=== PATIENT | female | born 1950 | race Caucasian/White ===

== ENCOUNTER 2021-02-17 09:12 | Outpatient (REF) | payer MEDICARE, SELFPAY ==
--- NOTE | ~2021-02-17 | US_ITS ---
EXAMINATION: ULTRASOUND GUIDED CORE BIOPSY BREAST, RIGHT ULTRASOUND GUIDED CORE BIOPSY BREAST, LEFT POST PROCEDURE DIGITAL MAMMOGRAM, BILATERAL CLINICAL INFORMATION: Hypoechoic spiculated mass anterior periareolar right breast and small hypoechoic mass posterior inner left breast on outside imaging, recommended for tissue sampling. COMPARISON: Outside bilateral breast ultrasound 02/17/2021 and outside mammography exams, most recent 01/29/2021 ([facility]). FINDINGS: Proper informed consent is obtained from the patient after discussion of the procedure, potential risks and complications, and alternatives. Patient was given an opportunity for questions. The patient appeared to understand. The patient consented to the procedure and signed the consent form. RIGHT BREAST: LOCATION: Periareolar upper outer right breast. GUIDANCE: Ultrasound-guided; aseptic technique. LESION: Ill-defined irregular hypoechoic lesion 11:00 position approximately 1.3 cm. APPROACH: Lateral medial. ANESTHESIA: 15 mL lidocaine 1%. DERMATOTOMY: Single skin christine dermatotomy performed. NEEDLE: 14-gauge Achieve core biopsy device with 13.5-gauge co-axial guide needle. CORES: 7. CLIP: HydroMARK; shape: butterfly. LEFT BREAST: New anesthesia and biopsy supplies are used. LOCATION: Posterior medial. GUIDANCE: Ultrasound-guided; aseptic technique. LESION: Oval hypoechoic with subtle peripheral hyperechoic rim, under 1 cm. APPROACH: Medial lateral. ANESTHESIA: 14 mL lidocaine 1%. DERMATOTOMY: Single skin christine dermatotomy performed. NEEDLE: 14-gauge Achieve core biopsy device with 13.5-gauge co-axial guide needle. CORES: 6. CLIP: HydroMARK; shape: butterfly. POST PROCEDURE DIGITAL MAMMOGRAM: The post biopsy mammogram is performed in separate room using separate digital mammography equipment from the biopsy procedure. Bilateral CC and bilateral ML views are obtained. There are scattered areas of fibroglandular density (breast composition category: b). Right biopsy clip marker is subareolar corresponding to the symptom marker on outside mammography 01/29/2021. There are 2 adjacent chronic irregular densities central upper right breast again noted mid depth, not sampled. No gross hematoma. Left clip marker is in position, adjacent to small irregular density seen on outside mammography 01/29/2021. No gross hematoma. The patient tolerated the procedure well. No immediate complications. Home instructions reviewed with the patient. Final pathology results are pending. US/US breast ndl core biopsy RT IMPRESSION: 1. Status post ultrasound-guided core biopsy right breast. Clip placed: HydroMARK; shape: butterfly shape. Pathology pending. 2. Status post ultrasound-guided core biopsy left breast. Clip placed: HydroMARK; shape: butterfly shape. Pathology pending.
--- NOTE | ~2021-02-17 | US_ITS ---
EXAMINATION: ULTRASOUND GUIDED CORE BIOPSY BREAST, RIGHT ULTRASOUND GUIDED CORE BIOPSY BREAST, LEFT POST PROCEDURE DIGITAL MAMMOGRAM, BILATERAL CLINICAL INFORMATION: Hypoechoic spiculated mass anterior periareolar right breast and small hypoechoic mass posterior inner left breast on outside imaging, recommended for tissue sampling. COMPARISON: Outside bilateral breast ultrasound 02/17/2021 and outside mammography exams, most recent 01/29/2021 ([facility]). FINDINGS: Proper informed consent is obtained from the patient after discussion of the procedure, potential risks and complications, and alternatives. Patient was given an opportunity for questions. The patient appeared to understand. The patient consented to the procedure and signed the consent form. RIGHT BREAST: LOCATION: Periareolar upper outer right breast. GUIDANCE: Ultrasound-guided; aseptic technique. LESION: Ill-defined irregular hypoechoic lesion 11:00 position approximately 1.3 cm. APPROACH: Lateral medial. ANESTHESIA: 15 mL lidocaine 1%. DERMATOTOMY: Single skin christine dermatotomy performed. NEEDLE: 14-gauge Achieve core biopsy device with 13.5-gauge co-axial guide needle. CORES: 7. CLIP: HydroMARK; shape: butterfly. LEFT BREAST: New anesthesia and biopsy supplies are used. LOCATION: Posterior medial. GUIDANCE: Ultrasound-guided; aseptic technique. LESION: Oval hypoechoic with subtle peripheral hyperechoic rim, under 1 cm. APPROACH: Medial lateral. ANESTHESIA: 14 mL lidocaine 1%. DERMATOTOMY: Single skin christine dermatotomy performed. NEEDLE: 14-gauge Achieve core biopsy device with 13.5-gauge co-axial guide needle. CORES: 6. CLIP: HydroMARK; shape: butterfly. POST PROCEDURE DIGITAL MAMMOGRAM: The post biopsy mammogram is performed in separate room using separate digital mammography equipment from the biopsy procedure. Bilateral CC and bilateral ML views are obtained. There are scattered areas of fibroglandular density (breast composition category: b). Right biopsy clip marker is subareolar corresponding to the symptom marker on outside mammography 01/29/2021. There are 2 adjacent chronic irregular densities central upper right breast again noted mid depth, not sampled. No gross hematoma. Left clip marker is in position, adjacent to small irregular density seen on outside mammography 01/29/2021. No gross hematoma. The patient tolerated the procedure well. No immediate complications. Home instructions reviewed with the patient. Final pathology results are pending. US/US breast ndl core biopsy LT IMPRESSION: 1. Status post ultrasound-guided core biopsy right breast. Clip placed: HydroMARK; shape: butterfly shape. Pathology pending. 2. Status post ultrasound-guided core biopsy left breast. Clip placed: HydroMARK; shape: butterfly shape. Pathology pending.
== END 2021-02-17 09:13 | disposition home or self-care (01) ==
LOC: HO.MAMMO 09:12
PROVIDERS: Visit Provider Surgery
DX: C50.411 Malignant neoplasm of upper-outer quadrant of right female breast (principal); C50.212 Malignant neoplasm of upper-inner quadrant of left female breast
CPT/HCPCS: 19083; 19084; 77066; 88305; 88342; 88360; 99212

== ENCOUNTER → 2021-02-20 14:09 | Outpatient (BNVA) | payer MEDICARE, SELFPAY | PROVIDERS: PCP Family Medicine; Visit Provider Surgery | DX: C50.912 Malignant neoplasm of unspecified site of left female breast (principal); C50.911 Malignant neoplasm of unspecified site of right female breast | CPT/HCPCS: 99212 ==

== ENCOUNTER 2021-02-24 12:45 | Outpatient (REF) | payer MEDICARE, SELFPAY ==
[2021-02-24 13:27] LABS: Blood Urea Nitrogen 12 mg/dL (9-16); Estimated Glomerular Filt Rate > 60
== END 2021-02-24 12:46 | disposition home or self-care (01) ==
LOC: HO.MRI 12:45
PROVIDERS: Visit Provider Surgery
DX: C50.919 Malignant neoplasm of unspecified site of unspecified female breast (principal)
CPT/HCPCS: 36415; 82565; 84520

== ENCOUNTER → 2021-03-19 11:16 | Outpatient (BNVA) | payer MEDICARE, SELFPAY | PROVIDERS: PCP Family Medicine; Visit Provider Surgery | DX: C50.911 Malignant neoplasm of unspecified site of right female breast (principal); C50.912 Malignant neoplasm of unspecified site of left female breast | CPT/HCPCS: 99212 ==

== ENCOUNTER 2021-04-01 06:53 | Day surgery (SDC) | payer MEDICARE, SELFPAY ==
[2021-03-26 12:49] VITALS: BMI 46.0
--- NOTE | 2021-03-31 08:54 | P.CONAN_ITS ---
HPI - Anesthesia Eval Consult details Narrative: 71yo F for Bilateral Sentinal Node Biopsy, Needle Localization, L umpectomy PMFSH Active Problems Active Problems: All Active Problems (Updated 03/26/21 @ 12:53 by Erika Diallo) Abnormal ultrasound of breast (Acute) Lobular carcinoma of right breast (Acute) Invasive ductal carcinoma of left breast (Acute) Past Medical History Medical History Anemia Arthritis COVID-19 vaccine administered Diverticulitis GERD (gastroesophageal reflux disease) Insomnia Invasive ductal carcinoma of left breast Lobular carcinoma in situ of right breast Migraines Morbid obesity Situational anxiety Situational depression Family History Family History Mother Glioblastoma Father Lung cancer Paternal Grandmother Cancer of unknown origin Surgical History Surgical History History of colon resection History of colostomy reversal History of incision and drainage Hx of colonoscopy Social History Social History Are you a primary md do resident urgent care to a significant other at home: No Do you presently have visiting nurse or other home services: No Alcohol intake: current Alcohol intake frequency: holidays/special occasions only Smoking Status: Never smoker Meds Allergies Allergy/AdvReac Type Severity Reaction Status Date / Time fluoxetine [Prozac] Allergy Unknown worsening Verified 03/26/21 12:45 depression gabapentin Allergy Unknown irritabilit Verified 03/26/21 12:45 y Iodinated Contrast Media Allergy Unknown RASH Verified 04/01/21 07:19 [IV CONTRAST] nortriptyline Allergy Unknown irritabilit Verified 03/26/21 12:45 y topiramate Allergy Unknown mild Verified 03/26/21 12:45 depression verapamil Allergy Unknown irritabilit Verified 03/26/21 12:45 y food allergies Allergy Unknown Sneezing Uncoded 03/26/21 12:45 Home Medications Medication Instructions Recorded Confirmed Last Taken Type ferrous gluconate 324 mg (38 mg 324 mg PO BID 02/17/21 03/26/21 Unknown History iron) tablet magnesium 200 mg tablet 200 mg PO DAILY 02/17/21 03/26/21 Unknown History omeprazole 20 mg capsule,delayed 20 mg PO DAILY 02/17/21 03/26/21 04/01/21 History release multivitamin 1 tab PO DAILY 03/26/21 03/26/21 Unknown History naratriptan 1 tab PO DIRECTED 03/26/21 03/26/21 Unknown History propranolol 1 cap PO DAILY 03/26/21 03/26/21 04/01/21 History Exam Exam Date and Time: March 31, 2021 0854 Height,Weight and Vital Signs: Height 5 ft 7 in Weight 133.356 kg Pertinent Lab Results Pertinent Lab Results: Laboratory Tests 02/24/21 12:55 BUN 12 Creatinine 0.77 Assessment and Plan Assessment Anesthesia Assessment: Chart Reviewed
[2021-04-01] VITALS (8 sets, daily range): BP systolic 104–147; BP diastolic 54–73; PULSE 69–80; RESP 16–18; TEMP 36.7–36.9; O2SAT 92–97
--- NOTE | ~2021-04-01 | MM_ITS ---
EXAMINATION: MM MAMMOGRAM GUIDED NEEDLE LOCALIZATION BREAST, BILATERAL MM MAMMOGRAPHY DIAGNOSTIC, RIGHT MM NEEDLE LOCALIZATION SPECIMEN BREAST, BILATERAL CLINICAL INFORMATION: Recent diagnosis left breast invasive ductal carcinoma and right breast invasive lobular carcinoma. COMPARISON: Bilateral ultrasound-guided breast biopsy 02/17/2021, mammography 02/17/2021, outside mammography from [facility] 01/29/2021, 01/24/2019, 09/02/2015, 03/14/2013; breast MR report from [facility] 03/06/2021. TECHNIQUE NEEDLE LOC: Case findings and localization plans discussed with Dr. Hui on 03/31/2021. Proper informed consent is obtained from the patient after discussion of the procedure, potential risks and complications, and alternatives including declining the procedure today. Patient was given an opportunity for questions. The patient appeared to understand. The patient consented to the procedure and signed the consent form. MM DIAGNOSTIC DIGITAL MAMMOGRAPHY, RIGHT Right mammography performed prior to needle localization in order to determine optimal approach with either mammographic or ultrasound guidance in regards to distance from right nipple. TECHNIQUE: Right digital mammography is performed in craniocaudal and mediolateral views with nipple in profile. FINDINGS: There are scattered areas of fibroglandular density (ACR BI-RADS breast composition Category b). The nipple in profile images show that the biopsy clip marker is sufficiently distanced from the nipple to allow for mammographic localization right breast. Irregular densities central right breast are again noted, described as stable long-standing chronic on outside imaging reports. MM MAMMOGRAM GUIDED NEEDLE LOCALIZATION BREAST, BILATERAL LEFT: GUIDANCE: Digital mammography. APPROACH: Mediolateral. TARGET: HydroMark Butterfly shaped biopsy clip marker. ANESTHESIA: lidocaine 1%: 5 cc. LOCALIZATION MARKER: Sarita MammaLok, 7.5 cm length. The skin is prepped and local anesthesia administered. The needle is positioned and position assessed with mammography. The wire is hooked into position. [place] needle protector placed. The patient tolerated the procedure well and had no immediate complication. RIGHT: GUIDANCE: Digital mammography. APPROACH: Lateral Medial. TARGET: HydroMark Butterfly shaped biopsy clip marker. ANESTHESIA: lidocaine 1%: 5 cc. LOCALIZATION MARKER: Sarita MammaLok, 5 cm length. The skin is prepped and local anesthesia administered. The needle is positioned and position assessed with mammography. The wire is hooked into position. [place] needle protector placed. The patient tolerated the procedure well and had no immediate complication. Following the bilateral procedures, 4% lidocaine ointment was administered to the both areola and covered with bilateral Tegaderm in anticipation of bilateral nuclear lymphoscintigraphy injection for sentinel lymph node mapping. Initial procedure results called to medical imaging technologist (Samreen) for Dr. Hui. MM RADIOGRAPH SPECIMEN BREAST, BILATERAL TECHNIQUE SPECIMEN RADIOGRAPH, LEFT: Imaging of the excised specimen is performed using digital mammography in 1 view. FINDINGS SPECIMEN RADIOGRAPH, LEFT The specimen shows the needle and hookwire are delivered intact. The biopsy clip marker and small irregular density recently sampled are seen in the specimen.. Results were called to Dr. Luís Hui in the operating room at the time of imaging. TECHNIQUE SPECIMEN RADIOGRAPH, RIGHT: Imaging of the excised specimen is performed using digital mammography in 2 views. FINDINGS SPECIMEN RADIOGRAPH, RIGHT The specimen shows the needle and hookwire are delivered intact. The biopsy clip marker and parenchymal density are identified in the specimen. Results were called to Dr. Luís Hui in the operating room at the time of imaging. MM/MM needle loc RT IMPRESSION: 1. Status post bilateral breast needle localization with bilateral wires into position. 2. Bilateral postoperative specimen radiographs obtained.
--- NOTE | ~2021-04-01 | MM_ITS ---
EXAMINATION: MM MAMMOGRAM GUIDED NEEDLE LOCALIZATION BREAST, BILATERAL MM MAMMOGRAPHY DIAGNOSTIC, RIGHT MM NEEDLE LOCALIZATION SPECIMEN BREAST, BILATERAL CLINICAL INFORMATION: Recent diagnosis left breast invasive ductal carcinoma and right breast invasive lobular carcinoma. COMPARISON: Bilateral ultrasound-guided breast biopsy 02/17/2021, mammography 02/17/2021, outside mammography from [facility] 01/29/2021, 01/24/2019, 09/02/2015, 03/14/2013; breast MR report from [facility] 03/06/2021. TECHNIQUE NEEDLE LOC: Case findings and localization plans discussed with Dr. Hui on 03/31/2021. Proper informed consent is obtained from the patient after discussion of the procedure, potential risks and complications, and alternatives including declining the procedure today. Patient was given an opportunity for questions. The patient appeared to understand. The patient consented to the procedure and signed the consent form. MM DIAGNOSTIC DIGITAL MAMMOGRAPHY, RIGHT Right mammography performed prior to needle localization in order to determine optimal approach with either mammographic or ultrasound guidance in regards to distance from right nipple. TECHNIQUE: Right digital mammography is performed in craniocaudal and mediolateral views with nipple in profile. FINDINGS: There are scattered areas of fibroglandular density (ACR BI-RADS breast composition Category b). The nipple in profile images show that the biopsy clip marker is sufficiently distanced from the nipple to allow for mammographic localization right breast. Irregular densities central right breast are again noted, described as stable long-standing chronic on outside imaging reports. MM MAMMOGRAM GUIDED NEEDLE LOCALIZATION BREAST, BILATERAL LEFT: GUIDANCE: Digital mammography. APPROACH: Mediolateral. TARGET: HydroMark Butterfly shaped biopsy clip marker. ANESTHESIA: lidocaine 1%: 5 cc. LOCALIZATION MARKER: [place] MammaLok, 7.5 cm length. The skin is prepped and local anesthesia administered. The needle is positioned and position assessed with mammography. The wire is hooked into position. [place] needle protector placed. The patient tolerated the procedure well and had no immediate complication. RIGHT: GUIDANCE: Digital mammography. APPROACH: Lateral Medial. TARGET: HydroMark Butterfly shaped biopsy clip marker. ANESTHESIA: lidocaine 1%: 5 cc. LOCALIZATION MARKER: [place] MammaLok, 5 cm length. The skin is prepped and local anesthesia administered. The needle is positioned and position assessed with mammography. The wire is hooked into position. [place] needle protector placed. The patient tolerated the procedure well and had no immediate complication. Following the bilateral procedures, 4% lidocaine ointment was administered to the both areola and covered with bilateral Tegaderm in anticipation of bilateral nuclear lymphoscintigraphy injection for sentinel lymph node mapping. Initial procedure results called to medical lead (Samreen) for Dr. Hui. MM RADIOGRAPH SPECIMEN BREAST, BILATERAL TECHNIQUE SPECIMEN RADIOGRAPH, LEFT: Imaging of the excised specimen is performed using digital mammography in 1 view. FINDINGS SPECIMEN RADIOGRAPH, LEFT The specimen shows the needle and hookwire are delivered intact. The biopsy clip marker and small irregular density recently sampled are seen in the specimen.. Results were called to Dr. Luís Hui in the operating room at the time of imaging. TECHNIQUE SPECIMEN RADIOGRAPH, RIGHT: Imaging of the excised specimen is performed using digital mammography in 2 views. FINDINGS SPECIMEN RADIOGRAPH, RIGHT The specimen shows the needle and hookwire are delivered intact. The biopsy clip marker and parenchymal density are identified in the specimen. Results were called to Dr. Luís Hui in the operating room at the time of imaging. MM/MM diagnostic mammo unilat RT IMPRESSION: 1. Status post bilateral breast needle localization with bilateral wires into position. 2. Bilateral postoperative specimen radiographs obtained.
--- NOTE | ~2021-04-01 | MM_ITS ---
EXAMINATION: MM MAMMOGRAM GUIDED NEEDLE LOCALIZATION BREAST, BILATERAL MM MAMMOGRAPHY DIAGNOSTIC, RIGHT MM NEEDLE LOCALIZATION SPECIMEN BREAST, BILATERAL CLINICAL INFORMATION: Recent diagnosis left breast invasive ductal carcinoma and right breast invasive lobular carcinoma. COMPARISON: Bilateral ultrasound-guided breast biopsy 02/17/2021, mammography 02/17/2021, outside mammography from [facility] 01/29/2021, 01/24/2019, 09/02/2015, 03/14/2013; breast MR report from [facility] 03/06/2021. TECHNIQUE NEEDLE LOC: Case findings and localization plans discussed with Dr. Hui on 03/31/2021. Proper informed consent is obtained from the patient after discussion of the procedure, potential risks and complications, and alternatives including declining the procedure today. Patient was given an opportunity for questions. The patient appeared to understand. The patient consented to the procedure and signed the consent form. MM DIAGNOSTIC DIGITAL MAMMOGRAPHY, RIGHT Right mammography performed prior to needle localization in order to determine optimal approach with either mammographic or ultrasound guidance in regards to distance from right nipple. TECHNIQUE: Right digital mammography is performed in craniocaudal and mediolateral views with nipple in profile. FINDINGS: There are scattered areas of fibroglandular density (ACR BI-RADS breast composition Category b). The nipple in profile images show that the biopsy clip marker is sufficiently distanced from the nipple to allow for mammographic localization right breast. Irregular densities central right breast are again noted, described as stable long-standing chronic on outside imaging reports. MM MAMMOGRAM GUIDED NEEDLE LOCALIZATION BREAST, BILATERAL LEFT: GUIDANCE: Digital mammography. APPROACH: Mediolateral. TARGET: HydroMark Butterfly shaped biopsy clip marker. ANESTHESIA: lidocaine 1%: 5 cc. LOCALIZATION MARKER: [place] MammaLok, 7.5 cm length. The skin is prepped and local anesthesia administered. The needle is positioned and position assessed with mammography. The wire is hooked into position. [place] needle protector placed. The patient tolerated the procedure well and had no immediate complication. RIGHT: GUIDANCE: Digital mammography. APPROACH: Lateral Medial. TARGET: HydroMark Butterfly shaped biopsy clip marker. ANESTHESIA: lidocaine 1%: 5 cc. LOCALIZATION MARKER: [place] MammaLok, 5 cm length. The skin is prepped and local anesthesia administered. The needle is positioned and position assessed with mammography. The wire is hooked into position. [place] needle protector placed. The patient tolerated the procedure well and had no immediate complication. Following the bilateral procedures, 4% lidocaine ointment was administered to the both areola and covered with bilateral Tegaderm in anticipation of bilateral nuclear lymphoscintigraphy injection for sentinel lymph node mapping. Initial procedure results called to biomedical equipment specialist (Samreen) for Dr. Hui. MM RADIOGRAPH SPECIMEN BREAST, BILATERAL TECHNIQUE SPECIMEN RADIOGRAPH, LEFT: Imaging of the excised specimen is performed using digital mammography in 1 view. FINDINGS SPECIMEN RADIOGRAPH, LEFT The specimen shows the needle and hookwire are delivered intact. The biopsy clip marker and small irregular density recently sampled are seen in the specimen.. Results were called to Dr. Luís Hui in the operating room at the time of imaging. TECHNIQUE SPECIMEN RADIOGRAPH, RIGHT: Imaging of the excised specimen is performed using digital mammography in 2 views. FINDINGS SPECIMEN RADIOGRAPH, RIGHT The specimen shows the needle and hookwire are delivered intact. The biopsy clip marker and parenchymal density are identified in the specimen. Results were called to Dr. Luís Hui in the operating room at the time of imaging. MM/MM needle loc LT IMPRESSION: 1. Status post bilateral breast needle localization with bilateral wires into position. 2. Bilateral postoperative specimen radiographs obtained.
--- NOTE | ~2021-04-01 | NM_ITS ---
EXAMINATION: NM LYMPH SCINTIGRAPHY, BILATERAL CLINICAL INFORMATION: Lobular carcinoma right breast. Invasive ductal carcinoma left breast. COMPARISON: None. TECHNIQUE: Following explaining bilateral breast lymphoscintigraphy procedure, benefits and risk, a written consent was obtained by Dr. Gamez. Patient was placed supine on ultrasound stretcher and the area around the left breast areola was cleaned in usual sterile fashion. 0.5 mCi of 99 technetium lymphocytic was divided in 4 equal doses and injected in 4 quadrants around the left breast areola. Similar procedure was performed through the right breast with 4 injections around the right breast areola. Patient tolerated procedure extremely well. Imaging was performed 30 minutes later. FINDINGS: Left breast: There are four-quadrant isotope activity at on the left breast with solitary sentinel node left anterior axilla. Right breast: There is four-quadrant isotope activity around the right breast area left with a solitary sentinel node in right anterior axilla. NM/NM sentinel node w imaging IMPRESSION: Bilateral breast lymphoscintigraphy performed. There is solitary sentinel lymph node activity in bilateral anterior axilla.
[2021-04-01] MEDS: Lactated Ringers 1,000 ML 100 ML IVCONT (07:54)
[2021-04-01] MEDS: ceFAZolin Sodium/Dextrose,Iso 2 GM/50 ML PIGGYBACK IV (07:54)
[2021-04-01] MEDS: Lidocaine 4 % Cream KIT 1 APPL TOPICAL (07:54)
--- NOTE | 2021-04-01 09:49 | P.CONAN_ITS ---
[facility] Active Problems Active Problems: All Active Problems (Updated 03/26/21 @ 12:53 by Erika carmichael) Abnormal ultrasound of breast (Acute) Lobular carcinoma of right breast (Acute) Invasive ductal carcinoma of left breast (Acute) Past Medical History Medical History Anemia Arthritis COVID-19 vaccine administered Diverticulitis GERD (gastroesophageal reflux disease) Insomnia Invasive ductal carcinoma of left breast Lobular carcinoma in situ of right breast Migraines Morbid obesity Situational anxiety Situational depression Family History Family History Mother Glioblastoma Father Lung cancer Paternal Grandmother Cancer of unknown origin Surgical History Surgical History History of colon resection History of colostomy reversal History of incision and drainage Hx of colonoscopy Social History Social History Are you a primary transition of care specialist to a significant other at home: No Do you presently have visiting nurse or other home services: No Alcohol intake: current Alcohol intake frequency: holidays/special occasions o nly Smoking Status: Never smoker Use of substances other than those prescribed or required for medical reasons: No Have you been hit, kicked, punched, or otherwise hurt by someone within the past year? If so, by whom?: No Are you DNR?: No Advance Directives: No Advance Directives Information Provided: No Advance Directives on File: No Recently lost weight without trying: No Eating poorly because of decreased appetite: No Nutrition Risks: No Nutritional Risk Patient : No (NO) Meds Allergies Allergy/AdvReac Type Severity Reaction Status Date / Time fluoxetine [Prozac] Allergy Unknown worsening Verified 03/26/21 12:45 depression gabapentin Allergy Unknown irritabilit Verified 03/26/21 12:45 y Iodinated Contrast Media Allergy Unknown RASH Verified 04/01/21 07:19 [IV CONTRAST] nortriptyline Allergy Unknown irritabilit Verified 03/26/21 12:45 y topiramate Allergy Unknown mild Verified 03/26/21 12:45 depression verapamil Allergy Unknown irritabilit Verified 03/26/21 12:45 y food allergies Allergy Unknown Sneezing Uncoded 03/26/21 12:45 Active Medications: Current Medications Generic Name Dose Route Start Last Admin Trade Name Elmer PRN Reason Stop Dose Admin Lactated Ringer's 1,000 mls @ 100 mls/hr 04/01/21 07:30 04/01/21 07:54 Lr IVCONT 100 mls/hr .Q10H NAFISA Administration Home Medications Medication Instructions Recorded Confirmed Last Taken Type ferrous gluconate 324 mg (38 mg 324 mg PO BID 02/17/21 03/26/21 Unknown History iron) tablet magnesium 200 mg tablet 200 mg PO DAILY 02/17/21 03/26/21 Unknown History omeprazole 20 mg capsule,delayed 20 mg PO DAILY 02/17/21 03/26/21 04/01/21 History release multivitamin 1 tab PO DAILY 03/26/21 03/26/21 Unknown History naratriptan 1 tab PO DIRECTED 03/26/21 03/26/21 Unknown History propranolol 1 cap PO DAILY 03/26/21 03/26/21 04/01/21 History Exam Exam Date and Time: April 01, 2021 0949 Height,Weight and Vital Signs: Height 5 ft 7 in Weight 133.356 kg Last Vital Signs Temp 98.1 F 04/01/21 07:28 Pulse 70 04/01/21 07:28 Resp 18 04/01/21 07:28 BP 130/67 04/01/21 07:28 Pulse Ox 95 04/01/21 07:28 Airway Mallampati Class: III TM Dist: >3cm Neck ROM: Full Heart: RRR Lungs: CTA
--- NOTE | 2021-04-01 14:50 | P.OP_ITS ---
Operative Note Operative Note Date of Service: 04/01/21 Narrative: Preoperative diagnosis: Invasive Lobular carcinoma right breast, invasive ductal carcinoma left breast Postoperative diagnosis: Same Procedure: Bilateral breast lumpectomy with needle localization, bilateral sentinel node biopsy axilla Surgeon: Luís Hui MD Special Agent Secret Service: Kailee Aleman PA-C Anesthesia: General LMA Indications for procedure: 71-year-old female presenting with recent mammogram which revealed bilateral abnormalities. She is status post bilateral radiologic guided core biopsies with ultrasound which revealed a right breast invasive lobular carcinoma and a left breast invasive ductal carcinoma. She presents today for bilateral lumpectomies with needle localization and sentinel node excisions. Operative findings: Bilateral specimen x-rays confirm marking clip and mass within the specimen. The right breast was felt to be close to the inferior posterior margin therefore wider excision was performed of this margin. Specimen: 1. Left breast lumpectomy 2. Right breast lumpectomy 3. Left sentinel node biopsy x 2 4. Right sentinel node biopsy x 2 5. Inferior posterior right breast margin Estimated blood loss: 20 mL Complications: None Procedure details: Patient was brought to the OR placed in a supine position. After administering general anesthesia the patient has bilateral breast and axilla were prepped with ChloraPrep and draped in a sterile fashion. A surgical time-out was called and consent confirmed. Patient received preoperative antibiotics and Venodyne boots were in place. Local anesthesia consisting of 0.25% Sensorcaine was then infiltrated around the localizing needle in the left breast. This was located in the upper inner quadrant. A radial incision was made adjacent to the needle. This was carried down through subcutaneous tissue. Superior and inferior skin flaps were then created with electrocautery. Electrocautery was then used to dissect superiorly medially inferiorly and then laterally down to chest wall. The lesion was then excised off the chest wall using electrocautery. Specimen was marked with a long suture on the a lateral margin, short suture on superior margin, and loop suture on the deep/posterior margin. Specimen x-ray confirmed the clip within the specimen. Gross pathology confirmed negative margins grossly. Attention was then directed to the right side were again a localizing needle was placed in the upper outer quadrant. Local anesthesia was infiltrated and a radial incision created starting at the insertion site of the needle. Incision was carried down through subcutaneous tissue and superior and inferior skin flaps were created. Once again dissection was carried down superior follow inferior followed by medial followed by lateral the needle and the lesion was dissected off the chest wall. Specimen x-ray confirmed clip within the specimen. Pathology revealed a close margin in the inferior posterior margin. This was reexcised and sent as a permanent specimen. Attention was then directed to the left axilla. The gamma probe was used to identify the area of radio activity. Incision was then made over this area and carried out through subcutaneous tissue past the clavipectoral fascia. Using the gamma probe dissection was continued down to the area of increased activity. Two enlarged lymph nodes were identified. These were excised and determined to be sentinel nodes. No other palpable nodes or radioactive nodes could be identified. Wounds were then irrigated and suctioned dry. Next attention was directed to the right axilla were once again the gamma probe identified the area of increased activity. Incision was then made in the lower axillary fold and carried out through subcutaneous tissue. Incision was carried down into the axillary compartment and the gamma probe used to direct dissection to the sentinel node. Once again 2 sentinel nodes were identified clearly. Following removal of this no further radioactivity was identified. No palpable nodes were identified. All 4 incisions were irrigated with saline solution and suctioned dry. Wounds were checked for hemostasis. Beginning in the breast incisions deep breast tissue was reapproximated using interrupted 3-0 Polysorb sutures. Superficial breast tissue and dermis were reapproximated using interrupted 3-0 Polysorb sutures. Skin was closed using a running subcuticular 4-0 Polysorb suture. Axillary incisions were close in layers beginning with the clavipectoral fascia deep closed with interrupted 3-0 Polysorb sutures. Dermis was reapproximated using interrupted 3-0 Polysorb sutures. Skin was then closed using a running subcuticular 4-0 Polysorb suture. Steri-Strips 4 x 4 gauze and Tegaderm were then applied to all 4 incisions. The patient tolerated the procedure well. Sponge, instrument, needle counts reported as correct. The patient was transferred to PACU in stable condition. Breast [place] Node Biopsy Substrate(s) used for sentinel node biopsy in the non-neoadjuvant setting: Radiotracer Substrate(s) used for sentinel node biopsy in the neoadjuvant setting: N/A All colored nodes or non-colored nodes present at the end of a dye filled lymphatic channel were removed, if dye was used as the substrate for localization: N/A All significantly radioactive nodes were removed, if radionuclide was used as the substrate for localization: Yes All palpably suspicious nodes were removed, if present: Yes If clips were placed in pathology-involved nodes, those nodes were identified and removed: N/A General Surg. - Synoptic Notes Breast [place] Node Biopsy Substrate(s) used for sentinel node biopsy in the non-neoadjuvant setting: Radiotracer Substrate(s) used for sentinel node biopsy in the neoadjuvant setting: N/A All colored nodes or non-colored nodes present at the end of a dye filled lymphatic channel were removed, if dye was used as the substrate for localizatio n: N/A All significantly radioactive nodes were removed, if radionuclide was used as the substrate for localization: Yes All palpably suspicious nodes were removed, if present: Yes If clips were placed in pathology-involved nodes, those nodes were identified and removed: N/A
[2021-04-01] MEDS: oxyCODONE HCl Immed Release 5 MG TABLET PO (15:40)
== END 2021-04-01 16:51 | disposition home or self-care (01) ==
PROVIDERS: PCP Family Medicine; Visit Provider Surgery
PROC: (CPT 19301; principal; 2021-04-01 11:20)
PROC: (CPT 19301; 2021-04-01 11:20)
PROC: (CPT 19301; 2021-04-01 11:20)
DX: C50.911 Malignant neoplasm of unspecified site of right female breast (principal); C50.912 Malignant neoplasm of unspecified site of left female breast; Z17.0 Estrogen receptor positive status [ER+]
CPT/HCPCS: 19301; 38525; 19281; 19282; 77065; 78195; 88305; 88307; 88329; 88341; 88342; A4648; A9520; J0131; J0690; J2250; J2405; J3010

== ENCOUNTER → 2021-04-09 10:02 | Outpatient (BNVA) | payer MEDICARE, SELFPAY | PROVIDERS: PCP Family Medicine; Visit Provider Surgery | DX: C50.911 Malignant neoplasm of unspecified site of right female breast (principal); C50.912 Malignant neoplasm of unspecified site of left female breast | CPT/HCPCS: 99212 ==

== ENCOUNTER → 2021-04-17 11:38 | Outpatient (BNVA) | payer MEDICARE, SELFPAY | PROVIDERS: PCP Family Medicine; Visit Provider Surgery | DX: C50.911 Malignant neoplasm of unspecified site of right female breast (principal); C50.912 Malignant neoplasm of unspecified site of left female breast; E66.01 Morbid (severe) obesity due to excess calories; T78.1XXA Other adverse food reactions, not elsewhere classified, initial encounter; Z88.8 Allergy status to other drugs, medicaments and biological substances; Z91.041 Radiographic dye allergy status | CPT/HCPCS: 99212 ==

== ENCOUNTER 2021-04-23 15:06 | Outpatient (REF) | payer MEDICARE, SELFPAY | END 2021-04-23 15:07 | disposition home or self-care (01) | LOC: HO.LNP 15:06 | PROVIDERS: PCP Family Medicine; Visit Provider Surgery | DX: L02.412 Cutaneous abscess of left axilla (principal); Z79.899 Other long term (current) drug therapy | CPT/HCPCS: 87071; 87205; 99212 ==

== ENCOUNTER → 2021-04-27 13:58 | Outpatient (BNVA) | payer MEDICARE, SELFPAY | PROVIDERS: PCP Family Medicine; Visit Provider Surgery | DX: L02.412 Cutaneous abscess of left axilla (principal) | CPT/HCPCS: 99212 ==

== ENCOUNTER → 2021-05-01 11:29 | Outpatient (BNVA) | payer MEDICARE, SELFPAY | PROVIDERS: PCP Family Medicine; Referring Provider Family Medicine; Visit Provider Surgery | DX: Z48.3 Aftercare following surgery for neoplasm (principal); C50.912 Malignant neoplasm of unspecified site of left female breast; C50.911 Malignant neoplasm of unspecified site of right female breast | CPT/HCPCS: 99212 ==

== ENCOUNTER → 2021-05-07 09:44 | Outpatient (BNVA) | payer MEDICARE, SELFPAY | PROVIDERS: PCP Family Medicine; Visit Provider Surgery | DX: C50.911 Malignant neoplasm of unspecified site of right female breast (principal); C50.912 Malignant neoplasm of unspecified site of left female breast | CPT/HCPCS: 99212 ==

== ENCOUNTER 2021-05-13 11:00 | Day surgery (SDC) | payer MEDICARE, SELFPAY ==
[2021-04-22 19:27] VITALS: BMI 45.4
--- NOTE | 2021-04-27 12:55 | HO.ANESPROP2 ---
HPI - Anesthesia Eval Consult details Narrative: 71yo F for bilateral Wider Excision of Breast Masses s/p lumpectomy 04/01/2021 with GA-ETT 7.5 PMFSH Active Problems Active Problems: All Active Problems (Updated 04/23/21 @ 15:36 by Luís Hui MD) Abscess of left axilla (Acute) Abnormal ultrasound of breast (Acute) Lobular carcinoma of right breast (Acute) Invasive ductal carcinoma of left breast (Acute) Past Medical History Medical History (Updated 04/23/21 @ 15:36 by Luís Hui MD) Anemia Arthritis COVID-19 vaccine administered Diverticulitis GERD (gastroesophageal reflux disease) Insomnia Invasive ductal carcinoma of left breast Lobular carcinoma in situ of right breast Migraines Morbid obesity Situational anxiety Situational depression Family History Family History Mother Glioblastoma Father Lung cancer Paternal Grandmother Cancer of unknown origin Surgical History Surgical History (Updated 04/23/21 @ 11:46 by Erika Diallo) History of bilateral breast biopsy History of colon resection History of colostomy reversal History of incision and drainage Hx of colonoscopy Social History Social History Are you a primary physician primary care sports medicine to a significant other at home: No Do you presently have visiting nurse or other home services: No Alcohol intake: current Alcohol intake frequency: holidays/special occasions only Patient Tobacco Use Status: Never used Tobacco Meds Allergies Allergy/AdvReac Type Severity Reaction Status Date / Time fluoxetine [Prozac] Allergy Unknown worsening Verified 04/22/21 19:26 depression gabapentin Allergy Unknown irritabilit Verified 04/22/21 19:26 y Iodinated Contrast Media Allergy Unknown RASH Verified 04/22/21 19:26 [IV CONTRAST] nortriptyline Allergy Unknown irritabilit Verified 04/22/21 19:26 y topiramate Allergy Unknown mild Verified 04/22/21 19:26 depression verapamil Allergy Unknown irritabilit Verified 04/22/21 19:26 y food allergies Allergy Unknown Sneezing Uncoded 03/26/21 12:45 Home Medications Medication Instructions Recorded Confirmed Last Taken Type ferrous gluconate 324 mg (38 mg 324 mg PO BID 02/17/21 04/22/21 Unknown History iron) tablet magnesium 200 mg tablet 200 mg PO DAILY 02/17/21 04/22/21 Unknown History omeprazole 20 mg capsule,delayed 20 mg PO DAILY 02/17/21 04/22/21 04/01/21 History release multivitamin 1 tab PO DAILY 03/26/21 04/22/21 Unknown History naratriptan 1 tab PO DIRECTED 03/26/21 04/22/21 Unknown History propranolol 1 cap PO DAILY 03/26/21 04/22/21 04/01/21 History Exam Exam Date and Time: April 27, 2021 1255 Height,Weight and Vital Signs: Height 5 ft 7 in Weight 131.542 kg Assessment and Plan Assessment Anesthesia Assessment: Chart Reviewed
--- NOTE | 2021-05-01 13:19 | HO.ANESPROP2 ---
Documented by User: Samreen Luis 05/12/21 09:19 HPI - Anesthesia Eval Consult details Narrative: 71yo F for Left Wider Excision of Breast Cancer & Drainage of Axillary Seroma s/p breast biopsy 03/2021 with GA-ETT 7.5 PMFSH Active Problems Active Problems: All Active Problems (Updated 04/23/21 @ 15:36 by Luís Hui MD) Abscess of left axilla (Acute) Abnormal ultrasound of breast (Acute) Lobular carcinoma of right breast (Acute) Invasive ductal carcinoma of left breast (Acute) Past Medical History Medical History Anemia Arthritis COVID-19 vaccine administered Diverticulitis GERD (gastroesophageal reflux disease) Insomnia Invasive ductal carcinoma of left breast Lobular carcinoma in situ of right breast Migraines Morbid obesity Situational anxiety Situational depression Family History Family History Mother Glioblastoma Father Lung cancer Paternal Grandmother Cancer of unknown origin Surgical History Surgical History History of bilateral breast biopsy History of colon resection History of colostomy reversal History of incision and drainage Hx of colonoscopy Social History Social History Are you a primary critical care nurse specialist to a significant other at home: No Do you presently have visiting nurse or other home services: No Alcohol intake: current Alcohol intake frequency: holidays/special occasions only Patient Tobacco Use Status: Never used Tobacco Use of substances other than those prescribed or required for medical reasons: No Are you DNR?: No Advance Directives: No Advance Directives Information Provided: No Advance Directives on File: No Meds Allergies Allergy/AdvReac Type Severity Reaction Status Date / Time fluoxetine [Prozac] Allergy Unknown worsening Verified 05/13/21 11:14 depression gabapentin Allergy Unknown irritabilit Verified 05/13/21 11:14 y Iodinated Contrast Media Allergy Unknown RASH Verified 05/13/21 11:14 [IV CONTRAST] nortriptyline Allergy Unknown irritabilit Verified 05/13/21 11:14 y topiramate Allergy Unknown mild Verified 05/13/21 11:14 depression verapamil Allergy Unknown irritabilit Verified 05/13/21 11:14 y food allergies Allergy Unknown Sneezing Uncoded 03/26/21 12:45 Home Medications Medication Instructions Recorded Confirmed Last Taken Type ferrous gluconate 324 mg (38 mg 324 mg PO BID 02/17/21 05/13/21 05/12/21 History iron) tablet magnesium 200 mg tablet 200 mg PO DAILY 02/17/21 05/01/21 Unknown History omeprazole 20 mg capsule,delayed 20 mg PO DAILY 02/17/21 05/13/21 05/13/21 03:00 History release multivitamin 1 tab PO DAILY 03/26/21 05/01/21 Unknown History naratriptan 1 tab PO DIRECTED 03/26/21 05/01/21 Unknown History propranolol 1 cap PO DAILY 03/26/21 05/01/21 04/01/21 History Exam Exam Date and Time: May 01, 2021 1319 Height,Weight and Vital Signs: Height 5 ft 7 in Weight 131.542 kg Assessment and Plan Assessment Anesthesia Assessment: Chart Reviewed Documented by User: Vikas Patel 05/13/21 12:03 [facility] Past Medical History Medical History Anemia Arthritis COVID-19 vaccine administered Diverticulitis GERD (gastroesophageal reflux disease) Insomnia Invasive ductal carcinoma of left breast Lobular carcinoma in situ of right breast Migraines Morbid obesity Situational anxiety Situational depression Family History Family History Mother Glioblastoma Father Lung cancer Paternal Grandmother Cancer of unknown origin Surgical History Surgical History History of bilateral breast biopsy History of colon resection History of colostomy reversal History of incision and drainage Hx of colonoscopy Social History Social History Are you a primary critical care nurse specialist to a significant other at home: No Do you presently have visiting nurse or other home services: No Alcohol intake: current Alcohol intake frequency: holidays/special occasions only Patient Tobacco Use Status: Never used Tobacco Use of substances other than those prescribed or required for medical reasons: No Are you DNR?: No Advance Directives: No Advance Directives Information Provided: No Advance Directives on File: No Meds Allergies Allergy/AdvReac Type Severity Reaction Status Date / Time fluoxetine [Prozac] Allergy Unknown worsening Verified 05/13/21 11:14 depression gabapentin Allergy Unknown irritabilit Verified 05/13/21 11:14 y Iodinated Contrast Media Allergy Unknown RASH Verified 05/13/21 11:14 [IV CONTRAST] nortriptyline Allergy Unknown irritabilit Verified 05/13/21 11:14 y topiramate Allergy Unknown mild Verified 05/13/21 11:14 depression verapamil Allergy Unknown irritabilit Verified 05/13/21 11:14 y food allergies Allergy Unknown Sneezing Uncoded 03/26/21 12:45 Home Medications Medication Instructions Recorded Confirmed Last Taken Type ferrous gluconate 324 mg (38 mg 324 mg PO BID 02/17/21 05/13/21 05/12/21 History iron) tablet magnesium 200 mg tablet 200 mg PO DAILY 02/17/21 05/01/21 Unknown History omeprazole 20 mg capsule,delayed 20 mg PO DAILY 02/17/21 05/13/21 05/13/21 03:00 History release multivitamin 1 tab PO DAILY 03/26/21 05/01/21 Unknown History naratriptan 1 tab PO DIRECTED 03/26/21 05/01/21 Unknown History propranolol 1 cap PO DAILY 03/26/21 05/01/21 04/01/21 History Exam Airway Mallampati Class: IV TM Dist: >3cm Neck ROM: Full
[2021-05-13] VITALS (11 sets, daily range): BP systolic 109–155; BP diastolic 48–91; PULSE 67–81; RESP 16–18; TEMP 36.1–37; O2SAT 90–100
[2021-05-13] MEDS: Lactated Ringers 1,000 ML 100 ML IVCONT (12:30)
--- NOTE | 2021-05-13 12:36 | MHC.SHP ---
Pre-Procedural Eval Section A Date of Service: 05/13/21 The patient is an INPATIENT: No Changes since office visit: Yes Patient answered all questions; No Cold of Flu in the past 2 weeks, No New Medical Problems and No Changes in Medication The History & Physical has been completed within 30 days and I have reviewed it.: Yes Section B Chief Complaint: malignant neoplasm of josiane breasts Allergies: Allergies Allergy/AdvReac Type Severity Reaction Status Date / Time fluoxetine [Prozac] Allergy Unknown worsening Verified 05/13/21 11:14 depression gabapentin Allergy Unknown irritabilit Verified 05/13/21 11:14 y Iodinated Contrast Media Allergy Unknown RASH Verified 05/13/21 11:14 [IV CONTRAST] nortriptyline Allergy Unknown irritabilit Verified 05/13/21 11:14 y topiramate Allergy Unknown mild Verified 05/13/21 11:14 depression verapamil Allergy Unknown irritabilit Verified 05/13/21 11:14 y food allergies Allergy Unknown Sneezing Uncoded 03/26/21 12:45 Plan Diagnosis/Plan: Unchanged I have reviewed the history and physical and performed a pertinent physical examination on my patient. No changes have occurred unless specified.
--- NOTE | 2021-05-13 14:02 | P.BOP_ITS ---
Brief Operative Note Date of Service: 05/13/21 Pre-op diagnosis: Bilateral breast cancer Post-op diagnosis: same Procedure: Wide excision left breast cancer Implants: none Surgeon: Luís Hui MD Anesthesia: GLMA Was an Telecommunications Analyst used for this Procedure?: No Estimated blood loss (mL): 10 Pathology: other (wide excision left breast, upper inner quadrant) Condition: stable Disposition: PACU
--- NOTE | 2021-05-13 14:03 | W.PM.OPN ---
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 Margins were within 1 mm for the ductal carcinoma at the superior margin. She presents now for wider excision of the superior and Deep margins. Operative findings: prior excision site noted in the upper inner quadrant of the left breast. No definite tumor palpable. Specimen: Left breast wide excision Estimated blood loss: 10 mL Complications: none Procedure details: patient was brought to the OR placed in a supine position. After administering general anesthesia the patient's left breast was prepped with ChloraPrep and draped in a sterile fashion. A surgical time-out was called the consent confirmed. Patient received preoperative antibiotics and Venodyne boots were in place. Local anesthesia consisting of 0.25% Sensorcaine was infiltrated around the previous incision in the upper outer quadrant. Incision was then made through the previous incision carried down through subcutaneous tissue. Superior and inferior skin flaps were then created using electrocautery. Beginning in the superior margin a wide margin was obtained using electrocautery and continued down to the chest wall. Dissection was continued along the medial margin and inferior margin. dissection along the chest wall was then performed using electrocautery. Hemostasis was assured all times using electrocautery. The lateral margin was then created in the lesion excised. This was marked with a long suture on the lateral margin, short suture on the superior margin and loop suture on the deep/posterior margin. Specimen was sent to pathology for further examination. The incision was then irrigated with saline solution and suctioned dry. Wounds were again checked for hemostasis. Deep breast tissue and fascia were reapproximated using interrupted 3-0 Polysorb sutures. Superficial breast tissue was reapproximated using interrupted 3-0 Polysorb sutures. Dermis was reapproximated using interrupted 3-0 Polysorb sutures. Skin was then closed using a running subcuticular 4-0 Polysorb suture. Steri-Strips 2 x 2 gauze and Tegaderm were then applied. The patient tolerated the procedure well. Sponge, instrument, and needle counts reported as correct. The patient was transferred to PACU in stable condition.
[2021-05-13] MEDS: ondansetron HCL 4 MG/2 ML VIAL IVPUSH (14:28)
[2021-05-13] MEDS: Acetaminophen 325 MG TABLET 650 MG PO (14:28)
[2021-05-13] MEDS: fentaNYL citrate/PF 100 MCG/2 ML VIAL 50 MCG IVPUSH (14:49)
== END 2021-05-13 16:00 | disposition home or self-care (01) ==
PROVIDERS: PCP Family Medicine; Visit Provider Surgery
PROC: (CPT 19301; principal; 2021-05-13 12:30)
DX: C50.212 Malignant neoplasm of upper-inner quadrant of left female breast (principal); Z17.0 Estrogen receptor positive status [ER+]; D64.9 Anemia, unspecified; F32.9 Major depressive disorder, single episode, unspecified; E66.01 Morbid (severe) obesity due to excess calories; Z68.42 Body mass index [BMI] 45.0-49.9, adult; Z79.899 Other long term (current) drug therapy; Z88.8 Allergy status to other drugs, medicaments and biological substances; Z91.041 Radiographic dye allergy status
CPT/HCPCS: 19301; 88307; J0690; J1170; J2250; J2405; J3010

== ENCOUNTER → 2021-05-19 15:26 | Outpatient (BNVA) | payer MEDICARE, SELFPAY | PROVIDERS: PCP Family Medicine; Referring Provider Family Medicine; Visit Provider Surgery | DX: C50.911 Malignant neoplasm of unspecified site of right female breast (principal); C50.912 Malignant neoplasm of unspecified site of left female breast | CPT/HCPCS: 99212 ==

== ENCOUNTER → 2022-04-15 10:05 | Outpatient (BNVA) | payer MEDICARE, SELFPAY | PROVIDERS: PCP Family Medicine; Visit Provider Surgery | DX: N64.4 Mastodynia (principal); C50.911 Malignant neoplasm of unspecified site of right female breast; C50.912 Malignant neoplasm of unspecified site of left female breast; Z79.811 Long term (current) use of aromatase inhibitors; Z92.3 Personal history of irradiation | CPT/HCPCS: 99212 ==

== ENCOUNTER 2022-12-28 15:36 | Inpatient (IN) | payer MEDICARE, SELFPAY ==
--- NOTE | ~2022-12-28 | NM_ITS ---
EXAMINATION: PULMONARY PERFUSION STUDY CLINICAL INFORMATION: Shortness of breath, rule out pulmonary embolism. COMPARISON: A previous radionuclide ventilation/perfusion scan dated 08/11/2017 is available for comparison. A radiograph of the chest dated 01/17/2023 is available for comparison. TECHNIQUE: Following the intravenous injection of 4.0 mCi Tc-99m MAA, the lungs were imaged in the anterior and posterior, left and right lateral and ROMANIAN, RUBIO, LPO, and RPO projections using a gamma scintillation camera. FINDINGS: No segmental perfusion defects are present. There is mild heterogeneity present bilaterally, but no focal anatomic appearing perfusion defects are present. Compared to the previous perfusion images from the ventilation/perfusion scan dated 08/11/2017, the mild heterogeneity present on the current study is a new finding. The chest radiograph dated 01/17/2023 shows lower inspiratory effort with prominent pulmonary vessels but no focal consolidation or infiltrates. NM/NM pul perfusion IMPRESSION: Low probability of pulmonary embolism. These findings carry a 15-20% probability of pulmonary embolism.
--- NOTE | ~2022-12-28 | XR_ITS ---
EXAMINATION: XR FOOT, RIGHT CLINICAL INFORMATION: Infection in the right foot. COMPARISON: None TECHNIQUE: 3 views of the right foot. FINDINGS: No fracture. No dislocation. Joint spaces are normal. No focal bone lesion or abnormal periosteal reaction. Plantar calcaneal spur. Soft tissue swelling at the forefoot. No air in the soft tissues. No radiopaque foreign body. XR/XR foot RT min 3V IMPRESSION: 1. No acute osseous abnormality. 2. Soft tissue swelling at the forefoot. No air in the soft tissues. No radiopaque foreign body.
--- NOTE | ~2022-12-28 | XR_ITS ---
EXAMINATION: XR CHEST CLINICAL INFORMATION: Fever. COMPARISON: Portable chest 09/09/2017 TECHNIQUE: Frontal portable view of the chest was obtained. 4:04 PM FINDINGS: No significant abnormality is noted involving the heart, lungs, mediastinum, bony thorax or soft tissues. XR/XR chest 1V IMPRESSION: Unremarkable examination.
--- NOTE | ~2022-12-28 | US_ITS ---
EXAMINATION: NONINVASIVE ASSESSMENT OF THE ARTERIES OF BOTH LOWER EXTREMITIES WITH PVR EXAM AND BILATERAL LOWER EXTREMITY DUPLEX Kya Samson MD CLINICAL INFORMATION: Right foot wound TECHNIQUE: Ankle pulse volume recordings, ankle pressure measurements and ankle brachial indices were obtained of the lower extremity arterial system bilaterally in addition to duplex Doppler techniques with wave form analysis and measurement of velocities in the common femoral, profunda femoral, superficial femoral, popliteal and tibial arteries. The study was performed only at rest. COMPARISON: None FINDINGS: a) AT REST: RIGHT LE. The right ankle-brachial index is: Not performed * >0.97-1.25 = normal - no significant arterial disease * 0.75-0.96 = mild peripheral arterial disease * 0.5-0.74 = moderate peripheral arterial disease * <0.50 = severe peripheral arterial disease 2. Right ankle pressure: Not performed 3. Right ankle PVR waveform: Not performed 4. Right direct duplex Doppler findings: Common femoral artery: 119 cm/s, Multiphasic Profunda femoris artery: 63 cm/s, Multiphasic Superficial femoral artery (proximal): 133 cm/s, Multiphasic Superficial femoral artery (mid): 96 cm/s, Multiphasic Superficial femoral artery (distal): 120 cm/s, Multiphasic Proximal Popliteal artery: 116 cm/s, Multiphasic Mid posterior tibial artery: 153 cm/s, Multiphasic LEFT LE. The left ankle-brachial index is: 1.13 * >0.97-1.25 = normal - no significant arterial disease * 0.75-0.96 = mild peripheral arterial disease * 0.5-0.74 = moderate peripheral arterial disease * <0.50 = severe peripheral arterial disease 2. Left ankle pressure: Elevated 3. Left ankle PVR waveform: Abnormal 4. Left direct duplex Doppler findings: Common femoral artery: 144 cm/s, Multiphasic Profunda femoris artery: 88 cm/s, Multiphasic Superficial femoral artery (proximal): 116 cm/s, Multiphasic Superficial femoral artery (mid): 101 cm/s, Multiphasic Superficial femoral artery (distal): 105 cm/s, Multiphasic Proximal Popliteal artery: 80 cm/s, Multiphasic Mid posterior tibial artery: 160 cm/s, Multiphasic US/US arterial duplex LE BI IMPRESSION: RIGHT LEG: Right lower extremity AIMEE not performed secondary to dressing. No hemodynamically significant stenosis in the right lower extremity. Diffuse calcific atherosclerotic disease. LEFT LEG: Diffuse calcific atherosclerotic disease. No hemodynamically significant stenosis in the left lower extremity.
--- NOTE | ~2022-12-28 | US_ITS ---
EXAMINATION: US VENOUS ULTRASOUND WITH DOPPLER LOWER EXTREMITY, RIGHT CLINICAL INFORMATION: Right leg swelling COMPARISON: None TECHNIQUE: Ultrasound of the deep veins is performed from the hip to the calf with compression sonography and color and pulse Doppler assessment. Spectral analysis with color-flow imaging is performed. FINDINGS: There is normal venous compression and respiratory variation and augmented flow. The visualized common femoral vein, superficial femoral vein, profunda femoral vein, popliteal vein, and the trifurcation region shows no evidence of deep venous thrombosis. There is no significant popliteal fossa cyst. The contralateral left common femoral vein appears unremarkable. If the patient's symptoms persist, followup ultrasound in 5 days 7 days might be of value to exclude proximal propagation from a non-visualized calf vein. US/US venous duplex LE RT IMPRESSION: No DVT demonstrated in the right lower extremity.
--- NOTE | ~2022-12-28 | XR_ITS ---
EXAMINATION: XR CHEST CLINICAL INFORMATION: Shortness of breath COMPARISON: Chest x-ray 01/13/2023 TECHNIQUE: Frontal view of the chest was obtained. FINDINGS: Lung volume is low. This causes mild prominence of the central hilar vessels. There is mild central bronchial wall thickening. No focal dense consolidation. No pleural effusion. Heart size is normal. Cardiac and mediastinal contours are normal. XR/XR chest 1V IMPRESSION: There is low inspiratory effort with prominence of the central hilar pulmonary vessels. Mild central bronchial wall thickening. No focal consolidation.
--- NOTE | ~2022-12-28 | MR_ITS ---
EXAMINATION: MR ANKLE WITHOUT AND WITH CONTRAST, RIGHT CLINICAL INFORMATION: Infection. Question osteomyelitis. COMPARISON: Foot radiographs from 12/28/2022. TECHNIQUE: MRI of the ankle was performed before and after the intravenous administration of 10 mL gadolinium on a high-field scanner. FINDINGS: Skin thickening, edema signal, and hyperenhancement are present at the lateral soft tissues at the ankle and hindfoot. A large area of superficial skin blistering is evident in this region. The largest locule of which measures 8 x 3.5 x 0.8 cm, likely contiguous with a smaller blister just proximal to it. There is an underlying complex peripherally enhancing collection in the subcutaneous fat laterally measuring approximately 12 x 7.8 x 2 cm (oblique longitudinal by oblique AP by transverse), most concerning for an abscess. This abscess extends to the underlying bone at the distal fibula and surrounds the peroneal tendon sheath. A small skin ulceration may be present along the posterior margin of the region of skin blistering. There is moderate peroneal tenosynovitis with complex longitudinal tears of both the peroneus longus and peroneus brevis, centered between the level of the lateral malleolus and the peroneal tubercle. The tendon sheath appears distended with peripheral enhancement, raising the possibility of septic tenosynovitis. Underlying edema signal and enhancement are noted in the lateral malleolus near the tip with an ill-defined region of low signal intensity on T1-weighted images, concerning for osteomyelitis. Inflammation superimposed upon a pre-existing region of subchondral marrow edema/cystic change is possible, though felt to be less likely. No significant talocrural and subtalar joint effusions. There is mild talocrural osteoarthritis with a 1 x 0.6 cm chondral defect at the medial talar dome. No unstable osteochondral fragments are identified. Underlying cortex is flattened. Small marginal osteophytes. Additional mild osteoarthritis is evident in the posterior facet of the subtalar joint, most pronounced medially, with cartilage loss, subchondral edema, and cortical irregularity. Mild multifocal osteoarthritis also noted in the midfoot joints. Ankle ligaments appear intact. Thickening of the central band of the plantar fascia is noted. No surrounding edema signal. Moderate-sized plantar calcaneal enthesopathic spur. Mild fatty replacement of the intrinsic foot musculature. MR/MR ankle RT wo/w con IMPRESSION: 1. Large 12 cm abscess in the lateral subcutaneous fat at the level of the ankle and hindfoot with surrounding cellulitis and underlying osteomyelitis of the lateral malleolus. 2. Complex longitudinal tears of the peroneus longus and peroneus brevis tendons with associated tenosynovitis. Septic tenosynovitis is also possible. 3. Mild talocrural and subtalar osteoarthritis. Focal 1 x 0.6 cm chondral defect at the medial talar dome.
--- NOTE | ~2022-12-28 | XR_ITS ---
EXAMINATION: XR CHEST CLINICAL INFORMATION: Cough, congestion. COMPARISON: Chest radiograph 12/28/2022. TECHNIQUE: Frontal view of the chest was obtained. FINDINGS: Platelike opacities in the right lower lobe, not significantly changed, favoring to represent subsegmental atelectasis or scarring. No new focal airspace opacity. No pleural effusion or pneumothorax. Normal appearance of the cardiomediastinal silhouette. No acute osseous abnormalities. XR/XR chest 1V IMPRESSION: Stable examination when compared to 12/28/2022. No acute cardiopulmonary findings.
[2022-12-28 15:48] VITALS: BP 148/77; BP 167/78; PULSE 116; PULSE 118; RESP 18; TEMP 36.9; O2SAT 95; O2SAT 98; BMI 43.8
--- NOTE | 2022-12-28 15:58 | ED_ITS ---
HPI - General Adult General Chief complaint: General Medical Stated complaint: RLE SWELLING,MEDS NOT HELPING PER EMS Time Seen by Provider: 12/28/22 15:56 Related Data Home Medications Medication Instructions Recorded Confirmed ferrous gluconate 324 mg (38 mg 324 mg PO BID 02/17/21 04/15/22 iron) tablet magnesium 200 mg tablet 200 mg PO DAILY 02/17/21 04/15/22 omeprazole 20 mg capsule,delayed 20 mg PO DAILY 02/17/21 04/15/22 release multivitamin 1 tab PO DAILY 03/26/21 04/15/22 naratriptan 2.5 mg tablet 1 tab PO DIRECTED 03/26/21 04/15/22 propranolol 80 mg capsule,24 1 cap PO DAILY 03/26/21 04/15/22 hr,extended release exemestane 25 mg tablet 25 mg PO DAILY 04/15/22 04/15/22 Previous Rx's Medication Instructions Recorded nystatin 100,000 unit/gram topical 1 appl topical TID #500 grams 07/08/21 powder ([facility]) Allergies Allergy/AdvReac Type Severity Reaction Status Date / Time fluoxetine [Prozac] Allergy Unknown worsening Verified 04/15/22 10:32 depression gabapentin Allergy Unknown irritabilit Verified 04/15/22 10:32 y Iodinated Contrast Media Allergy Unknown RASH Verified 04/15/22 10:32 [IV CONTRAST] nortriptyline Allergy Unknown irritabilit Verified 04/15/22 10:32 y topiramate Allergy Unknown mild Verified 04/15/22 10:32 depression verapamil Allergy Unknown irritabilit Verified 04/15/22 10:32 y food allergies Allergy Unknown Sneezing Uncoded 04/15/22 10:32 [facility] Past Medical History Medical History Anemia Arthritis COVID-19 vaccine administered Diverticulitis GERD (gastroesophageal reflux disease) Insomnia Invasive ductal carcinoma of left breast Lobular carcinoma in situ of right breast Migraines Morbid obesity Situational anxiety Situational depression Surgical History History of bilateral breast biopsy History of colon resection History of colostomy reversal History of incision and drainage Hx of colonoscopy Family History Family History Mother Glioblastoma Father Lung cancer Paternal Grandmother Cancer of unknown origin Social History Social History Are you a primary hearing care professional to a significant other at home: No Do you presently have visiting nurse or other home services: No Alcohol intake: never Patient Tobacco Use Status: Never used Tobacco Smoked in Last 30 Days: No Use of substances other than those prescribed or required for medical reasons: No Advance Directives: No Advance Directives Information Provided: Yes Physical Exam ED Vital Signs: Vital Signs - 24 hr 12/28/22 15:48 12/28/22 16:57 Temperature 98.4 F 98.2 F Pulse Rate 116 H 109 H Respiratory Rate 18 18 Blood Pressure 148/77 H 138/72 Pulse Oximetry 95 95 Oxygen Delivery Method Room Air Room Air BMI result Body Mass Index 43.8 Medications Administered Discontinued Medications Generic Name Dose Route Start Last Admin Trade Name Freq PRN Reason Stop Dose Admin Sodium Chloride 1,000 mls @ 999 mls/hr 12/28/22 16:15 12/28/22 17:28 Ns IV 12/28/22 17:15 999 mls/hr .Q1H1M NAFISA Administration Piperacillin Sod/Tazobactam 100 mls @ 200 mls/hr 12/28/22 16:03 12/28/22 17:27 Sod 4.5 gm/ Sodium Chloride IV 12/28/22 16:32 200 mls/hr ONCE ONE Administration Medical Decision Making Medical Decision Making [facility] Narrative: Patient with cellulitis with lymphangitis I will send for US start on vanco, zosyn check for sepsis and Get a XR 1800 XR shows no deep space infection or gas in the soft tissue, US is negative. I will admit to medicine. Differential Diagnosis Differential Diagnoses: The differential diagnosis associated with the presentation includes cellulitis with lymphangitis cellulitis DVT necrotizing fasciitis or deep space infection Admission/Observation Consideration of admission/observation: Escalation of care including admission/observation considered Consult Healthcare Provider Management of the patient was discussed with: Hospitalist Lab Data [facility] Lab Attestation statement: I reviewed the patient's lab results. 12/28/22 16:53 12/28/22 16:53 Labs: Lab Results 12/28/22 12/28/22 12/28/22 Range/Units 16:53 16:53 16:53 WBC 21.4 H (4.8-10.8) X10*3/uL RBC 4.38 (4.20-5.50) X10*6/uL Hgb 11.9 L (12.0-16.0) g/dl Hct 36.4 L (37.0-47.0) % MCV 83.1 (80.0-98.0) fL MCH 27.2 (27.0-33.0) pg MCHC 32.7 (31.0-35.0) g/dl RDW 12.9 (11.0-16.0) % Plt Count 531 H (160-400) X10*3/uL MPV 8.4 L (9.4-12.3) fL Immature Gran % (Auto) 1.9 H (0.0-0.4) % Neut % (Auto) 89.1 H (45-73) % Lymph % (Auto) 3.6 L (20-40) % [place] % (Auto) 5.3 (2-11) % Eos % (Auto) 0.0 (0-4) % Baso % (Auto) 0.1 (0-2) % Lymph # (Auto) 0.8 L (1.2-4.9) X10*3/uL [place] # (Auto) 1.1 (0.1-1.2) X10*3/uL Eos # (Auto) 0.0 (0.0-0.4) X10*3/uL Baso # (Auto) 0.0 (0.0-0.2) X10*3/uL Abs Immat Gran (auto) 0.40 H (0.00-0.03) X10*3/uL Absolute Neuts (auto) 19.1 H (2.0-8.3) x10*3/uL Absolute Nucleated RBC 0.000 (0.0-0.012) X10*3/uL Nucleated RBC % (auto) 0.0 (0.0-0.2) /100WBC D-Dimer High Sensitivty 1100 NG/ML Sodium 133 L (135-145) mmol/L Potassium 4.3 (3.3-5.1) mmol/L Chloride 96 (96-108) mmol/L Carbon Dioxide 23 (22-29) mmol/L Anion Gap 18 (12-20) BUN 14 (9-16) mg/dL Creatinine 0.73 (0.5-1.4) mg/dL Estim Creat Clear Calc 96.5 Estimated GFR > 60 Random Glucose 217 H (60-115) mg/dL Calcium 9.3 D (8.4-10.2) mg/dL Independent Interpretation I performed an independent interpretation of an: EKG Radiology Impression Discussion of test interpretation with radiology: I have reviewed the radiologist's reading. External Record Review External record reviewed: Inpatient record Discharge Plan Discharge Clinical Impression: Cellulitis of right lower extremity Patient Disposition: Admitted As Inpatient Prescriptions: No Action nystatin [Nyamyc] 100,000 unit/gram Powder 1 appl TOPICAL TID Qty: 500 2RF propranolol 80 mg capsule,extended release 24 hr 1 cap PO DAILY naratriptan 2.5 mg tablet 1 tab PO DIRECTED multivitamin Tablet 1 tab PO DAILY omeprazole 20 mg capsule,delayed release(DR/EC) 20 mg PO DAILY magnesium 200 mg tablet 200 mg PO DAILY ferrous gluconate 324 mg (38 mg iron) tablet 324 mg PO BID exemestane 25 mg tablet 25 mg PO DAILY
[2022-12-28 16:57] VITALS: BP 138/72; PULSE 109; RESP 18; TEMP 36.8; O2SAT 95
[2022-12-28 17:03] LABS: MANUAL DIFF FLAG NO
[2022-12-28 17:05] LABS: Basophils Percent Auto 0.1 % (0-2); Hematocrit 36.4 % (37.0-47.0); Hemoglobin 11.9 g/dl (12.0-16.0); Imm Gran Pct Auto 1.9 % (0.0-0.4); Lymphocytes Absolute Auto 0.8 X10*3/uL (1.2-4.9); Lymphocytes Percent Auto 3.6 % (20-40); Mean Corpuscular HGB Conc 32.7 g/dl (31.0-35.0); Mean Corpuscular Hemoglobin 27.2 pg (27.0-33.0); Mean Corpuscular Volume 83.1 fL (80.0-98.0); Mean Platelet Volume 8.4 fL (9.4-12.3); Monocytes Absolute Auto 1.1 X10*3/uL (0.1-1.2); Monocytes Percent Auto 5.3 % (2-11); Neutrophils Absolute Auto 19.1 x10*3/uL (2.0-8.3); Neutrophils Percent Auto 89.1 % (45-73); Platelet Count 531 X10*3/uL (160-400); Red Blood Count 4.38 X10*6/uL (4.20-5.50); Red Cell Distribution Width 12.9 % (11.0-16.0); White Blood Count 21.4 X10*3/uL (4.8-10.8)
[2022-12-28 17:13] LABS: D Dimer High Sensitivity 1100 NG/ML
[2022-12-28 17:23] LABS: Anion Gap 18 (12-20); Blood Urea Nitrogen 14 mg/dL (9-16); Calcium 9.3 mg/dL (8.4-10.2); Carbon Dioxide 23 mmol/L (22-29); Chloride 96 mmol/L (96-108); Creatinine Clr Calc Pharmacy 96.5; Estimated Glomerular Filt Rate > 60; Glucose Random 217 mg/dL (60-115); Potassium 4.3 mmol/L (3.3-5.1); Sodium 133 mmol/L (135-145)
[2022-12-28] MEDS: Piperacillin Sodium/Tazobactam 4.5 GM in 0.9 % Sodium Chloride 100 ML IV (17:27)
[2022-12-28] MEDS: 0.9 % Sodium Chloride 1,000 ML 999 ML IV (17:28)
[2022-12-28 18:05] LABS: Lactic Acid 1.2 mmol/L (0.5-2.0)
[2022-12-28 18:11] LABS: COVID-19 Test Negative (Negative); IDNOW Serial# BCCEAD1C
--- NOTE | 2022-12-28 18:33 | PM.IMHP ---
History of Present Illness Date of Service: 12/28/22 Chief Complaint: Right ankle pain swelling and redness 72 year old female with morbid obesity and other medical problems as listed. She presents with right ankle redness, pain and swelling best described by the image. She denies trauma to the area, and prior ankle injury, she brought it to PCP's attention about a week ago and was prescribed Prednisone but has not noted any improvement, she is having such excruciating pain that she's having difficulty walking and decided to come in. She is septic with elevated WBC of 21K, tachycardic . Xray show Soft tissue swelling at the forefoot. No air in the soft tissues. No radiopaque foreign body. Given Zosyn and Vano in ED, cultures sent Review of Systems Review of Systems: No fever, right ankle pain, swelling . Yes all other systems are reviewed and are negative [facility] Medical History Anemia Arthritis COVID-19 vaccine administered Diverticulitis GERD (gastroesophageal reflux disease) Insomnia Invasive ductal carcinoma of left breast Lobular carcinoma in situ of right breast Migraines Morbid obesity Situational anxiety Situational depression Family History Mother Glioblastoma Father Lung cancer Paternal Grandmother Cancer of unknown origin Surgical History History of bilateral breast biopsy History of colon resection History of colostomy reversal History of incision and drainage Hx of colonoscopy Social History Are you a primary home care scheduler to a significant other at home: No Do you presently have visiting nurse or other home services: No Alcohol intake: never Patient Tobacco Use Status: Never used Tobacco Smoked in Last 30 Days: No Use of substances other than those prescribed or required for medical reasons: No Advance Directives: No Advance Directives Information Provided: Yes Nutrition Risks: No Nutritional Risk service: No Current occupational status: employed Meds Allergies Allergy/AdvReac Type Severity Reaction Status Date / Time fluoxetine [Prozac] Allergy Unknown worsening Verified 04/15/22 10:32 depression gabapentin Allergy Unknown irritabilit Verified 04/15/22 10:32 y Iodinated Contrast Media Allergy Unknown RASH Verified 04/15/22 10:32 [IV CONTRAST] nortriptyline Allergy Unknown irritabilit Verified 04/15/22 10:32 y topiramate Allergy Unknown mild Verified 04/15/22 10:32 depression verapamil Allergy Unknown irritabilit Verified 04/15/22 10:32 y food allergies Allergy Unknown Sneezing Uncoded 04/15/22 10:32 Home Medications Medication Instructions Recorded Confirmed Last Taken Type ferrous gluconate 324 mg (38 mg 324 mg PO BID 02/17/21 12/28/22 05/12/21 History iron) tablet omeprazole 20 mg capsule,delayed 20 mg PO DAILY 02/17/21 12/28/22 12/28/22 History release naratriptan 2.5 mg tablet 1 tab PO DAILY MRX1 PRN Migraine 03/26/21 12/28/22 Unknown History Headache propranolol 80 mg capsule,24 1 cap PO DAILY 03/26/21 12/28/22 04/01/21 History hr,extended release exemestane 25 mg tablet 25 mg PO DAILY 04/15/22 12/28/22 12/28/22 History calcium carbonate 500 mg calcium 500 mg PO BID 12/28/22 12/28/22 Unknown History (1,250 mg) tablet cyanocobalamin (vitamin B-12) 500 500 mcg PO DAILY 12/28/22 12/28/22 Unknown History mcg tablet ergocalciferol (vitamin D2) 1,250 1,250 mcg PO MORENO 12/28/22 12/28/22 Unknown History mcg (50,000 unit) capsule metformin 500 mg tablet,extended 500 mg PO BID 12/28/22 12/28/22 12/28/22 History release 24 hr multivitamin 1 tab PO DAILY 12/28/22 12/28/22 Unknown History oxycodone-acetaminophen 5 mg-325 1 tab PO QID PRN Pain (Scale Score 12/28/22 12/28/22 12/28/22 History mg tablet 7-10) Physical Exam Vital Signs and Narrative: Vital Signs: Last Vital Signs Temp 98.2 F 12/28/22 16:57 Pulse 109 H 12/28/22 16:57 Resp 18 12/28/22 16:57 BP 138/72 12/28/22 16:57 Pulse Ox 95 12/28/22 16:57 O2 Del Method 12/28/22 16:57 BMI result Body Mass Index 43.8 Const: Other: General: AO X 3, no acute distress, morbildly obese Resp: CTA bilateral CVS: S1,S2,RRR GI: +BS, NT, no distention Skin: No rash MSK: Neuro: motor grossly intact Psych: appropriate affect Results Labs 12/28/22 16:53 12/28/22 16:53 Labs: Laboratory Results - last 24 hr 12/28/22 12/28/22 12/28/22 16:53 16:53 16:53 MCV 83.1 MCH 27.2 MCHC 32.7 RDW 12.9 Plt Count 531 H MPV 8.4 L Immature Gran % (Auto) 1.9 H Neut % (Auto) 89.1 H Lymph % (Auto) 3.6 L [place] % (Auto) 5.3 Eos % (Auto) 0.0 Baso % (Auto) 0.1 Lymph # (Auto) 0.8 L [place] # (Auto) 1.1 Eos # (Auto) 0.0 Baso # (Auto) 0.0 Abs Immat Gran (auto) 0.40 H Absolute Neuts (auto) 19.1 H Absolute Nucleated RBC 0.000 Nucleated RBC % (auto) 0.0 D-Dimer High Sensitivty 1100 Anion Gap 18 Estim Creat Clear Calc 96.5 Estimated GFR > 60 Random Glucose 217 H Lactic Acid Calcium 9.3 D COVID-19 ([facility]) COVID-19 Clin Com 12/28/22 12/28/22 17:35 17:36 MCV MCH MCHC RDW Plt Count MPV Immature Gran % (Auto) Neut % (Auto) Lymph % (Auto) [place] % (Auto) Eos % (Auto) Baso % (Auto) Lymph # (Auto) [place] # (Auto) Eos # (Auto) Baso # (Auto) Abs Immat Gran (auto) Absolute Neuts (auto) Absolute Nucleated RBC Nucleated RBC % (auto) D-Dimer High Sensitivty Anion Gap Estim Creat Clear Calc Estimated GFR Random Glucose Lactic Acid 1.2 Calcium COVID-19 ([facility]) Negative COVID-19 Clin Com See Note Imaging Radiologist's Impressions: Impressions Chest X-Ray 12/28/22 16:14 IMPRESSION: Unremarkable examination. Foot X-Ray 12/28/22 16:14 IMPRESSION: 1. No acute osseous abnormality. 2. Soft tissue swelling at the forefoot. No air in the soft tissues. No radiopaque foreign body. Venous Duplex 12/28/22 17:14 IMPRESSION: No DVT demonstrated in the right lower extremity. Assessment and Plan (1) Cellulitis of right lower extremity: Status: Acute Plan 72 year old female with morbid obesity and other medical problems as listed. She presents with right ankle redness, pain and swelling best described by the image, clinical presentation consistent with sepsis d/t cellulitis and concern for joint involvment. Left leg Cellulitis, Sepsis, concern for joint involvment. -Ortho will evaluate tomorrow -MRI to rule osteo -Continue Zosyn and Vanco -Morphine for pain if not helping dilaudid Gerd--Omeprazol Anxiety--Prorpanolol Morbid obesity--weight loss advised Heparin for DVT prophylaxis Full code Admission to span at least 2 midnights for management of sepsis, ankle cellulitis and expert evaluation. Time Spent With Patient Time: Total time managing care of this patient today ____ minutes. Quality Stroke Does the patient have a stroke diagnosis?: No VTE Prior VTE?: No VTE Risk Level:: Medical - moderate - high VTE Device Contraindication: Treatment Not Indicated VTE Drug Contraindication: N/A - Med Ordered
[2022-12-28 18:59] VITALS: BP 146/70; PULSE 103; RESP 21; TEMP 36.6; O2SAT 96
--- NOTE | 2022-12-28 19:33 | PHA.PROG ---
Admission Date/Time: Indication: Left leg Cellulitis, Sepsis, concern for joint involvment Weight in k.006 kg Adjusted body weight in K.4 kg [place] body weight in K.1 kg Obesity Dosing Indication % IBW: 192% Serum Creatinine - Last 168 Hours 12/28/22 16:53 Creatinine 0.73 Estimated CrCl and GFR - Last 168 Hours 12/28/22 16:53 Estim Creat Clear Calc 96.5 Estimated GFR > 60 Vancomycin Loading Dose: 2000 mg Current Vancomycin Dosing Regimen: 1000 mg Q12H Date and Time for next Vancomycin Level to be drawn: 12/30 @0500 Pharmacist Comments on Vancomycin Plan: Patient is morbidly obese with BMI of 43 and %IBW > 130%. Therefore careful monitoring is required due to high volume of distribution Patient received adequate loading dose of vanco 2000 mg on 12/28 @1837 Maintenance dose vanco 1000 mg Q12H is scheduled to start 12/29 @ 0700. Expected AUC 554 with a trough of 16.6 Trough to be drawn prior to 4th dose Pharmacy to monitor renal function daily Lisa Nielsen PharmD Vancomycin dosing will take advantage of [employer] as a clinical decision support tool that uses Bayesian modeling to calculate individual patient's pharmacokinetic parameters and forecast the patient's drug concentration time course with the target goal AUC 24 range of 400 - 600 mg/L/hr.
--- NOTE | 2022-12-28 19:41 | PHA.MEDREC ---
Pharmacy Consult ? Medication Reconciliation Pharmacy has completed the medication reconciliation.
[2022-12-28] MEDS: Heparin Sodium,Porcine 5,000 UNIT/ML VIAL 5000 UNIT SUBCUT (21:05)
[2022-12-28] MEDS: Morphine Sulfate 4 MG/ML CARTRIDGE 2 MG IVPUSH (21:05)
[2022-12-28 22:02] VITALS: BP 142/60; PULSE 98; RESP 21; TEMP 36.6; O2SAT 96
[2022-12-28] MEDS: Piperacillin Sodium/Tazobactam 3.375 GM in 0.9 % Sodium Chloride 50 ML IV (22:25)
[2022-12-29] MEDS: HYDROmorphone HCl 1 MG/ML SYRINGE IVPUSH (00:23)
[2022-12-29] MEDS: Melatonin 3 MG TABLET 6 MG PO (00:25)
--- NOTE | 2022-12-29 02:26 | PC.NURSE ---
Patient alert and oriented x 3. Patient has 20g iv in left hand. Patient c/o pain in left foot medicated with morphine with no effect. Md ordered dilaudid gave her total relief she was able to fall asleep. Patient was incontinent of urine. tele: sinus rythym Patient ambulates independently at home. Having difficulty walking because of right foot cellulitis. iv abxs given for infection.
[2022-12-29 03:15] VITALS: BP 145/67; PULSE 101; RESP 20; TEMP 36.8; O2SAT 96
--- NOTE | 2022-12-29 04:25 | PC.NURSE ---
assumed care of patient at 0300 . patient resting comfortably on stretcher
[2022-12-29 06:10] LABS: Basophils Percent Auto 0.1 % (0-2); Eosinophils Percent Auto 0.1 % (0-4); Hematocrit 32.8 % (37.0-47.0); Hemoglobin 10.6 g/dl (12.0-16.0); Imm Gran Abs Auto 0.47 X10*3/uL (0.00-0.03); Imm Gran Pct Auto 2.3 % (0.0-0.4); Lymphocytes Absolute Auto 1.3 X10*3/uL (1.2-4.9); Lymphocytes Percent Auto 6.3 % (20-40); MANUAL DIFF FLAG SCAN; Mean Corpuscular HGB Conc 32.3 g/dl (31.0-35.0); Mean Corpuscular Hemoglobin 26.9 pg (27.0-33.0); Mean Corpuscular Volume 83.2 fL (80.0-98.0); Mean Platelet Volume 8.4 fL (9.4-12.3); Monocytes Absolute Auto 1.8 X10*3/uL (0.1-1.2); Monocytes Percent Auto 8.5 % (2-11); Neutrophils Absolute Auto 17.1 x10*3/uL (2.0-8.3); Neutrophils Percent Auto 82.7 % (45-73); Platelet Count 486 X10*3/uL (160-400); Red Blood Count 3.94 X10*6/uL (4.20-5.50); Red Cell Distribution Width 12.9 % (11.0-16.0); SCAN SMEAR FLAG 1; White Blood Count 20.7 X10*3/uL (4.8-10.8)
[2022-12-29 06:34] LABS: Creatinine Clr Calc Pharmacy 102.1; Estimated Glomerular Filt Rate > 60; SLIDE REVIEW VERIFIED
[2022-12-29] MEDS: Piperacillin Sodium/Tazobactam 3.375 GM in 0.9 % Sodium Chloride 50 ML IV ×4 (06:43→22:35)
[2022-12-29] MEDS: HYDROmorphone HCl 0.5 MG/0.5 ML SYRINGE IVPUSH (06:44)
[2022-12-29] MEDS: Acetaminophen 325 MG TABLET 650 MG PO ×2 (06:44→20:38)
[2022-12-29] MEDS: Heparin Sodium,Porcine 5,000 UNIT/ML VIAL 5000 UNIT SUBCUT ×3 (06:44→20:37)
[2022-12-29 06:50] VITALS: BP 145/62; PULSE 110; RESP 15; TEMP 36.9; O2SAT 94
[2022-12-29] MEDS: vancomycin HCL 1,000 MG in 0.9 % Sodium Chloride 250 ML 270 MG IV ×2 (08:10→18:41)
--- NOTE | 2022-12-29 08:38 | MHC.CM.PN ---
Patient is unavailable; CM spoke with her /Bettie at [phone] and addressed IMM with her (original will be mailed certified letter to Bettie and a copy will be placed on the chart). Patient lives in a house with her and DERRICK FOLLOWER she required no services nor DME. Home/self care is the tentative goal and CM has initiated and will follow for dc planning. Patient has received Covid vax x4 and her PCP is Dr. Audra Burger.
--- NOTE | 2022-12-29 09:19 | P.CONOP_ITS ---
History of Present Illness HPI Consult date: 12/29/22 Chief complaint: Ankle cellulitis/abscess Narrative: 72 year old female with morbid obesity, diabetes, psoriatic arthritis and hx of breast cancer. She presented to the ER yesterday evening with right ankle erythema, edema, and pain with ambulationb. She denies and injury or trauma to the area. One week ago and was prescribed Prednisone by her PCP but has not noted any improvement,? she is having such excruciating pain that she's having difficulty walking. She presented via EMS. She is septic with elevated WBC of 21K, tachycardic. Orthopedics was consulted for concern of septic joint. Review of Systems Review of Systems: Yes all other systems are reviewed and are negative PMFSH Past Medical History Medical History Anemia Arthritis COVID-19 vaccine administered Diverticulitis GERD (gastroesophageal reflux disease) Insomnia Invasive ductal carcinoma of left breast Lobular carcinoma in situ of right breast Migraines Morbid obesity Situational anxiety Situational depression Family History Family History Mother Glioblastoma Father Lung cancer Paternal Grandmother Cancer of unknown origin Surgical History Surgical History History of bilateral breast biopsy History of colon resection History of colostomy reversal History of incision and drainage Hx of colonoscopy Social History Social History Are you a primary reproductive healthcare assistant to a significant other at home: No Do you presently have visiting nurse or other home services: No Alcohol intake: never Patient Tobacco Use Status: Never used Tobacco Smoked in Last 30 Days: No Use of substances other than those prescribed or required for medical reasons: No Advance Directives: No Advance Directives Information Provided: Yes Nutrition Risks: No Nutritional Risk service: No Current occupational status: employed Meds Allergies Allergy/AdvReac Type Severity Reaction Status Date / Time fluoxetine [Prozac] Allergy Unknown worsening Verified 04/15/22 10:32 depression gabapentin Allergy Unknown irritabilit Verified 04/15/22 10:32 y Iodinated Contrast Media Allergy Unknown RASH Verified 04/15/22 10:32 [IV CONTRAST] nortriptyline Allergy Unknown irritabilit Verified 04/15/22 10:32 y topiramate Allergy Unknown mild Verified 04/15/22 10:32 depression verapamil Allergy Unknown irritabilit Verified 04/15/22 10:32 y food allergies Allergy Unknown Sneezing Uncoded 04/15/22 10:32 Active Medications: Current Medications Acetaminophen (Acetaminophen 325 Mg Tablet) 650 mg PO Q6H PRN PRN Reason: Pain, Mild (Pain Scale 1-3) Last Admin: 12/29/22 06:44 Dose: 650 mg Calcium Carbonate (Calcium Carbonate 500 Mg Tablet) 500 mg PO BID [facility] Cyanocobalamin (Cyanocobalamin (Vitamin B-12) 500 Mcg Tablet) 500 mcg PO DAILY [facility] Ergocalciferol (Ergocalciferol (Vitamin D2) 1,250 Mcg Capsule) 1,250 mcg PO MORENO [facility] Ferrous Sulfate (Ferrous Sulfate 324 Mg Tablet.Dr) 324 mg PO DAILY [facility] Heparin Sodium (Porcine) (Heparin Sodium,Porcine 5,000 Unit/Ml Vial) 5,000 unit SUBCUT Q8H [facility] Last Admin: 12/29/22 06:44 Dose: 5,000 unit Piperacillin Sod/Tazobactam (Sod 3.375 gm/ Sodium Chloride) 50 mls @ 100 mls/hr IV Q6H [facility] Last Admin: 12/29/22 06:43 Dose: 50 mls/hr Vancomycin HCl 1,000 mg/ (Sodium Chloride) 270 mls @ 270 mls/hr IV Q12H [facility] Last Admin: 12/29/22 08:10 Dose: 270 mls/hr Magnesium Hydroxide (Milk Of Magnesia 30 Ml Oral.Susp) 30 ml PO DAILY PRN PRN Reason: Constipation Melatonin (Melatonin 3 Mg Tablet) 6 mg PO BEDTIME PRN PRN Reason: Insomnia Last Admin: 12/29/22 00:25 Dose: 6 mg Metformin HCl (Metformin Hcl Er 500 Mg Tab.Er.24h) 500 mg PO BID [facility] Morphine Sulfate (Morphine Sulfate 4 Mg/Ml Cartridge) 2 mg IVPUSH Q4H PRN; Protocol PRN Reason: Pain, Severe (Pain Scale 7-10) Last Admin: 12/28/22 21:05 Dose: 2 mg Multivitamins/Vitamin C (Multivitamin Tablet) 1 tab PO DAILY [facility] Non-Formulary Medication (Exemestane) 25 mg PO DAILY [facility] Non-Formulary Medication (Naratriptan) 1 tab PO DAILY MRX1 PRN PRN Reason: Migraine Headache Non-Formulary Medication (Oxycodone-Acetaminophen) 1 tab PO QID PRN PRN Reason: Pain (Scale Score 7-10) Omeprazole (Omeprazole 20 Mg Capsule.Dr) 20 mg PO DAILY [facility] Pharmacy Consult (Consult Rx Vancomycin Dosing) 1 each MISCELLANE DAILY PRN PRN Reason: Consult order Propranolol HCl (Propranolol Hcl La 80 Mg Cap.Sa.24h) 80 mg PO DAILY [facility]; Protocol Sodium Chloride (0.9 % Sodium Chloride Flush 3 Ml Syringe) 3 ml IVFLUSH QSHIFT [facility] Last Admin: 12/29/22 09:11 Dose: Not Given Home Medications Medication Instructions Recorded Confirmed Last Taken Type ferrous gluconate 324 mg (38 mg 324 mg PO BID 02/17/21 12/28/22 05/12/21 History iron) tablet omeprazole 20 mg capsule,delayed 20 mg PO DAILY 02/17/21 12/28/22 12/28/22 History release naratriptan 2.5 mg tablet 1 tab PO DAILY MRX1 PRN Migraine 03/26/21 12/28/22 Unknown History Headache propranolol 80 mg capsule,24 1 cap PO DAILY 03/26/21 12/28/22 04/01/21 History hr,extended release exemestane 25 mg tablet 25 mg PO DAILY 04/15/22 12/28/22 12/28/22 History calcium carbonate 500 mg calcium 500 mg PO BID 12/28/22 12/28/22 Unknown History (1,250 mg) tablet cyanocobalamin (vitamin B-12) 500 500 mcg PO DAILY 12/28/22 12/28/22 Unknown History mcg tablet ergocalciferol (vitamin D2) 1,250 1,250 mcg PO MORENO 12/28/22 12/28/22 Unknown History mcg (50,000 unit) capsule metformin 500 mg tablet,extended 500 mg PO BID 12/28/22 12/28/22 12/28/22 History release 24 hr multivitamin 1 tab PO DAILY 12/28/22 12/28/22 Unknown History oxycodone-acetaminophen 5 mg-325 1 tab PO QID PRN Pain (Scale Score 12/28/22 12/28/22 12/28/22 History mg tablet 7-10) Physical Exam Vital Signs: Vital Signs: Last Vital Signs Temp 98.4 F 12/29/22 06:50 Pulse 110 H 12/29/22 06:50 Resp 15 12/29/22 06:50 BP 145/62 H 12/29/22 06:50 Pulse Ox 94 12/29/22 06:50 O2 Del Method 12/29/22 06:50 BMI result Body Mass Index 43.8 Const: General: cooperative, healthy appearing and no acute distress Resp: Effort & Inspection: normal respiratory effort and able to speak in complete sentences Cardio: Rate: regular rate Peripheral pulses: Peripheral pulses 2+ throughout GI: Palpation (GI): Soft to palpation Skin: Lesions: no lesions Rashes: no rashes Extrem: Other: Right foot and ankle circumferential erythema and edema. Erythema extends up the anterior aspect on the lower extremity. Blistering from edema is noted, mostly on the lateral aspect of the ankle. Able to slightly dorsiflex and plantarflex but is extremely limited due to pain and swelling. Sensation is reportedly intact. Does has a hx of neuropathy. Pedal pulse intact. Results Labs 12/29/22 05:34 12/29/22 05:34 Labs: Abnormal lab results 12/28/22 12/28/22 12/29/22 Range/Units 16:53 16:53 05:34 WBC 21.4 H 20.7 H (4.8-10.8) X10*3/uL RBC 3.94 L (4.20-5.50) X10*6/uL Hgb 11.9 L 10.6 L (12.0-16.0) g/dl Hct 36.4 L 32.8 L (37.0-47.0) % MCH 26.9 L (27.0-33.0) pg Plt Count 531 H 486 H (160-400) X10*3/uL MPV 8.4 L 8.4 L (9.4-12.3) fL Immature Gran % (Auto) 1.9 H 2.3 H (0.0-0.4) % Neut % (Auto) 89.1 H 82.7 H (45-73) % Lymph % (Auto) 3.6 L 6.3 L (20-40) % Lymph # (Auto) 0.8 L (1.2-4.9) X10*3/uL [place] # (Auto) 1.8 H (0.1-1.2) X10*3/uL Abs Immat Gran (auto) 0.40 H 0.47 H (0.00-0.03) X10*3/uL Absolute Neuts (auto) 19.1 H 17.1 H (2.0-8.3) x10*3/uL Sodium 133 L (135-145) mmol/L Random Glucose 217 H (60-115) mg/dL H & H 12/28/22 12/29/22 Range/Units 16:53 05:34 Hgb 11.9 L 10.6 L (12.0-16.0) g/dl Hct 36.4 L 32.8 L (37.0-47.0) % All other labs normal. Assessment and Plan (1) Cellulitis of right lower extremity: Status: Acute Cont. IV abx X-rays negative for any acute fx or dislocation. + soft tissue swelling MRI pending Pain management as appropriate Time Spent With Patient Time: Total time managing care of this patient today ____ minutes. Procedures Date of Service Date of Service: 12/29/22
[2022-12-29] MEDS: metFORMIN HCl ER 500 MG TAB.ER.24H PO ×2 (12:40→20:38)
[2022-12-29] MEDS: Multivitamin TABLET 1 TAB PO (12:40)
[2022-12-29] MEDS: Ferrous Sulfate 324 MG TABLET.DR PO (12:41)
[2022-12-29] MEDS: Morphine Sulfate 4 MG/ML CARTRIDGE 2 MG IVPUSH ×3 (12:55→19:41)
--- NOTE | 2022-12-29 13:42 | HO.PM.IMPN ---
Subjective Subjective Date of Service: 12/29/22 Review of Systems No fever, right ankle pain is much better, persistent swelling, less redness Physical Exam Vital Signs: Vital Signs: Last Vital Signs Temp 98.4 F 12/29/22 06:50 Pulse 110 H 12/29/22 06:50 Resp 15 12/29/22 06:50 BP 145/62 H 12/29/22 06:50 Pulse Ox 94 12/29/22 06:50 O2 Del Method 12/29/22 06:50 BMI result Body Mass Index 43.8 Const: Other: General: AO X 3, no acute distress, morbildly obese Resp: CTA bilateral CVS: S1,S2,RRR GI: +BS, NT, no distention Skin: No rash MSK: Neuro: motor grossly intact Psych: appropriate affect Objective Data Active Medications Acetaminophen (Acetaminophen 325 Mg Tablet) 650 mg PO Q6H PRN PRN Reason: Pain, Mild (Pain Scale 1-3) Last Admin: 12/29/22 06:44 Dose: 650 mg Documented By: ASHLEY Acetaminophen (Acetaminophen 325 Mg Tablet) 325 mg PO QID PRN PRN Reason: pain scale (7-10) Calcium Carbonate (Calcium Carbonate 500 Mg Tablet) 500 mg PO BID [facility] Last Admin: 12/29/22 12:40 Dose: 500 mg Documented By: NONA Cyanocobalamin (Cyanocobalamin (Vitamin B-12) 500 Mcg Tablet) 500 mcg PO DAILY [facility] Last Admin: 12/29/22 13:00 Dose: Not Given Documented By: NONA Non-Admin Reason: Med Not Available Ergocalciferol (Ergocalciferol (Vitamin D2) 1,250 Mcg Capsule) 1,250 mcg PO [facility] Ferrous Sulfate (Ferrous Sulfate 324 Mg Tablet.Dr) 324 mg PO DAILY [facility] Last Admin: 12/29/22 12:41 Dose: 324 mg Documented By: NONA Heparin Sodium (Porcine) (Heparin Sodium,Porcine 5,000 Unit/Ml Vial) 5,000 unit SUBCUT Q8H [facility] Last Admin: 12/29/22 12:40 Dose: 5,000 unit Documented By: NONA Piperacillin Sod/Tazobactam (Sod 3.375 gm/ Sodium Chloride) 50 mls @ 100 mls/hr IV Q6H [facility] Last Admin: 12/29/22 12:39 Dose: 100 mls/hr Documented By: NONA Vancomycin HCl 1,000 mg/ (Sodium Chloride) 270 mls @ 270 mls/hr IV Q12H [facility] Last Infusion: 12/29/22 09:10 Dose: 0 mls/hr Documented By: NONA Magnesium Hydroxide (Milk Of Magnesia 30 Ml Oral.Susp) 30 ml PO DAILY PRN PRN Reason: Constipation Melatonin (Melatonin 3 Mg Tablet) 6 mg PO BEDTIME PRN PRN Reason: Insomnia Last Admin: 12/29/22 00:25 Dose: 6 mg Documented By: ELAINE Metformin HCl (Metformin Hcl Er 500 Mg Tab.Er.24h) 500 mg PO BID [facility] Last Admin: 12/29/22 12:40 Dose: 500 mg Documented By: NONA Morphine Sulfate (Morphine Sulfate 4 Mg/Ml Cartridge) 2 mg IVPUSH Q4H PRN; Protocol PRN Reason: Pain, Severe (Pain Scale 7-10) Last Admin: 12/29/22 12:55 Dose: 2 mg Documented By: NONA Multivitamins/Vitamin C (Multivitamin Tablet) 1 tab PO DAILY [facility] Last Admin: 12/29/22 12:40 Dose: 1 tab Documented By: NONA Non-Formulary Medication (Exemestane) 25 mg PO DAILY [facility] Non-Formulary Medication (Naratriptan) 1 tab PO DAILY MRX1 PRN PRN Reason: Migraine Headache Omeprazole (Omeprazole 20 Mg Capsule.Dr) 20 mg PO DAILY@0630 [facility] Oxycodone HCl (Oxycodone Hcl Immed Release 5 Mg Tablet) 5 mg PO QID PRN PRN Reason: pain scale (7-10) Pharmacy Consult (Consult Rx Vancomycin Dosing) 1 each MISCELLANE DAILY PRN PRN Reason: Consult order Propranolol HCl (Propranolol Hcl La 80 Mg Cap.Sa.24h) 80 mg PO DAILY [facility]; Protocol Last Admin: 12/29/22 13:01 Dose: Not Given Documented By: NONA Non-Admin Reason: Med Not Available Sodium Chloride (0.9 % Sodium Chloride Flush 3 Ml Syringe) 3 ml IVFLUSH QSHIFT [facility] Last Admin: 12/29/22 09:11 Dose: Not Given Documented By: HO.[email or web address] Non-Admin Reason: IV Running Labs 02/15/23 05:34 12/29/22 05:34 Labs: Laboratory Results - last 24 hr 12/28/22 12/28/22 12/28/22 16:53 16:53 16:53 MCV 83.1 MCH 27.2 MCHC 32.7 RDW 12.9 Plt Count 531 H MPV 8.4 L Immature Gran % (Auto) 1.9 H Neut % (Auto) 89.1 H Lymph % (Auto) 3.6 L [place] % (Auto) 5.3 Eos % (Auto) 0.0 Baso % (Auto) 0.1 Lymph # (Auto) 0.8 L [place] # (Auto) 1.1 Eos # (Auto) 0.0 Baso # (Auto) 0.0 Abs Immat Gran (auto) 0.40 H Absolute Neuts (auto) 19.1 H Absolute Nucleated RBC 0.000 Nucleated RBC % (auto) 0.0 Smear Tech's Comments D-Dimer High Sensitivty 1100 Anion Gap 18 Estim Creat Clear Calc 96.5 Estimated GFR > 60 Random Glucose 217 H Lactic Acid Calcium 9.3 D COVID-19 ([facility]) COVID-UPEK 12/28/22 12/28/22 12/29/22 17:35 17:36 05:34 MCV 83.2 MCH 26.9 L MCHC 32.3 RDW 12.9 Plt Count 486 H MPV 8.4 L Immature Gran % (Auto) 2.3 H Neut % (Auto) 82.7 H Lymph % (Auto) 6.3 L [place] % (Auto) 8.5 Eos % (Auto) 0.1 Baso % (Auto) 0.1 Lymph # (Auto) 1.3 [place] # (Auto) 1.8 H Eos # (Auto) 0.0 Baso # (Auto) 0.0 Abs Immat Gran (auto) 0.47 H Absolute Neuts (auto) 17.1 H Absolute Nucleated RBC 0.000 Nucleated RBC % (auto) 0.0 Smear Tech's Comments VERIFIED D-Dimer High Sensitivty Anion Gap Estim Creat Clear Calc Estimated GFR Random Glucose Lactic Acid 1.2 Calcium COVID-19 ([facility]ICA) Negative COVID-19 Clin Com See Note 12/29/22 05:34 MCV MCH MCHC RDW Plt Count MPV Immature Gran % (Auto) Neut % (Auto) Lymph % (Auto) [place] % (Auto) Eos % (Auto) Baso % (Auto) Lymph # (Auto) [place] # (Auto) Eos # (Auto) Baso # (Auto) Abs Immat Gran (auto) Absolute Neuts (auto) Absolute Nucleated RBC Nucleated RBC % (auto) Smear Tech's Comments D-Dimer High Sensitivty Anion Gap Estim Creat Clear Calc 102.1 Estimated GFR > 60 Random Glucose Lactic Acid Calcium COVID-19 ([facility]) COVID-19 Clin Com Assessment and Plan (1) Cellulitis of right lower extremity: Status: Acute Plan 72 year old female with morbid obesity and other medical problems as listed. She presents with right ankle redness, pain and swelling best described by the image, clinical presentation consistent with sepsis d/t cellulitis and concern for joint involvment. Left leg Cellulitis, Sepsis, concern for joint involvment. Sepsis not yet resolved -Ortho rec Abx and pain managment -MRI to rule osteo -Continue Zosyn and Vanco -Dilaudid for pain Gerd--Omeprazol Anxiety--Prorpanolol Morbid obesity--weight loss advised Heparin for DVT prophylaxis Full code Need for inpatient nagement of sepsis, ankle cellulitis and expert evaluation for possible intervention, not able to due this in less acute setting at this time Time Spent With Patient Time: Total time managing care of this patient today ____ minutes. Quality Stroke Does the patient have a stroke diagnosis?: No VTE Prior VTE?: No VTE Risk Level:: Medical - moderate - high VTE Device Contraindication: Treatment Not Indicated VTE Drug Contraindication: N/A - Med Ordered
[2022-12-29 14:14] VITALS: BP 153/77; PULSE 98; RESP 13; TEMP 36.8; O2SAT 96
--- NOTE | 2022-12-29 15:02 | W.PM.IDCN ---
History of Present Illness Data of Consult Service Date: 12/29/22 Requesting physician: Colin Richardson Primary Care Provider: Audra Burger MD HPI Reason for consult: ankle swelling and pain, right She presents with right ankle redness and swelling for eight days progressing to blistering lateral aspect of ankle over last day. She now has bullae forming over ankle laterally. She denies fever or chills and has no animal or insect contact or injury. She says she has had swelling in both hands and feet and was diagnosed with probable psoriatic arthritis per PCP Audra Burger and was prescribed Prednisone last week. She has no issues with left leg. Review of Systems Review of Systems: Yes all other systems are reviewed and are negative [facility]LY [facility] Past Medical History Medical History Anemia Arthritis COVID-19 vaccine administered Diverticulitis GERD (gastroesophageal reflux disease) Insomnia Invasive ductal carcinoma of left breast Lobular carcinoma in situ of right breast Migraines Morbid obesity Situational anxiety Situational depression Family History Family History Mother Glioblastoma Father Lung cancer Paternal Grandmother Cancer of unknown origin Family history: reviewed and not pertinent Surgical History Surgical History History of bilateral breast biopsy History of colon resection History of colostomy reversal History of incision and drainage Hx of colonoscopy Social History Social History Are you a primary furnace caretaker to a significant other at home: No Do you presently have visiting nurse or other home services: No Alcohol intake: never Patient Tobacco Use Status: Never used Tobacco Smoked in Last 30 Days: No Use of substances other than those prescribed or required for medical reasons: No Advance Directives: No Advance Directives Information Provided: Yes Nutrition Risks: No Nutritional Risk service: No Current occupational status: employed Meds Allergies Allergy/AdvReac Type Severity Reaction Status Date / Time fluoxetine [Prozac] Allergy Unknown worsening Verified 04/15/22 10:32 depression gabapentin Allergy Unknown irritabilit Verified 04/15/22 10:32 y Iodinated Contrast Media Allergy Unknown RASH Verified 04/15/22 10:32 [IV CONTRAST] nortriptyline Allergy Unknown irritabilit Verified 06/02/22 10:32 y topiramate Allergy Unknown mild Verified 04/15/22 10:32 depression verapamil Allergy Unknown irritabilit Verified 04/15/22 10:32 y food allergies Allergy Unknown Sneezing Uncoded 04/15/22 10:32 Active Medications: Current Medications Acetaminophen (Acetaminophen 325 Mg Tablet) 650 mg PO Q6H PRN PRN Reason: Pain, Mild (Pain Scale 1-3) Last Admin: 12/29/22 06:44 Dose: 650 mg Acetaminophen (Acetaminophen 325 Mg Tablet) 325 mg PO QID PRN PRN Reason: pain scale (7-10) Calcium Carbonate (Calcium Carbonate 500 Mg Tablet) 500 mg PO BID [facility] Last Admin: 12/29/22 12:40 Dose: 500 mg Cyanocobalamin (Cyanocobalamin (Vitamin B-12) 500 Mcg Tablet) 500 mcg PO DAILY [facility] Last Admin: 12/29/22 13:00 Dose: Not Given Ergocalciferol (Ergocalciferol (Vitamin D2) 1,250 Mcg Capsule) 1,250 mcg PO [facility] Ferrous Sulfate (Ferrous Sulfate 324 Mg Tablet.Dr) 324 mg PO DAILY [facility] Last Admin: 12/29/22 12:41 Dose: 324 mg Heparin Sodium (Porcine) (Heparin Sodium,Porcine 5,000 Unit/Ml Vial) 5,000 unit SUBCUT Q8H [facility] Last Admin: 12/29/22 12:40 Dose: 5,000 unit Piperacillin Sod/Tazobactam (Sod 3.375 gm/ Sodium Chloride) 50 mls @ 100 mls/hr IV Q6H [facility] Last Infusion: 12/29/22 13:39 Dose: Infused Vancomycin HCl 1,000 mg/ (Sodium Chloride) 270 mls @ 270 mls/hr IV Q12H [facility] Last Infusion: 12/29/22 09:10 Dose: Infused Magnesium Hydroxide (Milk Of Magnesia 30 Ml Oral.Susp) 30 ml PO DAILY PRN PRN Reason: Constipation Melatonin (Melatonin 3 Mg Tablet) 6 mg PO BEDTIME PRN PRN Reason: Insomnia Last Admin: 12/29/22 00:25 Dose: 6 mg Metformin HCl (Metformin Hcl Er 500 Mg Tab.Er.24h) 500 mg PO BID [facility] Last Admin: 12/29/22 12:40 Dose: 500 mg Morphine Sulfate (Morphine Sulfate 4 Mg/Ml Cartridge) 2 mg IVPUSH Q4H PRN; Protocol PRN Reason: Pain, Severe (Pain Scale 7-10) Last Admin: 12/29/22 12:55 Dose: 2 mg Multivitamins/Vitamin C (Multivitamin Tablet) 1 tab PO DAILY [facility] Last Admin: 12/29/22 12:40 Dose: 1 tab Pt Own (Exemestane (25 Mg Tablet)) 25 mg PO DAILY [facility] Non-Formulary Medication (Naratriptan) 1 tab PO DAILY MRX1 PRN PRN Reason: Migraine Headache Omeprazole (Omeprazole 20 Mg Capsule.Dr) 20 mg PO DAILY@0630 [facility] Oxycodone HCl (Oxycodone Hcl Immed Release 5 Mg Tablet) 5 mg PO QID PRN PRN Reason: pain scale (7-10) Pharmacy Consult (Consult Rx Vancomycin Dosing) 1 each MISCELLANE DAILY PRN PRN Reason: Consult order Propranolol HCl (Propranolol Hcl La 80 Mg Cap.Sa.24h) 80 mg PO DAILY [facility]; Protocol Last Admin: 12/29/22 13:01 Dose: Not Given Sodium Chloride (0.9 % Sodium Chloride Flush 3 Ml Syringe) [facility] Last Admin: 12/29/22 09:11 Dose: Not Given Home Medications Medication Instructions Recorded Confirmed Last Taken Type ferrous gluconate 324 mg (38 mg 324 mg PO BID 02/17/21 12/28/22 05/12/21 History iron) tablet omeprazole 20 mg capsule,delayed 20 mg PO DAILY 02/17/21 12/28/22 12/28/22 History release naratriptan 2.5 mg tablet 1 tab PO DAILY MRX1 PRN Migraine 03/26/21 12/28/22 Unknown History Headache propranolol 80 mg capsule,24 1 cap PO DAILY 03/26/21 12/28/22 04/01/21 History hr,extended release exemestane 25 mg tablet 25 mg PO DAILY 04/15/22 12/28/22 12/28/22 History calcium carbonate 500 mg calcium 500 mg PO BID 12/28/22 12/28/22 Unknown History (1,250 mg) tablet cyanocobalamin (vitamin B-12) 500 500 mcg PO DAILY 12/28/22 12/28/22 Unknown History mcg tablet ergocalciferol (vitamin D2) 1,250 1,250 mcg PO MORENO 12/28/22 12/28/22 Unknown History mcg (50,000 unit) capsule metformin 500 mg tablet,extended 500 mg PO BID 12/28/22 12/28/22 12/28/22 History release 24 hr multivitamin 1 tab PO DAILY 12/28/22 12/28/22 Unknown History oxycodone-acetaminophen 5 mg-325 1 tab PO QID PRN Pain (Scale Score 12/28/22 12/28/22 12/28/22 History mg tablet 7-10) Physical Exam Vital Signs: Vital Signs: Last Vital Signs Temp 98.3 F 12/29/22 14:14 Pulse 98 12/29/22 14:14 Resp 13 12/29/22 14:14 BP 153/77 H 12/29/22 14:14 Pulse Ox 96 12/29/22 14:14 O2 Del Method 12/29/22 14:14 BMI result Body Mass Index 43.8 Const: General: cooperative HEENT: Head: Yes normal to inspection Face and sinus: Yes normal facial exam Mouth: Normal oral and palatal mucosa present Teeth and gingiva: dentition normal Eyes: General: appearance normal, both eyes and all related structures Pupils: Equal, round and reactive pupils present Resp: Effort & Inspection: normal respiratory effort Cardio: Rate: regular rate Rhythm: regular rhythm GI: Palpation (GI): Soft to palpation and nontender : General: Yes no CVA tenderness Back/Spine/Pelvis: Back: no CVA tenderness Skin: General skin exam: no rashes or lesions noted Neuro: General: moves all extremities Cranial nerves: Yes Equal, round and reactive pupils present Extrem: Other: swollen leaking right ankle with red streaking up leg dark plantar surface feet as if going barefoot Psych: Appearance: grossly normal Results Labs 12/29/22 05:34 12/29/22 05:34 Labs: Short CBC 12/28/22 12/29/22 Range/Units 16:53 05:34 WBC 21.4 H 20.7 H (4.8-10.8) X10*3/uL Hgb 11.9 L 10.6 L (12.0-16.0) g/dl Hct 36.4 L 32.8 L (37.0-47.0) % Plt Count 531 H 486 H (160-400) X10*3/uL BMP 12/28/22 12/29/22 16:53 05:34 Sodium 133 L Potassium 4.3 Chloride 96 Carbon Dioxide 23 BUN 14 Creatinine 0.73 0.69 Calcium 9.3 D Assessment and Plan (1) Cellulitis of right lower extremity: Status: Acute She has blistering with redness laterally ankle. Ankle area is very painful. There is possible septic joint She is immunocompromised with breast cancer. Possible gram negative and gram positive organisms could be identified. Less likely gout or inflammatory arthritis. Plan Agree with broad spectrum antibiotics for now ,Vancomycin and piperacillin/tazobactam MRI evaluate for infection,gout other causes. Blood cultures. Orthopedics evaluation. Time Spent With Patient Time: Total time managing care of this patient today ____ minutes.
[2022-12-29 15:58] VITALS: BP 154/72; PULSE 104; RESP 16; TEMP 36.8; O2SAT 98
[2022-12-29] MEDS: 0.9 % Sodium Chloride Flush 3 ML SYRINGE IVFLUSH (17:49)
[2022-12-29 20:00] VITALS: BP 143/68; PULSE 109; RESP 17; TEMP 37.7; O2SAT 95
[2022-12-29 20:26] LABS: Glucose, Whole Blood 158 mg/dL (60-115)
[2022-12-29 23:31] VITALS: BP 130/78; PULSE 77; RESP 18; TEMP 37; O2SAT 96
[2022-12-30] MEDS: 0.9 % Sodium Chloride Flush 3 ML SYRINGE IVFLUSH ×3 (00:11→22:46)
[2022-12-30] MEDS: HYDROmorphone HCl 1 MG/ML SYRINGE IVPUSH ×5 (00:35→19:58)
[2022-12-30 03:21] VITALS: BP 160/82; PULSE 100; RESP 18; TEMP 36.5; O2SAT 95
[2022-12-30] MEDS: Heparin Sodium,Porcine 5,000 UNIT/ML VIAL 5000 UNIT SUBCUT ×2 (04:40→19:54)
[2022-12-30] MEDS: Piperacillin Sodium/Tazobactam 3.375 GM in 0.9 % Sodium Chloride 50 ML IV ×4 (04:41→22:46)
[2022-12-30] MEDS: vancomycin HCL 1,000 MG in 0.9 % Sodium Chloride 250 ML 270 MG IV (06:30)
[2022-12-30] MEDS: Omeprazole 20 MG CAPSULE.DR PO (06:30)
[2022-12-30 06:46] LABS: Creatinine Clr Calc Pharmacy 99.2; Estimated Glomerular Filt Rate > 60
[2022-12-30 06:48] LABS: Vancomycin Trough 7.6 mcg/mL (10.0-20.0)
--- NOTE | 2022-12-30 07:12 | HE.PHANOTE ---
BASED ON SCR OF 0.71 AND TROUGH OF 7.6 DOSE INCREASED TO 750Q8. NEXT TROUGH AT 12/31 @ 0600
[2022-12-30 07:56] LABS: Glucose, Whole Blood 154 mg/dL (60-115)
[2022-12-30 08:00] VITALS: BP 139/73; PULSE 110; RESP 18; TEMP 36.6; O2SAT 94
[2022-12-30] MEDS: Propranolol HCL LA 80 MG CAP.SA.24H PO (08:44)
--- NOTE | 2022-12-30 08:51 | P.PNIM_ITS ---
Subjective Subjective Date of Service: 12/30/22 Review of Systems No fever, right ankle pain is much better, purulent drainage from the ankle, see picture Physical Exam Vital Signs: Vital Signs: Last Vital Signs Temp 97.9 F 12/30/22 08:00 Pulse 110 H 12/30/22 08:00 Resp 18 12/30/22 08:00 BP 139/73 12/30/22 08:00 Pulse Ox 94 12/30/22 08:00 O2 Del Method 12/30/22 08:00 BMI result Body Mass Index 43.8 Const: Other: General: AO X 3, no acute distress, morbildly obese Resp: CTA bilateral CVS: S1,S2,RRR GI: +BS, NT, no distention Skin: No rash MSK: 12/28 Neuro: motor grossly intact Psych: appropriate affect Objective Data Active Medications Acetaminophen (Acetaminophen 325 Mg Tablet) 650 mg PO Q6H PRN PRN Reason: Pain, Mild (Pain Scale 1-3) Last Admin: 12/29/22 20:38 Dose: 650 mg Documented By: NAZ Acetaminophen (Acetaminophen 325 Mg Tablet) 325 mg PO QID PRN PRN Reason: pain scale (7-10) Calcium Carbonate (Calcium Carbonate 500 Mg Tablet) 500 mg PO BID [facility] Last Admin: 12/30/22 08:49 Dose: Not Given Documented By: VICTORIA Non-Admin Reason: NPO Cyanocobalamin (Cyanocobalamin (Vitamin B-12) 500 Mcg Tablet) 500 mcg PO DAILY [facility] Last Admin: 12/30/22 08:49 Dose: Not Given Documented By: VICTORIA Non-Admin Reason: NPO Ergocalciferol (Ergocalciferol (Vitamin D2) 1,250 Mcg Capsule) 1,250 mcg PO [facility] Ferrous Sulfate (Ferrous Sulfate 324 Mg Tablet.Dr) 324 mg PO DAILY [facility] Last Admin: 12/30/22 08:49 Dose: Not Given Documented By: VICTORIA Non-Admin Reason: NPO Heparin Sodium (Porcine) (Heparin Sodium,Porcine 5,000 Unit/Ml Vial) 5,000 unit SUBCUT Q8H [facility] Last Admin: 12/30/22 04:40 Dose: 5,000 unit Documented By: ARA Hydromorphone HCl (Hydromorphone Hcl 1 Mg/Ml Syringe) 1 mg IVPUSH Q4H PRN; Protocol PRN Reason: Pain, Severe (Pain Scale 7-10) Last Admin: 12/30/22 05:13 Dose: 1 mg Documented By: ARA Piperacillin Sod/Tazobactam (Sod 3.375 gm/ Sodium Chloride) 50 mls @ 100 mls/hr IV Q6H [facility] Last Infusion: 12/30/22 05:19 Dose: 0 mls/hr Documented By: ARA Vancomycin HCl 1,000 mg/ (Sodium Chloride) 270 mls @ 270 mls/hr IV Q12H [facility] Stop: 12/30/22 09:00 Last Infusion: 12/30/22 08:38 Dose: 0 mls/hr Documented By: VICTORIA Vancomycin HCl 750 mg/ Sodium (Chloride) 265 mls @ 265 mls/hr IV Q8H [facility] Magnesium Hydroxide (Milk Of Magnesia 30 Ml Oral.Susp) 30 ml PO DAILY PRN PRN Reason: Constipation Melatonin (Melatonin 3 Mg Tablet) 6 mg PO BEDTIME PRN PRN Reason: Insomnia Last Admin: 12/29/22 00:25 Dose: 6 mg Documented By: ELAINE Metformin HCl (Metformin Hcl Er 500 Mg Tab.Er.24h) 500 mg PO BID [facility] Last Admin: 12/30/22 08:49 Dose: Not Given Documented By: VICOTRIA Non-Admin Reason: NPO Morphine Sulfate (Morphine Sulfate 4 Mg/Ml Cartridge) 2 mg IVPUSH Q4H PRN; Protocol PRN Reason: Pain, Severe (Pain Scale 7-10) Last Admin: 12/29/22 19:41 Dose: 2 mg Documented By: NAZ Multivitamins/Vitamin C (Multivitamin Tablet) 1 tab PO DAILY [facility] Last Admin: 12/30/22 08:49 Dose: Not Given Documented By: VICTORIA Non-Admin Reason: NPO Pt Own (Exemestane (25 Mg Tablet)) 25 mg PO DAILY [facility] Last Admin: 12/29/22 16:29 Dose: Not Given Documented By: NONA Non-Admin Reason: Previously Administered Non-Formulary Medication (Naratriptan) 1 tab PO DAILY MRX1 PRN PRN Reason: Migraine Headache Omeprazole (Omeprazole 20 Mg Capsule.) 20 mg PO DAILY@0630 [facility] Last Admin: 12/30/22 06:30 Dose: 20 mg Documented By: ARA Oxycodone HCl (Oxycodone Hcl Immed Release 5 Mg Tablet) 5 mg PO QID PRN PRN Reason: pain scale (7-10) Pharmacy Consult (Consult Rx Vancomycin Dosing) 1 each MISCELLANE DAILY PRN PRN Reason: Consult order Propranolol HCl (Propranolol Hcl La 80 Mg Cap.Sa.24h) 80 mg PO DAILY [facility]; Protocol Last Admin: 12/30/22 08:44 Dose: 80 mg Documented By: VICTORIA Sodium Chloride (0.9 % Sodium Chloride Flush 3 Ml Syringe) 3 ml IVFLUSH QSHIFT [facility] Last Admin: 12/30/22 08:44 Dose: 3 ml Documented By: VICTORIA Labs 12/29/22 05:34 12/30/22 05:50 Labs: Laboratory Results - last 24 hr 12/29/22 12/30/22 12/30/22 20:22 05:50 05:50 Estim Creat Clear Calc 99.2 Estimated GFR > 60 POC Glucose 158 H Vancomycin Trough 7.6 L 12/30/22 07:45 Estim Creat Clear Calc Estimated GFR POC Glucose 154 H Vancomycin Trough Microbiology Microbiology Results: Microbiology 12/28/22 16:53 Blood Culture - Preliminary Blood - Venous No growth after 24 hours. 12/28/22 16:54 Blood Culture - Preliminary Blood - Venous No growth after 24 hours. Assessment and Plan (1) Cellulitis of right lower extremity: Status: Acute Plan 72 year old female with morbid obesity and other medical problems as listed. She presents with right ankle redness, pain and swelling best described by the image, clinical presentation consistent with sepsis d/t cellulitis and concern for joint involvment. #Left leg Cellulitis, Sepsis, concern for joint involvment. Sepsis not yet reso lved -Ortho rec Abx and pain managment -MRI 12/29:1. Large 12 cm abscess in the lateral subcutaneous fat at the level of the ankle and hindfoot with surrounding cellulitis and underlying osteomyelitis of the lateral malleolus. 2. Complex longitudinal tears of the peroneus longus and peroneus brevis tendons with associated tenosynovitis. Septic tenosynovitis is also possible. I discussed with ortho re probably need for I&D -Continue Zosyn and Vanco 12/28 (D3) -Dilaudid for pain #Gerd--Omeprazol #Anxiety--Prorpanolol #Morbid obesity--weight loss advised #Heparin for DVT prophylaxis Full code Need for inpatient nagement of sepsis, ankle cellulitis/abscess and expert evaluation for possible intervention, not able to due this in less acute setting at this time Time Spent With Patient Time: Total time managing care of this patient today ____ minutes. Quality Stroke Does the patient have a stroke diagnosis?: No VTE Prior VTE?: No VTE Risk Level:: Medical - moderate - high VTE Device Contraindication: Treatment Not Indicated VTE Drug Contraindication: N/A - Med Ordered
--- NOTE | 2022-12-30 10:02 | PM.PNORT ---
Subjective Subjective Date of Service: 12/30/22 Interval history: Patient is resting comfortable in bed. Sleeping upon enter the room. No overnight events. Pain is managed. NO additional complaints. Physical Exam Vital Signs: Vital Signs: Last Vital Signs Temp 97.9 F 12/30/22 08:00 Pulse 110 H 12/30/22 08:00 Resp 18 12/30/22 08:00 BP 139/73 12/30/22 08:00 Pulse Ox 94 12/30/22 08:00 O2 Del Method 12/30/22 08:00 BMI result Body Mass Index 43.8 Const: General: cooperative, healthy appearing and no acute distress Resp: Effort & Inspection: normal respiratory effort and able to speak in complete sentences Cardio: Rate: regular rate Peripheral pulses: Peripheral pulses 2+ throughout GI: Palpation (GI): Soft to palpation Skin: Lesions: no lesions Rashes: no rashes Extrem: Other: Right foot and ankle circumferential erythema and edema. Erythema extends up the anterior aspect on the lower extremity. Blistering from edema is noted, mostly on the lateral aspect of the ankle. Lateral ankle abscess actively draining purulent discharge. Able to slightly dorsiflex and plantarflex but is extremely limited due to pain and swelling. Sensation is reportedly intact. Does has a hx of neuropathy. Pedal pulse intact. Procedures Date of Service Date of Service: 12/30/22 Progress Note: A&P Assessment and plan (1) Cellulitis of right lower extremity: Status: Acute Assessment and Plan: Cont. pain management as appropriate IV abx Plan for bedside I&D later today Allow abscess to drain Encourage gentle ROM (2) Abscess: Status: Acute Time Spent With Patient Time: Total time managing care of this patient today ____ minutes. Quality Stroke Does the patient have a stroke diagnosis?: No VTE Prior VTE?: No VTE Risk Level:: Medical - moderate - high VTE Device Contraindication: Treatment Not Indicated VTE Drug Contraindication: N/A - Med Ordered
[2022-12-30] MEDS: vancomycin HCL 750 MG in 0.9 % Sodium Chloride 250 ML 265 MG IV (15:22)
--- NOTE | 2022-12-30 15:46 | PM.PRCOR ---
Brief Operative Note Date of procedure: 12/30/22 Procedure: Bedside irrigation and debridement of right ankle lateral maleollus. Copious amounts of purulent discharge drained from the area. Wound was washing in water with peroxide. Dressed with xeroform and clean dry dressing. Placed in night splint for immobilization. Anesthesia: none Surgeon: Patrick Faye Sulfonation Equipment Operator: Kait Ardon Pathology: none sent Condition: stable Disposition: floor
[2022-12-30] MEDS: ceFAZolin Sodium/Dextrose,Iso 2 GM/50 ML PIGGYBACK IV (19:54)
[2022-12-30] MEDS: metFORMIN HCl ER 500 MG TAB.ER.24H PO (19:59)
[2022-12-30] MEDS: Melatonin 3 MG TABLET 6 MG PO (19:59)
[2022-12-30 20:00] VITALS: BP 144/67; PULSE 92; RESP 18; TEMP 37.7; O2SAT 91
[2022-12-31] VITALS (18 sets, daily range): BP systolic 130–164; BP diastolic 51–81; PULSE 70–90; RESP 16–76; TEMP 36–37.1; O2SAT 92–98
[2022-12-31] MEDS: vancomycin HCL 750 MG in 0.9 % Sodium Chloride 250 ML 265 MG IV (00:03)
[2022-12-31] MEDS: HYDROmorphone HCl 1 MG/ML SYRINGE IVPUSH ×3 (00:03→21:34)
[2022-12-31] MEDS: Heparin Sodium,Porcine 5,000 UNIT/ML VIAL 5000 UNIT SUBCUT ×3 (03:44→19:36)
[2022-12-31] MEDS: Piperacillin Sodium/Tazobactam 3.375 GM in 0.9 % Sodium Chloride 50 ML IV ×3 (04:49→21:11)
[2022-12-31] MEDS: Omeprazole 20 MG CAPSULE.DR PO (04:50)
[2022-12-31 06:23] LABS: Vancomycin Random 12.9 mcg/mL (15-20)
[2022-12-31 06:25] LABS: Creatinine Clr Calc Pharmacy 99.2; Estimated Glomerular Filt Rate > 60
--- NOTE | 2022-12-31 06:47 | HE.PHANOTE ---
Vancomycin Dosing Addendum Vancomycin trough 12.9. 750 q8h AUC eventually subtherapeutic. Patient is 72 y/o.. changing regimen to 1500 mg q12h for predicted AUC of 492, tox 6%. obese model used.
[2022-12-31] MEDS: vancomycin HCL 1,500 MG in 0.9 % Sodium Chloride 500 ML 333.33 MG IV ×2 (07:47→19:36)
[2022-12-31] MEDS: 0.9 % Sodium Chloride Flush 3 ML SYRINGE IVFLUSH ×3 (07:49→21:34)
--- NOTE | 2022-12-31 09:41 | P.PNIM_ITS ---
Subjective Subjective Date of Service: 12/31/22 Review of Systems No fever, right ankle pain is much better, purulent drainage from the ankle, see picture Physical Exam Vital Signs: Vital Signs: Last Vital Signs Temp 96.9 F 12/31/22 07:21 Pulse 78 12/31/22 07:21 Resp 17 12/31/22 07:21 BP 155/70 H 12/31/22 07:21 Pulse Ox 95 12/31/22 07:21 O2 Del Method 12/31/22 07:21 BMI result Body Mass Index 43.8 Const: Other: General: AO X 3, no acute distress, morbildly obese Resp: CTA bilateral CVS: S1,S2,RRR GI: +BS, NT, no distention Skin: No rash MSK: 12/28 Neuro: motor grossly intact Psych: appropriate affect Objective Data Active Medications Acetaminophen (Acetaminophen 325 Mg Tablet) 650 mg PO Q6H PRN PRN Reason: Pain, Mild (Pain Scale 1-3) Last Admin: 12/29/22 20:38 Dose: 650 mg Documented By: NAZ Acetaminophen (Acetaminophen 325 Mg Tablet) 325 mg PO QID PRN PRN Reason: pain scale (7-10) Calcium Carbonate (Calcium Carbonate 500 Mg Tablet) 500 mg PO BID [facility] Last Admin: 12/31/22 08:50 Dose: Not Given Documented By: SKYLA Non-Admin Reason: NPO Cyanocobalamin (Cyanocobalamin (Vitamin B-12) 500 Mcg Tablet) 500 mcg PO DAILY [facility] Last Admin: 12/31/22 08:50 Dose: Not Given Documented By: SKYLA Non-Admin Reason: NPO Ergocalciferol (Ergocalciferol (Vitamin D2) 1,250 Mcg Capsule) 1,250 mcg PO MORENO [facility] Ferrous Sulfate (Ferrous Sulfate 324 Mg Tablet.Dr) 324 mg PO DAILY [facility] Last Admin: 12/31/22 08:50 Dose: Not Given Documented By: SKYLA Non-Admin Reason: NPO Heparin Sodium (Porcine) (Heparin Sodium,Porcine 5,000 Unit/Ml Vial) 5,000 unit SUBCUT Q8H [facility] Last Admin: 12/31/22 03:44 Dose: 5,000 unit Documented By: ROSA Hydromorphone HCl (Hydromorphone Hcl 1 Mg/Ml Syringe) 1 mg IVPUSH Q4H PRN; Protocol PRN Reason: Pain, Severe (Pain Scale 7-10) Last Admin: 12/31/22 04:49 Dose: 1 mg Documented By: ROSA Piperacillin Sod/Tazobactam (Sod 3.375 gm/ Sodium Chloride) 50 mls @ 100 mls/hr IV Q6H [facility] Last Infusion: 12/31/22 05:25 Dose: 0 mls/hr Documented By: ROSA Vancomycin HCl 1,500 mg/ (Sodium Chloride) 500 mls @ 333.333 mls/hr IV Q12H [facility] Last Infusion: 12/31/22 09:25 Dose: 0 mls/hr Documented By: SKYLA Magnesium Hydroxide (Milk Of Magnesia 30 Ml Oral.Susp) 30 ml PO DAILY PRN PRN Reason: Constipation Melatonin (Melatonin 3 Mg Tablet) 6 mg PO BEDTIME PRN PRN Reason: Insomnia Last Admin: 12/30/22 19:59 Dose: 6 mg Documented By: ROSA Metformin HCl (Metformin Hcl Er 500 Mg Tab.Er.24h) 500 mg PO BID [facility] Last Admin: 12/31/22 08:51 Dose: Not Given Documented By: SKYLA Non-Admin Reason: NPO Morphine Sulfate (Morphine Sulfate 4 Mg/Ml Cartridge) 2 mg IVPUSH Q4H PRN; Protocol PRN Reason: Pain, Severe (Pain Scale 7-10) Last Admin: 12/29/22 19:41 Dose: 2 mg Documented By: NAZ Multivitamins/Vitamin C (Multivitamin Tablet) 1 tab PO DAILY [facility] Last Admin: 12/31/22 08:51 Dose: Not Given Documented By: SKYLA Non-Admin Reason: NPO Pt Own (Exemestane (25 Mg Tablet)) 25 mg PO DAILY [facility] Last Admin: 12/31/22 08:50 Dose: Not Given Documented By: SKYLA Non-Admin Reason: NPO Non-Formulary Medication (Naratriptan) 1 tab PO DAILY MRX1 PRN PRN Reason: Migraine Headache Omeprazole (Omeprazole 20 Mg Capsule.Dr) 20 mg PO DAILY@0630 [facility] Last Admin: 12/31/22 04:50 Dose: 20 mg Documented By: ROSA Oxycodone HCl (Oxycodone Hcl Immed Release 5 Mg Tablet) 5 mg PO QID PRN PRN Reason: pain scale (7-10) Pharmacy Consult (Consult Rx Vancomycin Dosing) 1 each MISCELLANE DAILY PRN PRN Reason: Consult order Propranolol HCl (Propranolol Hcl La 80 Mg Cap.Sa.24h) 80 mg PO DAILY [facility]; Protocol Last Admin: 12/31/22 08:51 Dose: Not Given Documented By: SKYLA Non-Admin Reason: NPO Sodium Chloride (0.9 % Sodium Chloride Flush 3 Ml Syringe) 3 ml IVFLUSH QSHIFT [facility] Last Admin: 12/31/22 07:49 Dose: 3 ml Documented By: SKYLA Labs 12/29/22 05:34 12/31/22 05:08 Labs: Laboratory Results - last 24 hr 12/31/22 12/31/22 05:08 05:08 Estim Creat Clear Calc 99.2 Estimated GFR > 60 Random Vancomycin 12.9 L Microbiology Microbiology Results: Microbiology 12/28/22 16:53 Blood Culture - Preliminary Blood - Venous No growth after 48 hours. 12/28/22 16:54 Blood Culture - Preliminary Blood - Venous No growth after 48 hours. Assessment and Plan (1) Cellulitis of right lower extremity: Status: Acute Plan 72 year old female with morbid obesity and other medical problems as listed. She presents with right ankle redness, pain and swelling best described by the image, clinical presentation consistent with sepsis d/t cellulitis and concern for joint involvment. #Left foot Cellulitis and abscess, Sepsis, concern for joint involvment. Sepsis not yet resolved -MRI 12/29:1. Large 12 cm abscess in the lateral subcutaneous fat at the level of the ankle and hindfoot with surrounding cellulitis and underlying osteomyelitis of the lateral malleolus. 2. Complex longitudinal tears of the peroneus longus and peroneus brevis tendons with associated tenosynovitis. Septic tenosynovitis is also possible. Ortho did bedside I/D on 12/30 and will take to OR for full exploration and lavage today 12/31 culture so far negative -Continue Zosyn and Vanco 12/28 (D3) -Dilaudid for pain #Gerd--Omeprazol #Anxiety--Prorpanolol #Morbid obesity--weight loss advised #Heparin for DVT prophylaxis Full code Need for inpatient nagement of sepsis, ankle cellulitis/abscess and expert evaluation for possible intervention, not able to due this in less acute setting at this time Time Spent With Patient Time: Total time managing care of this patient today ____ minutes. Quality Stroke Does the patient have a stroke diagnosis?: No VTE Prior VTE?: No VTE Risk Level:: Medical - moderate - high VTE Device Contraindication: Treatment Not Indicated VTE Drug Contraindication: N/A - Med Ordered
--- NOTE | 2022-12-31 10:28 | P.CONAN_ITS ---
[facility] Active Problems Active Problems: All Active Problems (Updated 12/30/22 @ 10:04 by Kait Ardon PA-C) Abscess (Acute) Cellulitis of right lower extremity (Acute) Bilateral breast cancer (Acute) Insomnia (Acute) Abscess of left axilla (Acute) Abnormal ultrasound of breast (Acute) Lobular carcinoma of right breast (Acute) Invasive ductal carcinoma of left breast (Acute) Past Medical History Medical History Anemia Arthritis COVID-19 vaccine administered Diverticulitis GERD (gastroesophageal reflux disease) Insomnia Invasive ductal carcinoma of left breast Lobular carcinoma in situ of right breast Migraines Morbid obesity Situational anxiety Situational depression Family History Family History Mother Glioblastoma Father Lung cancer Paternal Grandmother Cancer of unknown origin Family history of problems with anesthesia: No Surgical History Surgical History History of bilateral breast biopsy History of colon resection History of colostomy reversal History of incision and drainage Hx of colonoscopy History of Problems with Anesthesia: No Social History Social History Household Members: Spouse Housing: House Are you a primary care professionals to a significant other at home: No Do you presently have visiting nurse or other home services: No Alcohol intake: never Patient Tobacco Use Status: Never used Tobacco Second Hand Smoke Exposure: No service: No Current occupational status: employed Meds Allergies Allergy/AdvReac Type Severity Reaction Status Date / Time fluoxetine [Prozac] Allergy Unknown worsening Verified 04/15/22 10:32 depression gabapentin Allergy Unknown irritabilit Verified 04/15/22 10:32 y Iodinated Contrast Media Allergy Unknown RASH Verified 04/15/22 10:32 [IV CONTRAST] nortriptyline Allergy Unknown irritabilit Verified 04/15/22 10:32 y topiramate Allergy Unknown mild Verified 04/15/22 10:32 depression verapamil Allergy Unknown irritabilit Verified 04/15/22 10:32 y food allergies Allergy Unknown Sneezing Uncoded 04/15/22 10:32 Active Medications: Current Medications Acetaminophen (Acetaminophen 325 Mg Tablet) 650 mg PO Q6H PRN PRN Reason: Pain, Mild (Pain Scale 1-3) Last Admin: 12/29/22 20:38 Dose: 650 mg Acetaminophen (Acetaminophen 325 Mg Tablet) 325 mg PO QID PRN PRN Reason: pain scale (7-10) Calcium Carbonate (Calcium Carbonate 500 Mg Tablet) 500 mg PO BID [facility] Last Admin: 12/31/22 08:50 Dose: Not Given Cyanocobalamin (Cyanocobalamin (Vitamin B-12) 500 Mcg Tablet) 500 mcg PO DAILY [facility] Last Admin: 12/31/22 08:50 Dose: Not Given Ergocalciferol (Ergocalciferol (Vitamin D2) 1,250 Mcg Capsule) 1,250 mcg PO [facility] Ferrous Sulfate (Ferrous Sulfate 324 Mg Tablet.Dr) 324 mg PO DAILY [facility] Last Admin: 12/31/22 08:50 Dose: Not Given Heparin Sodium (Porcine) (Heparin Sodium,Porcine 5,000 Unit/Ml Vial) 5,000 unit SUBCUT Q8H [facility] Last Admin: 12/31/22 03:44 Dose: 5,000 unit Hydromorphone HCl (Hydromorphone Hcl 1 Mg/Ml Syringe) 1 mg IVPUSH Q4H PRN; Protocol PRN Reason: Pain, Severe (Pain Scale 7-10) Last Admin: 12/31/22 04:49 Dose: 1 mg Piperacillin Sod/Tazobactam (Sod 3.375 gm/ Sodium Chloride) 50 mls @ 100 mls/hr IV Q6H [facility] Last Infusion: 12/31/22 05:25 Dose: Infused Vancomycin HCl 1,500 mg/ (Sodium Chloride) 500 mls @ 333.333 mls/hr IV Q12H [facility] Last Infusion: 12/31/22 09:25 Dose: Infused Magnesium Hydroxide (Milk Of Magnesia 30 Ml Oral.Susp) 30 ml PO DAILY PRN PRN Reason: Constipation Melatonin (Melatonin 3 Mg Tablet) 6 mg PO BEDTIME PRN PRN Reason: Insomnia Last Admin: 12/30/22 19:59 Dose: 6 mg Metformin HCl (Metformin Hcl Er 500 Mg Tab.Er.24h) 500 mg PO BID [facility] Last Admin: 12/31/22 08:51 Dose: Not Given Morphine Sulfate (Morphine Sulfate 4 Mg/Ml Cartridge) 2 mg IVPUSH Q4H PRN; Protocol PRN Reason: Pain, Severe (Pain Scale 7-10) Last Admin: 12/29/22 19:41 Dose: 2 mg Multivitamins/Vitamin C (Multivitamin Tablet) 1 tab PO DAILY [facility] Last Admin: 12/31/22 08:51 Dose: Not Given Pt Own (Exemestane (25 Mg Tablet)) 25 mg PO DAILY [facility] Last Admin: 12/31/22 08:50 Dose: Not Given Non-Formulary Medication (Naratriptan) 1 tab PO DAILY MRX1 PRN PRN Reason: Migraine Headache Omeprazole (Omeprazole 20 Mg Capsule.Dr) 20 mg PO DAILY@0630 [facility] Last Admin: 12/31/22 04:50 Dose: 20 mg Oxycodone HCl (Oxycodone Hcl Immed Release 5 Mg Tablet) 5 mg PO QID PRN PRN Reason: pain scale (7-10) Pharmacy Consult (Consult Rx Vancomycin Dosing) 1 each MISCELLANE DAILY PRN PRN Reason: Consult order Propranolol HCl (Propranolol Hcl La 80 Mg Cap.Sa.24h) 80 mg PO DAILY [facility]; Protocol Last Admin: 12/31/22 08:51 Dose: Not Given Sodium Chloride (0.9 % Sodium Chloride Flush 3 Ml Syringe) 3 ml IVFLUSH QSHIFT [facility] Last Admin: 12/31/22 07:49 Dose: 3 ml Home Medications Medication Instructions Recorded Confirmed Last Taken Type ferrous gluconate 324 mg (38 mg 324 mg PO BID 02/17/21 12/28/22 05/12/21 History iron) tablet omeprazole 20 mg capsule,delayed 20 mg PO DAILY 02/17/21 12/28/22 12/28/22 History release naratriptan 2.5 mg tablet 1 tab PO DAILY MRX1 PRN Migraine 03/26/21 12/28/22 Unknown History Headache propranolol 80 mg capsule,24 1 cap PO DAILY 03/26/21 12/28/22 04/01/21 History hr,extended release exemestane 25 mg tablet 25 mg PO DAILY 04/15/22 12/28/22 12/28/22 History calcium carbonate 500 mg calcium 500 mg PO BID 12/28/22 12/28/22 Unknown History (1,250 mg) tablet cyanocobalamin (vitamin B-12) 500 500 mcg PO DAILY 12/28/22 12/28/22 Unknown History mcg tablet ergocalciferol (vitamin D2) 1,250 1,250 mcg PO MORENO 12/28/22 12/28/22 Unknown History mcg (50,000 unit) capsule metformin 500 mg tablet,extended 500 mg PO BID 12/28/22 12/28/22 12/28/22 History release 24 hr multivitamin 1 tab PO DAILY 12/28/22 12/28/22 Unknown History oxycodone-acetaminophen 5 mg-325 1 tab PO QID PRN Pain (Scale Score 12/28/22 12/28/22 12/28/22 History mg tablet 7-10) Exam Exam Date and Time: December 31, 2022 1028 Height,Weight and Vital Signs: Height 5 ft 7 in Weight 127.006 kg Last Vital Signs Temp 96.9 F 12/31/22 07:21 Pulse 78 12/31/22 07:21 Resp 17 12/31/22 07:21 BP 155/70 H 12/31/22 07:21 Pulse Ox 95 12/31/22 07:21 O2 Del Method 12/31/22 07:21 Pertinent Lab Results Pertinent Lab Results: Laboratory Tests 12/28/22 12/28/22 12/28/22 16:53 16:53 16:53 WBC 21.4 H RBC 4.38 Hgb 11.9 L Hct 36.4 L MCV 83.1 MCH 27.2 MCHC 32.7 RDW 12.9 Plt Count 531 H MPV 8.4 L Immature Gran % (Auto) 1.9 H Neut % (Auto) 89.1 H Lymph % (Auto) 3.6 L [place] % (Auto) 5.3 Eos % (Auto) 0.0 Baso % (Auto) 0.1 Lymph # (Auto) 0.8 L [place] # (Auto) 1.1 Eos # (Auto) 0.0 Baso # (Auto) 0.0 Abs Immat Gran (auto) 0.40 H Absolute Neuts (auto) 19.1 H Absolute Nucleated RBC 0.000 Nucleated RBC % (auto) 0.0 Smear Tech's Comments D-Dimer High Sensitivty 1100 Sodium 133 L Potassium 4.3 Chloride 96 Carbon Dioxide 23 Anion Gap 18 BUN 14 Creatinine 0.73 Estim Creat Clear Calc 96.5 Estimated GFR > 60 POC Glucose Random Glucose 217 H Lactic Acid Calcium 9.3 D Vancomycin Trough Random Vancomycin COVID-19 ([facility]) COVID-19 Clin Com 12/28/22 12/28/22 12/29/22 17:35 17:36 05:34 WBC 20.7 H RBC 3.94 L Hgb 10.6 L Hct 32.8 L MCV 83.2 MCH 26.9 L MCHC 32.3 RDW 12.9 Plt Count 486 H MPV 8.4 L Immature Gran % (Auto) 2.3 H Neut % (Auto) 82.7 H Lymph % (Auto) 6.3 L [place] % (Auto) 8.5 Eos % (Auto) 0.1 Baso % (Auto) 0.1 Lymph # (Auto) 1.3 [place] # (Auto) 1.8 H Eos # (Auto) 0.0 Baso # (Auto) 0.0 Abs Immat Gran (auto) 0.47 H Absolute Neuts (auto) 17.1 H Absolute Nucleated RBC 0.000 Nucleated RBC % (auto) 0.0 Smear Tech's Comments VERIFIED D-Dimer High Sensitivty Sodium Potassium Chloride Carbon Dioxide Anion Gap BUN Creatinine Estim Creat Clear Calc Estimated GFR POC Glucose Random Glucose Lactic Acid 1.2 Calcium Vancomycin Trough Random Vancomycin COVID-19 ([facility]) Negative COVID-[employer] Clin Com See Note 12/29/22 12/29/22 12/30/22 05:34 20:22 05:50 WBC RBC Hgb Hct MCV MCH MCHC RDW Plt Count MPV Immature Gran % (Auto) Neut % (Auto) Lymph % (Auto) [place] % (Auto) Eos % (Auto) Baso % (Auto) Lymph # (Auto) [place] # (Auto) Eos # (Auto) Baso # (Auto) Abs Immat Gran (auto) Absolute Neuts (auto) Absolute Nucleated RBC Nucleated RBC % (auto) Smear Tech's Comments D-Dimer High Sensitivty Sodium Potassium Chloride Carbon Dioxide Anion Gap BUN Creatinine 0.69 Estim Creat Clear Calc 102.1 Estimated GFR > 60 POC Glucose 158 H Random Glucose Lactic Acid Calcium Vancomycin Trough 7.6 L Random Vancomycin COVID-19 ([facility]) COVID-[employer] Clin Com 12/30/22 12/30/22 12/31/22 05:50 07:45 05:08 WBC RBC Hgb Hct MCV MCH MCHC RDW Plt Count MPV Immature Gran % (Auto) Neut % (Auto) Lymph % (Auto) [place] % (Auto) Eos % (Auto) Baso % (Auto) Lymph # (Auto) [place] # (Auto) Eos # (Auto) Baso # (Auto) Abs Immat Gran (auto) Absolute Neuts (auto) Absolute Nucleated RBC Nucleated RBC % (auto) Smear Tech's Comments D-Dimer High Sensitivty Sodium Potassium Chloride Carbon Dioxide Anion Gap BUN Creatinine 0.71 Estim Creat Clear Calc 99.2 Estimated GFR > 60 POC Glucose 154 H Random Glucose Lactic Acid Calcium Vancomycin Trough Random Vancomycin 12.9 L COVID-19 ([facility]) COVID-19 Clin Com 12/31/22 05:08 WBC RBC Hgb Hct MCV MCH MCHC RDW Plt Count MPV Immature Gran % (Auto) Neut % (Auto) Lymph % (Auto) [place] % (Auto) Eos % (Auto) Baso % (Auto) Lymph # (Auto) [place] # (Auto) Eos # (Auto) Baso # (Auto) Abs Immat Gran (auto) Absolute Neuts (auto) Absolute Nucleated RBC Nucleated RBC % (auto) Smear Tech's Comments D-Dimer High Sensitivty Sodium Potassium Chloride Carbon Dioxide Anion Gap BUN Creatinine 0.71 Estim Creat Clear Calc 99.2 Estimated GFR > 60 POC Glucose Random Glucose Lactic Acid Calcium Vancomycin Trough Random Vancomycin COVID-19 ([facility]) COVID-19 Clin Com Airway Mallampati Class: III (Caps lateral) TM Dist: >3cm Neck ROM: Full Heart: rrr Lungs: cta Assessment and Plan Assessment Anesthesia Assessment: Anesthesia Plan Discussed and Chart Reviewed Final Anesthetic Review Family History of Problems with Anesthesia: No History of Problems with Anesthesia: No NPO: Yes ASA Class: III Final Preanesthetic Review: No Changes in Pt Med Stat, Meds/Allgs Chart Reviewed and Consent Obtained/Reviewed Patient Risk: Intermediate Procedure Risk: Intermediate Anesthetic Plan Anesthetic Plan: MAC: Disposition: Standard PACU
[2022-12-31 10:53] LABS: Glucose, Whole Blood 123 mg/dL (60-115)
--- NOTE | 2022-12-31 10:53 | MHC.CM.PN ---
PT NOT YET MEDICALLY CLEARED PER MD ROUNDS, PT WILL GO TO OR TODAY AND LIKELY DC TUESDAY
--- NOTE | 2022-12-31 12:49 | PM.OP ---
Brief Operative Note Date of Service: 12/31/22 Pre-op diagnosis: right ankle cellulitis/abcess Post-op diagnosis: same Procedure: irrigation and debridement left ankle Surgeon: Patrick Faye MD Anesthesia: GLMA Was an Chief Catalyst Operator used for this Procedure?: No Estimated blood loss (mL): 50 IV fluids (mL): 800 Pathology: none sent Condition: stable Disposition: PACU
--- NOTE | 2022-12-31 12:51 | W.PM.OPN ---
Operative Note Operative Note Date of Service: 12/31/22 Narrative: Date of Service: 12/31/22 Pre-op diagnosis: right ankle cellulitis/abcess Post-op diagnosis: same Procedure: irrigation and debridement left ankle Surgeon: Patrick Faye MD Anesthesia: GLMA Was an Set Designer used for this Procedure?: No Estimated blood loss (mL): 50 IV fluids (mL): 800 Pathology: none sent Condition: stable Disposition: PACU Patient was brought to the operating room and placed in a modified lateral position on the surgical table. All bony prominences were well padded and she was prepped and draped in standard sterile fashion and a time out was called to identify proper site, proper procedure and IV antibiotics per weight were administered. I began by incising the necrotic tissue over kiya anterolateral ankle. There were three areas of focal skin breakdown and loss. Two were posterolateral at the lavel of the distal fibula and jus posterior to the lateral malleolus. I opened up the peroneal sheath and released purulence. There was abundant purulent material underlying the entire anterolateral ankle. I debrided any loose necrotic tissue with a currette and irrigated copiously with 9 L of warm saline. Once I was satisfied that there was no further purulence and the tissues had been fully debrided down to bleeding healthy, bleeding tissue I placed a moist kerlex in each of the three areas of skin loss and dry dressings over these. There was no involvement of the ankle joint. An intra-operative photo was taken and Dr Huan Cook was asked to examine the wound in case further debridement is neccessary. She was placed in sterile dressing and a dorsiflexion boot and extubated and brought to the recovery room in stable condition. There were no known complications. At this time she will remain on IV abx and daily WTD dressing changes. She will require additional wound care.
[2022-12-31] MEDS: HYDROmorphone HCl 0.5 MG/0.5 ML SYRINGE 0.25 MG IVPUSH ×3 (13:13→13:51)
[2022-12-31] MEDS: oxyCODONE HCl Immed Release 5 MG TABLET PO ×2 (13:14→14:54)
[2022-12-31] MEDS: Morphine Sulfate 4 MG/ML CARTRIDGE 2 MG IVPUSH (18:55)
[2022-12-31] MEDS: metFORMIN HCl ER 500 MG TAB.ER.24H PO (21:34)
[2022-12-31] MEDS: Melatonin 3 MG TABLET 6 MG PO (21:52)
[2023-01-01] MEDS: Piperacillin Sodium/Tazobactam 3.375 GM in 0.9 % Sodium Chloride 50 ML IV ×4 (01:37→21:25)
[2023-01-01] MEDS: HYDROmorphone HCl 1 MG/ML SYRINGE IVPUSH ×5 (01:37→20:54)
[2023-01-01] MEDS: Omeprazole 20 MG CAPSULE.DR PO (05:38)
[2023-01-01] MEDS: Heparin Sodium,Porcine 5,000 UNIT/ML VIAL 5000 UNIT SUBCUT ×3 (05:38→19:23)
[2023-01-01 07:26] LABS: Vancomycin Trough 16.6 mcg/mL (10.0-20.0)
[2023-01-01 08:00] VITALS: BP 145/88; PULSE 86; RESP 17; TEMP 36.6; O2SAT 92
[2023-01-01 08:09] LABS: Estimated Glomerular Filt Rate > 60
--- NOTE | 2023-01-01 08:16 | HE.PHANOTE ---
Vancomycin Dosing Level 16.6 today. Continue current regimen vanomycin 1500 mg Q12H. Expected to stay in therapeutic range. Will get next level 01/02 @ 0600, after 2 dose due to slight increase in SCr. Pharmacy will continue to monitor renal function. Dose may need to be decrease tomorrow. Lisa Nielsen, PharmD
--- NOTE | 2023-01-01 08:24 | P.PNIM_ITS ---
Subjective Subjective Date of Service: 01/01/23 Interval History: f/u cellulitis and abscess of right ankle Review of Systems No fever, right ankle pain is much better, purulent drainage from the ankle, see picture Physical Exam Vital Signs: Vital Signs: Last Vital Signs Temp 98.4 F 12/31/22 23:42 Pulse 90 12/31/22 23:42 Resp 17 12/31/22 23:42 BP 131/63 12/31/22 23:42 Pulse Ox 95 12/31/22 23:42 O2 Del Method 12/31/22 23:42 O2 Flow Rate 2 12/31/22 13:56 BMI result Body Mass Index 43.8 Const: Other: General: AO X 3, no acute distress Resp: CTA bilateral CVS: S1,S2,RRR GI: +BS, NT, no distention Skin: No rash Neuro: motor grossly intact Psych: appropriate affect Objective Data Active Medications Acetaminophen (Acetaminophen 325 Mg Tablet) 650 mg PO Q6H PRN PRN Reason: Pain, Mild (Pain Scale 1-3) Last Admin: 12/29/22 20:38 Dose: 650 mg Documented By: NAZ Acetaminophen (Acetaminophen 325 Mg Tablet) 325 mg PO QID PRN PRN Reason: pain scale (7-10) Calcium Carbonate (Calcium Carbonate 500 Mg Tablet) 500 mg PO BID [facility] Last Admin: 12/31/22 21:34 Dose: 500 mg Documented By: ROSA Cyanocobalamin (Cyanocobalamin (Vitamin B-12) 500 Mcg Tablet) 500 mcg PO DAILY [facility] Last Admin: 12/31/22 08:50 Dose: Not Given Documented By: SKYLA Non-Admin Reason: NPO Ergocalciferol (Ergocalciferol (Vitamin D2) 1,250 Mcg Capsule) 1,250 mcg PO MORENO [facility] Ferrous Sulfate (Ferrous Sulfate 324 Mg Tablet.Dr) 324 mg PO DAILY [facility] Last Admin: 12/31/22 08:50 Dose: Not Given Documented By: SKYLA Non-Admin Reason: NPO Heparin Sodium (Porcine) (Heparin Sodium,Porcine 5,000 Unit/Ml Vial) 5,000 unit SUBCUT Q8H [facility] Last Admin: 01/01/23 05:38 Dose: 5,000 unit Documented By: ROSA Hydromorphone HCl (Hydromorphone Hcl 1 Mg/Ml Syringe) 1 mg IVPUSH Q4H PRN; Protocol PRN Reason: Pain, Severe (Pain Scale 7-10) Last Admin: 01/01/23 05:38 Dose: 1 mg Documented By: ROSA Vancomycin HCl 1,500 mg/ (Sodium Chloride) 500 mls @ 333.333 mls/hr IV Q12H [facility] Last Infusion: 12/31/22 21:11 Dose: 0 mls/hr Documented By: ROSA Cefazolin Sodium/Dextrose (Ancef) 2 gm in 50 mls @ 100 mls/hr IV POSTOP NAFISA Piperacillin Sod/Tazobactam (Sod 3.375 gm/ Sodium Chloride) 50 mls @ 100 mls/hr IV Q6H [facility] Last Infusion: 01/01/23 02:07 Dose: 0 mls/hr Documented By: ROSA Magnesium Hydroxide (Milk Of Magnesia 30 Ml Oral.Susp) 30 ml PO DAILY PRN PRN Reason: Constipation Melatonin (Melatonin 3 Mg Tablet) 6 mg PO BEDTIME PRN PRN Reason: Insomnia Last Admin: 12/31/22 21:52 Dose: 6 mg Documented By: ROSA Metformin HCl (Metformin Hcl Er 500 Mg Tab.Er.24h) 500 mg PO BID [facility] Last Admin: 12/31/22 21:34 Dose: 500 mg Documented By: ROSA Morphine Sulfate (Morphine Sulfate 4 Mg/Ml Cartridge) 2 mg IVPUSH Q4H PRN; Protocol PRN Reason: Pain, Severe (Pain Scale 7-10) Last Admin: 12/31/22 18:55 Dose: 2 mg Documented By: SKYLA Multivitamins/Vitamin C (Multivitamin Tablet) 1 tab PO DAILY [facility] Last Admin: 12/31/22 08:51 Dose: Not Given Documented By: SKYLA Non-Admin Reason: NPO Pt Own (Exemestane (25 Mg Tablet)) 25 mg PO DAILY [facility] Last Admin: 12/31/22 08:50 Dose: Not Given Documented By: SKYLA Non-Admin Reason: NPO Non-Formulary Medication (Naratriptan) 1 tab PO DAILY MRX1 PRN PRN Reason: Migraine Headache Omeprazole (Omeprazole 20 Mg Capsule.Dr) 20 mg PO DAILY@0630 [facility] Last Admin: 01/01/23 05:38 Dose: 20 mg Documented By: ROSA Oxycodone HCl (Oxycodone Hcl Immed Release 5 Mg Tablet) 5 mg PO QID PRN PRN Reason: pain scale (7-10) Last Admin: 12/31/22 14:54 Dose: 5 mg Documented By: SKYLA Pharmacy Consult (Consult Rx Vancomycin Dosing) 1 each MISCELLANE DAILY PRN PRN Reason: Consult order Propranolol HCl (Propranolol Hcl La 80 Mg Cap.Sa.24h) 80 mg PO DAILY [facility]; Protocol Last Admin: 12/31/22 08:51 Dose: Not Given Documented By: SKYLA Non-Admin Reason: NPO Sodium Chloride (0.9 % Sodium Chloride Flush 3 Ml Syringe) 3 ml IVFLUSH QSHIFT [facility] Last Admin: 12/31/22 21:34 Dose: 3 ml Documented By: ROSA Labs 12/29/22 05:34 01/01/23 06:54 Labs: Laboratory Results - last 24 hr 12/31/22 01/01/23 01/01/23 10:49 06:54 06:54 Estim Creat Clear Calc 87.0 Estimated GFR > 60 POC Glucose 123 H Vancomycin Trough 16.6 Assessment and Plan (1) Cellulitis of right lower extremity: Status: Acute Plan 72 year old female with morbid obesity and other medical problems as listed. She presents with right ankle redness, pain and swelling best described by the image, clinical presentation consistent with sepsis d/t cellulitis and concern for joint involvment. #Left ankle Cellulitis and abscess, Sepsis,. Sepsis not yet resolved -MRI 12/29:1. Large 12 cm abscess in the lateral subcutaneous fat at the level of the ankle and hindfoot with surrounding cellulitis and underlying osteomyelitis of the lateral malleolus. 2. Complex longitudinal tears of the peroneus longus and peroneus brevis tendons with associated tenosynovitis. Septic tenosynovitis is also possible. Ortho did bedside I/D on 12/30 and will take to OR for full exploration and lavage on 12/31 culture so far negative -Continue Zosyn and Vanco started on 12/28 -wound care/dressing changes by surgery -Dilaudid for pain #Gerd--Omeprazol #Anxiety--Prorpanolol #Morbid obesity--weight loss advised #Heparin for DVT prophylaxis Full code Need for inpatient nagement of sepsis, ankle cellulitis/abscess and expert ev aluation for possible intervention, not able to due this in less acute setting at this time Time Spent With Patient Time: Total time managing care of this patient today ____ minutes. Quality Stroke Does the patient have a stroke diagnosis?: No VTE Prior VTE?: No VTE Risk Level:: Medical - moderate - high VTE Device Contraindication: Treatment Not Indicated VTE Drug Contraindication: N/A - Med Ordered
[2023-01-01] MEDS: metFORMIN HCl ER 500 MG TAB.ER.24H PO ×2 (08:34→20:55)
[2023-01-01] MEDS: Ferrous Sulfate 324 MG TABLET.DR PO (08:34)
[2023-01-01] MEDS: Multivitamin TABLET 1 TAB PO (08:34)
[2023-01-01] MEDS: Cyanocobalamin (Vitamin B-12) 500 MCG TABLET PO (08:34)
[2023-01-01] MEDS: 0.9 % Sodium Chloride Flush 3 ML SYRINGE IVFLUSH ×3 (08:34→19:40)
[2023-01-01] MEDS: vancomycin HCL 1,500 MG in 0.9 % Sodium Chloride 500 ML 333.33 MG IV ×2 (08:34→19:34)
[2023-01-01] MEDS: Propranolol HCL LA 80 MG CAP.SA.24H PO (08:34)
--- NOTE | 2023-01-01 10:16 | PM.PNORT ---
Subjective Subjective Date of Service: 01/01/23 Interval history: POD 1 s/p I&D right ankle no overnight events patient is resting in bed with boot on tolreating pain well Physical Exam Vital Signs: Vital Signs: Last Vital Signs Temp 97.9 F 01/01/23 08:00 Pulse 86 01/01/23 08:00 Resp 17 01/01/23 08:00 BP 145/88 H 01/01/23 08:00 Pulse Ox 92 01/01/23 08:00 O2 Del Method 01/01/23 08:00 O2 Flow Rate 2 12/31/22 13:56 BMI result Body Mass Index 43.8 Const: General: cooperative, healthy appearing and no acute distress Resp: Effort & Inspection: normal respiratory effort and able to speak in complete sentences Cardio: Rate: regular rate Peripheral pulses: Peripheral pulses 2+ throughout GI: Palpation (GI): Soft to palpation Skin: General skin exam: no rashes or lesions noted Extrem: Other: Wounds are clean with healthy pink tissue. Good perfusion. Sensation intact Procedures Date of Service Date of Service: 01/01/23 Progress Note: A&P Assessment and plan (1) Cellulitis of right lower extremity: Status: Acute (2) Abscess: Status: Acute Plan Continue iv abx continue wet to dry dressing changes daily continue night splint wound consult placed will continue to follow incase need for re-peat debreadment Time Spent With Patient Time: Total time managing care of this patient today ____ minutes. Quality Stroke Does the patient have a stroke diagnosis?: No VTE Prior VTE?: No VTE Risk Level:: Medical - moderate - high VTE Device Contraindication: Treatment Not Indicated VTE Drug Contraindication: N/A - Med Ordered
--- NOTE | 2023-01-01 12:54 | HO.POSTANES ---
Post Anesthesia Evaluation Post Anesthesia Evaluation Vital Signs: Vital Signs Temp Pulse Resp BP Pulse Ox O2 Del Method 01/01/23 08:00 97.9 F 86 17 145/88 H 92 Room Air Anesthesia: General LMA Mental Status: Awake Pain Control: Satisfactory Nausea/Vomiting: None Hydration: Adequate Anesthesia-Related Issues: No Anes. Related Issues
[2023-01-01 15:42] VITALS: BP 132/64; PULSE 76; RESP 17; TEMP 36.5; O2SAT 92
[2023-01-01 20:26] VITALS: BP 143/58; PULSE 76; RESP 18; TEMP 36.2; O2SAT 97
[2023-01-01] MEDS: Melatonin 3 MG TABLET 6 MG PO (20:54)
[2023-01-01 23:37] VITALS: BP 146/70; PULSE 76; RESP 17; TEMP 36.6; O2SAT 95
[2023-01-02] MEDS: HYDROmorphone HCl 1 MG/ML SYRINGE IVPUSH ×5 (00:59→20:30)
[2023-01-02] MEDS: Piperacillin Sodium/Tazobactam 3.375 GM in 0.9 % Sodium Chloride 50 ML IV ×4 (03:18→20:11)
[2023-01-02] MEDS: Heparin Sodium,Porcine 5,000 UNIT/ML VIAL 5000 UNIT SUBCUT ×3 (03:19→20:10)
[2023-01-02] MEDS: oxyCODONE HCl Immed Release 5 MG TABLET PO ×2 (03:19→22:34)
[2023-01-02] MEDS: Omeprazole 20 MG CAPSULE.DR PO (05:33)
[2023-01-02 06:58] LABS: Creatinine Clr Calc Pharmacy 75.7; Estimated Glomerular Filt Rate 59
--- NOTE | 2023-01-02 07:38 | HE.PHANOTE ---
Vancomycin Dosing Level supratheraptutic today at 21. Will hold dose for 4 hours then restart vancomycin at a decreased dose of vanco 1000 mg Q12H on 01/02 @ 1200. New Expected AUC 458 with a trough of 12.3. Pharmacy will continue to monitor renal function daily. Next level to be drawn in 24 hours on 01.03 @ 1000. Lisa Nielsen, ElizabethD
[2023-01-02 08:00] VITALS: BP 153/76; PULSE 71; RESP 17; TEMP 36.6; O2SAT 95
[2023-01-02 08:00] LABS: Hematocrit 29.8 % (37.0-47.0); Hemoglobin 9.3 g/dl (12.0-16.0); Mean Corpuscular HGB Conc 31.2 g/dl (31.0-35.0); Mean Corpuscular Volume 86.4 fL (80.0-98.0); Mean Platelet Volume 8.9 fL (9.4-12.3); Platelet Count 498 X10*3/uL (160-400); Red Blood Count 3.45 X10*6/uL (4.20-5.50); Red Cell Distribution Width 13.1 % (11.0-16.0); White Blood Count 14.1 X10*3/uL (4.8-10.8)
[2023-01-02] MEDS: metFORMIN HCl ER 500 MG TAB.ER.24H PO ×2 (09:19→20:10)
[2023-01-02] MEDS: Ferrous Sulfate 324 MG TABLET.DR PO (09:19)
[2023-01-02] MEDS: Multivitamin TABLET 1 TAB PO (09:19)
[2023-01-02] MEDS: Cyanocobalamin (Vitamin B-12) 500 MCG TABLET PO (09:19)
[2023-01-02] MEDS: Propranolol HCL LA 80 MG CAP.SA.24H PO (09:19)
[2023-01-02] MEDS: 0.9 % Sodium Chloride Flush 3 ML SYRINGE IVFLUSH ×2 (09:20→16:45)
[2023-01-02] MEDS: Ergocalciferol (Vitamin D2) 1,250 MCG CAPSULE 1250 MCG PO (09:33)
--- NOTE | 2023-01-02 10:26 | P.PNIM_ITS ---
Subjective Subjective Date of Service: 01/02/23 Interval History: f/u cellulitis and abscess of right ankle, didn't sleep well last night Review of Systems No fever, right ankle pain is much better, purulent drainage from the ankle, see picture Physical Exam Vital Signs: Vital Signs: Last Vital Signs Temp 97.9 F 01/02/23 08:00 Pulse 71 01/02/23 08:00 Resp 17 01/02/23 08:00 BP 153/76 H 01/02/23 08:00 Pulse Ox 95 01/02/23 08:00 O2 Del Method 01/02/23 08:00 O2 Flow Rate 2 12/31/22 13:56 BMI result Body Mass Index 43.8 Const: Other: General: AO X 3, no acute distress Resp: CTA bilateral CVS: S1,S2,RRR GI: +BS, NT, no distention Skin: No rash Neuro: motor grossly intact Psych: appropriate affect Objective Data Active Medications Acetaminophen (Acetaminophen 325 Mg Tablet) 650 mg PO Q6H PRN PRN Reason: Pain, Mild (Pain Scale 1-3) Last Admin: 12/29/22 20:38 Dose: 650 mg Documented By: NAZ Acetaminophen (Acetaminophen 325 Mg Tablet) 325 mg PO QID PRN PRN Reason: pain scale (7-10) Calcium Carbonate (Calcium Carbonate 500 Mg Tablet) 500 mg PO BID [facility] Last Admin: 01/02/23 09:19 Dose: 500 mg Documented By: SKYLA Cyanocobalamin (Cyanocobalamin (Vitamin B-12) 500 Mcg Tablet) 500 mcg PO DAILY [facility] Last Admin: 01/02/23 09:19 Dose: 500 mcg Documented By: SKYLA Ergocalciferol (Ergocalciferol (Vitamin D2) 1,250 Mcg Capsule) 1,250 mcg PO MORENO [facility] Last Admin: 01/02/23 09:33 Dose: 1,250 mcg Documented By: SKYLA Ferrous Sulfate (Ferrous Sulfate 324 Mg Tablet.) 324 mg PO DAILY [facility] Last Admin: 01/02/23 09:19 Dose: 324 mg Documented By: SKYLA Heparin Sodium (Porcine) (Heparin Sodium,Porcine 5,000 Unit/Ml Vial) 5,000 unit SUBCUT Q8H [facility] Last Admin: 01/02/23 03:19 Dose: 5,000 unit Documented By: ROSA Hydromorphone HCl (Hydromorphone Hcl 1 Mg/Ml Syringe) 1 mg IVPUSH Q4H PRN; Protocol PRN Reason: Pain, Severe (Pain Scale 7-10) Last Admin: 01/02/23 05:33 Dose: 1 mg Documented By: ROSA Cefazolin Sodium/Dextrose (Ancef) 2 gm in 50 mls @ 100 mls/hr IV POSTOP NAFISA Piperacillin Sod/Tazobactam (Sod 3.375 gm/ Sodium Chloride) 50 mls @ 100 mls/hr IV Q6H [facility] Last Infusion: 01/02/23 10:00 Dose: 0 mls/hr Documented By: SKYLA Vancomycin HCl 1,000 mg/ (Sodium Chloride) 270 mls @ 270 mls/hr IV Q12H [facility] Magnesium Hydroxide (Milk Of Magnesia 30 Ml Oral.Susp) 30 ml PO DAILY PRN PRN Reason: Constipation Melatonin (Melatonin 3 Mg Tablet) 6 mg PO BEDTIME PRN PRN Reason: Insomnia Last Admin: 01/01/23 20:54 Dose: 6 mg Documented By: ROSA Metformin HCl (Metformin Hcl Er 500 Mg Tab.Er.24h) 500 mg PO BID [facility] Last Admin: 01/02/23 09:19 Dose: 500 mg Documented By: SKYLA Multivitamins/Vitamin C (Multivitamin Tablet) 1 tab PO DAILY [facility] Last Admin: 01/02/23 09:19 Dose: 1 tab Documented By: SKYLA Pt Own (Exemestane (25 Mg Tablet)) 25 mg PO DAILY [facility] Last Admin: 01/02/23 09:19 Dose: 25 mg Documented By: SKYLA Non-Formulary Medication (Naratriptan) 1 tab PO DAILY MRX1 PRN PRN Reason: Migraine Headache Omeprazole (Omeprazole 20 Mg Capsule.Dr) 20 mg PO DAILY@0630 [facility] Last Admin: 01/02/23 05:33 Dose: 20 mg Documented By: ROSA Oxycodone HCl (Oxycodone Hcl Immed Release 5 Mg Tablet) 5 mg PO QID PRN PRN Reason: pain scale (7-10) Last Admin: 01/02/23 03:19 Dose: 5 mg Documented By: ROSA Pharmacy Consult (Consult Rx Vancomycin Dosing) 1 each MISCELLANE DAILY PRN PRN Reason: Consult order Propranolol HCl (Propranolol Hcl La 80 Mg Cap.Sa.24h) 80 mg PO DAILY NAFISA; Protocol Last Admin: 01/02/23 09:19 Dose: 80 mg Documented By: SYKLA Sodium Chloride (0.9 % Sodium Chloride Flush 3 Ml Syringe) 3 ml IVFLUSH QSHIFT NAFISA Last Admin: 01/02/23 09:20 Dose: 3 ml Documented By: SKYLA Labs 01/02/23 05:51 01/02/23 05:51 Labs: Laboratory Results - last 24 hr 01/02/23 01/02/23 01/02/23 05:51 05:51 05:51 MCV 86.4 MCH 27.0 MCHC 31.2 RDW 13.1 Plt Count 498 H MPV 8.9 L Absolute Nucleated RBC 0.000 Nucleated RBC % (auto) 0.0 Estim Creat Clear Calc 75.7 Estimated GFR 59 Vancomycin Trough 21.0 H Assessment and Plan (1) Abscess: Status: Acute (2) Cellulitis of right lower extremity: Status: Acute Plan 72 year old female with morbid obesity and other medical problems as listed. She presents with right ankle redness, pain and swelling best described by the image, clinical presentation consistent with sepsis d/t cellulitis and concern for joint involvment. #Left ankle Cellulitis and abscess, Sepsis,. Sepsis not yet resolved -MRI 12/29:1. Large 12 cm abscess in the lateral subcutaneous fat at the level of the ankle and hindfoot with surrounding cellulitis and underlying osteomyelitis of the lateral malleolus. 2. Complex longitudinal tears of the peroneus longus and peroneus brevis tendons with associated tenosynovitis. Septic tenosynovitis is also possible. Ortho did bedside I/D on 12/30 and will take to OR for full exploration and lavage on 12/31 culture so far negative -Continue Zosyn and Vanco started on 12/28 -wound care/dressing changes by surgery -Dilaudid for pain -wound care consult next week #Gerd--Omeprazol #Anxiety--Prorpanolol #Morbid obesity--weight loss advised #Heparin for DVT prophylaxis Full code Need for inpatient nagement of sepsis, ankle cellulitis/abscess and expert evaluation for possible intervention, not able to due this in less acute setting at this time Time Spent With Patient Time: Total time managing care of this patient today ____ minutes. Quality Stroke Does the patient have a stroke diagnosis?: No VTE Prior VTE?: No VTE Risk Level:: Medical - moderate - high VTE Device Contraindication: Treatment Not Indicated VTE Drug Contraindication: N/A - Med Ordered
[2023-01-02] MEDS: vancomycin HCL 1,000 MG in 0.9 % Sodium Chloride 250 ML 270 MG IV (12:26)
[2023-01-02 15:47] VITALS: BP 140/62; PULSE 75; RESP 16; TEMP 37; O2SAT 96
--- NOTE | 2023-01-02 15:55 | PM.PNORT ---
Subjective Subjective Date of Service: 01/02/23 Interval history: POD 2 s/p I&D right ankle no overnight events patient is resting in bed with boot on tolreating pain well Physical Exam Vital Signs: Vital Signs: Last Vital Signs Temp 97.9 F 01/02/23 08:00 Pulse 71 01/02/23 08:00 Resp 17 01/02/23 08:00 BP 153/76 H 01/02/23 08:00 Pulse Ox 95 01/02/23 08:00 O2 Del Method 01/02/23 08:00 O2 Flow Rate 2 12/31/22 13:56 BMI result Body Mass Index 43.8 Const: General: cooperative, healthy appearing and no acute distress Resp: Effort & Inspection: normal respiratory effort and able to speak in complete sentences Cardio: Rate: regular rate Peripheral pulses: Peripheral pulses 2+ throughout GI: Palpation (GI): Soft to palpation Skin: General skin exam: no rashes or lesions noted Extrem: Other: Wounds are clean with healthy pink tissue. Good perfusion. Sensation intact Procedures Date of Service Date of Service: 01/02/23 Progress Note: A&P Assessment and plan (1) Cellulitis of right lower extremity: Status: Acute (2) Abscess: Status: Acute Plan Continue iv abx continue wet to dry dressing changes daily continue night splint wound consult placed will continue to follow incase need for re-peat debreadment Time Spent With Patient Time: Total time managing care of this patient today ____ minutes. Quality Stroke Does the patient have a stroke diagnosis?: No VTE Prior VTE?: No VTE Risk Level:: Medical - moderate - high VTE Device Contraindication: Treatment Not Indicated VTE Drug Contraindication: N/A - Med Ordered
[2023-01-02 19:38] VITALS: BP 178/78; PULSE 78; RESP 18; TEMP 36.4; O2SAT 96
[2023-01-03] VITALS: BP 142/84; PULSE 80; RESP 18; TEMP 36.3; O2SAT 98
[2023-01-03] MEDS: HYDROmorphone HCl 1 MG/ML SYRINGE IVPUSH ×3 (00:12→18:14)
[2023-01-03] MEDS: Melatonin 3 MG TABLET 6 MG PO (00:13)
[2023-01-03] MEDS: 0.9 % Sodium Chloride Flush 3 ML SYRINGE IVFLUSH ×4 (00:13→20:20)
[2023-01-03] MEDS: vancomycin HCL 1,000 MG in 0.9 % Sodium Chloride 250 ML 270 MG IV (00:18)
[2023-01-03] MEDS: Acetaminophen 325 MG TABLET 650 MG PO ×3 (01:26→20:19)
[2023-01-03] MEDS: oxyCODONE HCl Immed Release 5 MG TABLET PO ×3 (04:23→20:33)
[2023-01-03] MEDS: Heparin Sodium,Porcine 5,000 UNIT/ML VIAL 5000 UNIT SUBCUT ×3 (04:23→20:18)
[2023-01-03] MEDS: Piperacillin Sodium/Tazobactam 3.375 GM in 0.9 % Sodium Chloride 50 ML IV ×4 (04:24→20:20)
[2023-01-03] MEDS: Omeprazole 20 MG CAPSULE.DR PO (05:12)
[2023-01-03 07:00] LABS: Creatinine Clr Calc Pharmacy 74.1; Estimated Glomerular Filt Rate 58
[2023-01-03 08:00] VITALS: BP 154/80; PULSE 72; RESP 18; TEMP 36.6; O2SAT 97
--- NOTE | 2023-01-03 08:29 | PM.CNGS ---
History of Present Illness Consult details Consult date: 01/03/23 Requesting physician: Vic Merino Narrative: 72-year-old female patient well known to me with a previous history of bilateral breast cancer presenting with progressive history of diffuse joint pains, muscle aches, and a right ankle infection, recently admitted to the hospitalist service for management of the ankle infection. She underwent debridement and irrigation of the right ankle abscess on 12/31/2022. Operative report notes necrotic tissue and purulence drainage in the medial right ankle. Patient is currently on Zosyn and vancomycin. Blood cultures have been negative to date. There is no record of intraoperative wound cultures. Surgical consultation and wound care consultation has been requested for management of the right ankle wound. Patient continues to report severe pain in the foot as well as muscle aches extending up bilateral legs. She is taking Dilaudid and oxycodone with limited relief. Review of Systems Review of Systems: Yes all other systems are reviewed and are negative PMFSH Past Medical History Medical History Anemia Arthritis COVID-19 vaccine administered Diverticulitis GERD (gastroesophageal reflux disease) Insomnia Invasive ductal carcinoma of left breast Lobular carcinoma in situ of right breast Migraines Morbid obesity Situational anxiety Situational depression Family History Family History Mother Glioblastoma Father Lung cancer Paternal Grandmother Cancer of unknown origin Family history: reviewed and not pertinent Surgical History Surgical History History of bilateral breast biopsy History of colon resection History of colostomy reversal History of incision and drainage Hx of colonoscopy Social History Social History Household Members: Spouse Housing: House Are you a primary critical care specialist to a significant other at home: No Do you presently have visiting nurse or other home services: No Alcohol intake: never Patient Tobacco Use Status: Never used Tobacco Second Hand Smoke Exposure: No service: No Current occupational status: employed Meds Allergies Allergy/AdvReac Type Severity Reaction Status Date / Time fluoxetine [Prozac] Allergy Unknown worsening Verified 04/15/22 10:32 depression gabapentin Allergy Unknown irritabilit Verified 06/02/22 10:32 y Iodinated Contrast Media Allergy Unknown RASH Verified 04/15/22 10:32 [IV CONTRAST] nortriptyline Allergy Unknown irritabilit Verified 04/15/22 10:32 y topiramate Allergy Unknown mild Verified 04/15/22 10:32 depression verapamil Allergy Unknown irritabilit Verified 04/15/22 10:32 y food allergies Allergy Unknown Sneezing Uncoded 04/15/22 10:32 Active Medications: Current Medications Acetaminophen (Acetaminophen 325 Mg Tablet) 650 mg PO Q6H PRN PRN Reason: Pain, Mild (Pain Scale 1-3) Last Admin: 01/03/23 01:26 Dose: 650 mg Acetaminophen (Acetaminophen 325 Mg Tablet) 325 mg PO QID PRN PRN Reason: pain scale (7-10) Calcium Carbonate (Calcium Carbonate 500 Mg Tablet) 500 mg PO BID [facility] Last Admin: 01/02/23 20:10 Dose: 500 mg Cyanocobalamin (Cyanocobalamin (Vitamin B-12) 500 Mcg Tablet) 500 mcg PO DAILY [facility] Last Admin: 01/02/23 09:19 Dose: 500 mcg Ergocalciferol (Ergocalciferol (Vitamin D2) 1,250 Mcg Capsule) 1,250 mcg PO MORENO [facility] Last Admin: 01/02/23 09:33 Dose: 1,250 mcg Ferrous Sulfate (Ferrous Sulfate 324 Mg Tablet.Dr) 324 mg PO DAILY [facility] Last Admin: 01/02/23 09:19 Dose: 324 mg Heparin Sodium (Porcine) (Heparin Sodium,Porcine 5,000 Unit/Ml Vial) 5,000 unit SUBCUT Q8H [facility] Last Admin: 01/03/23 04:23 Dose: 5,000 unit Hydromorphone HCl (Hydromorphone Hcl 1 Mg/Ml Syringe) 1 mg IVPUSH Q4H PRN; Protocol PRN Reason: Pain, Severe (Pain Scale 7-10) Last Admin: 01/03/23 00:12 Dose: 1 mg Cefazolin Sodium/Dextrose (Ancef) 2 gm in 50 mls @ 100 mls/hr IV POSTOP NAFISA Piperacillin Sod/Tazobactam (Sod 3.375 gm/ Sodium Chloride) 50 mls @ 100 mls/hr IV Q6H [facility] Last Infusion: 01/03/23 05:13 Dose: Infused Vancomycin HCl 1,000 mg/ (Sodium Chloride) 270 mls @ 270 mls/hr IV Q12H [facility] Last Infusion: 01/03/23 01:34 Dose: Infused Magnesium Hydroxide (Milk Of Magnesia 30 Ml Oral.Susp) 30 ml PO DAILY PRN PRN Reason: Constipation Melatonin (Melatonin 3 Mg Tablet) 6 mg PO BEDTIME PRN PRN Reason: Insomnia Last Admin: 01/03/23 00:13 Dose: 6 mg Metformin HCl (Metformin Hcl Er 500 Mg Tab.Er.24h) 500 mg PO BID [facility] Last Admin: 01/02/23 20:10 Dose: 500 mg Multivitamins/Vitamin C (Multivitamin Tablet) 1 tab PO DAILY [facility] Last Admin: 01/02/23 09:19 Dose: 1 tab Pt Own (Exemestane (25 Mg Tablet)) 25 mg PO DAILY [facility] Last Admin: 01/02/23 09:19 Dose: 25 mg Non-Formulary Medication (Naratriptan) 1 tab PO DAILY MRX1 PRN PRN Reason: Migraine Headache Omeprazole (Omeprazole 20 Mg Capsule.Dr) 20 mg PO DAILY@0630 [facility] Last Admin: 01/03/23 05:12 Dose: 20 mg Oxycodone HCl (Oxycodone Hcl Immed Release 5 Mg Tablet) 5 mg PO QID PRN PRN Reason: pain scale (7-10) Last Admin: 01/03/23 04:23 Dose: 5 mg Pharmacy Consult (Consult Rx Vancomycin Dosing) 1 each MISCELLANE DAILY PRN PRN Reason: Consult order Propranolol HCl (Propranolol Hcl La 80 Mg Cap.Sa.24h) 80 mg PO DAILY [facility]; Protocol Last Admin: 01/02/23 09:19 Dose: 80 mg Sodium Chloride (0.9 % Sodium Chloride Flush 3 Ml Syringe) 3 ml IVFLUSH QSHIFT [facility] Last Admin: 01/03/23 00:13 Dose: 3 ml Home Medications Medication Instructions Recorded Confirmed Last Taken Type ferrous gluconate 324 mg (38 mg 324 mg PO BID 02/17/21 12/28/22 05/12/21 History iron) tablet omeprazole 20 mg capsule,delayed 20 mg PO DAILY 02/17/21 12/28/22 12/28/22 History release naratriptan 2.5 mg tablet 1 tab PO DAILY MRX1 PRN Migraine 03/26/21 12/28/22 Unknown History Headache propranolol 80 mg capsule,24 1 cap PO DAILY 03/26/21 12/28/22 04/01/21 History hr,extended release exemestane 25 mg tablet 25 mg PO DAILY 04/15/22 12/28/22 12/28/22 History calcium carbonate 500 mg calcium 500 mg PO BID 12/28/22 12/28/22 Unknown History (1,250 mg) tablet cyanocobalamin (vitamin B-12) 500 500 mcg PO DAILY 12/28/22 12/28/22 Unknown History mcg tablet ergocalciferol (vitamin D2) 1,250 1,250 mcg PO MORENO 12/28/22 12/28/22 Unknown History mcg (50,000 unit) capsule metformin 500 mg tablet,extended 500 mg PO BID 12/28/22 12/28/22 12/28/22 History release 24 hr multivitamin 1 tab PO DAILY 12/28/22 12/28/22 Unknown History oxycodone-acetaminophen 5 mg-325 1 tab PO QID PRN Pain (Scale Score 12/28/22 12/28/22 12/28/22 History mg tablet 7-10) Physical Exam Vital Signs: Vital Signs: Last Vital Signs Temp 97.8 F 01/03/23 08:00 Pulse 72 01/03/23 08:00 Resp 18 01/03/23 08:00 BP 154/80 H 01/03/23 08:00 Pulse Ox 97 01/03/23 08:00 O2 Del Method 01/03/23 08:00 O2 Flow Rate 2 12/31/22 13:56 BMI result Body Mass Index 43.8 Const: General: alert and awake Nutritional Appearance: well nourished Orientation/consciousness: patient oriented x3 HEENT: Head: Yes normocephalic and Yes atraumatic Resp: Effort & Inspection: normal respiratory effort, no audible wheezes, no cough and no respiratory distress GI: Inspection: Yes normal to inspection Skin: Other: Warm and dry, no rash Neuro: General: patient oriented x3 Extrem: Other: Unable to examine patient's right ankle at this time due to patient's pain. I will return tomorrow morning prior to dressing changes to review the wound Results Labs 01/02/23 05:51 01/03/23 05:43 Labs: BMP 01/03/23 05:43 Creatinine 0.95 All other labs normal. Assessment and Plan (1) Cellulitis of right lower extremity: Status: Acute (2) Abscess: Status: Acute Plan 72-year-old female patient presenting with a right ankle abscess status post debridement of necrotic tissue and drainage of abscess collection 12/31/2022. Surgical consultation was requested for assistance with wound management. Unfortunately I was unable to view the wound today will will return tomorrow morning prior to dressing change for a wound check. Further recommendations to follow. Time Spent With Patient Time: Total time managing care of this patient today ____ minutes. Procedures Date of Service Date of Service: 01/03/23
[2023-01-03 09:37] VITALS: RESP 19
--- NOTE | 2023-01-03 09:44 | HO.PM.IMPN ---
Subjective Subjective Date of Service: 01/03/23 Interval History: f/u cellulitis and abscess of right ankle, pain in the ankle is better but has lots muslce pain in both legs Review of Systems No fever, right ankle pain is much better, purulent drainage from the ankle, see picture Physical Exam Vital Signs: Vital Signs: Last Vital Signs Temp 97.8 F 01/03/23 08:00 Pulse 72 01/03/23 08:00 Resp 19 01/03/23 09:37 BP 154/80 H 01/03/23 08:00 Pulse Ox 97 01/03/23 08:00 O2 Del Method 01/03/23 08:00 O2 Flow Rate 2 12/31/22 13:56 BMI result Body Mass Index 43.8 Const: Other: General: AO X 3, no acute distress Resp: CTA bilateral CVS: S1,S2,RRR GI: +BS, NT, no distention Skin: No rash Neuro: motor grossly intact Psych: appropriate affect Objective Data Active Medications Acetaminophen (Acetaminophen 325 Mg Tablet) 650 mg PO Q6H PRN PRN Reason: Pain, Mild (Pain Scale 1-3) Last Admin: 01/03/23 01:26 Dose: 650 mg Documented By: CHACNE Calcium Carbonate (Calcium Carbonate 500 Mg Tablet) 500 mg PO BID [facility] Last Admin: 01/02/23 20:10 Dose: 500 mg Documented By: RANDY Cyanocobalamin (Cyanocobalamin (Vitamin B-12) 500 Mcg Tablet) 500 mcg PO DAILY [facility] Last Admin: 01/02/23 09:19 Dose: 500 mcg Documented By: SKYLA Ergocalciferol (Ergocalciferol (Vitamin D2) 1,250 Mcg Capsule) 1,250 mcg PO MORENO [facility] Last Admin: 01/02/23 09:33 Dose: 1,250 mcg Documented By: SKYLA Ferrous Sulfate (Ferrous Sulfate 324 Mg Tablet.Dr) 324 mg PO DAILY [facility] Last Admin: 01/02/23 09:19 Dose: 324 mg Documented By: SKYLA Heparin Sodium (Porcine) (Heparin Sodium,Porcine 5,000 Unit/Ml Vial) 5,000 unit SUBCUT Q8H [facility] Last Admin: 01/03/23 04:23 Dose: 5,000 unit Documented By: CHANCE Hydromorphone HCl (Hydromorphone Hcl 1 Mg/Ml Syringe) 1 mg IVPUSH Q4H PRN; Protocol PRN Reason: Pain, Severe (Pain Scale 7-10) Last Admin: 01/03/23 09:37 Dose: 1 mg Documented By: COTASIF Cefazolin Sodium/Dextrose (Ancef) 2 gm in 50 mls @ 100 mls/hr IV POSTOP NAFISA Piperacillin Sod/Tazobactam (Sod 3.375 gm/ Sodium Chloride) 50 mls @ 100 mls/hr IV Q6H [facility] Last Infusion: 01/03/23 05:13 Dose: 0 mls/hr Documented By: CHANCE Vancomycin HCl 1,000 mg/ (Sodium Chloride) 270 mls @ 270 mls/hr IV Q12H [facility] Last Infusion: 01/03/23 01:34 Dose: 0 mls/hr Documented By: CHANCE Magnesium Hydroxide (Milk Of Magnesia 30 Ml Oral.Susp) 30 ml PO DAILY PRN PRN Reason: Constipation Melatonin (Melatonin 3 Mg Tablet) 6 mg PO BEDTIME PRN PRN Reason: Insomnia Last Admin: 01/03/23 00:13 Dose: 6 mg Documented By: CHANCE Metformin HCl (Metformin Hcl Er 500 Mg Tab.Er.24h) 500 mg PO BID [facility] Last Admin: 01/02/23 20:10 Dose: 500 mg Documented By: RANDY Multivitamins/Vitamin C (Multivitamin Tablet) 1 tab PO DAILY [facility] Last Admin: 01/02/23 09:19 Dose: 1 tab Documented By: SKYLA Pt Own (Exemestane (25 Mg Tablet)) 25 mg PO DAILY [facility] Last Admin: 01/02/23 09:19 Dose: 25 mg Documented By: SKYLA Non-Formulary Medication (Naratriptan) 1 tab PO DAILY MRX1 PRN PRN Reason: Migraine Headache Omeprazole (Omeprazole 20 Mg Capsule.Dr) 20 mg PO DAILY@0630 [facility] Last Admin: 01/03/23 05:12 Dose: 20 mg Documented By: CHANCE Pharmacy Consult (Consult Rx Vancomycin Dosing) 1 each MISCELLANE DAILY PRN PRN Reason: Consult order Propranolol HCl (Propranolol Hcl La 80 Mg Cap.Sa.24h) 80 mg PO DAILY [facility]; Protocol Last Admin: 01/02/23 09:19 Dose: 80 mg Documented By: SKYLA Sodium Chloride (0.9 % Sodium Chloride Flush 3 Ml Syringe) 3 ml IVFLUSH QSHIFT [facility] Last Admin: 01/03/23 00:13 Dose: 3 ml Documented By: CHANCE Labs 01/02/23 05:51 01/03/23 05:43 Labs: Laboratory Results - last 24 hr 01/03/23 05:43 Estim Creat Clear Calc 74.1 Estimated GFR 58 Microbiology Microbiology Results: Microbiology 12/28/22 16:53 Blood Culture - Final Blood - Venous No growth after 5 days. 12/28/22 16:54 Blood Culture - Final Blood - Venous No growth after 5 days. Assessment and Plan (1) Abscess: Status: Acute (2) Cellulitis of right lower extremity: Status: Acute Plan 72 year old female with morbid obesity and other medical problems as listed. She presents with right ankle redness, pain and swelling best described by the image, clinical presentation consistent with sepsis d/t cellulitis and concern for joint involvment. #Left ankle Cellulitis and abscess, Sepsis,. Sepsis clinically resolved -MRI 12/29:1. Large 12 cm abscess in the lateral subcutaneous fat at the level of the ankle and hindfoot with surrounding cellulitis and underlying osteomyelitis of the lateral malleolus. 2. Complex longitudinal tears of the peroneus longus and peroneus brevis tendons with associated tenosynovitis. Septic tenosynovitis is also possible. Ortho did bedside I/D on 12/30 and will take to OR for full exploration and lavage on 12/31 culture so far negative -Continue Zosyn and Vanco started on 12/28 -wound care/dressing changes by surgery -Dilaudid for pain -wound care consult next week #Gerd--Omeprazol #Anxiety--Prorpanolol #Morbid obesity--weight loss advised #Heparin for DVT prophylaxis #muscle pain, check cpk Full code Need for inpatient nagement of sepsis, ankle cellulitis/abscess and expert evaluation for possible intervention, not able to due this in less acute setting at this time Time Spent With Patient Time: Total time managing care of this patient today ____ minutes. Quality Stroke Does the patient have a stroke diagnosis?: No VTE Prior VTE?: No VTE Risk Level:: Medical - moderate - high VTE Device Contraindication: Treatment Not Indicated VTE Drug Contraindication: N/A - Med Ordered
[2023-01-03] MEDS: Ferrous Sulfate 324 MG TABLET.DR PO (09:50)
[2023-01-03] MEDS: Cyanocobalamin (Vitamin B-12) 500 MCG TABLET PO (09:50)
[2023-01-03] MEDS: metFORMIN HCl ER 500 MG TAB.ER.24H PO ×2 (09:50→20:19)
[2023-01-03] MEDS: Propranolol HCL LA 80 MG CAP.SA.24H PO (09:50)
[2023-01-03] MEDS: Multivitamin TABLET 1 TAB PO (09:51)
--- NOTE | 2023-01-03 10:22 | PM.PNORT ---
Subjective Subjective Date of Service: 01/03/23 Interval history: postop day 3. Status post I and D of right lateral foot and ankle soft tissues with Dr. Faye. The patient says that her foot and ankle are less painful than before surgery. Physical Exam Vital Signs: Vital Signs: Last Vital Signs Temp 97.8 F 01/03/23 08:00 Pulse 72 01/03/23 08:00 Resp 19 01/03/23 09:37 BP 154/80 H 01/03/23 08:00 Pulse Ox 97 01/03/23 08:00 O2 Del Method 01/03/23 08:00 O2 Flow Rate 2 12/31/22 13:56 BMI result Body Mass Index 43.8 Extrem: Other: The patient was alert oriented and in no acute distress. She was out of bed and in recliner chair in her room. Her splint and dressings were taken down today. She had some maceration of the heel and plantar aspect of the foot. Dressings Soaked from wet to dry dressings and exudate. No gross purulence found in the wounds on the lateral aspect of her foot and ankle. Questionable viability of some of the skin. No exposed bone or tendon visible. able to plantar flex and dorsiflex ankle and toes with minimal discomfort. Toes pink with good cap refill. Procedures Date of Service Date of Service: 01/03/23 Progress Note: A&P Assessment and plan (1) Cellulitis of right lower extremity: Status: Acute (2) Abscess: Status: Acute Plan 1. Right lateral foot and ankle abscess status post I and D. Date of surgery 12/31/[address] Faye. No gross purulence found within the wound. Some questionable viability of involved tissues. Fresh damp to dry dressing placed, avoiding over Soaked dressings to avoid further maceration of tissues. Posterior splint placed , well-padded in the heel.. consult made to general surgery.. Time Spent With Patient Time: Total time managing care of this patient today __30 minutes. Quality Stroke Does the patient have a stroke diagnosis?: No VTE Prior VTE?: No VTE Risk Level:: Medical - moderate - high VTE Device Contraindication: Treatment Not Indicated VTE Drug Contraindication: N/A - Med Ordered
[2023-01-03 10:56] LABS: Vancomycin Random 19.6 mcg/mL (15-20)
--- NOTE | 2023-01-03 11:07 | HE.PHANOTE ---
Addendum entered by Lisa Nielsen RPh 01/03/23 11:09: Next level 01/04 @ 1000 Original Note: Vancomycin Dosing Level high at 19.6 today. Will decrease dose to vancomycin 750 mg Q12H. New Expected AUC 453 with a trough of 17.5. Pharmacy will continue to monitor renal function daily. Next Level 01/03 @ 1000. Elizabeth ColonD
[2023-01-03] MEDS: vancomycin HCL 750 MG in 0.9 % Sodium Chloride 250 ML 265 MG IV (13:05)
[2023-01-03 16:06] VITALS: BP 159/65; PULSE 74; RESP 18; TEMP 36.4; O2SAT 97
[2023-01-03 18:14] VITALS: RESP 19
[2023-01-03 23:35] VITALS: BP 161/72; PULSE 98; RESP 18; TEMP 36.4; O2SAT 97
[2023-01-04] MEDS: vancomycin HCL 750 MG in 0.9 % Sodium Chloride 250 ML 265 MG IV ×2 (00:09→20:18)
[2023-01-04] MEDS: HYDROmorphone HCl 1 MG/ML SYRINGE IVPUSH ×2 (01:41→18:00)
[2023-01-04] MEDS: Melatonin 3 MG TABLET 6 MG PO (01:41)
[2023-01-04] MEDS: Piperacillin Sodium/Tazobactam 3.375 GM in 0.9 % Sodium Chloride 50 ML IV ×4 (01:44→21:12)
[2023-01-04] MEDS: oxyCODONE HCl Immed Release 5 MG TABLET PO ×4 (04:24→21:37)
[2023-01-04] MEDS: Acetaminophen 325 MG TABLET 650 MG PO ×3 (04:24→21:36)
[2023-01-04] MEDS: Omeprazole 20 MG CAPSULE.DR PO (04:25)
[2023-01-04] MEDS: Heparin Sodium,Porcine 5,000 UNIT/ML VIAL 5000 UNIT SUBCUT ×3 (04:25→20:18)
[2023-01-04 06:40] LABS: Creatinine Clr Calc Pharmacy 68.3; Estimated Glomerular Filt Rate 53
[2023-01-04 07:27] VITALS: BP 172/77; PULSE 70; RESP 18; TEMP 37.2; O2SAT 96
[2023-01-04 07:38] LABS: Glucose, Whole Blood 123 mg/dL (60-115)
[2023-01-04] MEDS: metFORMIN HCl ER 500 MG TAB.ER.24H PO ×2 (07:58→20:18)
[2023-01-04] MEDS: Multivitamin TABLET 1 TAB PO (07:59)
[2023-01-04] MEDS: Ferrous Sulfate 324 MG TABLET.DR PO (07:59)
[2023-01-04] MEDS: Propranolol HCL LA 80 MG CAP.SA.24H PO (07:59)
[2023-01-04] MEDS: Cyanocobalamin (Vitamin B-12) 500 MCG TABLET PO (07:59)
[2023-01-04 09:15] LABS: Anion Gap 15 (12-20); Blood Urea Nitrogen 6 mg/dL (9-16); Calcium 9.5 mg/dL (8.4-10.2); Carbon Dioxide 25 mmol/L (22-29); Chloride 102 mmol/L (96-108); Estimated Glomerular Filt Rate 49; Glucose Random 133 mg/dL (60-115); Potassium 3.9 mmol/L (3.3-5.1); Sodium 138 mmol/L (135-145)
[2023-01-04 09:20] LABS: Vancomycin Random 19.9 mcg/mL (15-20)
--- NOTE | 2023-01-04 09:39 | HE.PHANOTE ---
RE: vanco Trough on 01/04 came back at 19.9mg/L, held dose for noon. Continuing 750 Q12H with predicted AUC 489mg/L, trough 18.9. Put in another level for today @1800. Will continue to monitor
[2023-01-04 11:27] LABS: Glucose, Whole Blood 127 mg/dL (60-115)
[2023-01-04 11:31] VITALS: BP 163/70
--- NOTE | 2023-01-04 12:08 | P.PNGS_ITS ---
Subjective Subjective Date of Service: 01/04/23 Patient reports: no new complaints Interval history: Patient reports continued pain in the right foot, denies any new symptoms Physical Exam Vital Signs: Vital Signs: Last Vital Signs Temp 99.0 F 01/04/23 07:27 Pulse 70 01/04/23 07:27 Resp 18 01/04/23 07:27 BP 163/70 H 01/04/23 11:31 Pulse Ox 96 01/04/23 07:27 O2 Del Method 01/04/23 07:27 O2 Flow Rate 2 12/31/22 13:56 BMI result Body Mass Index 43.8 Const: General: no acute distress Nutritional Appearance: well nourished Orientation/consciousness: patient oriented x3 Resp: Other: Breathing comfortably on room air Skin: Other: Warm and dry Neuro: General: patient oriented x3 Extrem: Other: Dressings changed to the right foot and ankle. Significant amount of discharge noted on dressings with bluish discoloration suggestive of a Pseudomonas infection. Moderate amount of granulation tissue noted at the wound base with no necrotic skin or subcutaneous tissue noted. Wounds covered with silver alginate followed by fluffed gauze and large ABD pad. Wounds covered with Kerlix. Objective Data Active Medications Acetaminophen (Acetaminophen 325 Mg Tablet) 650 mg PO Q6H PRN PRN Reason: Pain, Mild (Pain Scale 1-3) Last Admin: 01/04/23 11:00 Dose: 650 mg Documented By: GORDO Calcium Carbonate (Calcium Carbonate 500 Mg Tablet) 500 mg PO BID [facility] Last Admin: 01/04/23 07:59 Dose: 500 mg Documented By: GORDO Cyanocobalamin (Cyanocobalamin (Vitamin B-12) 500 Mcg Tablet) 500 mcg PO DAILY [facility] Last Admin: 01/04/23 07:59 Dose: 500 mcg Documented By: GORDO Ergocalciferol (Ergocalciferol (Vitamin D2) 1,250 Mcg Capsule) 1,250 mcg PO MORENO [facility] Last Admin: 01/02/23 09:33 Dose: 1,250 mcg Documented By: SKYLA Ferrous Sulfate (Ferrous Sulfate 324 Mg Tablet.) 324 mg PO DAILY [facility] Last Admin: 01/04/23 07:59 Dose: 324 mg Documented By: GORDO Heparin Sodium (Porcine) (Heparin Sodium,Porcine 5,000 Unit/Ml Vial) 5,000 unit SUBCUT Q8H [facility] Last Admin: 01/04/23 11:41 Dose: 5,000 unit Documented By: GORDO Hydromorphone HCl (Hydromorphone Hcl 1 Mg/Ml Syringe) 1 mg IVPUSH Q4H PRN; Protocol PRN Reason: Pain, Severe (Pain Scale 7-10) Last Admin: 01/04/23 01:41 Dose: 1 mg Documented By: RAMO Cefazolin Sodium/Dextrose (Ancef) 2 gm in 50 mls @ 100 mls/hr IV POSTOP NAFISA Piperacillin Sod/Tazobactam (Sod 3.375 gm/ Sodium Chloride) 50 mls @ 100 mls/hr IV Q6H [facility] Last Infusion: 01/04/23 08:31 Dose: 0 mls/hr Documented By: GORDO Vancomycin HCl 750 mg/ Sodium (Chloride) 265 mls @ 265 mls/hr IV Q12H [facility] Magnesium Hydroxide (Milk Of Magnesia 30 Ml Oral.Susp) 30 ml PO DAILY PRN PRN Reason: Constipation Melatonin (Melatonin 3 Mg Tablet) 6 mg PO BEDTIME PRN PRN Reason: Insomnia Last Admin: 01/04/23 01:41 Dose: 6 mg Documented By: RAMO Metformin HCl (Metformin Hcl Er 500 Mg Tab.Er.24h) 500 mg PO BID [facility] Last Admin: 01/04/23 07:58 Dose: 500 mg Documented By: GORDO Multivitamins/Vitamin C (Multivitamin Tablet) 1 tab PO DAILY [facility] Last Admin: 01/04/23 07:59 Dose: 1 tab Documented By: GORDO Pt Own (Exemestane (25 Mg Tablet)) 25 mg PO DAILY [facility] Last Admin: 01/04/23 07:58 Dose: 25 mg Documented By: GORDO Non-Formulary Medication (Naratriptan) 1 tab PO DAILY MRX1 PRN PRN Reason: Migraine Headache Omeprazole (Omeprazole 20 Mg Capsule.) 20 mg PO DAILY@0630 [facility] Last Admin: 01/04/23 04:25 Dose: 20 mg Documented By: RAMO Oxycodone HCl (Oxycodone Hcl Immed Release 5 Mg Tablet) 5 mg PO Q4H PRN PRN Reason: Pain, Moderate (Pain Scale 4-6 Last Admin: 01/04/23 11:01 Dose: 5 mg Documented By: GORDO Pharmacy Consult (Consult Rx Vancomycin Dosing) 1 each MISCELLANE DAILY PRN PRN Reason: Consult order Propranolol HCl (Propranolol Hcl La 80 Mg Cap.Sa.24h) 80 mg PO DAILY [facility]; Protocol Last Admin: 01/04/23 07:59 Dose: 80 mg Documented By: GORDO Sodium Chloride (0.9 % Sodium Chloride Flush 3 Ml Syringe) 3 ml IVFLUSH QSHIFT [facility] Last Admin: 01/04/23 07:19 Dose: Not Given Documented By: GORDO Non-Admin Reason: See Note Labs 01/02/23 05:51 01/04/23 08:30 Labs: Laboratory Results - last 24 hr 01/04/23 01/04/23 01/04/23 05:55 07:31 08:30 Anion Gap Estim Creat Clear Calc 68.3 Estimated GFR 53 POC Glucose 123 H Random Glucose Calcium Total Creatine Kinase Random Vancomycin 19.9 01/04/23 01/04/23 08:30 11:22 Anion Gap 15 Estim Creat Clear Calc 64.0 Estimated GFR 49 POC Glucose 127 H Random Glucose 133 H Calcium 9.5 Total Creatine Kinase 17 L Random Vancomycin Procedures Date of Service Date of Service: 01/04/23 Progress Note: A&P Assessment and plan (1) Abscess: Status: Acute (2) Cellulitis of right lower extremity: Status: Acute Plan Large wound and abscess of the right ankle, s/p debridement and drainage. Patient is draining a significant amount of serous fluid from the wound and dressings have a bluish discoloration suggestive of a Pseudomonas infection. Recommend changing the dressings 3 times daily but leaving the silver alginate on for 48 hours. No debridement required at this time, will continue to monitor. Time Spent With Patient Time: Total time managing care of this patient today ____ minutes. Quality Stroke Does the patient have a stroke diagnosis?: No VTE Prior VTE?: No VTE Risk Level:: Medical - moderate - high VTE Device Contraindication: Treatment Not Indicated VTE Drug Contraindication: N/A - Med Ordered
--- NOTE | 2023-01-04 12:59 | PM.EVENT ---
Event Note Date of Service: 01/04/23 Event Note: General surgery evaluated the patient this afternoon. Recommendations are 3 times daily dressing changes but leaving the silver alginate on for 48 hours.?General surgery to continue to monitor for any additional surgical debridement. No debridement needed at this time. No additional orthopedic intervention is needed at this time. Time Spent With Patient Time: Total time managing care of this patient today ____ minutes.
[2023-01-04 15:35] VITALS: BP 135/92; PULSE 85; RESP 17; TEMP 36.5; O2SAT 97
--- NOTE | 2023-01-04 16:11 | P.PNIM_ITS ---
Subjective Subjective Date of Service: 01/04/23 Interval History: f/u cellulitis and abscess of right ankle, pain in the ankle is better but has lots muslce pain in both leg some what better than yesterday Review of Systems No fever, right ankle pain is much better, purulent drainage from the ankle, see picture Physical Exam Vital Signs: Vital Signs: Last Vital Signs Temp 97.7 F 01/04/23 15:35 Pulse 85 01/04/23 15:35 Resp 17 01/04/23 15:35 BP 135/92 H 01/04/23 15:35 Pulse Ox 97 01/04/23 15:35 O2 Del Method 01/04/23 15:35 O2 Flow Rate 2 12/31/22 13:56 BMI result Body Mass Index 43.8 General: AO X 3, no acute distress Resp:? CTA bilateral CVS: S1,S2,RRR GI: +BS, NT, no distention Skin: No rash Neuro:? motor grossly intact Psych: appropriate affect Objective Data Active Medications Acetaminophen (Acetaminophen 325 Mg Tablet) 650 mg PO Q6H PRN PRN Reason: Pain, Mild (Pain Scale 1-3) Last Admin: 01/04/23 11:00 Dose: 650 mg Documented By: GORDO Calcium Carbonate (Calcium Carbonate 500 Mg Tablet) 500 mg PO BID [facility] Last Admin: 01/04/23 07:59 Dose: 500 mg Documented By: GORDO Cyanocobalamin (Cyanocobalamin (Vitamin B-12) 500 Mcg Tablet) 500 mcg PO DAILY [facility] Last Admin: 01/04/23 07:59 Dose: 500 mcg Documented By: GORDO Ergocalciferol (Ergocalciferol (Vitamin D2) 1,250 Mcg Capsule) 1,250 mcg PO MORENO [facility] Last Admin: 01/02/23 09:33 Dose: 1,250 mcg Documented By: SKYLA Ferrous Sulfate (Ferrous Sulfate 324 Mg Tablet.) 324 mg PO DAILY [facility] Last Admin: 01/04/23 07:59 Dose: 324 mg Documented By: GORDO Heparin Sodium (Porcine) (Heparin Sodium,Porcine 5,000 Unit/Ml Vial) 5,000 unit SUBCUT Q8H [facility] Last Admin: 01/04/23 11:41 Dose: 5,000 unit Documented By: GORDO Hydromorphone HCl (Hydromorphone Hcl 1 Mg/Ml Syringe) 1 mg IVPUSH Q4H PRN; Protocol PRN Reason: Pain, Severe (Pain Scale 7-10) Last Admin: 01/04/23 01:41 Dose: 1 mg Documented By: RAMO Cefazolin Sodium/Dextrose (Ancef) 2 gm in 50 mls @ 100 mls/hr IV POSTOP NAFISA Piperacillin Sod/Tazobactam (Sod 3.375 gm/ Sodium Chloride) 50 mls @ 100 mls/hr IV Q6H [facility] Last Infusion: 01/04/23 15:26 Dose: 0 mls/hr Documented By: GORDO Vancomycin HCl 750 mg/ Sodium (Chloride) 265 mls @ 265 mls/hr IV Q12H [facility] Lidocaine (Lidocaine 4 % Patch Adh..Patch) 1 patch TRANSDERMA DAILY [facility]; Protocol Last Admin: 01/04/23 13:37 Dose: Not Given Documented By: GORDO Non-Admin Reason: Patient Refused Magnesium Hydroxide (Milk Of Magnesia 30 Ml Oral.Susp) 30 ml PO DAILY PRN PRN Reason: Constipation Melatonin (Melatonin 3 Mg Tablet) 6 mg PO BEDTIME PRN PRN Reason: Insomnia Last Admin: 01/04/23 01:41 Dose: 6 mg Documented By: RAMO Metformin HCl (Metformin Hcl Er 500 Mg Tab.Er.24h) 500 mg PO BID [facility] Last Admin: 01/04/23 07:58 Dose: 500 mg Documented By: GORDO Multivitamins/Vitamin C (Multivitamin Tablet) 1 tab PO DAILY [facility] Last Admin: 01/04/23 07:59 Dose: 1 tab Documented By: GORDO Pt Own (Exemestane (25 Mg Tablet)) 25 mg PO DAILY [facility] Last Admin: 01/04/23 07:58 Dose: 25 mg Documented By: GORDO Non-Formulary Medication (Naratriptan) 1 tab PO DAILY MRX1 PRN PRN Reason: Migraine Headache Omeprazole (Omeprazole 20 Mg Capsule.) 20 mg PO DAILY@0630 [facility] Last Admin: 01/04/23 04:25 Dose: 20 mg Documented By: RAMO Oxycodone HCl (Oxycodone Hcl Immed Release 5 Mg Tablet) 5 mg PO Q4H PRN PRN Reason: Pain, Moderate (Pain Scale 4-6 Last Admin: 01/04/23 15:05 Dose: 5 mg Documented By: GORDO Pharmacy Consult (Consult Rx Vancomycin Dosing) 1 each MISCELLANE DAILY PRN PRN Reason: Consult order Propranolol HCl (Propranolol Hcl La 80 Mg Cap.Sa.24h) 80 mg PO DAILY [facility]; Protocol Last Admin: 01/04/23 07:59 Dose: 80 mg Documented By: GORDO Sodium Chloride (0.9 % Sodium Chloride Flush 3 Ml Syringe) 3 ml IVFLUSH QSHIFT [facility] Last Admin: 01/04/23 14:48 Dose: Not Given Documented By: GORDO Non-Admin Reason: See Note Labs 01/02/23 05:51 01/04/23 08:30 Labs: Laboratory Results - last 24 hr 01/04/23 01/04/23 01/04/23 05:55 07:31 08:30 Anion Gap Estim Creat Clear Calc 68.3 Estimated GFR 53 POC Glucose 123 H Random Glucose Calcium Total Creatine Kinase Random Vancomycin 19.9 01/04/23 01/04/23 08:30 11:22 Anion Gap 15 Estim Creat Clear Calc 64.0 Estimated GFR 49 POC Glucose 127 H Random Glucose 133 H Calcium 9.5 Total Creatine Kinase 17 L Random Vancomycin Assessment and Plan (1) Abscess: Status: Acute (2) Cellulitis of right lower extremity: Status: Acute (3) Morbid obesity: Status: Acute Plan 72 year old female with morbid obesity and other medical problems as listed. She presents with right ankle redness, pain and swelling best described by the image, clinical presentation consistent with sepsis d/t cellulitis and concern for joint involvment. Left ankle Cellulitis and abscess, Sepsis,. Sepsis clinically resolved -MRI 12/29:1. Large 12 cm abscess in the lateral subcutaneous fat at the level of the ankle and hindfoot with surrounding cellulitis and underlying osteomyelitis of the lateral malleolus. 2. Complex longitudinal tears of the peroneus longus and peroneus brevis tendons with associated tenosynovitis. Septic tenosynovitis is also possible. cpk normal Ortho did bedside I/D on 12/30 and will take to OR for full exploration and lavage on 12/31 culture so far negative -Continue Zosyn and Vanco started on 12/28 -wound care/dressing changes by surgery -Dilaudid for pain seen by surgery-Large wound and abscess of the right ankle,?s/p debridement and drainage.? Patient is draining a significant amount of serous fluid from the wound and dressings have a bluish discoloration suggestive of a Pseudomonas infection.? Recommend changing the dressings 3 times daily but leaving the silver alginate on for 48 hours.? No debridement required at this time, will continue to monitor. Gerd--Omeprazol Anxiety--Prorpanolol Morbid obesity--weight loss advised. Heparin for DVT prophylaxis muscle pain, check cpk Full code inpatient need :sepsis, ankle cellulitis/abscess and expert evaluation for possible intervention, not able to due this in less acute setting at this time Time Spent With Patient Time: Total time managing care of this patient today ____ minutes. Quality Stroke Does the patient have a stroke diagnosis?: No VTE Prior VTE?: No VTE Risk Level:: Medical - moderate - high VTE Device Contraindication: Treatment Not Indicated VTE Drug Contraindication: N/A - Med Ordered
[2023-01-04 16:53] LABS: Glucose, Whole Blood 119 mg/dL (60-115)
[2023-01-04 18:52] LABS: Vancomycin Trough 15.3 mcg/mL (10.0-20.0)
--- NOTE | 2023-01-04 19:02 | HE.PHANOTE ---
Vancomycin Dosing Addendum Patients level came back at 15.3 this evening. Patient to continue 750 mg Q12H, random level in for after 1 dose at 01/05 @0600. Will access renal in AM as well.
[2023-01-04 20:27] LABS: Glucose, Whole Blood 175 mg/dL (60-115)
[2023-01-04 23:40] VITALS: BP 186/82; PULSE 77; RESP 17; TEMP 36.4; O2SAT 95
[2023-01-05] MEDS: HYDROmorphone HCl 1 MG/ML SYRINGE IVPUSH ×4 (01:15→23:53)
[2023-01-05] MEDS: Piperacillin Sodium/Tazobactam 3.375 GM in 0.9 % Sodium Chloride 50 ML IV ×4 (02:53→22:35)
[2023-01-05] MEDS: Heparin Sodium,Porcine 5,000 UNIT/ML VIAL 5000 UNIT SUBCUT ×3 (05:43→21:21)
[2023-01-05] MEDS: oxyCODONE HCl Immed Release 5 MG TABLET PO ×3 (05:45→21:21)
[2023-01-05] MEDS: Acetaminophen 325 MG TABLET 650 MG PO ×2 (05:45→13:00)
[2023-01-05] MEDS: Omeprazole 20 MG CAPSULE.DR PO (05:46)
[2023-01-05 07:09] LABS: Vancomycin Random 11.5 mcg/mL (15-20)
[2023-01-05 07:15] LABS: Creatinine Clr Calc Pharmacy 65.8; Estimated Glomerular Filt Rate 50
--- NOTE | 2023-01-05 07:23 | HE.PHANOTE ---
Vancomycin Dosing Level 11.5 today. Last dose was 10 hours prior. Continue current regimen vanco 750 mg Q12H, expected AUC 402 with trough of 14.5. Next level in 24 hours on 01/06 @ 0600. Elizabeth ColonD
[2023-01-05 08:00] VITALS: BP 177/84; PULSE 77; RESP 18; TEMP 36.4; O2SAT 96
[2023-01-05] MEDS: Ferrous Sulfate 324 MG TABLET.DR PO (08:26)
[2023-01-05] MEDS: Propranolol HCL LA 80 MG CAP.SA.24H PO (08:26)
[2023-01-05] MEDS: Multivitamin TABLET 1 TAB PO (08:26)
[2023-01-05] MEDS: Cyanocobalamin (Vitamin B-12) 500 MCG TABLET PO (08:26)
[2023-01-05] MEDS: metFORMIN HCl ER 500 MG TAB.ER.24H PO ×2 (08:27→21:22)
[2023-01-05] MEDS: vancomycin HCL 750 MG in 0.9 % Sodium Chloride 250 ML 265 MG IV ×2 (08:28→23:31)
[2023-01-05] MEDS: 0.9 % Sodium Chloride Flush 3 ML SYRINGE IVFLUSH ×2 (08:30→14:55)
--- NOTE | 2023-01-05 10:20 | MHC.CM.PN ---
Per ROUNDS discussion, Patient is not yet medically cleared for dc (tripplle IV ABT); home is the goal and CM will continue to follow.
[2023-01-05] MEDS: Gabapentin 100 MG CAPSULE PO ×2 (10:45→21:22)
[2023-01-05] MEDS: hydrALAZINE HCl 10 MG TABLET PO ×3 (10:45→21:22)
--- NOTE | 2023-01-05 14:15 | PM.PNGS ---
Subjective Subjective Date of Service: 01/05/23 Interval history: Continues to complain of right foot pain especially at the heel and Achilles tendon. Reports that the dressing has not been changed since yesterday. Physical Exam Vital Signs: Vital Signs: Last Vital Signs Temp 97.6 F 01/05/23 08:00 Pulse 77 01/05/23 08:00 Resp 18 01/05/23 08:00 BP 177/84 H 01/05/23 08:00 Pulse Ox 96 01/05/23 08:00 O2 Del Method 01/05/23 08:00 O2 Flow Rate 2 12/31/22 13:56 BMI result Body Mass Index 43.8 Const: General: tired appearing Nutritional Appearance: well nourished Orientation/consciousness: patient oriented x3 Resp: Other: Breathing comfortably on room air, no respiratory distress Effort & Inspection: normal respiratory effort Neuro: General: patient oriented x3 Extrem: Other: Dressings are soaked completely. Dressings have not been changed since my dressing change. Bluish discoloration again noted suggestive of Pseudomonas. Dressings were changed and fluffed gauze applied followed by large abdominal pad and Kerlix. Additional abdominal pads placed in her boot. Patient tolerated dressing change well. Objective Data Active Medications Acetaminophen (Acetaminophen 325 Mg Tablet) 650 mg PO Q6H PRN PRN Reason: Pain, Mild (Pain Scale 1-3) Last Admin: 01/05/23 13:00 Dose: 650 mg Documented By: SAMIRA Calcium Carbonate (Calcium Carbonate 500 Mg Tablet) 500 mg PO BID [facility] Last Admin: 01/05/23 08:26 Dose: 500 mg Documented By: SKYLA Cyanocobalamin (Cyanocobalamin (Vitamin B-12) 500 Mcg Tablet) 500 mcg PO DAILY [facility] Last Admin: 01/05/23 08:26 Dose: 500 mcg Documented By: SKYLA Ergocalciferol (Ergocalciferol (Vitamin D2) 1,250 Mcg Capsule) 1,250 mcg PO MORENO [facility] Last Admin: 01/02/23 09:33 Dose: 1,250 mcg Documented By: SKYLA Ferrous Sulfate (Ferrous Sulfate 324 Mg Tablet.) 324 mg PO DAILY [facility] Last Admin: 01/05/23 08:26 Dose: 324 mg Documented By: SKYLA Gabapentin (Gabapentin 100 Mg Capsule) 100 mg PO BID [facility] Last Admin: 01/05/23 10:45 Dose: 100 mg Documented By: RAYSHAWN Heparin Sodium (Porcine) (Heparin Sodium,Porcine 5,000 Unit/Ml Vial) 5,000 unit SUBCUT Q8H [facility] Last Admin: 01/05/23 10:45 Dose: 5,000 unit Documented By: RAYSHAWN Hydralazine HCl (Hydralazine Hcl 10 Mg Tablet) 10 mg PO TID [facility]; Protocol Last Admin: 01/05/23 10:45 Dose: 10 mg Documented By: RAYSHAWN Hydromorphone HCl (Hydromorphone Hcl 1 Mg/Ml Syringe) 1 mg IVPUSH Q4H PRN; Protocol PRN Reason: Pain, Severe (Pain Scale 7-10) Last Admin: 01/05/23 10:53 Dose: 1 mg Documented By: RAYSHAWN Cefazolin Sodium/Dextrose (Ancef) 2 gm in 50 mls @ 100 mls/hr IV POSTOP [facility] Piperacillin Sod/Tazobactam (Sod 3.375 gm/ Sodium Chloride) 50 mls @ 100 mls/hr IV Q6H [facility] Last Infusion: 01/05/23 11:34 Dose: 0 mls/hr Documented By: SKYLA Vancomycin HCl 750 mg/ Sodium (Chloride) 265 mls @ 265 mls/hr IV Q12H [facility] Last Infusion: 01/05/23 09:59 Dose: 0 mls/hr Documented By: SKYLA Lidocaine (Lidocaine 4 % Patch Adh..Patch) 1 patch TRANSDERMA DAILY [facility]; Protocol Last Admin: 01/05/23 08:27 Dose: Not Given Documented By: SKYLA Non-Admin Reason: Patient Refused Magnesium Hydroxide (Milk Of Magnesia 30 Ml Oral.Susp) 30 ml PO DAILY PRN PRN Reason: Constipation Melatonin (Melatonin 3 Mg Tablet) 6 mg PO BEDTIME PRN PRN Reason: Insomnia Last Admin: 01/04/23 01:41 Dose: 6 mg Documented By: RAMO Metformin HCl (Metformin Hcl Er 500 Mg Tab.Er.24h) 500 mg PO BID [facility] Last Admin: 01/05/23 08:27 Dose: 500 mg Documented By: SKYLA Multivitamins/Vitamin C (Multivitamin Tablet) 1 tab PO DAILY [facility] Last Admin: 01/05/23 08:26 Dose: 1 tab Documented By: SKYLA Pt Own (Exemestane (25 Mg Tablet)) 25 mg PO DAILY [facility] Last Admin: 01/05/23 08:27 Dose: 25 mg Documented By: SKYLA Non-Formulary Medication (Naratriptan) 1 tab PO DAILY MRX1 PRN PRN Reason: Migraine Headache Omeprazole (Omeprazole 20 Mg Capsule.Dr) 20 mg PO DAILY@0630 [facility] Last Admin: 01/05/23 05:46 Dose: 20 mg Documented By: RAMO Oxycodone HCl (Oxycodone Hcl Immed Release 5 Mg Tablet) 5 mg PO Q4H PRN PRN Reason: Pain, Moderate (Pain Scale 4-6 Last Admin: 01/05/23 13:01 Dose: 5 mg Documented By: SAMIRA Pharmacy Consult (Consult Rx Vancomycin Dosing) 1 each MISCELLANE DAILY PRN PRN Reason: Consult order Propranolol HCl (Propranolol Hcl La 80 Mg Cap.Sa.24h) 80 mg PO DAILY [facility]; Protocol Last Admin: 01/05/23 08:26 Dose: 80 mg Documented By: SKYLA Sodium Chloride (0.9 % Sodium Chloride Flush 3 Ml Syringe) 3 ml IVFLUSH QSNVFT [facility] Last Admin: 01/05/23 08:30 Dose: 3 ml Documented By: SKYLA Labs 01/02/23 05:51 01/05/23 06:05 Labs: Laboratory Results - last 24 hr 01/04/23 01/04/23 01/04/23 16:49 18:06 20:23 Estim Creat Clear Calc Estimated GFR POC Glucose 119 H 175 H Vancomycin Trough 15.3 Random Vancomycin 01/05/23 01/05/23 06:05 06:05 Estim Creat Clear Calc 65.8 Estimated GFR 50 POC Glucose Vancomycin Trough Random Vancomycin 11.5 L Procedures Date of Service Date of Service: 01/05/23 Progress Note: A&P Assessment and plan (1) Abscess: Status: Acute (2) Cellulitis of right lower extremity: Status: Acute Plan Right foot open wound with a large amount of serous discharge causing a significant amount of drainage on her dressings. Dressings need to be changed at least 3 times daily to prevent maceration of skin. New order placed today. I suggested wound VAC with the patient is not interested at this time. Will continue to monitor. Time Spent With Patient Time: Total time managing care of this patient today ____ minutes. Quality Stroke Does the patient have a stroke diagnosis?: No VTE Prior VTE?: No VTE Risk Level:: Medical - moderate - high VTE Device Contraindication: Treatment Not Indicated VTE Drug Contraindication: N/A - Med Ordered
--- NOTE | 2023-01-05 14:47 | HO.PM.IMPN ---
Subjective Subjective Date of Service: 01/05/23 Interval History: f/u cellulitis and abscess of right ankle, pain in the ankle is better but has lots muslce pain in both leg some what better than yesterday Review of Systems No fever, right ankle pain is much better, purulent drainage from the ankle, see picture Physical Exam Vital Signs: Vital Signs: Last Vital Signs Temp 97.6 F 01/05/23 08:00 Pulse 77 01/05/23 08:00 Resp 18 01/05/23 08:00 BP 177/84 H 01/05/23 08:00 Pulse Ox 96 01/05/23 08:00 O2 Del Method 01/05/23 08:00 O2 Flow Rate 2 12/31/22 13:56 BMI result Body Mass Index 43.8 General: AO X 3, no acute distress Resp:? CTA bilateral CVS: S1,S2,RRR GI: +BS, NT, no distention Skin: No rash Neuro:? motor grossly intact Psych: appropriate affect Objective Data Active Medications Acetaminophen (Acetaminophen 325 Mg Tablet) 650 mg PO Q6H PRN PRN Reason: Pain, Mild (Pain Scale 1-3) Last Admin: 01/05/23 13:00 Dose: 650 mg Documented By: SAMIRA Calcium Carbonate (Calcium Carbonate 500 Mg Tablet) 500 mg PO BID [facility] Last Admin: 01/05/23 08:26 Dose: 500 mg Documented By: SKYLA Cyanocobalamin (Cyanocobalamin (Vitamin B-12) 500 Mcg Tablet) 500 mcg PO DAILY [facility] Last Admin: 01/05/23 08:26 Dose: 500 mcg Documented By: SKYLA Ergocalciferol (Ergocalciferol (Vitamin D2) 1,250 Mcg Capsule) 1,250 mcg PO MORENO [facility] Last Admin: 01/02/23 09:33 Dose: 1,250 mcg Documented By: SKYLA Ferrous Sulfate (Ferrous Sulfate 324 Mg Tablet.) 324 mg PO DAILY [facility] Last Admin: 01/05/23 08:26 Dose: 324 mg Documented By: SKYLA Gabapentin (Gabapentin 100 Mg Capsule) 100 mg PO BID [facility] Last Admin: 01/05/23 10:45 Dose: 100 mg Documented By: RAYSHAWN Heparin Sodium (Porcine) (Heparin Sodium,Porcine 5,000 Unit/Ml Vial) 5,000 unit SUBCUT Q8H [facility] Last Admin: 01/05/23 10:45 Dose: 5,000 unit Documented By: RAYSHAWN Hydralazine HCl (Hydralazine Hcl 10 Mg Tablet) 10 mg PO TID [facility]; Protocol Last Admin: 01/05/23 10:45 Dose: 10 mg Documented By: RAYSHAWN Hydromorphone HCl (Hydromorphone Hcl 1 Mg/Ml Syringe) 1 mg IVPUSH Q4H PRN; Protocol PRN Reason: Pain, Severe (Pain Scale 7-10) Last Admin: 01/05/23 10:53 Dose: 1 mg Documented By: RAYSHAWN Cefazolin Sodium/Dextrose (Ancef) 2 gm in 50 mls @ 100 mls/hr IV POSTOP [facility] Piperacillin Sod/Tazobactam (Sod 3.375 gm/ Sodium Chloride) 50 mls @ 100 mls/hr IV Q6H [facility] Last Infusion: 01/05/23 11:34 Dose: 0 mls/hr Documented By: SKYLA Vancomycin HCl 750 mg/ Sodium (Chloride) 265 mls @ 265 mls/hr IV Q12H [facility] Last Infusion: 01/05/23 09:59 Dose: 0 mls/hr Documented By: SKYLA Lidocaine (Lidocaine 4 % Patch Adh..Patch) 1 patch TRANSDERMA DAILY [facility]; Protocol Last Admin: 01/05/23 08:27 Dose: Not Given Documented By: SKYLA Non-Admin Reason: Patient Refused Magnesium Hydroxide (Milk Of Magnesia 30 Ml Oral.Susp) 30 ml PO DAILY PRN PRN Reason: Constipation Melatonin (Melatonin 3 Mg Tablet) 6 mg PO BEDTIME PRN PRN Reason: Insomnia Last Admin: 01/04/23 01:41 Dose: 6 mg Documented By: RAMO Metformin HCl (Metformin Hcl Er 500 Mg Tab.Er.24h) 500 mg PO BID [facility] Last Admin: 01/05/23 08:27 Dose: 500 mg Documented By: SKYLA Multivitamins/Vitamin C (Multivitamin Tablet) 1 tab PO DAILY [facility] Last Admin: 01/05/23 08:26 Dose: 1 tab Documented By: SKYLA Pt Own (Exemestane (25 Mg Tablet)) 25 mg PO DAILY [facility] Last Admin: 01/05/23 08:27 Dose: 25 mg Documented By: SKYLA Non-Formulary Medication (Naratriptan) 1 tab PO DAILY MRX1 PRN PRN Reason: Migraine Headache Omeprazole (Omeprazole 20 Mg Capsule.) 20 mg PO DAILY@0630 [facility] Last Admin: 01/05/23 05:46 Dose: 20 mg Documented By: RAMO Oxycodone HCl (Oxycodone Hcl Immed Release 5 Mg Tablet) 5 mg PO Q4H PRN PRN Reason: Pain, Moderate (Pain Scale 4-6 Last Admin: 01/05/23 13:01 Dose: 5 mg Documented By: SAMIRA Pharmacy Consult (Consult Rx Vancomycin Dosing) 1 each MISCELLANE DAILY PRN PRN Reason: Consult order Propranolol HCl (Propranolol Hcl La 80 Mg Cap.Sa.24h) 80 mg PO DAILY [facility]; Protocol Last Admin: 01/05/23 08:26 Dose: 80 mg Documented By: SKYLA Sodium Chloride (0.9 % Sodium Chloride Flush 3 Ml Syringe) [facility] Last Admin: 01/05/23 08:30 Dose: 3 ml Documented By: SKYLA Labs 01/02/23 05:51 01/05/23 06:05 Labs: Laboratory Results - last 24 hr 01/04/23 01/04/23 01/04/23 16:49 18:06 20:23 Estim Creat Clear Calc Estimated GFR POC Glucose 119 H 175 H Vancomycin Trough 15.3 Random Vancomycin 01/05/23 01/05/23 06:05 06:05 Estim Creat Clear Calc 65.8 Estimated GFR 50 POC Glucose Vancomycin Trough Random Vancomycin 11.5 L Assessment and Plan (1) Abscess: Status: Acute (2) Cellulitis of right lower extremity: Status: Acute (3) Morbid obesity: Status: Acute Plan 72 year old female with morbid obesity and other medical problems as listed. She presents with right ankle redness, pain and swelling best described by the image, clinical presentation consistent with sepsis d/t cellulitis and concern for joint involvment. Left ankle Cellulitis and abscess, Sepsis,. Sepsis clinically resolved -MRI 12/29:1. Large 12 cm abscess in the lateral subcutaneous fat at the level of the ankle and hindfoot with surrounding cellulitis and underlying osteomyelitis of the lateral malleolus. 2. Complex longitudinal tears of the peroneus longus and peroneus brevis tendons with associated tenosynovitis. Septic tenosynovitis is also possible. cpk normal Ortho did bedside I/D on 12/30 and will take to OR for full exploration and lavage on 12/31 culture so far negative -Continue Zosyn and Vanco started on 12/28 -wound care/dressing changes by surgery -Dilaudid for pain seen by surgery-Large wound and abscess of the right ankle,?s/p debridement and drainage.? Patient is draining a significant amount of serous fluid from the wound and dressings have a bluish discoloration suggestive of a Pseudomonas infection.? Recommend changing the dressings 3 times daily but leaving the silver alginate on for 48 hours.? No debridement required at this time, will continue to monitor. Gerd--Omeprazol Anxiety--Prorpanolol Morbid obesity--weight loss advised. Heparin for DVT prophylaxis muscle pain, check cpk Full code inpatient need :sepsis, ankle cellulitis/abscess and expert evaluation for possible intervention, not able to due this in less acute setting at this time Time Spent With Patient Time: Total time managing care of this patient today ____ minutes. Quality Stroke Does the patient have a stroke diagnosis?: No VTE Prior VTE?: No VTE Risk Level:: Medical - moderate - high VTE Device Contraindication: Treatment Not Indicated VTE Drug Contraindication: N/A - Med Ordered
[2023-01-05 16:00] VITALS: BP 162/59; PULSE 72; RESP 18; TEMP 36.7; O2SAT 95
[2023-01-05 21:01] LABS: Glucose, Whole Blood 161 mg/dL (60-115)
[2023-01-05 21:16] VITALS: BP 175/74; PULSE 82; RESP 17; TEMP 36.6; O2SAT 97
[2023-01-06] MEDS: Piperacillin Sodium/Tazobactam 3.375 GM in 0.9 % Sodium Chloride 50 ML IV ×4 (02:45→20:02)
[2023-01-06] MEDS: Omeprazole 20 MG CAPSULE.DR PO (06:20)
[2023-01-06] MEDS: Heparin Sodium,Porcine 5,000 UNIT/ML VIAL 5000 UNIT SUBCUT ×3 (06:20→19:59)
[2023-01-06] MEDS: HYDROmorphone HCl 1 MG/ML SYRINGE IVPUSH ×3 (06:20→19:54)
[2023-01-06 07:41] LABS: Creatinine Clr Calc Pharmacy 63.4; Estimated Glomerular Filt Rate 48
[2023-01-06 08:00] VITALS: BP 177/70; PULSE 81; RESP 18; TEMP 37.1; O2SAT 96
--- NOTE | 2023-01-06 09:00 | P.CDIC_ITS ---
CDI Concurrent Query Documentation Clarification: PHYSICIAN'S DOCUMENTATION REQUEST Date of Query: 01/06/23 0900 Patient Name: Allyssa Borges Admit Date: 12/28/22 Dear Doctor, A review of the medical record indicates additional documentation may be needed. Please review below and update the documentation accordingly. Clinical Indicators: Documentation on [insert date] indicates Osteomyelitis. Risk Factors/Clinical Indicators/Treatments PN 01/05 - MRI large 12 cm abscess in the lateral subcutaneous fat of the ankle and hindfoot with surrounding cellulitis and underlying osteomyelitis of lateral malleolus. Zosyn and Vancomycin Based on the above, please clarify in the Progress Notes further specificity regarding the type of Osteomyelitis. Also include specific site with laterality and known or suspected infectious agent: * Acute osteomyelitis of the right ankle * Subacute osteomyelitis * Other (please specify) * Unable to determine Use of terms such as suspected, likely, concern for, or probable (associated with a specific diagnosis that is being evaluated, monitored, or treated as if it exists) are acceptable and can be coded in the inpatient setting, when documented at the time of discharge. Thank you, Taryn Jane [facility], CDIS Extension: [phone] Please use your independent medical judgment in providing your response. THIS QUERY IS PART OF THE PERMANENT MEDICAL RECORD Provider Response: Other Other Diagnosis: Acute osteomyelitis.
[2023-01-06] MEDS: 0.9 % Sodium Chloride Flush 3 ML SYRINGE IVFLUSH ×3 (09:12→19:53)
[2023-01-06] MEDS: Lidocaine 4 % Patch ADH..PATCH 1 PATCH TRANSDERMA (09:12)
[2023-01-06] MEDS: Cyanocobalamin (Vitamin B-12) 500 MCG TABLET PO (09:13)
[2023-01-06] MEDS: Propranolol HCL LA 80 MG CAP.SA.24H PO (09:13)
[2023-01-06] MEDS: Ferrous Sulfate 324 MG TABLET.DR PO (09:13)
[2023-01-06] MEDS: oxyCODONE HCl Immed Release 5 MG TABLET PO ×3 (09:13→22:00)
[2023-01-06] MEDS: metFORMIN HCl ER 500 MG TAB.ER.24H PO ×2 (09:13→22:00)
[2023-01-06] MEDS: Multivitamin TABLET 1 TAB PO (09:13)
[2023-01-06] MEDS: hydrALAZINE HCl 25 MG TABLET PO ×2 (09:14→14:23)
[2023-01-06] MEDS: Gabapentin 100 MG CAPSULE PO ×2 (09:47→21:59)
[2023-01-06 10:11] LABS: Vancomycin Trough 16.2 mcg/mL (10.0-20.0)
[2023-01-06] MEDS: vancomycin HCL 750 MG in 0.9 % Sodium Chloride 250 ML 265 MG IV ×2 (10:56→22:04)
[2023-01-06 15:47] VITALS: BP 177/79; PULSE 79; RESP 17; TEMP 36.6; O2SAT 96
--- NOTE | 2023-01-06 17:19 | P.PNIM_ITS ---
Subjective Subjective Date of Service: 01/06/23 Interval History: f/u cellulitis and abscess of right ankle, pain in the ankle is better but has lots muslce pain in both leg some what better than yesterday Review of Systems No fever, right ankle pain is much better, purulent drainage from the ankle, see picture Physical Exam Vital Signs: Vital Signs: Last Vital Signs Temp 97.8 F 01/06/23 15:47 Pulse 79 01/06/23 15:47 Resp 17 01/06/23 15:47 BP 177/79 H 01/06/23 15:47 Pulse Ox 96 01/06/23 15:47 O2 Del Method 01/06/23 15:47 O2 Flow Rate 2 12/31/22 13:56 BMI result Body Mass Index 43.8 General: AO X 3, no acute distress Resp:? CTA bilateral CVS: S1,S2,RRR GI: +BS, NT, no distention Skin: No rash Neuro:? motor grossly intact Psych: appropriate affect Objective Data Active Medications Acetaminophen (Acetaminophen 325 Mg Tablet) 650 mg PO Q6H PRN PRN Reason: Pain, Mild (Pain Scale 1-3) Last Admin: 01/05/23 13:00 Dose: 650 mg Documented By: SAMIRA Calcium Carbonate (Calcium Carbonate 500 Mg Tablet) 500 mg PO BID [facility] Last Admin: 01/06/23 09:14 Dose: 500 mg Documented By: ROSA Cyanocobalamin (Cyanocobalamin (Vitamin B-12) 500 Mcg Tablet) 500 mcg PO DAILY [facility] Last Admin: 01/06/23 09:13 Dose: 500 mcg Documented By: ROSA Ergocalciferol (Ergocalciferol (Vitamin D2) 1,250 Mcg Capsule) 1,250 mcg PO MORENO [facility] Last Admin: 01/02/23 09:33 Dose: 1,250 mcg Documented By: SKYLA Ferrous Sulfate (Ferrous Sulfate 324 Mg Tablet.) 324 mg PO DAILY [facility] Last Admin: 01/06/23 09:13 Dose: 324 mg Documented By: ROSA Gabapentin (Gabapentin 100 Mg Capsule) 100 mg PO BID [facility] Last Admin: 01/06/23 09:47 Dose: 100 mg Documented By: ROSA Heparin Sodium (Porcine) (Heparin Sodium,Porcine 5,000 Unit/Ml Vial) 5,000 unit SUBCUT Q8H [facility] Last Admin: 01/06/23 11:47 Dose: 5,000 unit Documented By: ROSA Hydralazine HCl (Hydralazine Hcl 50 Mg Tablet) 50 mg PO TID [facility]; Protocol Hydromorphone HCl (Hydromorphone Hcl 1 Mg/Ml Syringe) 1 mg IVPUSH Q4H PRN; Protocol PRN Reason: Pain, Severe (Pain Scale 7-10) Last Admin: 01/06/23 14:22 Dose: 1 mg Documented By: ROSA Cefazolin Sodium/Dextrose (Ancef) 2 gm in 50 mls @ 100 mls/hr IV POSTOP [facility] Piperacillin Sod/Tazobactam (Sod 3.375 gm/ Sodium Chloride) 50 mls @ 100 mls/hr IV Q6H [facility] Last Infusion: 01/06/23 14:55 Dose: 0 mls/hr Documented By: ROSA Vancomycin HCl 750 mg/ Sodium (Chloride) 265 mls @ 265 mls/hr IV Q12H [facility] Last Infusion: 01/06/23 12:05 Dose: 0 mls/hr Documented By: ROSA Lidocaine (Lidocaine 4 % Patch Adh..Patch) 1 patch TRANSDERMA DAILY [facility]; P rotocol Last Admin: 01/06/23 09:12 Dose: 1 patch Documented By: ROSA Magnesium Hydroxide (Milk Of Magnesia 30 Ml Oral.Susp) 30 ml PO DAILY PRN PRN Reason: Constipation Melatonin (Melatonin 3 Mg Tablet) 6 mg PO BEDTIME PRN PRN Reason: Insomnia Last Admin: 01/04/23 01:41 Dose: 6 mg Documented By: RAMO Metformin HCl (Metformin Hcl Er 500 Mg Tab.Er.24h) 500 mg PO BID [facility] Last Admin: 01/06/23 09:13 Dose: 500 mg Documented By: ROSA Multivitamins/Vitamin C (Multivitamin Tablet) 1 tab PO DAILY [facility] Last Admin: 01/06/23 09:13 Dose: 1 tab Documented By: ROSA Pt Own (Exemestane (25 Mg Tablet)) 25 mg PO DAILY [facility] Last Admin: 01/06/23 09:58 Dose: 25 mg Documented By: ROSA Non-Formulary Medication (Naratriptan) 1 tab PO DAILY MRX1 PRN PRN Reason: Migraine Headache Omeprazole (Omeprazole 20 Mg Capsule.) 20 mg PO DAILY@0630 [facility] Last Admin: 01/06/23 06:20 Dose: 20 mg Documented By: BALTA Oxycodone HCl (Oxycodone Hcl Immed Release 5 Mg Tablet) 5 mg PO Q4H PRN PRN Reason: Pain, Moderate (Pain Scale 4-6 Last Admin: 01/06/23 09:13 Dose: 5 mg Documented By: ROSA Pharmacy Consult (Consult Rx Vancomycin Dosing) 1 each MISCELLANE DAILY PRN PRN Reason: Consult order Propranolol HCl (Propranolol Hcl La 80 Mg Cap.Sa.24h) 80 mg PO DAILY [facility]; Protocol Last Admin: 01/06/23 09:13 Dose: 80 mg Documented By: ROSA Sodium Chloride (0.9 % Sodium Chloride Flush 3 Ml Syringe) 3 ml IVFLUSH QSHIFT [facility] Last Admin: 01/06/23 14:23 Dose: 3 ml Documented By: ROSA Labs 01/02/23 05:51 01/06/23 06:04 Labs: Laboratory Results - last 24 hr 01/05/23 01/06/23 01/06/23 20:57 06:04 09:20 Estim Creat Clear Calc 63.4 Estimated GFR 48 POC Glucose 161 H Vancomycin Trough 16.2 Assessment and Plan (1) Abscess: Status: Acute (2) Cellulitis of right lower extremity: Status: Acute (3) Morbid obesity: Status: Acute Plan 72 year old female with morbid obesity and other medical problems as listed. She presents with right ankle redness, pain and swelling best described by the image, clinical presentation consistent with sepsis d/t cellulitis and concern for joint involvment. Left ankle Cellulitis and possible acute oseomyelitits and abscess, Sepsis,. Sepsis clinically resolved -MRI 12/29:1. Large 12 cm abscess in the lateral subcutaneous fat at the level of the ankle and hindfoot with surrounding cellulitis and underlying osteomyelitis of the lateral malleolus. 2. Complex longitudinal tears of the peroneus longus and peroneus brevis tendons with associated tenosynovitis. Septic tenosynovitis is also possible. cpk normal Ortho did bedside I/D on 12/30 and will take to OR for full exploration and lavage on 12/31 culture so far negative vanco trough is 16.2 today -Continue Zosyn and Vanco started on 12/28 ,wound care/dressing changes by surgery,Dilaudid for pain seen by surgery-Large wound and abscess of the right ankle,?s/p debridement and drainage.? Patient is draining a significant amount of serous fluid from the wou nd and dressings have a bluish discoloration suggestive of a Pseudomonas infection.? Recommend changing the dressings 3 times daily but leaving the silver alginate on for 48 hours.? No debridement required at this time, will continue to monitor. Gerd--Omeprazol Anxiety--Prorpanolol Morbid obesity--weight loss advised. Heparin for DVT prophylaxis muscle pain, check cpk Full code inpatient need :sepsis, ankle cellulitis/abscess and expert evaluation for possible intervention, not able to due this in less acute setting at this time Time Spent With Patient Time: Total time managing care of this patient today ____ minutes. Quality Stroke Does the patient have a stroke diagnosis?: No VTE Prior VTE?: No VTE Risk Level:: Medical - moderate - high VTE Device Contraindication: Treatment Not Indicated VTE Drug Contraindication: N/A - Med Ordered
[2023-01-06] MEDS: hydrALAZINE HCl 50 MG TABLET PO (21:59)
[2023-01-06] MEDS: Acetaminophen 325 MG TABLET 650 MG PO (22:01)
[2023-01-06 23:29] VITALS: BP 128/76; PULSE 84; RESP 18; TEMP 36.6; O2SAT 97
[2023-01-07] MEDS: HYDROmorphone HCl 1 MG/ML SYRINGE IVPUSH ×4 (01:01→20:32)
[2023-01-07] MEDS: Heparin Sodium,Porcine 5,000 UNIT/ML VIAL 5000 UNIT SUBCUT ×3 (03:20→20:32)
[2023-01-07] MEDS: oxyCODONE HCl Immed Release 5 MG TABLET PO ×4 (03:21→22:15)
[2023-01-07] MEDS: Piperacillin Sodium/Tazobactam 3.375 GM in 0.9 % Sodium Chloride 50 ML IV ×4 (03:21→20:33)
[2023-01-07 07:17] LABS: Creatinine Clr Calc Pharmacy 63.4; Estimated Glomerular Filt Rate 48
[2023-01-07 07:21] VITALS: BP 168/75; PULSE 82; RESP 18; TEMP 36.6; O2SAT 97
[2023-01-07 07:26] LABS: Glucose, Whole Blood 131 mg/dL (60-115)
[2023-01-07] MEDS: Propranolol HCL LA 80 MG CAP.SA.24H PO (07:43)
[2023-01-07] MEDS: Omeprazole 20 MG CAPSULE.DR PO (07:43)
[2023-01-07] MEDS: metFORMIN HCl ER 500 MG TAB.ER.24H PO ×2 (07:43→20:32)
[2023-01-07] MEDS: Cyanocobalamin (Vitamin B-12) 500 MCG TABLET PO (07:44)
[2023-01-07] MEDS: Ferrous Sulfate 324 MG TABLET.DR PO (07:45)
[2023-01-07] MEDS: Multivitamin TABLET 1 TAB PO (07:45)
[2023-01-07] MEDS: Gabapentin 100 MG CAPSULE PO ×2 (07:45→20:32)
[2023-01-07] MEDS: hydrALAZINE HCl 50 MG TABLET PO ×3 (07:45→20:32)
[2023-01-07] MEDS: 0.9 % Sodium Chloride Flush 3 ML SYRINGE IVFLUSH ×2 (07:47→17:28)
[2023-01-07 08:19] LABS: Alanine Aminotransferase 15 U/L (0-31); Albumin Level 3.2 g/dL (3.5-5.0); Alkaline Phosphatase 66 U/L (39-117); Aspartate Amino Transferase 10 U/L (5-31); Bilirubin Direct < 0.2 mg/dL (0.0-0.5); Bilirubin Total 0.3 mg/dL (0.0-1.0); Total Protein 6.2 g/dL (6.5-8.0)
[2023-01-07] MEDS: diphenhydrAMINE HCL 25 MG CAPSULE PO (10:24)
[2023-01-07] MEDS: vancomycin HCL 750 MG in 0.9 % Sodium Chloride 250 ML 265 MG IV ×2 (11:01→22:12)
[2023-01-07 11:11] LABS: Glucose, Whole Blood 146 mg/dL (60-115)
--- NOTE | 2023-01-07 13:06 | P.PNIM_ITS ---
Subjective Subjective Date of Service: 01/07/23 Interval History: f/u cellulitis/osteo and abscess of right ankle, pain in the ankle is better but has lots muslce pain in both leg some what better than yesterday Review of Systems No fever, right ankle pain is much better, purulent drainage from the ankle, see picture Physical Exam Vital Signs: Vital Signs: Last Vital Signs Temp 98 F 01/07/23 07:21 Pulse 82 01/07/23 07:21 Resp 18 01/07/23 07:21 BP 168/75 H 01/07/23 07:21 Pulse Ox 97 01/07/23 07:21 O2 Del Method 01/07/23 07:21 O2 Flow Rate 2 12/31/22 13:56 BMI result Body Mass Index 43.8 General: AO X 3, no acute distress Resp:? CTA bilateral CVS: S1,S2,RRR GI: +BS, NT, no distention Skin: No rash Neuro:? motor grossly intact Psych: appropriate affect Objective Data Active Medications Acetaminophen (Acetaminophen 325 Mg Tablet) 650 mg PO Q6H PRN PRN Reason: Pain, Mild (Pain Scale 1-3) Last Admin: 01/06/23 22:01 Dose: 650 mg Documented By: CARMINA Calcium Carbonate (Calcium Carbonate 500 Mg Tablet) 500 mg PO BID [facility] Last Admin: 01/07/23 07:46 Dose: 500 mg Documented By: SKYLA Cyanocobalamin (Cyanocobalamin (Vitamin B-12) 500 Mcg Tablet) 500 mcg PO DAILY [facility] Last Admin: 01/07/23 07:44 Dose: 500 mcg Documented By: SKYLA Ergocalciferol (Ergocalciferol (Vitamin D2) 1,250 Mcg Capsule) 1,250 mcg PO MORENO [facility] Last Admin: 01/02/23 09:33 Dose: 1,250 mcg Documented By: SKYLA Ferrous Sulfate (Ferrous Sulfate 324 Mg Tablet.) 324 mg PO DAILY [facility] Last Admin: 01/07/23 07:45 Dose: 324 mg Documented By: SKYLA Gabapentin (Gabapentin 100 Mg Capsule) 100 mg PO BID [facility] Last Admin: 01/07/23 07:45 Dose: 100 mg Documented By: SKYLA Heparin Sodium (Porcine) (Heparin Sodium,Porcine 5,000 Unit/Ml Vial) 5,000 unit SUBCUT Q8H [facility] Last Admin: 01/07/23 11:02 Dose: 5,000 unit Documented By: SKYLA Hydralazine HCl (Hydralazine Hcl 50 Mg Tablet) 50 mg PO TID [facility]; Protocol Last Admin: 01/07/23 07:45 Dose: 50 mg Documented By: SKYLA Hydromorphone HCl (Hydromorphone Hcl 1 Mg/Ml Syringe) 1 mg IVPUSH Q4H PRN; Protocol PRN Reason: Pain, Severe (Pain Scale 7-10) Last Admin: 01/07/23 08:52 Dose: 1 mg Documented By: SKYLA Cefazolin Sodium/Dextrose (Ancef) 2 gm in 50 mls @ 100 mls/hr IV POSTOP [facility] Piperacillin Sod/Tazobactam (Sod 3.375 gm/ Sodium Chloride) 50 mls @ 100 mls/hr IV Q6H [facility] Last Infusion: 01/07/23 08:30 Dose: 0 mls/hr Documented By: SKYLA Vancomycin HCl 750 mg/ Sodium (Chloride) 265 mls @ 265 mls/hr IV Q12H [facility] Last Infusion: 01/07/23 12:28 Dose: 0 mls/hr Documented By: SKYLA Lidocaine (Lidocaine 4 % Patch Adh..Patch) 1 patch TRANSDERMA DAILY [facility]; Protocol Last Admin: 01/07/23 07:46 Dose: Not Given Documented By: SKYLA Non-Admin Reason: Patient Refused Magnesium Hydroxide (Milk Of Magnesia 30 Ml Oral.Susp) 30 ml PO DAILY PRN PRN Reason: Constipation Melatonin (Melatonin 3 Mg Tablet) 6 mg PO BEDTIME PRN PRN Reason: Insomnia Last Admin: 01/04/23 01:41 Dose: 6 mg Documented By: RAMO Metformin HCl (Metformin Hcl Er 500 Mg Tab.Er.24h) 500 mg PO BID [facility] Last Admin: 01/07/23 07:43 Dose: 500 mg Documented By: SKYLA Multivitamins/Vitamin C (Multivitamin Tablet) 1 tab PO DAILY [facility] Last Admin: 01/07/23 07:45 Dose: 1 tab Documented By: SKYLA Pt Own (Exemestane (25 Mg Tablet)) 25 mg PO DAILY [facility] Last Admin: 01/07/23 07:42 Dose: 25 mg Documented By: SKYLA Non-Formulary Medication (Naratriptan) 1 tab PO DAILY MRX1 PRN PRN Reason: Migraine Headache Nystatin (Nystatin Oral Susp 500,000 Unit/5 Ml Oral.Susp) 500,000 unit PO QID [facility]; Protocol Omeprazole (Omeprazole 20 Mg Capsule.) 20 mg PO DAILY@0630 [facility] Last Admin: 01/07/23 07:43 Dose: 20 mg Documented By: SKYLA Oxycodone HCl (Oxycodone Hcl Immed Release 5 Mg Tablet) 5 mg PO Q4H PRN PRN Reason: Pain, Moderate (Pain Scale 4-6 Last Admin: 01/07/23 11:01 Dose: 5 mg Documented By: SKYLA Pharmacy Consult (Consult Rx Vancomycin Dosing) 1 each MISCELLANE DAILY PRN PRN Reason: Consult order Propranolol HCl (Propranolol Hcl La 80 Mg Cap.Sa.24h) 80 mg PO DAILY [facility]; Protocol Last Admin: 01/07/23 07:43 Dose: 80 mg Documented By: SKYLA Sodium Chloride (0.9 % Sodium Chloride Flush 3 Ml Syringe) 3 ml IVFLUSH QSHIFT [facility] Last Admin: 01/07/23 07:47 Dose: 3 ml Documented By: SKYLA Labs 01/02/23 05:51 01/07/23 05:47 Labs: Laboratory Results - last 24 hr 01/07/23 01/07/23 01/07/23 05:47 07:20 11:04 Estim Creat Clear Calc 63.4 Estimated GFR 48 POC Glucose 131 H 146 H Total Bilirubin 0.3 Direct Bilirubin < 0.2 AST 10 ALT 15 Alkaline Phosphatase 66 Total Protein 6.2 L Albumin 3.2 L Assessment and Plan (1) Abscess: Status: Acute (2) Cellulitis of right lower extremity: Status: Acute (3) Morbid obesity: Status: Acute Plan 72 year old female with morbid obesity and other medical problems as listed. She presents with right ankle redness, pain and swelling best described by the image, clinical presentation consistent with sepsis d/t cellulitis and concern for joint involvment. Left ankle Cellulitis and possible acute oseomyelitits and abscess, Sepsis,. Sepsis clinically resolved -MRI 12/29:1. Large 12 cm abscess in the lateral subcutaneous fat at the level of the ankle and hindfoot with surrounding cellulitis and underlying osteomyelitis of the lateral malleolus. 2. Complex longitudinal tears of the peroneus longus and peroneus brevis tendons with associated tenosynovitis. Septic tenosynovitis is also possible. cpk normal Ortho did bedside I/D on 12/30 and will take to OR for full exploration and lavage on 12/31 culture so far negative vanco trough is 16.2 today -Continue Zosyn and Vanco started on 12/28 ,wound care/dressing changes by surgery,Dilaudid for pain seen by surgery-Large wound and abscess of the right ankle,?s/p debridement and drainage.? Patient is draining a significant amount of serous fluid from the wound and dressings have a bluish discoloration suggestive of a Pseudomonas infection.? Recommend changing the dressings 3 times daily but leaving the silver alginate on for 48 hours.? No debridement required at this time, will continue to monitor. Gerd--Omeprazol Anxiety--Prorpanolol Morbid obesity--weight loss advised. Heparin for DVT prophylaxis muscle pain, check cpk Full code inpatient need :sepsis, ankle cellulitis/abscess and expert evaluation for possible intervention, not able to due this in less acute setting at this time Time Spent With Patient Time: Total time managing care of this patient today ____ minutes. Quality Stroke Does the patient have a stroke diagnosis?: No VTE Prior VTE?: No VTE Risk Level:: Medical - moderate - high VTE Device Contraindication: Treatment Not Indicated VTE Drug Contraindication: N/A - Med Ordered
[2023-01-07] MEDS: Nystatin Oral Susp 500,000 UNIT/5 ML ORAL.SUSP 500000 UNIT PO ×3 (13:31→20:32)
--- NOTE | 2023-01-07 13:35 | P.PNGS_ITS ---
Subjective Subjective Date of Service: 01/07/23 Interval history: Overall patient feels improved today decreased foot in and extremity pain. Dressings are clean there were changed earlier today. Silver alginate was changed last evening. Patient has been ambulating to the bathroom but is extremely tired. Physical Exam Vital Signs: Vital Signs: Last Vital Signs Temp 98 F 01/07/23 07:21 Pulse 82 01/07/23 07:21 Resp 18 01/07/23 07:21 BP 168/75 H 01/07/23 07:21 Pulse Ox 97 01/07/23 07:21 O2 Del Method 01/07/23 07:21 O2 Flow Rate 2 12/31/22 13:56 BMI result Body Mass Index 43.8 Const: General: alert, awake and tired appearing Nutritional Appearance: well nourished Orientation/consciousness: patient oriented x3 Limitations: ambulation with walker Resp: Effort & Inspection: normal respiratory effort, no cough and no respiratory distress Skin: Other: Warm, dry, no rash Neuro: General: patient oriented x3 Extrem: Other: Right foot wound dressings are clean and dry, no bleeding or discharge noted. Objective Data Active Medications Acetaminophen (Acetaminophen 325 Mg Tablet) 650 mg PO Q6H PRN PRN Reason: Pain, Mild (Pain Scale 1-3) Last Admin: 01/06/23 22:01 Dose: 650 mg Documented By: CARMINA Calcium Carbonate (Calcium Carbonate 500 Mg Tablet) 500 mg PO BID [facility] Last Admin: 01/07/23 07:46 Dose: 500 mg Documented By: SKYLA Cyanocobalamin (Cyanocobalamin (Vitamin B-12) 500 Mcg Tablet) 500 mcg PO DAILY [facility] Last Admin: 01/07/23 07:44 Dose: 500 mcg Documented By: SKYLA Ergocalciferol (Ergocalciferol (Vitamin D2) 1,250 Mcg Capsule) 1,250 mcg PO MORENO [facility] Last Admin: 01/02/23 09:33 Dose: 1,250 mcg Documented By: SKYLA Ferrous Sulfate (Ferrous Sulfate 324 Mg Tablet.) 324 mg PO DAILY [facility] Last Admin: 01/07/23 07:45 Dose: 324 mg Documented By: SKYLA Gabapentin (Gabapentin 100 Mg Capsule) 100 mg PO BID [facility] Last Admin: 01/07/23 07:45 Dose: 100 mg Documented By: SKYLA Heparin Sodium (Porcine) (Heparin Sodium,Porcine 5,000 Unit/Ml Vial) 5,000 unit SUBCUT Q8H [facility] Last Admin: 01/07/23 11:02 Dose: 5,000 unit Documented By: SKYLA Hydralazine HCl (Hydralazine Hcl 50 Mg Tablet) 50 mg PO TID [facility]; Protocol Last Admin: 01/07/23 07:45 Dose: 50 mg Documented By: SKYLA Hydromorphone HCl (Hydromorphone Hcl 1 Mg/Ml Syringe) 1 mg IVPUSH Q4H PRN; Protocol PRN Reason: Pain, Severe (Pain Scale 7-10) Last Admin: 01/07/23 08:52 Dose: 1 mg Documented By: SKYLA Cefazolin Sodium/Dextrose (Ancef) 2 gm in 50 mls @ 100 mls/hr IV POSTOP [facility] Piperacillin Sod/Tazobactam (Sod 3.375 gm/ Sodium Chloride) 50 mls @ 100 mls/hr IV Q6H [facility] Last Infusion: 01/07/23 08:30 Dose: 0 mls/hr Documented By: SKYLA Vancomycin HCl 750 mg/ Sodium (Chloride) 265 mls @ 265 mls/hr IV Q12H [facility] Last Infusion: 01/07/23 12:28 Dose: 0 mls/hr Documented By: SKYLA Lidocaine (Lidocaine 4 % Patch Adh..Patch) 1 patch TRANSDERMA DAILY [facility]; Protocol Last Admin: 01/07/23 07:46 Dose: Not Given Documented By: SKYLA Non-Admin Reason: Patient Refused Magnesium Hydroxide (Milk Of Magnesia 30 Ml Oral.Susp) 30 ml PO DAILY PRN PRN Reason: Constipation Melatonin (Melatonin 3 Mg Tablet) 6 mg PO BEDTIME PRN PRN Reason: Insomnia Last Admin: 01/04/23 01:41 Dose: 6 mg Documented By: RAMO Metformin HCl (Metformin Hcl Er 500 Mg Tab.Er.24h) 500 mg PO BID [facility] Last Admin: 01/07/23 07:43 Dose: 500 mg Documented By: SKYLA Multivitamins/Vitamin C (Multivitamin Tablet) 1 tab PO DAILY [facility] Last Admin: 01/07/23 07:45 Dose: 1 tab Documented By: SKYLA Pt Own (Exemestane (25 Mg Tablet)) 25 mg PO DAILY [facility] Last Admin: 01/07/23 07:42 Dose: 25 mg Documented By: SKYLA Non-Formulary Medication (Naratriptan) 1 tab PO DAILY MRX1 PRN PRN Reason: Migraine Headache Nystatin (Nystatin Oral Susp 500,000 Unit/5 Ml Oral.Susp) 500,000 unit PO QID [facility]; Protocol Last Admin: 01/07/23 13:31 Dose: 500,000 unit Documented By: SKLYA Omeprazole (Omeprazole 20 Mg Capsule.Dr) 20 mg PO DAILY@0630 [facility] Last Admin: 01/07/23 07:43 Dose: 20 mg Documented By: SKYLA Oxycodone HCl (Oxycodone Hcl Immed Release 5 Mg Tablet) 5 mg PO Q4H PRN PRN Reason: Pain, Moderate (Pain Scale 4-6 Last Admin: 01/07/23 11:01 Dose: 5 mg Documented By: SKYLA Pharmacy Consult (Consult Rx Vancomycin Dosing) 1 each MISCELLANE DAILY PRN PRN Reason: Consult order Propranolol HCl (Propranolol Hcl La 80 Mg Cap.Sa.24h) 80 mg PO DAILY [facility]; Prot ocol Last Admin: 01/07/23 07:43 Dose: 80 mg Documented By: SKYLA Sodium Chloride (0.9 % Sodium Chloride Flush 3 Ml Syringe) 3 ml IVFLUSH QSHIFT [facility] Last Admin: 01/07/23 07:47 Dose: 3 ml Documented By: SKYLA Labs 01/02/23 05:51 01/07/23 05:47 Labs: Laboratory Results - last 24 hr 01/07/23 01/07/23 01/07/23 05:47 07:20 11:04 Estim Creat Clear Calc 63.4 Estimated GFR 48 POC Glucose 131 H 146 H Total Bilirubin 0.3 Direct Bilirubin < 0.2 AST 10 ALT 15 Alkaline Phosphatase 66 Total Protein 6.2 L Albumin 3.2 L Procedures Date of Service Date of Service: 01/07/23 Progress Note: A&P Assessment and plan (1) Cellulitis of right lower extremity: Status: Acute (2) Abscess: Status: Acute Plan Overall the patient feels improved with decreased foot pain. Dressings were changed earlier today therefore wounds were not examined. Recommend continuing the silver alginate and frequent dressing changes. Encourage patient keeper her legs elevated when not ambulating. Will need referral to [facility] upon discharge. Time Spent With Patient Time: Total time managing care of this patient today ____ minutes. Quality Stroke Does the patient have a stroke diagnosis?: No VTE Prior VTE?: No VTE Risk Level:: Medical - moderate - high VTE Device Contraindication: Treatment Not Indicated VTE Drug Contraindication: N/A - Med Ordered
--- NOTE | 2023-01-07 14:26 | MHC.CM.PN ---
PATIENT STILL REQUIRES DRESSING CHANGES TID ON ABX STILL NO PLAN FOR DC TODAY. LIKELY HERE OVER THE WEEKEND
[2023-01-07 16:00] VITALS: BP 169/79; PULSE 85; RESP 20; TEMP 36.6; O2SAT 96
[2023-01-07] MEDS: Melatonin 3 MG TABLET 6 MG PO (20:32)
[2023-01-07 21:29] LABS: Vancomycin Trough 16.5 mcg/mL (10.0-20.0)
--- NOTE | 2023-01-07 21:35 | HE.PHANOTE ---
vancomycin addendum trough came back at 16.5, staying stable, keep same dosing regimen, will recheck level
[2023-01-07 23:49] VITALS: BP 155/73; PULSE 86; RESP 18; TEMP 36.8; O2SAT 96
--- NOTE | 2023-01-08 | ECG_ITS ---
Test Reason : cp Blood Pressure : / mmHG Vent. Rate : 086 BPM Atrial Rate : 086 BPM P-R Int : 192 ms QRS Dur : 086 ms QT Int : 384 ms P-R-T Axes : 068 025 067 degrees QTc Int : 459 ms Normal sinus rhythm Normal ECG When compared with ECG of 10-AUG-2017 05:21, No significant change was found Referred By: Summer Mayo Electronically Signed By:DONTAE GIBSON MD
[2023-01-08] MEDS: HYDROmorphone HCl 1 MG/ML SYRINGE IVPUSH ×5 (01:34→21:49)
[2023-01-08] MEDS: Piperacillin Sodium/Tazobactam 3.375 GM in 0.9 % Sodium Chloride 50 ML IV ×4 (01:45→20:03)
[2023-01-08] MEDS: oxyCODONE HCl Immed Release 5 MG TABLET PO ×4 (03:49→23:21)
[2023-01-08] MEDS: Heparin Sodium,Porcine 5,000 UNIT/ML VIAL 5000 UNIT SUBCUT ×3 (03:53→20:02)
[2023-01-08 06:35] LABS: Creatinine Clr Calc Pharmacy 60.7; Estimated Glomerular Filt Rate 46
[2023-01-08 07:13] VITALS: BP 170/76; PULSE 72; RESP 18; TEMP 36.1; O2SAT 97
[2023-01-08 07:25] LABS: Glucose, Whole Blood 131 mg/dL (60-115)
[2023-01-08] MEDS: Gabapentin 100 MG CAPSULE PO ×2 (08:32→20:06)
[2023-01-08] MEDS: Ferrous Sulfate 324 MG TABLET.DR PO (08:32)
[2023-01-08] MEDS: Nystatin Oral Susp 500,000 UNIT/5 ML ORAL.SUSP 500000 UNIT PO ×3 (08:32→20:04)
[2023-01-08] MEDS: Propranolol HCL LA 80 MG CAP.SA.24H PO (08:32)
[2023-01-08] MEDS: metFORMIN HCl ER 500 MG TAB.ER.24H PO (08:32)
[2023-01-08] MEDS: Cyanocobalamin (Vitamin B-12) 500 MCG TABLET PO (08:32)
[2023-01-08] MEDS: Multivitamin TABLET 1 TAB PO (08:32)
[2023-01-08] MEDS: hydrALAZINE HCl 25 MG TABLET 75 MG PO ×3 (08:33→20:05)
[2023-01-08] MEDS: Omeprazole 20 MG CAPSULE.DR PO (08:35)
[2023-01-08] MEDS: 0.9 % Sodium Chloride Flush 3 ML SYRINGE IVFLUSH (08:36)
--- NOTE | 2023-01-08 09:01 | P.PNGS_ITS ---
Subjective Subjective Date of Service: 01/08/23 Interval history: Patient concerned about diffuse joint pains, new skin change in the left foot and left upper arm. Muscle pains appear improved. Physical Exam Vital Signs: Vital Signs: Last Vital Signs Temp 96.9 F 01/08/23 07:13 Pulse 72 01/08/23 07:13 Resp 18 01/08/23 07:13 BP 170/76 H 01/08/23 07:13 Pulse Ox 97 01/08/23 07:13 O2 Del Method 01/08/23 07:13 O2 Flow Rate 2 12/31/22 13:56 BMI result Body Mass Index 43.8 Const: General: alert, awake and tired appearing Nutritional Appearance: well nourished Orientation/consciousness: patient oriented x3 Limitations: ambulation with walker Resp: Effort & Inspection: normal respiratory effort, no cough and no respiratory distress Skin: Other: Warm, dry, no rash Neuro: General: patient oriented x3 Extrem: Other: Right foot wound dressings changed and silver alginate replaced. Less discharge noted today. Small amount of granulation tissue is identified. Dry sterile dressings reapplied. Skin changes noted in the dorsum of the left foot as well as left upper arm as noted below. Objective Data Active Medications Acetaminophen (Acetaminophen 325 Mg Tablet) 650 mg PO Q6H PRN PRN Reason: Pain, Mild (Pain Scale 1-3) Last Admin: 01/06/23 22:01 Dose: 650 mg Documented By: CARMINA Calcium Carbonate (Calcium Carbonate 500 Mg Tablet) 500 mg PO BID [facility] Last Admin: 01/08/23 08:32 Dose: 500 mg Documented By: ABILIO Cyanocobalamin (Cyanocobalamin (Vitamin B-12) 500 Mcg Tablet) 500 mcg PO DAILY [facility] Last Admin: 01/08/23 08:32 Dose: 500 mcg Documented By: ABILIO Ergocalciferol (Ergocalciferol (Vitamin D2) 1,250 Mcg Capsule) 1,250 mcg PO MORENO [facility] Last Admin: 01/02/23 09:33 Dose: 1,250 mcg Documented By: SKYLA Ferrous Sulfate (Ferrous Sulfate 324 Mg Tablet.) 324 mg PO DAILY [facility] Last Admin: 01/08/23 08:32 Dose: 324 mg Documented By: ABILIO Gabapentin (Gabapentin 100 Mg Capsule) 100 mg PO BID [facility] Last Admin: 01/08/23 08:32 Dose: 100 mg Documented By: ABILIO Heparin Sodium (Porcine) (Heparin Sodium,Porcine 5,000 Unit/Ml Vial) 5,000 unit SUBCUT Q8H [facility] Last Admin: 01/08/23 03:53 Dose: 5,000 unit Documented By: NANCY Hydralazine HCl (Hydralazine Hcl 25 Mg Tablet) 75 mg PO TID [facility]; Protocol Last Admin: 01/08/23 08:33 Dose: 75 mg Documented By: ABILIO Hydromorphone HCl (Hydromorphone Hcl 1 Mg/Ml Syringe) 1 mg IVPUSH Q4H PRN; Protocol PRN Reason: Pain, Severe (Pain Scale 7-10) Last Admin: 01/08/23 05:46 Dose: 1 mg Documented By: NANCY Cefazolin Sodium/Dextrose (Ancef) 2 gm in 50 mls @ 100 mls/hr IV POSTOP [facility] Piperacillin Sod/Tazobactam (Sod 3.375 gm/ Sodium Chloride) 50 mls @ 100 mls/hr IV Q6H [facility] Last Admin: 01/08/23 08:34 Dose: 100 mls/hr Documented By: ABILIO Vancomycin HCl 750 mg/ Sodium (Chloride) 265 mls @ 265 mls/hr IV Q12H [facility] Last Infusion: 01/07/23 23:15 Dose: 0 mls/hr Documented By: WILLIAN Lidocaine (Lidocaine 4 % Patch Adh..Patch) 1 patch TRANSDERMA DAILY [facility]; Protocol Last Admin: 01/07/23 07:46 Dose: Not Given Documented By: SKYLA Non-Admin Reason: Patient Refused Magnesium Hydroxide (Milk Of Magnesia 30 Ml Oral.Susp) 30 ml PO DAILY PRN PRN Reason: Constipation Melatonin (Melatonin 3 Mg Tablet) 6 mg PO BEDTIME PRN PRN Reason: Insomnia Last Admin: 01/07/23 20:32 Dose: 6 mg Documented By: WILLIAN Metformin HCl (Metformin Hcl Er 500 Mg Tab.Er.24h) 500 mg PO BID [facility] Last Admin: 01/08/23 08:32 Dose: 500 mg Documented By: ABILIO Multivitamins/Vitamin C (Multivitamin Tablet) 1 tab PO DAILY [facility] Last Admin: 01/08/23 08:32 Dose: 1 tab Documented By: ABILIO Pt Own (Exemestane (25 Mg Tablet)) 25 mg PO DAILY [facility] Last Admin: 01/08/23 08:34 Dose: 25 mg Documented By: ABILIO Nystatin (Nystatin Oral Susp 500,000 Unit/5 Ml Oral.Susp) 500,000 unit PO QID [facility]; Protocol Last Admin: 01/08/23 08:32 Dose: 500,000 unit Documented By: ABILIO Omeprazole (Omeprazole 20 Mg Capsule.Dr) 20 mg PO DAILY@0630 [facility] Last Admin: 01/08/23 08:35 Dose: 20 mg Documented By: ABILIO Oxycodone HCl (Oxycodone Hcl Immed Release 5 Mg Tablet) 5 mg PO Q4H PRN PRN Reason: Pain, Moderate (Pain Scale 4-6 Last Admin: 01/08/23 08:31 Dose: 5 mg Documented By: ABILIO Propranolol HCl (Propranolol Hcl La 80 Mg Cap.Sa.24h) 80 mg PO DAILY [facility]; Protocol Last Admin: 01/08/23 08:32 Dose: 80 mg Documented By: ABILIO Sodium Chloride (0.9 % Sodium Chloride Flush 3 Ml Syringe) 3 ml IVFLUSH QSHIFT [facility] Last Admin: 01/08/23 08:36 Dose: 3 ml Documented By: ABILIO Labs 01/02/23 05:51 01/08/23 05:19 Labs: Laboratory Results - last 24 hr 01/07/23 01/07/23 01/08/23 11:04 21:04 05:19 Estim Creat Clear Calc 60.7 Estimated GFR 46 POC Glucose 146 H Vancomycin Trough 16.5 01/08/23 07:12 Estim Creat Clear Calc Estimated GFR POC Glucose 131 H Vancomycin Trough Procedures Date of Service Date of Service: 01/08/23 Progress Note: A&P Assessment and plan (1) Cellulitis of right lower extremity: Status: Acute (2) Abscess: Status: Acute Plan Overall patient appears improved with decreased swelling in the foot and d ecreased discharge from the open wound. Dressings were changed in some granulation tissue is noted at the base. Silver alginate reapplied followed by dry sterile dressings. We again discussed wound but the patient is not interested at this time. She does have new skin changes noted in the left foot. We discussed obtaining arterial studies and she is agreeable to this. Continue leg elevation and frequent dressing changes. Will continue to monitor wounds. Time Spent With Patient Time: Total time managing care of this patient today ____ minutes. Quality Stroke Does the patient have a stroke diagnosis?: No VTE Prior VTE?: No VTE Risk Level:: Medical - moderate - high VTE Device Contraindication: Treatment Not Indicated VTE Drug Contraindication: N/A - Med Ordered
--- NOTE | 2023-01-08 10:54 | HO.PM.IMPN ---
Subjective Subjective Date of Service: 01/08/23 Interval History: f/u cellulitis/osteo and abscess of right ankle, pain in the ankle is better but has lots muslce pain in both leg some what better than yesterday Review of Systems No fever, right ankle pain is much better, purulent drainage from the ankle. Physical Exam Vital Signs: Vital Signs: Last Vital Signs Temp 96.9 F 01/08/23 07:13 Pulse 72 01/08/23 07:13 Resp 18 01/08/23 07:13 BP 170/76 H 01/08/23 07:13 Pulse Ox 97 01/08/23 07:13 O2 Del Method 01/08/23 07:13 O2 Flow Rate 2 12/31/22 13:56 BMI result Body Mass Index 43.8 ?General: AO X 3, no acute distress Resp:? CTA bilateral CVS: S1,S2,RRR GI: +BS, NT, no distention Skin: No rash Neuro:? motor grossly intact Psych: appropriate affect Objective Data Active Medications Acetaminophen (Acetaminophen 325 Mg Tablet) 650 mg PO Q6H PRN PRN Reason: Pain, Mild (Pain Scale 1-3) Last Admin: 01/06/23 22:01 Dose: 650 mg Documented By: CARMINA Calcium Carbonate (Calcium Carbonate 500 Mg Tablet) 500 mg PO BID [facility] Last Admin: 01/08/23 08:32 Dose: 500 mg Documented By: ABILIO Cyanocobalamin (Cyanocobalamin (Vitamin B-12) 500 Mcg Tablet) 500 mcg PO DAILY [facility] Last Admin: 01/08/23 08:32 Dose: 500 mcg Documented By: ABILIO Ergocalciferol (Ergocalciferol (Vitamin D2) 1,250 Mcg Capsule) 1,250 mcg PO MORENO [facility] Last Admin: 01/02/23 09:33 Dose: 1,250 mcg Documented By: SKYLA Ferrous Sulfate (Ferrous Sulfate 324 Mg Tablet.) 324 mg PO DAILY [facility] Last Admin: 01/08/23 08:32 Dose: 324 mg Documented By: ABILIO Gabapentin (Gabapentin 100 Mg Capsule) 100 mg PO BID [facility] Last Admin: 01/08/23 08:32 Dose: 100 mg Documented By: ABILIO Heparin Sodium (Porcine) (Heparin Sodium,Porcine 5,000 Unit/Ml Vial) 5,000 unit SUBCUT Q8H [facility] Last Admin: 01/08/23 03:53 Dose: 5,000 unit Documented By: NANCY Hydralazine HCl (Hydralazine Hcl 25 Mg Tablet) 75 mg PO TID [facility]; Protocol Last Admin: 01/08/23 08:33 Dose: 75 mg Documented By: ABILIO Hydromorphone HCl (Hydromorphone Hcl 1 Mg/Ml Syringe) 1 mg IVPUSH Q4H PRN; Protocol PRN Reason: Pain, Severe (Pain Scale 7-10) Last Admin: 01/08/23 09:49 Dose: 1 mg Documented By: ABILIO Cefazolin Sodium/Dextrose (Ancef) 2 gm in 50 mls @ 100 mls/hr IV POSTOP [facility] Piperacillin Sod/Tazobactam (Sod 3.375 gm/ Sodium Chloride) 50 mls @ 100 mls/hr IV Q6H [facility] Last Infusion: 01/08/23 09:35 Dose: 0 mls/hr Documented By: ABILIO Vancomycin HCl 750 mg/ Sodium (Chloride) 265 mls @ 265 mls/hr IV Q12H [facility] Last Infusion: 01/07/23 23:15 Dose: 0 mls/hr Documented By: WILLIAN Lidocaine (Lidocaine 4 % Patch Adh..Patch) 1 patch TRANSDERMA DAILY [facility]; Protocol Last Admin: 01/08/23 09:35 Dose: Not Given Documented By: ABILIO Non-Admin Reason: Patient Refused Magnesium Hydroxide (Milk Of Magnesia 30 Ml Oral.Susp) 30 ml PO DAILY PRN PRN Reason: Constipation Melatonin (Melatonin 3 Mg Tablet) 6 mg PO BEDTIME PRN PRN Reason: Insomnia Last Admin: 01/07/23 20:32 Dose: 6 mg Documented By: WILLIAN Metformin HCl (Metformin Hcl Er 500 Mg Tab.Er.24h) 500 mg PO BID [facility] Last Admin: 01/08/23 08:32 Dose: 500 mg Documented By: ABILIO Multivitamins/Vitamin C (Multivitamin Tablet) 1 tab PO DAILY [facility] Last Admin: 01/08/23 08:32 Dose: 1 tab Documented By: ABILIO Pt Own (Exemestane (25 Mg Tablet)) 25 mg PO DAILY [facility] Last Admin: 01/08/23 08:34 Dose: 25 mg Documented By: ABILIO Nystatin (Nystatin Oral Susp 500,000 Unit/5 Ml Oral.Susp) 500,000 unit PO QID [facility]; Protocol Last Admin: 01/08/23 08:32 Dose: 500,000 unit Documented By: ABILIO Omeprazole (Omeprazole 20 Mg Capsule.Dr) 20 mg PO DAILY@0630 [facility] Last Admin: 01/08/23 08:35 Dose: 20 mg Documented By: ABILIO Oxycodone HCl (Oxycodone Hcl Immed Release 5 Mg Tablet) 5 mg PO Q4H PRN PRN Reason: Pain, Moderate (Pain Scale 4-6 Last Admin: 01/08/23 08:31 Dose: 5 mg Documented By: ABILIO Propranolol HCl (Propranolol Hcl La 80 Mg Cap.Sa.24h) 80 mg PO DAILY [facility]; Protocol Last Admin: 01/08/23 08:32 Dose: 80 mg Documented By: ABILIO Sodium Chloride (0.9 % Sodium Chloride Flush 3 Ml Syringe) 3 ml IVFLUSH QSHIFT [facility] Last Admin: 01/08/23 08:36 Dose: 3 ml Documented By: ABILIO Labs 01/02/23 05:51 01/08/23 05:19 Labs: Laboratory Results - last 24 hr 01/07/23 01/07/23 01/08/23 11:04 21:04 05:19 Estim Creat Clear Calc 60.7 Estimated GFR 46 POC Glucose 146 H Vancomycin Trough 16.5 01/08/23 07:12 Estim Creat Clear Calc Estimated GFR POC Glucose 131 H Vancomycin Trough Assessment and Plan (1) Abscess: Status: Acute (2) Cellulitis of right lower extremity: Status: Acute (3) Morbid obesity: Status: Acute Plan 72 year old female with morbid obesity and other medical problems as listed. She presents with right ankle redness, pain and swelling best described by the image, clinical presentation consistent with sepsis d/t cellulitis and concern for joint involvment. Left ankle Cellulitis and possible acute oseomyelitits and abscess, Sepsis,. Sepsis clinically resolved -MRI 12/29:1. Large 12 cm abscess in the lateral subcutaneous fat at the level of the ankle and hindfoot with surrounding cellulitis and underlying osteomyelitis of the lateral malleolus. 2. Complex longitudinal tears of the peroneus longus and peroneus brevis tendons with associated tenosynovitis. Septic tenosynovitis is also possible. cpk normal Ortho did bedside I/D on 12/30 and will take to OR for full exploration and lavage on 12/31 culture so far negative vanco trough is 16.2 today -Continue Zosyn and Vanco started on 12/28 ,wound care/dressing changes by surgery,Dilaudid for pain seen by surgery-Large wound and abscess of the right ankle,?s/p debridement and drainage.? Patient is draining a significant amount of serous fluid from the wound and dressings have a bluish discoloration suggestive of a Pseudomonas infection.? Recommend changing the dressings 3 times daily but leaving the silver alginate on for 48 hours.? No debridement required at this time, will continue to monitor. Gerd--Omeprazol Anxiety--Prorpanolol Morbid obesity--weight loss advised. Heparin for DVT prophylaxis Full code inpatient need :sepsis, ankle cellulitis/abscess and expert evaluation for possible intervention, not able to due this in less acute setting at this time Time Spent With Patient Time: Total time managing care of this patient today ____ minutes. Quality Stroke Does the patient have a stroke diagnosis?: No VTE Prior VTE?: No VTE Risk Level:: Medical - moderate - high VTE Device Contraindication: Treatment Not Indicated VTE Drug Contraindication: N/A - Med Ordered
[2023-01-08 11:19] LABS: Glucose, Whole Blood 151 mg/dL (60-115)
[2023-01-08] MEDS: Acetaminophen 325 MG TABLET 650 MG PO ×2 (12:21→21:50)
[2023-01-08] MEDS: vancomycin HCL 750 MG in 0.9 % Sodium Chloride 250 ML 265 MG IV (12:23)
[2023-01-08 16:00] VITALS: BP 176/77; PULSE 81; RESP 18; TEMP 36.2; O2SAT 96
[2023-01-08 16:44] LABS: Glucose, Whole Blood 126 mg/dL (60-115)
[2023-01-08 19:38] VITALS: BP 172/77; PULSE 89; RESP 18; TEMP 36.8; O2SAT 98
[2023-01-08] MEDS: SUMAtriptan succinate 50 MG TABLET PO (20:01)
[2023-01-08 21:00] LABS: Vancomycin Trough 18.6 mcg/mL (10.0-20.0)
[2023-01-08] MEDS: Melatonin 3 MG TABLET 6 MG PO (21:52)
[2023-01-08 22:24] LABS: COVID-19 Test Negative (Negative); IDNOW Serial# 6674DD1D
[2023-01-08] MEDS: vancomycin HCL 500 MG in 0.9 % Sodium Chloride 100 ML 110 MG IV (23:21)
[2023-01-08 23:48] VITALS: BP 154/69; PULSE 85; RESP 18; TEMP 36.1; O2SAT 95
[2023-01-09] MEDS: HYDROmorphone HCl 1 MG/ML SYRINGE IVPUSH ×4 (02:10→20:22)
[2023-01-09] MEDS: Piperacillin Sodium/Tazobactam 3.375 GM in 0.9 % Sodium Chloride 50 ML IV ×4 (02:11→20:20)
[2023-01-09] MEDS: 0.9 % Sodium Chloride Flush 3 ML SYRINGE IVFLUSH ×4 (02:12→20:15)
[2023-01-09] MEDS: oxyCODONE HCl Immed Release 5 MG TABLET PO ×4 (04:31→23:40)
[2023-01-09] MEDS: Acetaminophen 325 MG TABLET 650 MG PO ×3 (04:31→23:40)
[2023-01-09] MEDS: SUMAtriptan succinate 50 MG TABLET PO (06:15)
[2023-01-09] MEDS: Heparin Sodium,Porcine 5,000 UNIT/ML VIAL 5000 UNIT SUBCUT ×3 (06:16→20:15)
[2023-01-09] MEDS: Omeprazole 20 MG CAPSULE.DR PO (06:17)
[2023-01-09 07:20] VITALS: BP 168/76; PULSE 78; RESP 18; TEMP 36.1; O2SAT 96
[2023-01-09 07:32] LABS: Glucose, Whole Blood 121 mg/dL (60-115)
[2023-01-09 07:39] LABS: Creatinine Clr Calc Pharmacy 68.3; Estimated Glomerular Filt Rate 53
[2023-01-09] MEDS: Cyanocobalamin (Vitamin B-12) 500 MCG TABLET PO (07:48)
[2023-01-09] MEDS: Propranolol HCL LA 80 MG CAP.SA.24H PO (07:48)
[2023-01-09] MEDS: metFORMIN HCl ER 500 MG TAB.ER.24H PO ×2 (07:48→20:14)
[2023-01-09] MEDS: Gabapentin 100 MG CAPSULE PO ×2 (07:48→20:14)
[2023-01-09] MEDS: Ferrous Sulfate 324 MG TABLET.DR PO (07:48)
[2023-01-09] MEDS: Nystatin Oral Susp 500,000 UNIT/5 ML ORAL.SUSP 500000 UNIT PO ×3 (07:49→20:15)
[2023-01-09] MEDS: hydrALAZINE HCl 25 MG TABLET 75 MG PO ×3 (07:49→20:14)
[2023-01-09] MEDS: Multivitamin TABLET 1 TAB PO (07:49)
[2023-01-09] MEDS: Ergocalciferol (Vitamin D2) 1,250 MCG CAPSULE 1250 MCG PO (09:07)
[2023-01-09 11:05] LABS: Glucose, Whole Blood 187 mg/dL (60-115)
[2023-01-09] MEDS: vancomycin HCL 500 MG in 0.9 % Sodium Chloride 100 ML 110 MG IV (11:11)
--- NOTE | 2023-01-09 13:36 | HO.PM.IMPN ---
Subjective Subjective Date of Service: 01/09/23 Interval History: f/u cellulitis/osteo and abscess of right ankle, pain in the ankle is better but has lots muslce pain in both leg some what better than yesterday Review of Systems No fever, right ankle pain is much better, today slighlty decreased discharge. denies any joint or muscle pain today. had nausea and headche yesterday evening -she related it to migrane. Physical Exam Vital Signs: Vital Signs: Last Vital Signs Temp 97 F 01/09/23 07:20 Pulse 78 01/09/23 07:20 Resp 18 01/09/23 07:20 BP 168/76 H 01/09/23 07:20 Pulse Ox 96 01/09/23 07:20 O2 Del Method 01/09/23 07:20 O2 Flow Rate 2 01/08/23 19:38 BMI result Body Mass Index 43.8 ??General: AO X 3, no acute distress Resp:? CTA bilateral CVS: S1,S2,RRR GI: +BS, NT, no distention Skin: No rash Neuro:? motor grossly intact Psych: appropriate affect leg swellin improving right foot wound area wrapped. Objective Data Active Medications Acetaminophen (Acetaminophen 325 Mg Tablet) 650 mg PO Q6H PRN PRN Reason: Pain, Mild (Pain Scale 1-3) Last Admin: 01/09/23 11:11 Dose: 650 mg Documented By: SAMIRA Calcium Carbonate (Calcium Carbonate 500 Mg Tablet) 500 mg PO BID [facility] Last Admin: 01/09/23 07:49 Dose: 500 mg Documented By: ABILIO Cyanocobalamin (Cyanocobalamin (Vitamin B-12) 500 Mcg Tablet) 500 mcg PO DAILY [facility] Last Admin: 01/09/23 07:48 Dose: 500 mcg Documented By: ABILIO Ergocalciferol (Ergocalciferol (Vitamin D2) 1,250 Mcg Capsule) 1,250 mcg PO MORENO [facility] Last Admin: 01/09/23 09:07 Dose: 1,250 mcg Documented By: ABILIO Ferrous Sulfate (Ferrous Sulfate 324 Mg Tablet.) 324 mg PO DAILY [facility] Last Admin: 01/09/23 07:48 Dose: 324 mg Documented By: ABILIO Gabapentin (Gabapentin 100 Mg Capsule) 100 mg PO BID [facility] Last Admin: 01/09/23 07:48 Dose: 100 mg Documented By: ABILIO Heparin Sodium (Porcine) (Heparin Sodium,Porcine 5,000 Unit/Ml Vial) 5,000 unit SUBCUT Q8H [facility] Last Admin: 01/09/23 11:11 Dose: 5,000 unit Documented By: SAMIRA Hydralazine HCl (Hydralazine Hcl 25 Mg Tablet) 75 mg PO TID [facility]; Protocol Last Admin: 01/09/23 07:49 Dose: 75 mg Documented By: ABILIO Hydromorphone HCl (Hydromorphone Hcl 1 Mg/Ml Syringe) 1 mg IVPUSH Q4H PRN; Protocol PRN Reason: Pain, Severe (Pain Scale 7-10) Last Admin: 01/09/23 09:07 Dose: 1 mg Documented By: ABILIO Cefazolin Sodium/Dextrose (Ancef) 2 gm in 50 mls @ 100 mls/hr IV POSTOP [facility] Piperacillin Sod/Tazobactam (Sod 3.375 gm/ Sodium Chloride) 50 mls @ 100 mls/hr IV Q6H [facility] Last Infusion: 01/09/23 08:45 Dose: 0 mls/hr Documented By: ABILIO Vancomycin HCl 500 mg/ Sodium (Chloride) 110 mls @ 110 mls/hr IV Q12H [facility] Last Infusion: 01/09/23 12:27 Dose: 0 mls/hr Documented By: ABILIO Lidocaine (Lidocaine 4 % Patch Adh..Patch) 1 patch TRANSDERMA DAILY [facility]; Protocol Last Admin: 01/09/23 07:51 Dose: Not Given Documented By: ABILIO Non-Admin Reason: Patient Refused Magnesium Hydroxide (Milk Of Magnesia 30 Ml Oral.Susp) 30 ml PO DAILY PRN PRN Reason: Constipation Melatonin (Melatonin 3 Mg Tablet) 6 mg PO BEDTIME PRN PRN Reason: Insomnia Last Admin: 01/08/23 21:52 Dose: 6 mg Documented By: ABILIO Metformin HCl (Metformin Hcl Er 500 Mg Tab.Er.24h) 500 mg PO BID [facility] Last Admin: 01/09/23 07:48 Dose: 500 mg Documented By: ABILIO Multivitamins/Vitamin C (Multivitamin Tablet) 1 tab PO DAILY [facility] Last Admin: 01/09/23 07:49 Dose: 1 tab Documented By: ABILIO Pt Own (Exemestane (25 Mg Tablet)) 25 mg PO DAILY [facility] Last Admin: 01/09/23 07:50 Dose: 25 mg Documented By: ABILIO Nystatin (Nystatin Oral Susp 500,000 Unit/5 Ml Oral.Susp) 500,000 unit PO QID [facility]; Protocol Last Admin: 01/09/23 07:49 Dose: 500,000 unit Documented By: ABILIO Omeprazole (Omeprazole 20 Mg Capsule.Dr) 20 mg PO DAILY@0630 [facility] Last Admin: 01/09/23 06:17 Dose: 20 mg Documented By: STAR Ondansetron HCl (Ondansetron Hcl 4 Mg/2 Ml Vial) 4 mg IVPUSH Q8H PRN PRN Reason: Nausea Oxycodone HCl (Oxycodone Hcl Immed Release 5 Mg Tablet) 5 mg PO Q4H PRN PRN Reason: Pain, Moderate (Pain Scale 4-6 Last Admin: 01/09/23 11:11 Dose: 5 mg Documented By: SAMIRA Propranolol HCl (Propranolol Hcl La 80 Mg Cap.Sa.24h) 80 mg PO DAILY [facility]; Protocol Last Admin: 01/09/23 07:48 Dose: 80 mg Documented By: ABILIO Sodium Chloride (0.9 % Sodium Chloride Flush 3 Ml Syringe) 3 ml IVFLUSH QSHIFT [facility] Last Admin: 01/09/23 07:50 Dose: 3 ml Documented By: ABILIO Labs 01/02/23 05:51 01/09/23 06:04 Labs: Laboratory Results - last 24 hr 01/08/23 01/08/23 01/08/23 16:33 20:29 20:29 Estim Creat Clear Calc Estimated GFR POC Glucose 126 H Troponin I High Sens 7.0 Vancomycin Trough 18.6 COVID-19 ([facility]) COVID-19 Clin Com 01/08/23 01/09/23 01/09/23 20:30 06:04 07:22 Estim Creat Clear Calc 68.3 Estimated GFR 53 POC Glucose 121 H Troponin I High Sens Vancomycin Trough COVID-19 ([facility]) Negative COVID-19 Clin Com See Note 01/09/23 10:59 Estim Creat Clear Calc Estimated GFR POC Glucose 187 H Troponin I High Sens Vancomycin Trough COVID-19 ([facility]) COVID-19 Clin Com Assessment and Plan (1) Abscess: Status: Acute (2) Cellulitis of right lower extremity: Status: Acute (3) Morbid obesity: Status: Acute Plan 72 year old female with morbid obesity and other medical problems as listed. She presents with right ankle redness, pain and swelling best described by the image, clinical presentation consistent with sepsis d/t cellulitis and concern for joint involvment. Left ankle Cellulitis and possible acute oseomyelitits and abscess, Sepsis,. Sepsis clinically resolved -MRI 12/29:1. Large 12 cm abscess in the lateral subcutaneous fat at the level of the ankle and hindfoot with surrounding cellulitis and underlying osteomyelitis of the lateral malleolus. 2. Complex longitudinal tears of the peroneus longus and peroneus brevis tendons with associated tenosynovitis. Septic tenosynovitis is also possible. cpk normal Ortho did bedside I/D on 12/30 and will take to OR for full exploration and lavage on 12/31 culture so far negative vanco trough is 18.6 yesterday -Continue Zosyn and Vanco started on 12/28 ,wound care/dressing changes by surgery,Dilaudid for pain seen by surgery-Large wound and abscess of the right ankle,?s/p debridement and drainage.? Patient is draining a significant amount of serous fluid from the wound and dressings have a bluish discoloration suggestive of a Pseudomonas infection.? Recommend changing the dressings 3 times daily but leaving the silver alginate on for 48 hours.? No debridement required at this time, will continue to monitor. Gerd--Omeprazol Anxiety--Prorpanolol Morbid obesity--weight loss advised. Heparin for DVT prophylaxis Full code inpatient need :sepsis, ankle cellulitis/abscess and expert evaluation for possible intervention, not able to due this in less acute setting at this time Time Spent With Patient Time: Total time managing care of this patient today ____ minutes. Quality Stroke Does the patient have a stroke diagnosis?: No VTE Prior VTE?: No VTE Risk Level:: Medical - moderate - high VTE Device Contraindication: Treatment Not Indicated VTE Drug Contraindication: N/A - Med Ordered
[2023-01-09 16:00] VITALS: BP 152/70; PULSE 84; RESP 17; TEMP 36.2; O2SAT 94
[2023-01-09 16:13] LABS: Glucose, Whole Blood 191 mg/dL (60-115)
[2023-01-09] MEDS: Butalb/Acetamin/Caff 50/325/40 TABLET 1 TAB PO ×2 (17:17→22:06)
[2023-01-09 19:57] VITALS: BP 181/81; PULSE 88; RESP 17; TEMP 36.6; O2SAT 95
[2023-01-09 21:43] LABS: Vancomycin Random 14.5 mcg/mL (15-20)
[2023-01-09] MEDS: vancomycin HCL 750 MG in 0.9 % Sodium Chloride 250 ML 265 MG IV (23:36)
[2023-01-10] MEDS: HYDROmorphone HCl 1 MG/ML SYRINGE IVPUSH ×5 (02:27→22:31)
[2023-01-10] MEDS: Piperacillin Sodium/Tazobactam 3.375 GM in 0.9 % Sodium Chloride 50 ML IV ×3 (02:31→14:18)
[2023-01-10 03:39] LABS: Glucose, Whole Blood 147 mg/dL (60-115)
[2023-01-10] MEDS: Heparin Sodium,Porcine 5,000 UNIT/ML VIAL 5000 UNIT SUBCUT ×3 (04:32→19:47)
[2023-01-10] MEDS: oxyCODONE HCl Immed Release 5 MG TABLET PO ×4 (04:53→19:50)
[2023-01-10] MEDS: Omeprazole 20 MG CAPSULE.DR PO (05:29)
[2023-01-10 06:58] LABS: Creatinine Clr Calc Pharmacy 67.1; Estimated Glomerular Filt Rate 52
[2023-01-10 07:37] VITALS: BP 139/66; PULSE 82; RESP 17; TEMP 36.9; O2SAT 95
[2023-01-10] MEDS: hydrALAZINE HCl 25 MG TABLET 75 MG PO ×3 (08:00→22:30)
[2023-01-10] MEDS: metFORMIN HCl ER 500 MG TAB.ER.24H PO ×2 (08:00→22:30)
[2023-01-10] MEDS: Propranolol HCL LA 80 MG CAP.SA.24H PO (08:00)
[2023-01-10] MEDS: Nystatin Oral Susp 500,000 UNIT/5 ML ORAL.SUSP 500000 UNIT PO ×4 (08:00→22:34)
[2023-01-10] MEDS: Multivitamin TABLET 1 TAB PO (08:00)
[2023-01-10] MEDS: Ferrous Sulfate 324 MG TABLET.DR PO (08:01)
[2023-01-10] MEDS: Cyanocobalamin (Vitamin B-12) 500 MCG TABLET PO (08:01)
[2023-01-10] MEDS: Gabapentin 100 MG CAPSULE PO ×2 (08:01→22:30)
[2023-01-10] MEDS: 0.9 % Sodium Chloride Flush 3 ML SYRINGE IVFLUSH ×2 (08:14→19:52)
[2023-01-10] MEDS: vancomycin HCL 750 MG in 0.9 % Sodium Chloride 250 ML 265 MG IV ×2 (10:23→22:36)
--- NOTE | 2023-01-10 11:01 | HO.PM.IMPN ---
Subjective Subjective Date of Service: 01/10/23 Interval History: f/u cellulitis/osteo and abscess of right ankle. Review of Systems denies any muscle pain or joint pain no fevers has headaches-likley migrane . Physical Exam Vital Signs: Vital Signs: Last Vital Signs Temp 98.5 F 01/10/23 07:37 Pulse 82 01/10/23 07:37 Resp 17 01/10/23 07:37 BP 139/66 01/10/23 07:37 Pulse Ox 95 01/10/23 07:37 O2 Del Method 01/10/23 07:37 O2 Flow Rate 2 01/08/23 19:38 BMI result Body Mass Index 43.8 General: AO X 3, no acute distress Resp:? CTA bilateral CVS: S1,S2,RRR GI: +BS, NT, no distention Skin: No rash Neuro:? motor grossly intact Psych: appropriate affect leg swellin improving right foot wound area wrapped. Objective Data Active Medications Acetaminophen (Acetaminophen 325 Mg Tablet) 650 mg PO Q6H PRN PRN Reason: Pain, Mild (Pain Scale 1-3) Last Admin: 01/09/23 23:40 Dose: 650 mg Documented By: CARMINA Calcium Carbonate (Calcium Carbonate 500 Mg Tablet) 500 mg PO BID [facility] Last Admin: 01/10/23 08:06 Dose: 500 mg Documented By: RILEY Cyanocobalamin (Cyanocobalamin (Vitamin B-12) 500 Mcg Tablet) 500 mcg PO DAILY [facility] Last Admin: 01/10/23 08:01 Dose: 500 mcg Documented By: RILEY Ergocalciferol (Ergocalciferol (Vitamin D2) 1,250 Mcg Capsule) 1,250 mcg PO MORENO [facility] Last Admin: 01/09/23 09:07 Dose: 1,250 mcg Documented By: ABILIO Ferrous Sulfate (Ferrous Sulfate 324 Mg Tablet.) 324 mg PO DAILY [facility] Last Admin: 01/10/23 08:01 Dose: 324 mg Documented By: RILEY Gabapentin (Gabapentin 100 Mg Capsule) 100 mg PO BID [facility] Last Admin: 01/10/23 08:01 Dose: 100 mg Documented By: RILEY Heparin Sodium (Porcine) (Heparin Sodium,Porcine 5,000 Unit/Ml Vial) 5,000 unit SUBCUT Q8H [facility] Last Admin: 01/10/23 04:32 Dose: 5,000 unit Documented By: CARMINA Hydralazine HCl (Hydralazine Hcl 25 Mg Tablet) 75 mg PO TID [facility]; Protocol Last Admin: 01/10/23 08:00 Dose: 75 mg Documented By: RILEY Hydromorphone HCl (Hydromorphone Hcl 1 Mg/Ml Syringe) 1 mg IVPUSH Q4H PRN; Protocol PRN Reason: Pain, Severe (Pain Scale 7-10) Last Admin: 01/10/23 08:07 Dose: 1 mg Documented By: RILEY Cefazolin Sodium/Dextrose (Ancef) 2 gm in 50 mls @ 100 mls/hr IV POSTOP [facility] Piperacillin Sod/Tazobactam (Sod 3.375 gm/ Sodium Chloride) 50 mls @ 100 mls/hr IV Q6H [facility] Last Infusion: 01/10/23 08:43 Dose: 0 mls/hr Documented By: RILEY Vancomycin HCl 750 mg/ Sodium (Chloride) 265 mls @ 265 mls/hr IV Q12H [facility] Last Admin: 01/10/23 10:23 Dose: 265 mls/hr Documented By: RILEY Lidocaine (Lidocaine 4 % Patch Adh..Patch) 1 patch TRANSDERMA DAILY [facility]; Protocol Last Admin: 01/10/23 08:06 Dose: Not Given Documented By: RILEY Non-Admin Reason: Patient Refused Magnesium Hydroxide (Milk Of Magnesia 30 Ml Oral.Susp) 30 ml PO DAILY PRN PRN Reason: Constipation Melatonin (Melatonin 3 Mg Tablet) 6 mg PO BEDTIME PRN PRN Reason: Insomnia Last Admin: 01/08/23 21:52 Dose: 6 mg Documented By: ABILIO Metformin HCl (Metformin Hcl Er 500 Mg Tab.Er.24h) 500 mg PO BID [facility] Last Admin: 01/10/23 08:00 Dose: 500 mg Documented By: RILEY Multivitamins/Vitamin C (Multivitamin Tablet) 1 tab PO DAILY [facility] Last Admin: 01/10/23 08:00 Dose: 1 tab Documented By: RILEY Pt Own (Exemestane (25 Mg Tablet)) 25 mg PO DAILY [facility] Last Admin: 01/10/23 08:06 Dose: 25 mg Documented By: RILEY Nystatin (Nystatin Oral Susp 500,000 Unit/5 Ml Oral.Susp) 500,000 unit PO QID [facility]; Protocol Last Admin: 01/10/23 08:00 Dose: 500,000 unit Documented By: RILEY Omeprazole (Omeprazole 20 Mg Capsule.Dr) 20 mg PO DAILY@0630 [facility] Last Admin: 01/10/23 05:29 Dose: 20 mg Documented By: CARMINA Ondansetron HCl (Ondansetron Hcl 4 Mg/2 Ml Vial) 4 mg IVPUSH Q8H PRN PRN Reason: Nausea Oxycodone HCl (Oxycodone Hcl Immed Release 5 Mg Tablet) 5 mg PO Q4H PRN PRN Reason: Pain, Moderate (Pain Scale 4-6 Last Admin: 01/10/23 10:25 Dose: 5 mg Documented By: RILEY Propranolol HCl (Propranolol Hcl La 80 Mg Cap.Sa.24h) 80 mg PO DAILY [facility]; Protocol Last Admin: 01/10/23 08:00 Dose: 80 mg Documented By: RILEY Sodium Chloride (0.9 % Sodium Chloride Flush 3 Ml Syringe) 3 ml IVFLUSH QSHIFT [facility] Last Admin: 01/10/23 08:14 Dose: 3 ml Documented By: RILEY Labs 01/02/23 05:51 01/10/23 06:06 Labs: Laboratory Results - last 24 hr 01/09/23 01/09/23 01/09/23 10:59 16:00 21:13 Estim Creat Clear Calc Estimated GFR POC Glucose 187 H 191 H Random Vancomycin 14.5 L 01/10/23 01/10/23 03:28 06:06 Estim Creat Clear Calc 67.1 Estimated GFR 52 POC Glucose 147 H Random Vancomycin Assessment and Plan (1) Morbid obesity: Status: Acute (2) Acute osteomyelitis: Status: Acute (3) Abscess: Status: Acute Plan 72 year old female with morbid obesity and other medical problems as listed. She presents with right ankle redness, pain and swelling best described by the image, clinical presentation consistent with sepsis d/t cellulitis and concern for joint involvment. Left ankle Cellulitis and possible acute oseomyelitits and abscess, Sepsis,.? Sepsis clinically resolved -MRI 12/29:1. Large 12 cm abscess in the lateral subcutaneous fat at the level of the ankle and hindfoot with surrounding cellulitis and underlying osteomyelitis of the lateral malleolus. 2. Complex longitudinal tears of the peroneus longus and peroneus brevis tendons with associated tenosynovitis. Septic tenosynovitis is also possible. cpk normal Ortho did bedside I/D on 12/30 and will take to OR for full exploration and lavage on? 12/31 culture so far negative vanco trough is 14.5 yesterday -Continue Zosyn and Vanco started on 12/28 ,wound care/dressing changes by surgery,Dilaudid for pain seen by surgery-Large wound and abscess of the right ankle,?s/p debridement and drainage.? Patient is draining a significant amount of serous fluid from the wound and dressings have a bluish discoloration suggestive of a Pseudomonas infection.? Recommend changing the dressings 3 times daily but leaving the silver alginate on for 48 hours.? No debridement required at this time, will continue to monitor.may need wound vac. Gerd--Omeprazol Anxiety--Prorpanolol Morbid obesity--weight loss advised. possible migrane episode : given sumatriptan Heparin for DVT prophylaxis Full code inpatient need :sepsis, ankle cellulitis/abscess and expert evaluation for possible intervention, not able to due this in less acute setting at this time Time Spent With Patient Time: Total time managing care of this patient today ____ minutes. Quality Stroke Does the patient have a stroke diagnosis?: No VTE Prior VTE?: No VTE Risk Level:: Medical - moderate - high VTE Device Contraindication: Treatment Not Indicated VTE Drug Contraindication: N/A - Med Ordered
--- NOTE | 2023-01-10 12:10 | MHC.CM.PN ---
PLAN IS FOR WOUND VAC PLACEMENT STILL ON IV ABX. CM FOLLOWING FOR DC PLANS
[2023-01-10] MEDS: Acetaminophen 325 MG TABLET 650 MG PO (15:24)
[2023-01-10 16:00] VITALS: BP 136/67; PULSE 79; RESP 15; TEMP 36.1; O2SAT 95
[2023-01-10] MEDS: SUMAtriptan succinate 50 MG TABLET PO (19:48)
[2023-01-10 21:33] LABS: Vancomycin Random 15.2 mcg/mL (15-20)
[2023-01-11] VITALS: BP 171/78; PULSE 89; RESP 17; TEMP 36.8; O2SAT 94
[2023-01-11] MEDS: oxyCODONE HCl Immed Release 5 MG TABLET PO ×5 (00:41→22:18)
[2023-01-11] MEDS: Acetaminophen 325 MG TABLET 650 MG PO ×2 (00:42→09:58)
[2023-01-11] MEDS: Heparin Sodium,Porcine 5,000 UNIT/ML VIAL 5000 UNIT SUBCUT ×3 (03:51→21:22)
[2023-01-11] MEDS: HYDROmorphone HCl 1 MG/ML SYRINGE IVPUSH ×5 (03:52→21:10)
[2023-01-11] MEDS: Omeprazole 20 MG CAPSULE.DR PO (05:59)
[2023-01-11 06:46] LABS: Creatinine Clr Calc Pharmacy 68.3; Estimated Glomerular Filt Rate 53
[2023-01-11 07:45] LABS: Glucose, Whole Blood 120 mg/dL (60-115)
[2023-01-11] MEDS: Nystatin Oral Susp 500,000 UNIT/5 ML ORAL.SUSP 500000 UNIT PO ×4 (07:50→21:23)
[2023-01-11] MEDS: hydrALAZINE HCl 25 MG TABLET 75 MG PO ×3 (07:50→21:23)
[2023-01-11] MEDS: Gabapentin 100 MG CAPSULE PO ×2 (07:51→21:23)
[2023-01-11] MEDS: Ferrous Sulfate 324 MG TABLET.DR PO (07:51)
[2023-01-11] MEDS: Cyanocobalamin (Vitamin B-12) 500 MCG TABLET PO (07:51)
[2023-01-11] MEDS: Multivitamin TABLET 1 TAB PO (07:51)
[2023-01-11] MEDS: metFORMIN HCl ER 500 MG TAB.ER.24H PO ×2 (07:52→21:25)
[2023-01-11] MEDS: Propranolol HCL LA 80 MG CAP.SA.24H PO (07:52)
[2023-01-11 08:00] VITALS: BP 154/71; PULSE 90; RESP 18; TEMP 37.2; O2SAT 93
[2023-01-11] MEDS: 0.9 % Sodium Chloride Flush 3 ML SYRINGE IVFLUSH (08:41)
--- NOTE | 2023-01-11 10:29 | P.PNIM_ITS ---
Subjective Subjective Date of Service: 01/11/23 Interval History: f/u on right ankle wound Physical Exam Vital Signs: Vital Signs: Last Vital Signs Temp 98.9 F 01/11/23 08:00 Pulse 90 01/11/23 08:00 Resp 18 01/11/23 08:00 BP 154/71 H 01/11/23 08:00 Pulse Ox 93 01/11/23 08:00 O2 Del Method 01/11/23 08:00 O2 Flow Rate 2 01/08/23 19:38 BMI result Body Mass Index 43.8 Const: Other: General: AO X 3, no acute distress Resp: CTA bilateral CVS: S1,S2,RRR GI: +BS, NT, no distention Skin: right ankle wound dressing intact Neuro: motor grossly intact Psych: appropriate affect Objective Data Active Medications Acetaminophen (Acetaminophen 325 Mg Tablet) 650 mg PO Q6H PRN PRN Reason: Pain, Mild (Pain Scale 1-3) Last Admin: 01/11/23 09:58 Dose: 650 mg Documented By: RILEY Calcium Carbonate (Calcium Carbonate 500 Mg Tablet) 500 mg PO BID [facility] Last Admin: 01/11/23 07:52 Dose: 500 mg Documented By: RILEY Cyanocobalamin (Cyanocobalamin (Vitamin B-12) 500 Mcg Tablet) 500 mcg PO DAILY [facility] [place] Last Admin: 01/11/23 07:51 Dose: 500 mcg Documented By: RILEY Ergocalciferol (Ergocalciferol (Vitamin D2) 1,250 Mcg Capsule) 1,250 mcg PO MORENO [facility] [place] Last Admin: 01/09/23 09:07 Dose: 1,250 mcg Documented By: ABILIO Ferrous Sulfate (Ferrous Sulfate 324 Mg Tablet.Dr) 324 mg PO DAILY [facility] Last Admin: 01/11/23 07:51 Dose: 324 mg Documented By: RILEY Gabapentin (Gabapentin 100 Mg Capsule) 100 mg PO BID [facility] Last Admin: 01/11/23 07:51 Dose: 100 mg Documented By: RILEY Heparin Sodium (Porcine) (Heparin Sodium,Porcine 5,000 Unit/Ml Vial) 5,000 unit SUBCUT Q8H [facility] [place] Last Admin: 01/11/23 03:51 Dose: 5,000 unit Documented By: CARMINA Hydralazine HCl (Hydralazine Hcl 25 Mg Tablet) 75 mg PO TID [facility] [place]; Protocol Last Admin: 01/11/23 07:50 Dose: 75 mg Documented By: RILEY Hydromorphone HCl (Hydromorphone Hcl 1 Mg/Ml Syringe) 1 mg IVPUSH Q4H PRN; Protocol PRN Reason: Pain, Severe (Pain Scale 7-10) Last Admin: 01/11/23 07:50 Dose: 1 mg Documented By: RILEY Vancomycin HCl 750 mg/ Sodium (Chloride) 265 mls @ 265 mls/hr IV Q12H [facility] [place] Last Infusion: 01/11/23 00:12 Dose: 0 mls/hr Documented By: CARMINA Lidocaine (Lidocaine 4 % Patch Adh..Patch) 1 patch TRANSDERMA DAILY [facility]; Protocol Last Admin: 01/11/23 08:34 Dose: Not Given Documented By: RILEY Non-Admin Reason: Patient Refused Magnesium Hydroxide (Milk Of Magnesia 30 Ml Oral.Susp) 30 ml PO DAILY PRN PRN Reason: Constipation Melatonin (Melatonin 3 Mg Tablet) 6 mg PO BEDTIME PRN PRN Reason: Insomnia Last Admin: 01/08/23 21:52 Dose: 6 mg Documented By: ABILIO Metformin HCl (Metformin Hcl Er 500 Mg Tab.Er.24h) 500 mg PO BID [facility] [place] Last Admin: 01/11/23 07:52 Dose: 500 mg Documented By: RILEY Multivitamins/Vitamin C (Multivitamin Tablet) 1 tab PO DAILY [facility] [place] Last Admin: 01/11/23 07:51 Dose: 1 tab Documented By: RILEY Pt Own (Exemestane (25 Mg Tablet)) 25 mg PO DAILY [facility] [place] Last Admin: 01/11/23 08:40 Dose: 25 mg Documented By: RILEY Nystatin (Nystatin Oral Susp 500,000 Unit/5 Ml Oral.Susp) 500,000 unit PO QID [facility] [place]; Protocol Last Admin: 01/11/23 07:50 Dose: 500,000 unit Documented By: RILEY Omeprazole (Omeprazole 20 Mg Capsule.Dr) 20 mg PO DAILY@0630 [facility] [place] Last Admin: 01/11/23 05:59 Dose: 20 mg Documented By: CARMINA Ondansetron HCl (Ondansetron Hcl 4 Mg/2 Ml Vial) 4 mg IVPUSH Q8H PRN PRN Reason: Nausea Oxycodone HCl (Oxycodone Hcl Immed Release 5 Mg Tablet) 5 mg PO Q4H PRN PRN Reason: Pain, Moderate (Pain Scale 4-6 Last Admin: 01/11/23 09:59 Dose: 5 mg Documented By: RILEY Propranolol HCl (Propranolol Hcl La 80 Mg Cap.Sa.24h) 80 mg PO DAILY [facility] [place]; Protocol Last Admin: 01/11/23 07:52 Dose: 80 mg Documented By: RILEY Sodium Chloride (0.9 % Sodium Chloride Flush 3 Ml Syringe) 3 ml IVFLUSH QSHIFT [facility] Last Admin: 01/11/23 08:41 Dose: 3 ml Documented By: RILEY Labs 01/02/23 05:51 01/11/23 05:30 Labs: Laboratory Results - last 24 hr 01/10/23 01/11/23 01/11/23 21:08 05:30 07:25 Estim Creat Clear Calc 68.3 Estimated GFR 53 POC Glucose 120 H Random Vancomycin 15.2 Assessment and Plan (1) Morbid obesity: Status: Acute (2) Acute osteomyelitis: Status: Acute (3) Abscess: Status: Acute Plan 72 year old female with morbid obesity and other medical problems as listed. She presents with right ankle redness, pain and swelling best described by the image, clinical presentation consistent with sepsis d/t cellulitis and concern for joint involvment. Left ankle Cellulitis and possible acute oseomyelitits and abscess, Sepsis,.? Sepsis clinically resolved -MRI 12/29:1. Large 12 cm abscess in the lateral subcutaneous fat at the level of the ankle and hindfoot with surrounding cellulitis and underlying osteomyelitis of the lateral malleolus. 2. Complex longitudinal tears of the peroneus longus and peroneus brevis tendons with associated tenosynovitis. Septic tenosynovitis is also possible. cpk normal Ortho did bedside I/D on 12/30, followed by OR for full exploration and lavage on? 12/31 culture so far negative -She has been on Vanco and Zosyn Surgery is being following, not sure if candidate for wound vac Gerd--Omeprazol Anxiety--Prorpanolol Morbid obesity--weight loss advised. possible migrane episode : given sumatriptan Heparin for DVT prophylaxis Full code inpatient need :sepsis, ankle cellulitis/abscess and expert evaluation for possible intervention, not able to due this in less acute setting at this time Time Spent With Patient Time: Total time managing care of this patient today ____ minutes. Quality Stroke Does the patient have a stroke diagnosis?: No VTE Prior VTE?: No VTE Risk Level:: Medical - moderate - high VTE Device Contraindication: Treatment Not Indicated VTE Drug Contraindication: N/A - Med Ordered
[2023-01-11] MEDS: Piperacillin Sodium/Tazobactam 3.375 GM in 0.9 % Sodium Chloride 50 ML IV ×3 (10:56→21:24)
[2023-01-11] MEDS: vancomycin HCL 750 MG in 0.9 % Sodium Chloride 250 ML 265 MG IV ×2 (11:30→22:19)
[2023-01-11 15:48] VITALS: BP 142/67; PULSE 81; RESP 17; TEMP 36.6; O2SAT 94
[2023-01-11] MEDS: Butalb/Acetamin/Caff 50/325/40 TABLET 1 TAB PO ×2 (17:43→22:18)
[2023-01-11 21:20] VITALS: BP 147/68; PULSE 76; RESP 20; TEMP 36.8; O2SAT 95
[2023-01-11 21:32] LABS: Vancomycin Random 16.1 mcg/mL (15-20)
[2023-01-12] MEDS: HYDROmorphone HCl 1 MG/ML SYRINGE IVPUSH ×4 (01:10→19:14)
[2023-01-12] MEDS: oxyCODONE HCl Immed Release 5 MG TABLET PO ×5 (03:31→21:47)
[2023-01-12] MEDS: Heparin Sodium,Porcine 5,000 UNIT/ML VIAL 5000 UNIT SUBCUT ×3 (03:32→21:36)
[2023-01-12] MEDS: Butalb/Acetamin/Caff 50/325/40 TABLET 1 TAB PO ×4 (03:32→16:39)
[2023-01-12] MEDS: Omeprazole 20 MG CAPSULE.DR PO (05:41)
[2023-01-12] MEDS: Piperacillin Sodium/Tazobactam 3.375 GM in 0.9 % Sodium Chloride 50 ML IV ×4 (05:41→22:48)
[2023-01-12 07:07] LABS: Creatinine Clr Calc Pharmacy 59.2; Estimated Glomerular Filt Rate 45
[2023-01-12 07:44] VITALS: BP 139/73; PULSE 75; RESP 18; TEMP 36.4; O2SAT 97
[2023-01-12] MEDS: Propranolol HCL LA 80 MG CAP.SA.24H PO (08:07)
[2023-01-12] MEDS: Multivitamin TABLET 1 TAB PO (08:07)
[2023-01-12] MEDS: Gabapentin 100 MG CAPSULE PO ×2 (08:08→21:37)
[2023-01-12] MEDS: Cyanocobalamin (Vitamin B-12) 500 MCG TABLET PO (08:08)
[2023-01-12] MEDS: Nystatin Oral Susp 500,000 UNIT/5 ML ORAL.SUSP 500000 UNIT PO ×4 (08:08→21:37)
[2023-01-12] MEDS: Ferrous Sulfate 324 MG TABLET.DR PO (08:08)
[2023-01-12] MEDS: metFORMIN HCl ER 500 MG TAB.ER.24H PO ×2 (08:08→21:37)
[2023-01-12] MEDS: hydrALAZINE HCl 25 MG TABLET 75 MG PO ×3 (08:09→21:37)
--- NOTE | 2023-01-12 10:17 | HO.PM.IMPN ---
Subjective Subjective Date of Service: 01/12/23 Interval History: f/u on right ankle wound, able to ambulate on the foot, less drainage Review of Systems denies any muscle pain or joint pain no fevers has headaches-likley migrane . Physical Exam Vital Signs: Vital Signs: Last Vital Signs Temp 97.6 F 01/12/23 07:44 Pulse 75 01/12/23 07:44 Resp 18 01/12/23 07:44 BP 139/73 01/12/23 07:44 Pulse Ox 97 01/12/23 07:44 O2 Del Method 01/12/23 07:44 O2 Flow Rate 2 01/11/23 21:20 BMI result Body Mass Index 43.8 Const: Other: General: AO X 3, no acute distress Resp: CTA bilateral CVS: S1,S2,RRR GI: +BS, NT, no distention Skin: right ankle wound dressing intact Neuro: motor grossly intact Psych: appropriate affect Objective Data Active Medications Acetaminophen (Acetaminophen 325 Mg Tablet) 650 mg PO Q6H PRN PRN Reason: Pain, Mild (Pain Scale 1-3) Last Admin: 01/11/23 09:58 Dose: 650 mg Documented By: RILEY Acetaminophen/Butalbital/Caffeine (Butalb/Acetamin/Caff 50/325/40 Tablet) 1 tab PO Q4H PRN PRN Reason: Headache Last Admin: 01/12/23 07:51 Dose: 1 tab Documented By: MELVA Calcium Carbonate (Calcium Carbonate 500 Mg Tablet) 500 mg PO BID [facility] Last Admin: 01/12/23 08:07 Dose: 500 mg Documented By: JULIO Cyanocobalamin (Cyanocobalamin (Vitamin B-12) 500 Mcg Tablet) 500 mcg PO DAILY [facility] Last Admin: 01/12/23 08:08 Dose: 500 mcg Documented By: JULIO Ergocalciferol (Ergocalciferol (Vitamin D2) 1,250 Mcg Capsule) 1,250 mcg PO MORENO [facility] Last Admin: 01/09/23 09:07 Dose: 1,250 mcg Documented By: ABILIO Ferrous Sulfate (Ferrous Sulfate 324 Mg Tablet.) 324 mg PO DAILY [facility] Last Admin: 01/12/23 08:08 Dose: 324 mg Documented By: JULIO Gabapentin (Gabapentin 100 Mg Capsule) 100 mg PO BID [facility] Last Admin: 01/12/23 08:08 Dose: 100 mg Documented By: JULIO Heparin Sodium (Porcine) (Heparin Sodium,Porcine 5,000 Unit/Ml Vial) 5,000 unit SUBCUT Q8H [facility] Last Admin: 01/12/23 03:32 Dose: 5,000 unit Documented By: BALTA Hydralazine HCl (Hydralazine Hcl 25 Mg Tablet) 75 mg PO TID [facility]; Protocol Last Admin: 01/12/23 08:09 Dose: 75 mg Documented By: JULIO Hydromorphone HCl (Hydromorphone Hcl 1 Mg/Ml Syringe) 1 mg IVPUSH Q4H PRN; Protocol PRN Reason: Pain, Severe (Pain Scale 7-10) Last Admin: 01/12/23 05:42 Dose: 1 mg Documented By: BALTA Vancomycin HCl 750 mg/ Sodium (Chloride) 265 mls @ 265 mls/hr IV Q12H [facility] Last Infusion: 01/11/23 23:20 Dose: 0 mls/hr Documented By: BALTA Piperacillin Sod/Tazobactam (Sod 3.375 gm/ Sodium Chloride) 50 mls @ 100 mls/hr IV Q6H [facility] Last Infusion: 01/12/23 06:36 Dose: 0 mls/hr Documented By: BALTA Lidocaine (Lidocaine 4 % Patch Adh..Patch) 1 patch TRANSDERMA DAILY [facility]; Protocol Last Admin: 01/12/23 08:21 Dose: Not Given Documented By: JULIO Non-Admin Reason: Patient Refused Magnesium Hydroxide (Milk Of Magnesia 30 Ml Oral.Susp) 30 ml PO DAILY PRN PRN Reason: Constipation Melatonin (Melatonin 3 Mg Tablet) 6 mg PO BEDTIME PRN PRN Reason: Insomnia Last Admin: 01/08/23 21:52 Dose: 6 mg Documented By: ABILIO Metformin HCl (Metformin Hcl Er 500 Mg Tab.Er.24h) 500 mg PO BID [facility] Last Admin: 01/12/23 08:08 Dose: 500 mg Documented By: JULIO Multivitamins/Vitamin C (Multivitamin Tablet) 1 tab PO DAILY [facility] Last Admin: 01/12/23 08:07 Dose: 1 tab Documented By: JULIO Pt Own (Exemestane (25 Mg Tablet)) 25 mg PO DAILY [facility] Last Admin: 01/12/23 08:13 Dose: 25 mg Documented By: JULIO Nystatin (Nystatin Oral Susp 500,000 Unit/5 Ml Oral.Susp) 500,000 unit PO QID [facility]; Protocol Last Admin: 01/12/23 08:08 Dose: 500,000 unit Documented By: JULIO Omeprazole (Omeprazole 20 Mg Capsule.Dr) 20 mg PO DAILY@0630 [facility] Last Admin: 01/12/23 05:41 Dose: 20 mg Documented By: BALTA Ondansetron HCl (Ondansetron Hcl 4 Mg/2 Ml Vial) 4 mg IVPUSH Q8H PRN PRN Reason: Nausea Oxycodone HCl (Oxycodone Hcl Immed Release 5 Mg Tablet) 5 mg PO Q4H PRN PRN Reason: Pain, Moderate (Pain Scale 4-6 Last Admin: 01/12/23 07:51 Dose: 5 mg Documented By: MELVA Propranolol HCl (Propranolol Hcl La 80 Mg Cap.Sa.24h) 80 mg PO DAILY [facility]; Protocol Last Admin: 01/12/23 08:07 Dose: 80 mg Documented By: JULIO Sodium Chloride (0.9 % Sodium Chloride Flush 3 Ml Syringe) 3 ml IVFLUSH QSHIFT [facility] Last Admin: 01/11/23 22:21 Dose: Not Given Documented By: BALTA Non-Admin Reason: IV Running Labs 01/02/23 05:51 01/12/23 05:42 Labs: Laboratory Results - last 24 hr 01/11/23 01/12/23 21:01 05:42 Estim Creat Clear Calc 59.2 Estimated GFR 45 Random Vancomycin 16.1 Assessment and Plan (1) Morbid obesity: Status: Acute (2) Acute osteomyelitis: Status: Acute (3) Abscess: Status: Acute Plan 72 year old female with morbid obesity and other medical problems as listed. She presents with right ankle redness, pain and swelling best described by the image, clinical presentation consistent with sepsis d/t cellulitis and concern for joint involvment. Left ankle Cellulitis and possible acute oseomyelitits and abscess, Sepsis,.? Sepsis clinically resolved -MRI 12/29:1. Large 12 cm abscess in the lateral subcutaneous fat at the level of the ankle and hindfoot with surrounding cellulitis and underlying osteomyelitis of the lateral malleolus. 2. Complex longitudinal tears of the peroneus longus and peroneus brevis tendons with associated tenosynovitis. Septic tenosynovitis is also possible. cpk normal Ortho did bedside I/D on 12/30, followed by OR for full exploration and lavage on? 12/31 culture so far negative -She has been on Vanco and Zosyn Surgery is being following, not sure if candidate for wound vac will discuss with surgery Gerd--Omeprazol Anxiety--Prorpanolol Morbid obesity--weight loss advised. possible migrane episode : given sumatriptan Heparin for DVT prophylaxis Full code inpatient need :sepsis, ankle cellulitis/abscess and expert evaluation for possible intervention, not able to due this in less acute setting at this time Time Spent With Patient Time: Total time managing care of this patient today ____ minutes. Quality Stroke Does the patient have a stroke diagnosis?: No VTE Prior VTE?: No VTE Risk Level:: Medical - moderate - high VTE Device Contraindication: Treatment Not Indicated VTE Drug Contraindication: N/A - Med Ordered
[2023-01-12] MEDS: 0.9 % Sodium Chloride Flush 3 ML SYRINGE IVFLUSH ×3 (10:33→23:47)
[2023-01-12] MEDS: vancomycin HCL 750 MG in 0.9 % Sodium Chloride 250 ML 265 MG IV ×2 (11:22→23:46)
--- NOTE | 2023-01-12 11:53 | MHC.CM.PN ---
AWAITING SURGICAL INPUT ABOUT WOUND VAC NEED.
[2023-01-12] MEDS: Acetaminophen 325 MG TABLET 650 MG PO (12:26)
[2023-01-12 15:42] VITALS: BP 138/62; PULSE 77; RESP 16; TEMP 36.4; O2SAT 93
--- NOTE | 2023-01-12 16:45 | PM.IDPN ---
Subjective Subjective Date of Service: 01/12/23 Critical Care Time (minutes): 15 Comment: she has less drainage foot she says Objective Data Labs 01/02/23 05:51 01/12/23 05:42 Labs: Laboratory Results - last 24 hr 01/11/23 01/12/23 21:01 05:42 Creatinine 1.19 Estim Creat Clear Calc 59.2 Estimated GFR 45 Random Vancomycin 16.1 Microbiology Microbiology Results: Microbiology 12/28/22 16:53 Blood - Venous Blood Culture - Final No growth after 5 days. 12/28/22 16:54 Blood - Venous Blood Culture - Final No growth after 5 days. Physical Exam Vital Signs: Vital Signs: Last Vital Signs Temp 97.6 F 01/12/23 15:42 Pulse 77 01/12/23 15:42 Resp 16 01/12/23 15:42 BP 138/62 01/12/23 15:42 Pulse Ox 93 01/12/23 15:42 O2 Del Method 01/12/23 15:42 O2 Flow Rate 2 01/11/23 21:20 BMI result Body Mass Index 43.8 Const: General: cooperative HEENT: Head: Yes normal to inspection Mouth: Normal oral and palatal mucosa present Resp: Effort & Inspection: normal respiratory effort Cardio: Rate: regular rate Rhythm: regular rhythm GI: Palpation (GI): Soft to palpation and not firm Extrem: Other: some swelling/drainage right foot lateral Assessment and Plan Assessment and plan (1) Acute osteomyelitis: Problem details: She has osteomyelitis lateral right foot. She has wrap on,wound vac discussed. Status: Acute Plan IV Ertapenem 1 g daily for six weeks. Follow Wound Care. Time Spent With Patient Time: Total time managing care of this patient today ____ minutes.
--- NOTE | 2023-01-12 16:56 | PC.NURSE ---
Red rash right knee area ,patient asking for Benadryl for it,Dr. Sadler notified
[2023-01-12 19:45] VITALS: BP 136/63; PULSE 84; RESP 16; TEMP 36.6; O2SAT 93
[2023-01-12 21:46] LABS: Glucose, Whole Blood 133 mg/dL (60-115)
[2023-01-12] MEDS: Melatonin 3 MG TABLET 6 MG PO (21:47)
[2023-01-13] VITALS: BP 139/63; PULSE 76; RESP 18; TEMP 36.2; O2SAT 94
[2023-01-13] MEDS: HYDROmorphone HCl 1 MG/ML SYRINGE IVPUSH ×5 (00:51→22:21)
[2023-01-13 02:49] VITALS: BP 137/62; PULSE 86; RESP 18; TEMP 36.3; O2SAT 94
[2023-01-13] MEDS: Butalb/Acetamin/Caff 50/325/40 TABLET 1 TAB PO ×2 (02:53→20:07)
[2023-01-13] MEDS: Piperacillin Sodium/Tazobactam 3.375 GM in 0.9 % Sodium Chloride 50 ML IV ×4 (05:08→22:24)
[2023-01-13] MEDS: Heparin Sodium,Porcine 5,000 UNIT/ML VIAL 5000 UNIT SUBCUT ×3 (05:08→20:08)
[2023-01-13] MEDS: Omeprazole 20 MG CAPSULE.DR PO (05:36)
[2023-01-13 08:01] VITALS: BP 119/74; PULSE 74; RESP 18; TEMP 36.7; O2SAT 95
[2023-01-13] MEDS: Propranolol HCL LA 80 MG CAP.SA.24H PO (08:44)
[2023-01-13] MEDS: Multivitamin TABLET 1 TAB PO (08:45)
[2023-01-13] MEDS: Gabapentin 100 MG CAPSULE PO ×2 (08:45→20:10)
[2023-01-13] MEDS: hydrALAZINE HCl 25 MG TABLET 75 MG PO ×3 (08:45→20:10)
[2023-01-13] MEDS: Ferrous Sulfate 324 MG TABLET.DR PO (08:46)
[2023-01-13] MEDS: metFORMIN HCl ER 500 MG TAB.ER.24H PO ×2 (08:46→20:11)
[2023-01-13] MEDS: Cyanocobalamin (Vitamin B-12) 500 MCG TABLET PO (08:46)
[2023-01-13] MEDS: 0.9 % Sodium Chloride Flush 3 ML SYRINGE IVFLUSH ×2 (08:47→15:19)
[2023-01-13 09:28] LABS: Creatinine Clr Calc Pharmacy 63.4; Estimated Glomerular Filt Rate 48; Vancomycin Random 14.4 mcg/mL (15-20)
[2023-01-13] MEDS: Nystatin Oral Susp 500,000 UNIT/5 ML ORAL.SUSP 500000 UNIT PO ×3 (11:06→20:10)
[2023-01-13] MEDS: Acetaminophen 325 MG TABLET 650 MG PO (11:19)
[2023-01-13] MEDS: vancomycin HCL 750 MG in 0.9 % Sodium Chloride 250 ML 265 MG IV ×2 (11:47→23:00)
[2023-01-13 15:00] VITALS: BP 124/59; PULSE 77; RESP 16; TEMP 36.6; O2SAT 93
--- NOTE | 2023-01-13 15:23 | PC.NURSE ---
RIGHT KNEE RASH PRESENT,WORSE SINCE YESTERDAY,Dr. Sadler notified,patient denies pain or itchyness
[2023-01-13 15:55] VITALS: BP 125/58; PULSE 80; RESP 16; TEMP 36.8; O2SAT 95
--- NOTE | 2023-01-13 17:05 | P.PNGS_ITS ---
Subjective Subjective Date of Service: 01/13/23 Interval history: Patient reports increased right foot pain this afternoon. Also complains of chest congestion and cough. Has a new rash involving the right knee. Left arm rashes improved as is the left foot rash. Physical Exam Vital Signs: Vital Signs: Last Vital Signs Temp 98.3 F 01/13/23 15:55 Pulse 80 01/13/23 15:55 Resp 16 01/13/23 15:55 BP 125/58 L 01/13/23 15:55 Pulse Ox 95 01/13/23 15:55 O2 Del Method 01/13/23 15:55 O2 Flow Rate 2 01/11/23 21:20 BMI result Body Mass Index 43.8 Const: General: anxious and tired appearing Nutritional Appearance: well nourished Orientation/consciousness: patient oriented x3 Resp: Other: Short of breath, inspiratory wheezing GI: Inspection: Yes normal to inspection Skin: Other: Left arm with no further rash. Right knee with a reddened area measuring approximately 5 cm around. No fluctuance appreciated. No skin necrosis. Right foot with increased necrotic skin and subcutaneous tissue. Neuro: General: patient oriented x3 Objective Data Active Medications Acetaminophen (Acetaminophen 325 Mg Tablet) 650 mg PO Q6H PRN PRN Reason: Pain, Mild (Pain Scale 1-3) Last Admin: 01/13/23 11:19 Dose: 650 mg Documented By: MELVA Acetaminophen/Butalbital/Caffeine (Butalb/Acetamin/Caff 50/325/40 Tablet) 1 tab PO Q4H PRN PRN Reason: Headache Last Admin: 01/13/23 02:53 Dose: 1 tab Documented By: ARA Calcium Carbonate (Calcium Carbonate 500 Mg Tablet) 500 mg PO BID [facility] Last Admin: 01/13/23 08:45 Dose: 500 mg Documented By: MELVA Cyanocobalamin (Cyanocobalamin (Vitamin B-12) 500 Mcg Tablet) 500 mcg PO DAILY [facility] Last Admin: 01/13/23 08:46 Dose: 500 mcg Documented By: MELVA Ergocalciferol (Ergocalciferol (Vitamin D2) 1,250 Mcg Capsule) 1,250 mcg PO MORENO [facility] Last Admin: 01/09/23 09:07 Dose: 1,250 mcg Documented By: ABILIO Ferrous Sulfate (Ferrous Sulfate 324 Mg Tablet.) 324 mg PO DAILY [facility] Last Admin: 01/13/23 08:46 Dose: 324 mg Documented By: MELVA Gabapentin (Gabapentin 100 Mg Capsule) 100 mg PO BID [facility] Last Admin: 01/13/23 08:45 Dose: 100 mg Documented By: MELVA Heparin Sodium (Porcine) (Heparin Sodium,Porcine 5,000 Unit/Ml Vial) 5,000 unit SUBCUT Q8H [facility] Last Admin: 01/13/23 11:47 Dose: 5,000 unit Documented By: MELVA Hydralazine HCl (Hydralazine Hcl 25 Mg Tablet) 75 mg PO TID [facility]; Protocol Last Admin: 01/13/23 14:36 Dose: 75 mg Documented By: MELVA Hydromorphone HCl (Hydromorphone Hcl 1 Mg/Ml Syringe) 1 mg IVPUSH Q3H PRN; Protocol PRN Reason: Pain, Severe (Pain Scale 7-10) Vancomycin HCl 750 mg/ Sodium (Chloride) 265 mls @ 265 mls/hr IV Q12H [facility] Last Infusion: 01/13/23 13:41 Dose: 265 mls/hr Documented By: MELVA Piperacillin Sod/Tazobactam (Sod 3.375 gm/ Sodium Chloride) 50 mls @ 100 mls/hr IV Q6H [facility] Last Infusion: 01/13/23 11:54 Dose: 100 mls/hr Documented By: MELVA Lidocaine (Lidocaine 4 % Patch Adh..Patch) 1 patch TRANSDERMA DAILY [facility]; Protocol Last Admin: 01/13/23 08:57 Dose: Not Given Documented By: MELVA Non-Admin Reason: Patient Refused Magnesium Hydroxide (Milk Of Magnesia 30 Ml Oral.Susp) 30 ml PO DAILY PRN PRN Reason: Constipation Melatonin (Melatonin 3 Mg Tablet) 6 mg PO BEDTIME PRN PRN Reason: Insomnia Last Admin: 01/12/23 21:47 Dose: 6 mg Documented By: NAZ Metformin HCl (Metformin Hcl Er 500 Mg Tab.Er.24h) 500 mg PO BID [facility] Last Admin: 01/13/23 08:46 Dose: 500 mg Documented By: MELVA Multivitamins/Vitamin C (Multivitamin Tablet) 1 tab PO DAILY [facility] Last Admin: 01/13/23 08:45 Dose: 1 tab Documented By: MELVA Pt Own (Exemestane (25 Mg Tablet)) 25 mg PO DAILY [facility] Last Admin: 01/13/23 08:46 Dose: 25 mg Documented By: MELVA Nystatin (Nystatin Oral Susp 500,000 Unit/5 Ml Oral.Susp) 500,000 unit PO QID [facility]; Protocol Last Admin: 01/13/23 11:06 Dose: 500,000 unit Documented By: MELVA Omeprazole (Omeprazole 20 Mg Capsule.Dr) 20 mg PO DAILY@0630 [facility] Last Admin: 01/13/23 05:36 Dose: 20 mg Documented By: ARA Ondansetron HCl (Ondansetron Hcl 4 Mg/2 Ml Vial) 4 mg IVPUSH Q8H PRN PRN Reason: Nausea Propranolol HCl (Propranolol Hcl La 80 Mg Cap.Sa.24h) 80 mg PO DAILY [facility]; Protocol Last Admin: 01/13/23 08:44 Dose: 80 mg Documented By: MELVA Sodium Chloride (0.9 % Sodium Chloride Flush 3 Ml Syringe) 3 ml IVFLUSH QSHIFT [facility] Last Admin: 01/13/23 15:19 Dose: 3 ml Documented By: BEIT Labs 01/02/23 05:51 01/13/23 08:43 Labs: Laboratory Results - last 24 hr 01/12/23 01/13/23 01/13/23 21:35 08:43 08:43 Estim Creat Clear Calc 63.4 Estimated GFR 48 POC Glucose 133 H Random Vancomycin 14.4 L Procedures Date of Service Date of Service: 01/13/23 Progress Note: A&P Assessment and plan (1) Right foot ulcer: Status: Acute Plan Patient continues to have pain from the right foot and review of the wound reveals areas of necrotic skin and subcutaneous tissue which will require further debridement. I recommended applying a wound VAC after debridement. After discussion of the procedure, risks and alternatives, she consents to the procedure which was performed in the operating room tomorrow. Time Spent With Patient Time: Total time managing care of this patient today ____ minutes. Quality Stroke Does the patient have a stroke diagnosis?: No VTE Prior VTE?: No VTE Risk Level:: Medical - moderate - high VTE Device Contraindication: Treatment Not Indicated VTE Drug Contraindication: N/A - Med Ordered
[2023-01-13 18:56] LABS: COVID-19 Test Negative (Negative); IDNOW Serial# 16C4AD1C
[2023-01-13 19:58] VITALS: BP 132/63; PULSE 87; RESP 17; TEMP 36.6; O2SAT 95
[2023-01-14] VITALS (13 sets, daily range): BP systolic 131–168; BP diastolic 57–96; PULSE 65–83; RESP 14–22; TEMP 36.3–37.8; O2SAT 93–100
[2023-01-14] MEDS: 0.9 % Sodium Chloride Flush 3 ML SYRINGE IVFLUSH ×3 (00:02→17:03)
[2023-01-14] MEDS: Butalb/Acetamin/Caff 50/325/40 TABLET 1 TAB PO ×4 (00:14→20:18)
[2023-01-14] MEDS: HYDROmorphone HCl 1 MG/ML SYRINGE IVPUSH ×5 (02:14→21:35)
[2023-01-14] MEDS: Piperacillin Sodium/Tazobactam 3.375 GM in 0.9 % Sodium Chloride 50 ML IV ×3 (04:17→17:04)
[2023-01-14] MEDS: Heparin Sodium,Porcine 5,000 UNIT/ML VIAL 5000 UNIT SUBCUT ×2 (04:18→20:11)
[2023-01-14 07:59] LABS: Creatinine Clr Calc Pharmacy 65.8; Estimated Glomerular Filt Rate 50
[2023-01-14] MEDS: hydrALAZINE HCl 25 MG TABLET 75 MG PO ×2 (08:16→17:13)
[2023-01-14] MEDS: Gabapentin 100 MG CAPSULE PO ×2 (08:17→20:13)
[2023-01-14] MEDS: Propranolol HCL LA 80 MG CAP.SA.24H PO (08:24)
[2023-01-14] MEDS: Nystatin Oral Susp 500,000 UNIT/5 ML ORAL.SUSP 500000 UNIT PO ×3 (08:25→20:13)
--- NOTE | 2023-01-14 09:34 | HO.PM.IMPN ---
Subjective Subjective Date of Service: 01/14/23 Interval History: f/u on right ankle wound, able to ambulate on the foot, less drainage--see picture, now agreable for wound vac Review of Systems denies any muscle pain or joint pain no fevers has headaches-likley migrane . Physical Exam Vital Signs: Vital Signs: Last Vital Signs Temp 98.0 F 01/14/23 08:00 Pulse 80 01/14/23 08:00 Resp 20 01/14/23 08:00 BP 148/72 H 01/14/23 08:00 Pulse Ox 94 01/14/23 08:00 O2 Del Method 01/14/23 08:00 O2 Flow Rate 2 01/11/23 21:20 BMI result Body Mass Index 43.8 Const: Other: General: AO X 3, no acute distress Resp: CTA bilateral CVS: S1,S2,RRR GI: +BS, NT, no distention Skin: see picture Neuro: motor grossly intact Psych: appropriate affect Skin: Other: Left arm with no further rash. Right knee with a reddened area measuring approximately 5 cm around. No fluctuance appreciated. No skin necrosis. Right foot with increased necrotic skin and subcutaneous tissue. Objective Data Active Medications Acetaminophen (Acetaminophen 325 Mg Tablet) 650 mg PO Q6H PRN PRN Reason: Pain, Mild (Pain Scale 1-3) Last Admin: 01/13/23 11:19 Dose: 650 mg Documented By: MELVA Acetaminophen/Butalbital/Caffeine (Butalb/Acetamin/Caff 50/325/40 Tablet) 1 tab PO Q4H PRN PRN Reason: Headache Last Admin: 01/14/23 08:17 Dose: 1 tab Documented By: MELVA Calcium Carbonate (Calcium Carbonate 500 Mg Tablet) 500 mg PO BID [facility] Last Admin: 01/14/23 08:28 Dose: Not Given Documented By: MELVA Non-Admin Reason: NPO Cyanocobalamin (Cyanocobalamin (Vitamin B-12) 500 Mcg Tablet) 500 mcg PO DAILY [facility] Last Admin: 01/14/23 08:28 Dose: Not Given Documented By: MELVA Non-Admin Reason: NPO Ergocalciferol (Ergocalciferol (Vitamin D2) 1,250 Mcg Capsule) 1,250 mcg PO MORENO [facility] Last Admin: 01/09/23 09:07 Dose: 1,250 mcg Documented By: ABILIO Ferrous Sulfate (Ferrous Sulfate 324 Mg Tablet.Dr) 324 mg PO DAILY [facility] Last Admin: 01/14/23 08:29 Dose: Not Given Documented By: MELVA Non-Admin Reason: Patient Refused Gabapentin (Gabapentin 100 Mg Capsule) 100 mg PO BID [facility] Last Admin: 01/14/23 08:17 Dose: 100 mg Documented By: MELVA Heparin Sodium (Porcine) (Heparin Sodium,Porcine 5,000 Unit/Ml Vial) 5,000 unit SUBCUT Q8H [facility] Last Admin: 01/14/23 04:18 Dose: 5,000 unit Documented By: ARA Hydralazine HCl (Hydralazine Hcl 25 Mg Tablet) 75 mg PO TID [facility]; Protocol Last Admin: 01/14/23 08:16 Dose: 75 mg Documented By: MELVA Hydromorphone HCl (Hydromorphone Hcl 1 Mg/Ml Syringe) 1 mg IVPUSH Q3H PRN; Protocol PRN Reason: Pain, Severe (Pain Scale 7-10) Last Admin: 01/14/23 06:11 Dose: 1 mg Documented By: ARA Vancomycin HCl 750 mg/ Sodium (Chloride) 265 mls @ 265 mls/hr IV Q12H [facility] Last Infusion: 01/14/23 00:21 Dose: 0 mls/hr Documented By: ARA Piperacillin Sod/Tazobactam (Sod 3.375 gm/ Sodium Chloride) 50 mls @ 100 mls/hr IV Q6H [facility] Last Infusion: 01/14/23 04:51 Dose: 0 mls/hr Documented By: ARA Lidocaine (Lidocaine 4 % Patch Adh..Patch) 1 patch TRANSDERMA DAILY [facility]; Protocol Last Admin: 01/14/23 08:29 Dose: Not Given Documented By: MELVA Non-Admin Reason: Patient Refused Magnesium Hydroxide (Milk Of Magnesia 30 Ml Oral.Susp) 30 ml PO DAILY PRN PRN Reason: Constipation Melatonin (Melatonin 3 Mg Tablet) 6 mg PO BEDTIME PRN PRN Reason: Insomnia Last Admin: 01/12/23 21:47 Dose: 6 mg Documented By: NAZ Metformin HCl (Metformin Hcl Er 500 Mg Tab.Er.24h) 500 mg PO BID [facility] Last Admin: 01/14/23 08:29 Dose: Not Given Documented By: MELVA Non-Admin Reason: NPO Multivitamins/Vitamin C (Multivitamin Tablet) 1 tab PO DAILY [facility] Last Admin: 01/14/23 08:29 Dose: Not Given Documented By: MELVA Non-Admin Reason: NPO Pt Own (Exemestane (25 Mg Tablet)) 25 mg PO DAILY [facility] Last Admin: 01/13/23 08:46 Dose: 25 mg Documented By: MELVA Nystatin (Nystatin Oral Susp 500,000 Unit/5 Ml Oral.Susp) 500,000 unit PO QID [facility]; Protocol Last Admin: 01/14/23 08:25 Dose: 500,000 unit Documented By: MELVA Omeprazole (Omeprazole 20 Mg Capsule.Dr) 20 mg PO DAILY@0630 [facility] Last Admin: 01/14/23 06:14 Dose: Not Given Documented By: ARA Non-Admin Reason: NPO Ondansetron HCl (Ondansetron Hcl 4 Mg/2 Ml Vial) 4 mg IVPUSH Q8H PRN PRN Reason: Nausea Propranolol HCl (Propranolol Hcl La 80 Mg Cap.Sa.24h) 80 mg PO DAILY [facility]; Protocol Last Admin: 01/14/23 08:24 Dose: 80 mg Documented By: MELVA Sodium Chloride (0.9 % Sodium Chloride Flush 3 Ml Syringe) 3 ml IVFLUSH QSHIFT [facility] Last Admin: 01/14/23 08:28 Dose: 3 ml Documented By: MELVA Labs 01/02/23 05:51 01/14/23 05:30 Labs: Laboratory Results - last 24 hr 01/13/23 01/14/23 18:25 05:30 Estim Creat Clear Calc 65.8 Estimated GFR 50 COVID-19 ([facility]) Negative COVID-19 Clin Com See Note Assessment and Plan (1) Morbid obesity: Status: Acute (2) Acute osteomyelitis: Status: Acute (3) Abscess: Status: Acute Plan 72 year old female with morbid obesity and other medical problems as listed. She presents with right ankle redness, pain and swelling best described by the image, clinical presentation consistent with sepsis d/t cellulitis and concern for joint involvment. Left ankle Cellulitis and acute oseomyelitits and abscess, Sepsis,.? Sepsis clinically resolved -MRI 12/29:1. Large 12 cm abscess in the lateral subcutaneous fat at the level of the ankle and hindfoot with surrounding cellulitis and underlying osteomyelitis of the lateral malleolus. 2. Complex longitudinal tears of the peroneus longus and peroneus brevis tendons with associated tenosynovitis. Septic tenosynovitis is also possible. cpk normal Ortho did bedside I/D on 12/30, followed by OR for full exploration and lavage on? 12/31 culture so far negative -She has been on Vanco and Zosyn Surgery to do debridment in OR today and apply wound vac Gerd--Omeprazol Anxiety--Prorpanolol Morbid obesity--weight loss advised. Cluster migrane episode : given sumatriptan, Fiorocet Heparin for DVT prophylaxis Full code inpatient need :sepsis, ankle cellulitis/abscess and expert evaluation for possible intervention, not able to due this in less acute setting at this time Time Spent With Patient Time: Total time managing care of this patient today ____ minutes. Quality Stroke Does the patient have a stroke diagnosis?: No VTE Prior VTE?: No VTE Risk Level:: Medical - moderate - high VTE Device Contraindication: Treatment Not Indicated VTE Drug Contraindication: N/A - Med Ordered
[2023-01-14] MEDS: vancomycin HCL 750 MG in 0.9 % Sodium Chloride 250 ML 265 MG IV (12:08)
--- NOTE | 2023-01-14 13:37 | HO.ANESPROP2 ---
[facility] Active Problems Active Problems: All Active Problems (Updated 01/13/23 @ 17:13 by Luís Hui MD) Abnormal ultrasound of breast (Acute) Lobular carcinoma of right breast (Acute) Abscess of left axilla (Acute) Insomnia (Acute) Bilateral breast cancer (Acute) Cellulitis of right lower extremity (Acute) Abscess (Acute) Morbid obesity (Acute) Acute osteomyelitis (Acute) Right foot ulcer (Acute) Invasive ductal carcinoma of left breast (Acute) Past Medical History Medical History Anemia Arthritis COVID-19 vaccine administered Diverticulitis GERD (gastroesophageal reflux disease) Insomnia Invasive ductal carcinoma of left breast Lobular carcinoma in situ of right breast Migraines Morbid obesity Situational anxiety Situational depression Patient : No Family History Family History Mother Glioblastoma Father Lung cancer Paternal Grandmother Cancer of unknown origin Family history of problems with anesthesia: No Surgical History Surgical History History of bilateral breast biopsy History of colon resection History of colostomy reversal History of incision and drainage Hx of colonoscopy S/P debridement History of Problems with Anesthesia: No Social History Social History Household Members: Spouse Housing: House Are you a primary social worker palliative care to a significant other at home: No Do you presently have visiting nurse or other home services: No Alcohol intake: never Patient Tobacco Use Status: Never used Tobacco Second Hand Smoke Exposure: No service: No Current occupational status: employed Meds Allergies Allergy/AdvReac Type Severity Reaction Status Date / Time fluoxetine [Prozac] Allergy Unknown worsening Verified 04/15/22 10:32 depression gabapentin Allergy Unknown irritabilit Verified 04/15/22 10:32 y Iodinated Contrast Media Allergy Unknown RASH Verified 04/15/22 10:32 [IV CONTRAST] nortriptyline Allergy Unknown irritabilit Verified 04/15/22 10:32 y topiramate Allergy Unknown mild Verified 04/15/22 10:32 depression verapamil Allergy Unknown irritabilit Verified 04/15/22 10:32 y food allergies Allergy Unknown Sneezing Uncoded 04/15/22 10:32 Active Medications: Current Medications Acetaminophen (Acetaminophen 325 Mg Tablet) 650 mg PO Q6H PRN PRN Reason: Pain, Mild (Pain Scale 1-3) Last Admin: 01/13/23 11:19 Dose: 650 mg Acetaminophen/Butalbital/Caffeine (Butalb/Acetamin/Caff 50/325/40 Tablet) 1 tab PO Q4H PRN PRN Reason: Headache Last Admin: 01/14/23 08:17 Dose: 1 tab Calcium Carbonate (Calcium Carbonate 500 Mg Tablet) 500 mg PO BID [facility] Last Admin: 01/14/23 08:28 Dose: Not Given Cyanocobalamin (Cyanocobalamin (Vitamin B-12) 500 Mcg Tablet) 500 mcg PO DAILY [facility] Last Admin: 01/14/23 08:28 Dose: Not Given Ergocalciferol (Ergocalciferol (Vitamin D2) 1,250 Mcg Capsule) 1,250 mcg PO MORENO [facility] Last Admin: 01/09/23 09:07 Dose: 1,250 mcg Ferrous Sulfate (Ferrous Sulfate 324 Mg Tablet.Dr) 324 mg PO DAILY [facility] Last Admin: 01/14/23 08:29 Dose: Not Given Gabapentin (Gabapentin 100 Mg Capsule) 100 mg PO BID [facility] Last Admin: 01/14/23 08:17 Dose: 100 mg Heparin Sodium (Porcine) (Heparin Sodium,Porcine 5,000 Unit/Ml Vial) 5,000 unit SUBCUT Q8H [facility] Last Admin: 01/14/23 04:18 Dose: 5,000 unit Hydralazine HCl (Hydralazine Hcl 25 Mg Tablet) 75 mg PO TID [facility]; Protocol Last Admin: 01/14/23 08:16 Dose: 75 mg Hydromorphone HCl (Hydromorphone Hcl 1 Mg/Ml Syringe) 1 mg IVPUSH Q3H PRN; Protocol PRN Reason: Pain, Severe (Pain Scale 7-10) Last Admin: 01/14/23 11:15 Dose: 1 mg Vancomycin HCl 750 mg/ Sodium (Chloride) 265 mls @ 265 mls/hr IV Q12H [facility] Last Admin: 01/14/23 12:08 Dose: 265 mls/hr Piperacillin Sod/Tazobactam (Sod 3.375 gm/ Sodium Chloride) 50 mls @ 100 mls/hr IV Q6H [facility] Last Infusion: 01/14/23 12:19 Dose: Infused Lidocaine (Lidocaine 4 % Patch Adh..Patch) 1 patch TRANSDERMA DAILY [facility]; Protocol Last Admin: 01/14/23 08:29 Dose: Not Given Magnesium Hydroxide (Milk Of Magnesia 30 Ml Oral.Susp) 30 ml PO DAILY PRN PRN Reason: Constipation Melatonin (Melatonin 3 Mg Tablet) 6 mg PO BEDTIME PRN PRN Reason: Insomnia Last Admin: 01/12/23 21:47 Dose: 6 mg Metformin HCl (Metformin Hcl Er 500 Mg Tab.Er.24h) 500 mg PO BID [facility] Last Admin: 01/14/23 08:29 Dose: Not Given Multivitamins/Vitamin C (Multivitamin Tablet) 1 tab PO DAILY [facility] Last Admin: 01/14/23 08:29 Dose: Not Given Pt Own (Exemestane (25 Mg Tablet)) 25 mg PO DAILY [facility] Last Admin: 01/14/23 11:19 Dose: Not Given Nystatin (Nystatin Oral Susp 500,000 Unit/5 Ml Oral.Susp) 500,000 unit PO QID [facility]; Protocol Last Admin: 01/14/23 08:25 Dose: 500,000 unit Omeprazole (Omeprazole 20 Mg Capsule.Dr) 20 mg PO DAILY@0630 [facility] Last Admin: 01/14/23 06:14 Dose: Not Given Ondansetron HCl (Ondansetron Hcl 4 Mg/2 Ml Vial) 4 mg IVPUSH Q8H PRN PRN Reason: Nausea Propranolol HCl (Propranolol Hcl La 80 Mg Cap.Sa.24h) 80 mg PO DAILY [facility]; Protocol Last Admin: 01/14/23 08:24 Dose: 80 mg Sodium Chloride (0.9 % Sodium Chloride Flush 3 Ml Syringe) 3 ml IVFLUSH QSHIFT [facility] Last Admin: 01/14/23 08:28 Dose: 3 ml Home Medications Medication Instructions Recorded Confirmed Last Taken Type ferrous gluconate 324 mg (38 mg 324 mg PO BID 02/17/21 12/28/22 05/12/21 History iron) tablet omeprazole 20 mg capsule,delayed 20 mg PO DAILY 02/17/21 12/28/22 12/28/22 History release naratriptan 2.5 mg tablet 1 tab PO DAILY MRX1 PRN Migraine 03/26/21 12/28/22 Unknown History Headache propranolol 80 mg capsule,24 1 cap PO DAILY 03/26/21 12/28/2204/01/21 History hr,extended release exemestane 25 mg tablet 25 mg PO DAILY 04/15/22 12/28/22 12/28/22 History calcium carbonate 500 mg calcium 500 mg PO BID 12/28/22 12/28/22 Unknown History (1,250 mg) tablet cyanocobalamin (vitamin B-12) 500 500 mcg PO DAILY 12/28/22 12/28/22 Unknown History mcg tablet ergocalciferol (vitamin D2) 1,250 1,250 mcg PO MORENO 12/28/22 12/28/22 Unknown History mcg (50,000 unit) capsule metformin 500 mg tablet,extended 500 mg PO BID 12/28/22 12/28/22 12/28/22 History release 24 hr multivitamin 1 tab PO DAILY 12/28/22 12/28/22 Unknown History oxycodone-acetaminophen 5 mg-325 1 tab PO QID PRN Pain (Scale Score 12/28/22 12/28/22 12/28/22 History mg tablet 7-10) Exam Exam Date and Time: January 14, 2023 1337 Height,Weight and Vital Signs: Height 5 ft 7 in Weight 127.006 kg Last Vital Signs Temp 98.0 F 01/14/23 08:00 Pulse 80 01/14/23 08:00 Resp 20 01/14/23 08:00 BP 148/72 H 01/14/23 08:00 Pulse Ox 94 01/14/23 08:00 O2 Del Method 01/14/23 08:00 O2 Flow Rate 2 01/11/23 21:20 Pertinent Lab Results Pertinent Lab Results: Laboratory Tests 12/28/22 12/28/22 12/28/22 16:53 16:53 16:53 WBC 21.4 H RBC 4.38 Hgb 11.9 L Hct 36.4 L MCV 83.1 MCH 27.2 MCHC 32.7 RDW 12.9 Plt Count 531 H MPV 8.4 L Immature Gran % (Auto) 1.9 H Neut % (Auto) 89.1 H Lymph % (Auto) 3.6 L [place] % (Auto) 5.3 Eos % (Auto) 0.0 Baso % (Auto) 0.1 Lymph # (Auto) 0.8 L [place] # (Auto) 1.1 Eos # (Auto) 0.0 Baso # (Auto) 0.0 Abs Immat Gran (auto) 0.40 H Absolute Neuts (auto) 19.1 H Absolute Nucleated RBC 0.000 Nucleated RBC % (auto) 0.0 Smear Tech's Comments D-Dimer High Sensitivty 1100 Sodium 133 L Potassium 4.3 Chloride 96 Carbon Dioxide 23 Anion Gap 18 BUN 14 Creatinine 0.73 Estim Creat Clear Calc 96.5 Estimated GFR > 60 POC Glucose Random Glucose 217 H Lactic Acid Calcium 9.3 D Total Bilirubin Direct Bilirubin AST ALT Alkaline Phosphatase Total Creatine Kinase Troponin I High Sens Total Protein Albumin Vancomycin Trough Random Vancomycin COVID-19 ([facility]AMICA) COVID-Anyvite 12/28/22 12/28/22 12/29/22 17:35 17:36 05:34 WBC 20.7 H RBC 3.94 L Hgb 10.6 L Hct 32.8 L MCV 83.2 MCH 26.9 L MCHC 32.3 RDW 12.9 Plt Count 486 H MPV 8.4 L Immature Gran % (Auto) 2.3 H Neut % (Auto) 82.7 H Lymph % (Auto) 6.3 L [place] % (Auto) 8.5 Eos % (Auto) 0.1 Baso % (Auto) 0.1 Lymph # (Auto) 1.3 [place] # (Auto) 1.8 H Eos # (Auto) 0.0 Baso # (Auto) 0.0 Abs Immat Gran (auto) 0.47 H Absolute Neuts (auto) 17.1 H Absolute Nucleated RBC 0.000 Nucleated RBC % (auto) 0.0 Smear Tech's Comments VERIFIED D-Dimer High Sensitivty Sodium Potassium Chloride Carbon Dioxide Anion Gap BUN Creatinine Estim Creat Clear Calc Estimated GFR POC Glucose Random Glucose Lactic Acid 1.2 Calcium Total Bilirubin Direct Bilirubin AST ALT Alkaline Phosphatase Total Creatine Kinase Troponin I High Sens Total Protein Albumin Vancomycin Trough Random Vancomycin COVID-19 ([facility]AMICA) Negative COVID-Anyvite See Note 12/29/22 12/29/22 12/30/22 05:34 20:22 05:50 WBC RBC Hgb Hct MCV MCH MCHC RDW Plt Count MPV Immature Gran % (Auto) Neut % (Auto) Lymph % (Auto) [place] % (Auto) Eos % (Auto) Baso % (Auto) Lymph # (Auto) [place] # (Auto) Eos # (Auto) Baso # (Auto) Abs Immat Gran (auto) Absolute Neuts (auto) Absolute Nucleated RBC Nucleated RBC % (auto) Smear Tech's Comments D-Dimer High Sensitivty Sodium Potassium Chloride Carbon Dioxide Anion Gap BUN Creatinine 0.69 Estim Creat Clear Calc 102.1 Estimated GFR > 60 POC Glucose 158 H Random Glucose Lactic Acid Calcium Total Bilirubin Direct Bilirubin AST ALT Alkaline Phosphatase Total Creatine Kinase Troponin I High Sens Total Protein Albumin Vancomycin Trough 7.6 L Random Vancomycin COVID-19 ([facility]) COVID-19 ExSafe 12/30/22 12/30/22 12/31/22 05:50 07:45 05:08 WBC RBC Hgb Hct MCV MCH MCHC RDW Plt Count MPV Immature Gran % (Auto) Neut % (Auto) Lymph % (Auto) [place] % (Auto) Eos % (Auto) Baso % (Auto) Lymph # (Auto) [place] # (Auto) Eos # (Auto) Baso # (Auto) Abs Immat Gran (auto) Absolute Neuts (auto) Absolute Nucleated RBC Nucleated RBC % (auto) Smear Tech's Comments D-Dimer High Sensitivty Sodium Potassium Chloride Carbon Dioxide Anion Gap BUN Creatinine 0.71 Estim Creat Clear Calc 99.2 Estimated GFR > 60 POC Glucose 154 H Random Glucose Lactic Acid Calcium Total Bilirubin Direct Bilirubin AST ALT Alkaline Phosphatase Total Creatine Kinase Troponin I High Sens Total Protein Albumin Vancomycin Trough Random Vancomycin 12.9 L COVID-19 ([facility]) COVID-19 ExSafe 12/31/22 12/31/22 01/01/23 05:08 10:49 06:54 WBC RBC Hgb Hct MCV MCH MCHC RDW Plt Count MPV Immature Gran % (Auto) Neut % (Auto) Lymph % (Auto) [place] % (Auto) Eos % (Auto) Baso % (Auto) Lymph # (Auto) [place] # (Auto) Eos # (Auto) Baso # (Auto) Abs Immat Gran (auto) Absolute Neuts (auto) Absolute Nucleated RBC Nucleated RBC % (auto) Smear Tech's Comments D-Dimer High Sensitivty Sodium Potassium Chloride Carbon Dioxide Anion Gap BUN Creatinine 0.71 Estim Creat Clear Calc 99.2 Estimated GFR > 60 POC Glucose 123 H Random Glucose Lactic Acid Calcium Total Bilirubin Direct Bilirubin AST ALT Alkaline Phosphatase Total Creatine Kinase Troponin I High Sens Total Protein Albumin Vancomycin Trough 16.6 Random Vancomycin COVID-19 ([facility]) COVID-19 ExSafe 01/01/23 01/02/23 01/02/23 06:54 05:51 05:51 WBC RBC Hgb Hct MCV MCH MCHC RDW Plt Count MPV Immature Gran % (Auto) Neut % (Auto) Lymph % (Auto) [place] % (Auto) Eos % (Auto) Baso % (Auto) Lymph # (Auto) [place] # (Auto) Eos # (Auto) Baso # (Auto) Abs Immat Gran (auto) Absolute Neuts (auto) Absolute Nucleated RBC Nucleated RBC % (auto) Smear Tech's Comments D-Dimer High Sensitivty Sodium Potassium Chloride Carbon Dioxide Anion Gap BUN Creatinine 0.81 0.93 Estim Creat Clear Calc 87.0 75.7 Estimated GFR > 60 59 POC Glucose Random Glucose Lactic Acid Calcium Total Bilirubin Direct Bilirubin AST ALT Alkaline Phosphatase Total Creatine Kinase Troponin I High Sens Total Protein Albumin Vancomycin Trough 21.0 H Random Vancomycin COVID-19 ([facility]) COVID-Anyvite 01/02/23 01/03/23 01/03/23 05:51 05:43 10:13 WBC 14.1 H RBC 3.45 L Hgb 9.3 L Hct 29.8 L MCV 86.4 MCH 27.0 MCHC 31.2 RDW 13.1 Plt Count 498 H MPV 8.9 L Immature Gran % (Auto) Neut % (Auto) Lymph % (Auto) [place] % (Auto) Eos % (Auto) Baso % (Auto) Lymph # (Auto) [place] # (Auto) Eos # (Auto) Baso # (Auto) Abs Immat Gran (auto) Absolute Neuts (auto) Absolute Nucleated RBC 0.000 Nucleated RBC % (auto) 0.0 Smear Tech's Comments D-Dimer High Sensitivty Sodium Potassium Chloride Carbon Dioxide Anion Gap BUN Creatinine 0.95 Estim Creat Clear Calc 74.1 Estimated GFR 58 POC Glucose Random Glucose Lactic Acid Calcium Total Bilirubin Direct Bilirubin AST ALT Alkaline Phosphatase Total Creatine Kinase Troponin I High Sens Total Protein Albumin Vancomycin Trough Random Vancomycin 19.6 COVID-19 ([facility]) COVID-19 ExSafe 01/04/23 01/04/23 01/04/23 05:55 07:31 08:30 WBC RBC Hgb Hct MCV MCH MCHC RDW Plt Count MPV Immature Gran % (Auto) Neut % (Auto) Lymph % (Auto) [place] % (Auto) Eos % (Auto) Baso % (Auto) Lymph # (Auto) [place] # (Auto) Eos # (Auto) Baso # (Auto) Abs Immat Gran (auto) Absolute Neuts (auto) Absolute Nucleated RBC Nucleated RBC % (auto) Smear Tech's Comments D-Dimer High Sensitivty Sodium Potassium Chloride Carbon Dioxide Anion Gap BUN Creatinine 1.03 Estim Creat Clear Calc 68.3 Estimated GFR 53 POC Glucose 123 H Random Glucose Lactic Acid Calcium Total Bilirubin Direct Bilirubin AST ALT Alkaline Phosphatase Total Creatine Kinase Troponin I High Sens Total Protein Albumin Vancomycin Trough Random Vancomycin 19.9 COVID-19 ([facility]) COVID-19 ExSafe 01/04/23 01/04/23 01/04/23 08:30 11:22 16:49 WBC RBC Hgb Hct MCV MCH MCHC RDW Plt Count MPV Immature Gran % (Auto) Neut % (Auto) Lymph % (Auto) [place] % (Auto) Eos % (Auto) Baso % (Auto) Lymph # (Auto) [place] # (Auto) Eos # (Auto) Baso # (Auto) Abs Immat Gran (auto) Absolute Neuts (auto) Absolute Nucleated RBC Nucleated RBC % (auto) Smear Tech's Comments D-Dimer High Sensitivty Sodium 138 Potassium 3.9 Chloride 102 Carbon Dioxide 25 Anion Gap 15 BUN 6 L Creatinine 1.10 Estim Creat Clear Calc 64.0 Estimated GFR 49 POC Glucose 127 H 119 H Random Glucose 133 H Lactic Acid Calcium 9.5 Total Bilirubin Direct Bilirubin AST ALT Alkaline Phosphatase Total Creatine Kinase 17 L Troponin I High Sens Total Protein Albumin Vancomycin Trough Random Vancomycin COVID-19 ([facility]) COVID-19 Clin [email or web address] 01/04/23 01/04/23 01/05/23 18:06 20:23 06:05 WBC RBC Hgb Hct MCV MCH MCHC RDW Plt Count MPV Immature Gran % (Auto) Neut % (Auto) Lymph % (Auto) [place] % (Auto) Eos % (Auto) Baso % (Auto) Lymph # (Auto) [place] # (Auto) Eos # (Auto) Baso # (Auto) Abs Immat Gran (auto) Absolute Neuts (auto) Absolute Nucleated RBC Nucleated RBC % (auto) Smear Tech's Comments D-Dimer High Sensitivty Sodium Potassium Chloride Carbon Dioxide Anion Gap BUN Creatinine 1.07 Estim Creat Clear Calc 65.8 Estimated GFR 50 POC Glucose 175 H Random Glucose Lactic Acid Calcium Total Bilirubin Direct Bilirubin AST ALT Alkaline Phosphatase Total Creatine Kinase Troponin I High Sens Total Protein Albumin Vancomycin Trough 15.3 Random Vancomycin COVID-19 ([facility]) COVID-19 ExSafe 01/05/23 01/05/23 01/06/23 06:05 20:57 06:04 WBC RBC Hgb Hct MCV MCH MCHC RDW Plt Count MPV Immature Gran % (Auto) Neut % (Auto) Lymph % (Auto) [place] % (Auto) Eos % (Auto) Baso % (Auto) Lymph # (Auto) [place] # (Auto) Eos # (Auto) Baso # (Auto) Abs Immat Gran (auto) Absolute Neuts (auto) Absolute Nucleated RBC Nucleated RBC % (auto) Smear Tech's Comments D-Dimer High Sensitivty Sodium Potassium Chloride Carbon Dioxide Anion Gap BUN Creatinine 1.11 Estim Creat Clear Calc 63.4 Estimated GFR 48 POC Glucose 161 H Random Glucose Lactic Acid Calcium Total Bilirubin Direct Bilirubin AST ALT Alkaline Phosphatase Total Creatine Kinase Troponin I High Sens Total Protein Albumin Vancomycin Trough Random Vancomycin 11.5 L COVID- ([facility]) COVID-19 ExSafe 01/06/23 01/07/23 01/07/23 09:20 05:47 07:20 WBC RBC Hgb Hct MCV MCH MCHC RDW Plt Count MPV Immature Gran % (Auto) Neut % (Auto) Lymph % (Auto) [place] % (Auto) Eos % (Auto) Baso % (Auto) Lymph # (Auto) [place] # (Auto) Eos # (Auto) Baso # (Auto) Abs Immat Gran (auto) Absolute Neuts (auto) Absolute Nucleated RBC Nucleated RBC % (auto) Smear Tech's Comments D-Dimer High Sensitivty Sodium Potassium Chloride Carbon Dioxide Anion Gap BUN Creatinine 1.11 Estim Creat Clear Calc 63.4 Estimated GFR 48 POC Glucose 131 H Random Glucose Lactic Acid Calcium Total Bilirubin 0.3 Direct Bilirubin < 0.2 AST 10 ALT 15 Alkaline Phosphatase 66 Total Creatine Kinase Troponin I High Sens Total Protein 6.2 L Albumin 3.2 L Vancomycin Trough 16.2 Random Vancomycin COVID-19 ([facility]) COVID-19 ExSafe 01/07/23 01/07/23 01/08/23 11:04 21:04 05:19 WBC RBC Hgb Hct MCV MCH MCHC RDW Plt Count MPV Immature Gran % (Auto) Neut % (Auto) Lymph % (Auto) [place] % (Auto) Eos % (Auto) Baso % (Auto) Lymph # (Auto) [place] # (Auto) Eos # (Auto) Baso # (Auto) Abs Immat Gran (auto) Absolute Neuts (auto) Absolute Nucleated RBC Nucleated RBC % (auto) Smear Tech's Comments D-Dimer High Sensitivty Sodium Potassium Chloride Carbon Dioxide Anion Gap BUN Creatinine 1.16 Estim Creat Clear Calc 60.7 Estimated GFR 46 POC Glucose 146 H Random Glucose Lactic Acid Calcium Total Bilirubin Direct Bilirubin AST ALT Alkaline Phosphatase Total Creatine Kinase Troponin I High Sens Total Protein Albumin Vancomycin Trough 16.5 Random Vancomycin COVID-19 ([facility]) COVID-19 Clin Com 01/08/23 01/08/23 01/08/23 07:12 11:11 16:33 WBC RBC Hgb Hct MCV MCH MCHC RDW Plt Count MPV Immature Gran % (Auto) Neut % (Auto) Lymph % (Auto) [place] % (Auto) Eos % (Auto) Baso % (Auto) Lymph # (Auto) [place] # (Auto) Eos # (Auto) Baso # (Auto) Abs Immat Gran (auto) Absolute Neuts (auto) Absolute Nucleated RBC Nucleated RBC % (auto) Smear Tech's Comments D-Dimer High Sensitivty Sodium Potassium Chloride Carbon Dioxide Anion Gap BUN Creatinine Estim Creat Clear Calc Estimated GFR POC Glucose 131 H 151 H 126 H Random Glucose Lactic Acid Calcium Total Bilirubin Direct Bilirubin AST ALT Alkaline Phosphatase Total Creatine Kinase Troponin I High Sens Total Protein Albumin Vancomycin Trough Random Vancomycin COVID-19 ([facility]) COVID-19 Clin Com 01/08/23 01/08/23 01/08/23 20:29 20:29 20:30 WBC RBC Hgb Hct MCV MCH MCHC RDW Plt Count MPV Immature Gran % (Auto) Neut % (Auto) Lymph % (Auto) [place] % (Auto) Eos % (Auto) Baso % (Auto) Lymph # (Auto) [place] # (Auto) Eos # (Auto) Baso # (Auto) Abs Immat Gran (auto) Absolute Neuts (auto) Absolute Nucleated RBC Nucleated RBC % (auto) Smear Tech's Comments D-Dimer High Sensitivty Sodium Potassium Chloride Carbon Dioxide Anion Gap BUN Creatinine Estim Creat Clear Calc Estimated GFR POC Glucose Random Glucose Lactic Acid Calcium Total Bilirubin Direct Bilirubin AST ALT Alkaline Phosphatase Total Creatine Kinase Troponin I High Sens 7.0 Total Protein Albumin Vancomycin Trough 18.6 Random Vancomycin COVID-19 ([facility]) Negative [employer] See Note 01/09/23 01/09/23 01/09/23 06:04 07:22 10:59 WBC RBC Hgb Hct MCV MCH MCHC RDW Plt Count MPV Immature Gran % (Auto) Neut % (Auto) Lymph % (Auto) [place] % (Auto) Eos % (Auto) Baso % (Auto) Lymph # (Auto) [place] # (Auto) Eos # (Auto) Baso # (Auto) Abs Immat Gran (auto) Absolute Neuts (auto) Absolute Nucleated RBC Nucleated RBC % (auto) Smear Tech's Comments D-Dimer High Sensitivty Sodium Potassium Chloride Carbon Dioxide Anion Gap BUN Creatinine 1.03 Estim Creat Clear Calc 68.3 Estimated GFR 53 POC Glucose 121 H 187 H Random Glucose Lactic Acid Calcium Total Bilirubin Direct Bilirubin AST ALT Alkaline Phosphatase Total Creatine Kinase Troponin I High Sens Total Protein Albumin Vancomycin Trough Random Vancomycin COVID-19 ([facility]) [place] 01/09/23 01/09/23 01/10/23 16:00 21:13 03:28 WBC RBC Hgb Hct MCV MCH MCHC RDW Plt Count MPV Immature Gran % (Auto) Neut % (Auto) Lymph % (Auto) [place] % (Auto) Eos % (Auto) Baso % (Auto) Lymph # (Auto) [place] # (Auto) Eos # (Auto) Baso # (Auto) Abs Immat Gran (auto) Absolute Neuts (auto) Absolute Nucleated RBC Nucleated RBC % (auto) Smear Tech's Comments D-Dimer High Sensitivty Sodium Potassium Chloride Carbon Dioxide Anion Gap BUN Creatinine Estim Creat Clear Calc Estimated GFR POC Glucose 191 H 147 H Random Glucose Lactic Acid Calcium Total Bilirubin Direct Bilirubin AST ALT Alkaline Phosphatase Total Creatine Kinase Troponin I High Sens Total Protein Albumin Vancomycin Trough Random Vancomycin 14.5 L COVID-19 ([facility]) [place] 01/10/23 01/10/23 01/11/23 06:06 21:08 05:30 WBC RBC Hgb Hct MCV MCH MCHC RDW Plt Count MPV Immature Gran % (Auto) Neut % (Auto) Lymph % (Auto) [place] % (Auto) Eos % (Auto) Baso % (Auto) Lymph # (Auto) [place] # (Auto) Eos # (Auto) Baso # (Auto) Abs Immat Gran (auto) Absolute Neuts (auto) Absolute Nucleated RBC Nucleated RBC % (auto) Smear Tech's Comments D-Dimer High Sensitivty Sodium Potassium Chloride Carbon Dioxide Anion Gap BUN Creatinine 1.05 1.03 Estim Creat Clear Calc 67.1 68.3 Estimated GFR 52 53 POC Glucose Random Glucose Lactic Acid Calcium Total Bilirubin Direct Bilirubin AST ALT Alkaline Phosphatase Total Creatine Kinase Troponin I High Sens Total Protein Albumin Vancomycin Trough Random Vancomycin 15.2 COVID-19 ([facility]) COVID-19 Clin Com 01/11/23 01/11/23 01/12/23 07:25 21:01 05:42 WBC RBC Hgb Hct MCV MCH MCHC RDW Plt Count MPV Immature Gran % (Auto) Neut % (Auto) Lymph % (Auto) [place] % (Auto) Eos % (Auto) Baso % (Auto) Lymph # (Auto) [place] # (Auto) Eos # (Auto) Baso # (Auto) Abs Immat Gran (auto) Absolute Neuts (auto) Absolute Nucleated RBC Nucleated RBC % (auto) Smear Tech's Comments D-Dimer High Sensitivty Sodium Potassium Chloride Carbon Dioxide Anion Gap BUN Creatinine 1.19 Estim Creat Clear Calc 59.2 Estimated GFR 45 POC Glucose 120 H Random Glucose Lactic Acid Calcium Total Bilirubin Direct Bilirubin AST ALT Alkaline Phosphatase Total Creatine Kinase Troponin I High Sens Total Protein Albumin Vancomycin Trough Random Vancomycin 16.1 COVID-19 ([facility]) COVID-19 ExSafe 01/12/23 01/13/23 01/13/23 21:35 08:43 08:43 WBC RBC Hgb Hct MCV MCH MCHC RDW Plt Count MPV Immature Gran % (Auto) Neut % (Auto) Lymph % (Auto) [place] % (Auto) Eos % (Auto) Baso % (Auto) Lymph # (Auto) [place] # (Auto) Eos # (Auto) Baso # (Auto) Abs Immat Gran (auto) Absolute Neuts (auto) Absolute Nucleated RBC Nucleated RBC % (auto) Smear Tech's Comments D-Dimer High Sensitivty Sodium Potassium Chloride Carbon Dioxide Anion Gap BUN Creatinine 1.11 Estim Creat Clear Calc 63.4 Estimated GFR 48 POC Glucose 133 H Random Glucose Lactic Acid Calcium Total Bilirubin Direct Bilirubin AST ALT Alkaline Phosphatase Total Creatine Kinase Troponin I High Sens Total Protein Albumin Vancomycin Trough Random Vancomycin 14.4 L COVID-19 ([facility]) COVID-19 Clin Com 01/13/23 01/14/23 18:25 05:30 WBC RBC Hgb Hct MCV MCH MCHC RDW Plt Count MPV Immature Gran % (Auto) Neut % (Auto) Lymph % (Auto) [place] % (Auto) Eos % (Auto) Baso % (Auto) Lymph # (Auto) [place] # (Auto) Eos # (Auto) Baso # (Auto) Abs Immat Gran (auto) Absolute Neuts (auto) Absolute Nucleated RBC Nucleated RBC % (auto) Smear Tech's Comments D-Dimer High Sensitivty Sodium Potassium Chloride Carbon Dioxide Anion Gap BUN Creatinine 1.07 Estim Creat Clear Calc 65.8 Estimated GFR 50 POC Glucose Random Glucose Lactic Acid Calcium Total Bilirubin Direct Bilirubin AST ALT Alkaline Phosphatase Total Creatine Kinase Troponin I High Sens Total Protein Albumin Vancomycin Trough Random Vancomycin COVID-19 ([facility]) Negative COVID-19 Clin Com See Note Assessment and Plan Final Anesthetic Review Family History of Problems with Anesthesia: No History of Problems with Anesthesia: No
[2023-01-14 13:40] LABS: Glucose, Whole Blood 117 mg/dL (60-115)
[2023-01-14] MEDS: Albuterol Sulfate (0.083%) 2.5 MG/3 ML VIAL.NEB INHALE ×2 (14:19→16:09)
--- NOTE | 2023-01-14 14:24 | PC.NURSE ---
Nebulizer treatment given in preop by respiratory due to SOB on exertion following use of bedpan. Wheezing present.
--- NOTE | 2023-01-14 14:57 | P.CONAN_ITS ---
[facility] Active Problems Active Problems: All Active Problems (Updated 01/13/23 @ 17:13 by Luís Hui MD) Abnormal ultrasound of breast (Acute) Lobular carcinoma of right breast (Acute) Abscess of left axilla (Acute) Insomnia (Acute) Bilateral breast cancer (Acute) Cellulitis of right lower extremity (Acute) Abscess (Acute) Morbid obesity (Acute) Acute osteomyelitis (Acute) Right foot ulcer (Acute) Invasive ductal carcinoma of left breast (Acute) Past Medical History Medical History Anemia Arthritis COVID-19 vaccine administered Diverticulitis GERD (gastroesophageal reflux disease) Insomnia Invasive ductal carcinoma of left breast Lobular carcinoma in situ of right breast Migraines Morbid obesity Situational anxiety Situational depression Patient : No Family History Family History Mother Glioblastoma Father Lung cancer Paternal Grandmother Cancer of unknown origin Family history of problems with anesthesia: No Surgical History Surgical History History of bilateral breast biopsy History of colon resection History of colostomy reversal History of incision and drainage Hx of colonoscopy S/P debridement History of Problems with Anesthesia: No Social History Social History Household Members: Spouse Housing: House Are you a primary health care sanitary technician to a significant other at home: No Do you presently have visiting nurse or other home services: No Alcohol intake: never Patient Tobacco Use Status: Never used Tobacco Second Hand Smoke Exposure: No service: No Current occupational status: employed Meds Allergies Allergy/AdvReac Type Severity Reaction Status Date / Time fluoxetine [Prozac] Allergy Unknown worsening Verified 04/15/22 10:32 depression gabapentin Allergy Unknown irritabilit Verified 04/15/22 10:32 y Iodinated Contrast Media Allergy Unknown RASH Verified 04/15/22 10:32 [IV CONTRAST] nortriptyline Allergy Unknown irritabilit Verified 04/15/22 10:32 y topiramate Allergy Unknown mild Verified 04/15/22 10:32 depression verapamil Allergy Unknown irritabilit Verified 04/15/22 10:32 y food allergies Allergy Unknown Sneezing Uncoded 04/15/22 10:32 Active Medications: Current Medications Acetaminophen (Acetaminophen 325 Mg Tablet) 650 mg PO Q6H PRN PRN Reason: Pain, Mild (Pain Scale 1-3) Last Admin: 01/13/23 11:19 Dose: 650 mg Acetaminophen/Butalbital/Caffeine (Butalb/Acetamin/Caff 50/325/40 Tablet) 1 tab PO Q4H PRN PRN Reason: Headache Last Admin: 01/14/23 08:17 Dose: 1 tab Calcium Carbonate (Calcium Carbonate 500 Mg Tablet) 500 mg PO BID [facility] Last Admin: 01/14/23 08:28 Dose: Not Given Cyanocobalamin (Cyanocobalamin (Vitamin B-12) 500 Mcg Tablet) 500 mcg PO DAILY [facility] Last Admin: 01/14/23 08:28 Dose: Not Given Ergocalciferol (Ergocalciferol (Vitamin D2) 1,250 Mcg Capsule) 1,250 mcg PO MORENO [facility] Last Admin: 01/09/23 09:07 Dose: 1,250 mcg Ferrous Sulfate (Ferrous Sulfate 324 Mg Tablet.Dr) 324 mg PO DAILY [facility] Last Admin: 01/14/23 08:29 Dose: Not Given Gabapentin (Gabapentin 100 Mg Capsule) 100 mg PO BID [facility] Last Admin: 01/14/23 08:17 Dose: 100 mg Heparin Sodium (Porcine) (Heparin Sodium,Porcine 5,000 Unit/Ml Vial) 5,000 unit SUBCUT Q8H [facility] Last Admin: 01/14/23 13:49 Dose: Not Given Hydralazine HCl (Hydralazine Hcl 25 Mg Tablet) 75 mg PO TID [facility]; Protocol Last Admin: 01/14/23 08:16 Dose: 75 mg Hydromorphone HCl (Hydromorphone Hcl 1 Mg/Ml Syringe) 1 mg IVPUSH Q3H PRN; Protocol PRN Reason: Pain, Severe (Pain Scale 7-10) Last Admin: 01/14/23 11:15 Dose: 1 mg Vancomycin HCl 750 mg/ Sodium (Chloride) 265 mls @ 265 mls/hr IV Q12H [facility] Last Infusion: 01/14/23 13:56 Dose: Infused Piperacillin Sod/Tazobactam (Sod 3.375 gm/ Sodium Chloride) 50 mls @ 100 mls/hr IV Q6H [facility] Last Infusion: 01/14/23 12:19 Dose: Infused Lidocaine (Lidocaine 4 % Patch Adh..Patch) 1 patch TRANSDERMA DAILY [facility]; Protocol Last Admin: 01/14/23 08:29 Dose: Not Given Magnesium Hydroxide (Milk Of Magnesia 30 Ml Oral.Susp) 30 ml PO DAILY PRN PRN Reason: Constipation Melatonin (Melatonin 3 Mg Tablet) 6 mg PO BEDTIME PRN PRN Reason: Insomnia Last Admin: 01/12/23 21:47 Dose: 6 mg Metformin HCl (Metformin Hcl Er 500 Mg Tab.Er.24h) 500 mg PO BID [facility] Last Admin: 01/14/23 08:29 Dose: Not Given Multivitamins/Vitamin C (Multivitamin Tablet) 1 tab PO DAILY [facility] Last Admin: 01/14/23 08:29 Dose: Not Given Pt Own (Exemestane (25 Mg Tablet)) 25 mg PO DAILY [facility] Last Admin: 01/14/23 11:19 Dose: Not Given Nystatin (Nystatin Oral Susp 500,000 Unit/5 Ml Oral.Susp) 500,000 unit PO QID [facility]; Protocol Last Admin: 01/14/23 13:52 Dose: Not Given Omeprazole (Omeprazole 20 Mg Capsule.Dr) 20 mg PO DAILY@0630 [facility] Last Admin: 01/14/23 06:14 Dose: Not Given Ondansetron HCl (Ondansetron Hcl 4 Mg/2 Ml Vial) 4 mg IVPUSH Q8H PRN PRN Reason: Nausea Propranolol HCl (Propranolol Hcl La 80 Mg Cap.Sa.24h) 80 mg PO DAILY [facility]; Protocol Last Admin: 01/14/23 08:24 Dose: 80 mg Sodium Chloride (0.9 % Sodium Chloride Flush 3 Ml Syringe) 3 ml IVFLUSH QSHIFT [facility] Last Admin: 01/14/23 08:28 Dose: 3 ml Home Medications Medication Instructions Recorded Confirmed Last Taken Type ferrous gluconate 324 mg (38 mg 324 mg PO BID 02/17/21 12/28/22 05/12/21 History iron) tablet omeprazole 20 mg capsule,delayed 20 mg PO DAILY 02/17/21 12/28/22 12/28/22 History release naratriptan 2.5 mg tablet 1 tab PO DAILY MRX1 PRN Migraine 03/26/21 12/28/22 Unknown History Headache propranolol 80 mg capsule,24 1 cap PO DAILY 03/26/21 12/28/22 04/01/21 History hr,extended release exemestane 25 mg tablet 25 mg PO DAILY 04/15/22 12/28/22 12/28/22 History calcium carbonate 500 mg calcium 500 mg PO BID 12/28/22 12/28/22 Unknown History (1,250 mg) tablet cyanocobalamin (vitamin B-12) 500 500 mcg PO DAILY 12/28/22 12/28/22 Unknown History mcg tablet ergocalciferol (vitamin D2) 1,250 1,250 mcg PO MORENO 12/28/22 12/28/22 Unknown History mcg (50,000 unit) capsule metformin 500 mg tablet,extended 500 mg PO BID 12/28/22 12/28/22 12/28/22 History release 24 hr multivitamin 1 tab PO DAILY 12/28/22 12/28/22 Unknown History oxycodone-acetaminophen 5 mg-325 1 tab PO QID PRN Pain (Scale Score 12/28/22 12/28/22 12/28/22 History mg tablet 7-10) Exam Exam Date and Time: January 14, 2023 145 Height,Weight and Vital Signs: Height 5 ft 7 in Weight 127.006 kg Last Vital Signs Temp 100.1 F 01/14/23 14:23 Pulse 80 01/14/23 14:23 Resp 16 01/14/23 14:23 BP 168/96 H 01/14/23 14:23 Pulse Ox 94 01/14/23 14:23 O2 Del Method 01/14/23 14:23 O2 Flow Rate 2 01/11/23 21:20 Pertinent Lab Results Pertinent Lab Results: Laboratory Tests 12/28/22 12/28/22 12/28/22 16:53 16:53 16:53 WBC 21.4 H RBC 4.38 Hgb 11.9 L Hct 36.4 L MCV 83.1 MCH 27.2 MCHC 32.7 RDW 12.9 Plt Count 531 H MPV 8.4 L Immature Gran % (Auto) 1.9 H Neut % (Auto) 89.1 H Lymph % (Auto) 3.6 L Jenkins % (Auto) 5.3 Eos % (Auto) 0.0 Baso % (Auto) 0.1 Lymph # (Auto) 0.8 L Jenkins # (Auto) 1.1 Eos # (Auto) 0.0 Baso # (Auto) 0.0 Abs Immat Gran (auto) 0.40 H Absolute Neuts (auto) 19.1 H Absolute Nucleated RBC 0.000 Nucleated RBC % (auto) 0.0 Smear Tech's Comments D-Dimer High Sensitivty 1100 Sodium 133 L Potassium 4.3 Chloride 96 Carbon Dioxide 23 Anion Gap 18 BUN 14 Creatinine 0.73 Estim Creat Clear Calc 96.5 Estimated GFR > 60 POC Glucose Random Glucose 217 H Lactic Acid Calcium 9.3 D Total Bilirubin Direct Bilirubin AST ALT Alkaline Phosphatase Total Creatine Kinase Troponin I High Sens Total Protein Albumin Vancomycin Trough Random Vancomycin COVID-19 ([facility]) COVID-19 [facility] 12/28/22 12/28/22 12/29/22 17:35 17:36 05:34 WBC 20.7 H RBC 3.94 L Hgb 10.6 L Hct 32.8 L MCV 83.2 MCH 26.9 L MCHC 32.3 RDW 12.9 Plt Count 486 H MPV 8.4 L Immature Gran % (Auto) 2.3 H Neut % (Auto) 82.7 H Lymph % (Auto) 6.3 L Jenkins % (Auto) 8.5 Eos % (Auto) 0.1 Baso % (Auto) 0.1 Lymph # (Auto) 1.3 Jenkins # (Auto) 1.8 H Eos # (Auto) 0.0 Baso # (Auto) 0.0 Abs Immat Gran (auto) 0.47 H Absolute Neuts (auto) 17.1 H Absolute Nucleated RBC 0.000 Nucleated RBC % (auto) 0.0 Smear Tech's Comments VERIFIED D-Dimer High Sensitivty Sodium Potassium Chloride Carbon Dioxide Anion Gap BUN Creatinine Estim Creat Clear Calc Estimated GFR POC Glucose Random Glucose Lactic Acid 1.2 Calcium Total Bilirubin Direct Bilirubin AST ALT Alkaline Phosphatase Total Creatine Kinase Troponin I High Sens Total Protein Albumin Vancomycin Trough Random Vancomycin COVID-19 ([facility]) Negative COVID-19 [facility] See Note 12/29/22 12/29/22 12/30/22 05:34 20:22 05:50 WBC RBC Hgb Hct MCV MCH MCHC RDW Plt Count MPV Immature Gran % (Auto) Neut % (Auto) Lymph % (Auto) Jenkins % (Auto) Eos % (Auto) Baso % (Auto) Lymph # (Auto) Jenkins # (Auto) Eos # (Auto) Baso # (Auto) Abs Immat Gran (auto) Absolute Neuts (auto) Absolute Nucleated RBC Nucleated RBC % (auto) Smear Tech's Comments D-Dimer High Sensitivty Sodium Potassium Chloride Carbon Dioxide Anion Gap BUN Creatinine 0.69 Estim Creat Clear Calc 102.1 Estimated GFR > 60 POC Glucose 158 H Random Glucose Lactic Acid Calcium Total Bilirubin Direct Bilirubin AST ALT Alkaline Phosphatase Total Creatine Kinase Troponin I High Sens Total Protein Albumin Vancomycin Trough 7.6 L Random Vancomycin COVID-19 ([facility]) COVID-19 [facility] 12/30/22 12/30/22 12/31/22 05:50 07:45 05:08 WBC RBC Hgb Hct MCV MCH MCHC RDW Plt Count MPV Immature Gran % (Auto) Neut % (Auto) Lymph % (Auto) Jenkins % (Auto) Eos % (Auto) Baso % (Auto) Lymph # (Auto) Jenkins # (Auto) Eos # (Auto) Baso # (Auto) Abs Immat Gran (auto) Absolute Neuts (auto) Absolute Nucleated RBC Nucleated RBC % (auto) Smear Tech's Comments D-Dimer High Sensitivty Sodium Potassium Chloride Carbon Dioxide Anion Gap BUN Creatinine 0.71 Estim Creat Clear Calc 99.2 Estimated GFR > 60 POC Glucose 154 H Random Glucose Lactic Acid Calcium Total Bilirubin Direct Bilirubin AST ALT Alkaline Phosphatase Total Creatine Kinase Troponin I High Sens Total Protein Albumin Vancomycin Trough Random Vancomycin 12.9 L COVID-19 ([facility]) [facility] 12/31/22 12/31/22 01/01/23 05:08 10:49 06:54 WBC RBC Hgb Hct MCV MCH MCHC RDW Plt Count MPV Immature Gran % (Auto) Neut % (Auto) Lymph % (Auto) Jenkins % (Auto) Eos % (Auto) Baso % (Auto) Lymph # (Auto) Jenkins # (Auto) Eos # (Auto) Baso # (Auto) Abs Immat Gran (auto) Absolute Neuts (auto) Absolute Nucleated RBC Nucleated RBC % (auto) Smear Tech's Comments D-Dimer High Sensitivty Sodium Potassium Chloride Carbon Dioxide Anion Gap BUN Creatinine 0.71 Estim Creat Clear Calc 99.2 Estimated GFR > 60 POC Glucose 123 H Random Glucose Lactic Acid Calcium Total Bilirubin Direct Bilirubin AST ALT Alkaline Phosphatase Total Creatine Kinase Troponin I High Sens Total Protein Albumin Vancomycin Trough 16.6 Random Vancomycin COVID-19 ([facility]) [facility] 01/01/23 01/02/23 01/02/23 06:54 05:51 05:51 WBC RBC Hgb Hct MCV MCH MCHC RDW Plt Count MPV Immature Gran % (Auto) Neut % (Auto) Lymph % (Auto) Jenkins % (Auto) Eos % (Auto) Baso % (Auto) Lymph # (Auto) Jenkins # (Auto) Eos # (Auto) Baso # (Auto) Abs Immat Gran (auto) Absolute Neuts (auto) Absolute Nucleated RBC Nucleated RBC % (auto) Smear Tech's Comments D-Dimer High Sensitivty Sodium Potassium Chloride Carbon Dioxide Anion Gap BUN Creatinine 0.81 0.93 Estim Creat Clear Calc 87.0 75.7 Estimated GFR > 60 59 POC Glucose Random Glucose Lactic Acid Calcium Total Bilirubin Direct Bilirubin AST ALT Alkaline Phosphatase Total Creatine Kinase Troponin I High Sens Total Protein Albumin Vancomycin Trough 21.0 H Random Vancomycin COVID-19 ([facility]) COVID-[facility] 01/02/23 01/03/23 01/03/23 05:51 05:43 10:13 WBC 14.1 H RBC 3.45 L Hgb 9.3 L Hct 29.8 L MCV 86.4 MCH 27.0 MCHC 31.2 RDW 13.1 Plt Count 498 H MPV 8.9 L Immature Gran % (Auto) Neut % (Auto) Lymph % (Auto) Jenkins % (Auto) Eos % (Auto) Baso % (Auto) Lymph # (Auto) Jenkins # (Auto) Eos # (Auto) Baso # (Auto) Abs Immat Gran (auto) Absolute Neuts (auto) Absolute Nucleated RBC 0.000 Nucleated RBC % (auto) 0.0 Smear Tech's Comments D-Dimer High Sensitivty Sodium Potassium Chloride Carbon Dioxide Anion Gap BUN Creatinine 0.95 Estim Creat Clear Calc 74.1 Estimated GFR 58 POC Glucose Random Glucose Lactic Acid Calcium Total Bilirubin Direct Bilirubin AST ALT Alkaline Phosphatase Total Creatine Kinase Troponin I High Sens Total Protein Albumin Vancomycin Trough Random Vancomycin 19.6 COVID-19 ([facility]) COVID-19 [facility] 01/04/23 01/04/23 01/04/23 05:55 07:31 08:30 WBC RBC Hgb Hct MCV MCH MCHC RDW Plt Count MPV Immature Gran % (Auto) Neut % (Auto) Lymph % (Auto) Jenkins % (Auto) Eos % (Auto) Baso % (Auto) Lymph # (Auto) Jenkins # (Auto) Eos # (Auto) Baso # (Auto) Abs Immat Gran (auto) Absolute Neuts (auto) Absolute Nucleated RBC Nucleated RBC % (auto) Smear Tech's Comments D-Dimer High Sensitivty Sodium Potassium Chloride Carbon Dioxide Anion Gap BUN Creatinine 1.03 Estim Creat Clear Calc 68.3 Estimated GFR 53 POC Glucose 123 H Random Glucose Lactic Acid Calcium Total Bilirubin Direct Bilirubin AST ALT Alkaline Phosphatase Total Creatine Kinase Troponin I High Sens Total Protein Albumin Vancomycin Trough Random Vancomycin 19.9 COVID-19 ([facility]) [facility] 01/04/23 01/04/23 01/04/23 08:30 11:22 16:49 WBC RBC Hgb Hct MCV MCH MCHC RDW Plt Count MPV Immature Gran % (Auto) Neut % (Auto) Lymph % (Auto) Jenkins % (Auto) Eos % (Auto) Baso % (Auto) Lymph # (Auto) Jenkins # (Auto) Eos # (Auto) Baso # (Auto) Abs Immat Gran (auto) Absolute Neuts (auto) Absolute Nucleated RBC Nucleated RBC % (auto) Smear Tech's Comments D-Dimer High Sensitivty Sodium 138 Potassium 3.9 Chloride 102 Carbon Dioxide 25 Anion Gap 15 BUN 6 L Creatinine 1.10 Estim Creat Clear Calc 64.0 Estimated GFR 49 POC Glucose 127 H 119 H Random Glucose 133 H Lactic Acid Calcium 9.5 Total Bilirubin Direct Bilirubin AST ALT Alkaline Phosphatase Total Creatine Kinase 17 L Troponin I High Sens Total Protein Albumin Vancomycin Trough Random Vancomycin COVID-19 ([facility]) COVID-[facility] 01/04/23 01/04/23 01/05/23 18:06 20:23 06:05 WBC RBC Hgb Hct MCV MCH MCHC RDW Plt Count MPV Immature Gran % (Auto) Neut % (Auto) Lymph % (Auto) Jenkins % (Auto) Eos % (Auto) Baso % (Auto) Lymph # (Auto) Jenkins # (Auto) Eos # (Auto) Baso # (Auto) Abs Immat Gran (auto) Absolute Neuts (auto) Absolute Nucleated RBC Nucleated RBC % (auto) Smear Tech's Comments D-Dimer High Sensitivty Sodium Potassium Chloride Carbon Dioxide Anion Gap BUN Creatinine 1.07 Estim Creat Clear Calc 65.8 Estimated GFR 50 POC Glucose 175 H Random Glucose Lactic Acid Calcium Total Bilirubin Direct Bilirubin AST ALT Alkaline Phosphatase Total Creatine Kinase Troponin I High Sens Total Protein Albumin Vancomycin Trough 15.3 Random Vancomycin COVID-19 ([facility]) COVID-19 [facility] 01/05/23 01/05/23 01/06/23 06:05 20:57 06:04 WBC RBC Hgb Hct MCV MCH MCHC RDW Plt Count MPV Immature Gran % (Auto) Neut % (Auto) Lymph % (Auto) Jenkins % (Auto) Eos % (Auto) Baso % (Auto) Lymph # (Auto) Jenkins # (Auto) Eos # (Auto) Baso # (Auto) Abs Immat Gran (auto) Absolute Neuts (auto) Absolute Nucleated RBC Nucleated RBC % (auto) Smear Tech's Comments D-Dimer High Sensitivty Sodium Potassium Chloride Carbon Dioxide Anion Gap BUN Creatinine 1.11 Estim Creat Clear Calc 63.4 Estimated GFR 48 POC Glucose 161 H Random Glucose Lactic Acid Calcium Total Bilirubin Direct Bilirubin AST ALT Alkaline Phosphatase Total Creatine Kinase Troponin I High Sens Total Protein Albumin Vancomycin Trough Random Vancomycin 11.5 L COVID- ([facility]) COVID-19 [facility] 01/06/23 01/07/23 01/07/23 09:20 05:47 07:20 WBC RBC Hgb Hct MCV MCH MCHC RDW Plt Count MPV Immature Gran % (Auto) Neut % (Auto) Lymph % (Auto) Jenkins % (Auto) Eos % (Auto) Baso % (Auto) Lymph # (Auto) Jenkins # (Auto) Eos # (Auto) Baso # (Auto) Abs Immat Gran (auto) Absolute Neuts (auto) Absolute Nucleated RBC Nucleated RBC % (auto) Smear Tech's Comments D-Dimer High Sensitivty Sodium Potassium Chloride Carbon Dioxide Anion Gap BUN Creatinine 1.11 Estim Creat Clear Calc 63.4 Estimated GFR 48 POC Glucose 131 H Random Glucose Lactic Acid Calcium Total Bilirubin 0.3 Direct Bilirubin < 0.2 AST 10 ALT 15 Alkaline Phosphatase 66 Total Creatine Kinase Troponin I High Sens Total Protein 6.2 L Albumin 3.2 L Vancomycin Trough 16.2 Random Vancomycin COVID-19 ([facility]) COVID-19 [facility] 01/07/23 01/07/23 01/08/23 11:04 21:04 05:19 WBC RBC Hgb Hct MCV MCH MCHC RDW Plt Count MPV Immature Gran % (Auto) Neut % (Auto) Lymph % (Auto) Jenkins % (Auto) Eos % (Auto) Baso % (Auto) Lymph # (Auto) Jenkins # (Auto) Eos # (Auto) Baso # (Auto) Abs Immat Gran (auto) Absolute Neuts (auto) Absolute Nucleated RBC Nucleated RBC % (auto) Smear Tech's Comments D-Dimer High Sensitivty Sodium Potassium Chloride Carbon Dioxide Anion Gap BUN Creatinine 1.16 Estim Creat Clear Calc 60.7 Estimated GFR 46 POC Glucose 146 H Random Glucose Lactic Acid Calcium Total Bilirubin Direct Bilirubin AST ALT Alkaline Phosphatase Total Creatine Kinase Troponin I High Sens Total Protein Albumin Vancomycin Trough 16.5 Random Vancomycin COVID-19 ([facility]) COVID-19 [facility] 01/08/23 01/08/23 01/08/23 07:12 11:11 16:33 WBC RBC Hgb Hct MCV MCH MCHC RDW Plt Count MPV Immature Gran % (Auto) Neut % (Auto) Lymph % (Auto) Jenkins % (Auto) Eos % (Auto) Baso % (Auto) Lymph # (Auto) Jenkins # (Auto) Eos # (Auto) Baso # (Auto) Abs Immat Gran (auto) Absolute Neuts (auto) Absolute Nucleated RBC Nucleated RBC % (auto) Smear Tech's Comments D-Dimer High Sensitivty Sodium Potassium Chloride Carbon Dioxide Anion Gap BUN Creatinine Estim Creat Clear Calc Estimated GFR POC Glucose 131 H 151 H 126 H Random Glucose Lactic Acid Calcium Total Bilirubin Direct Bilirubin AST ALT Alkaline Phosphatase Total Creatine Kinase Troponin I High Sens Total Protein Albumin Vancomycin Trough Random Vancomycin COVID-19 ([facility]) COVID-19 Clin [facility] 01/08/23 01/08/23 01/08/23 20:29 20:29 20:30 WBC RBC Hgb Hct MCV MCH MCHC RDW Plt Count MPV Immature Gran % (Auto) Neut % (Auto) Lymph % (Auto) Jenkins % (Auto) Eos % (Auto) Baso % (Auto) Lymph # (Auto) Jenkins # (Auto) Eos # (Auto) Baso # (Auto) Abs Immat Gran (auto) Absolute Neuts (auto) Absolute Nucleated RBC Nucleated RBC % (auto) Smear Tech's Comments D-Dimer High Sensitivty Sodium Potassium Chloride Carbon Dioxide Anion Gap BUN Creatinine Estim Creat Clear Calc Estimated GFR POC Glucose Random Glucose Lactic Acid Calcium Total Bilirubin Direct Bilirubin AST ALT Alkaline Phosphatase Total Creatine Kinase Troponin I High Sens 7.0 Total Protein Albumin Vancomycin Trough 18.6 Random Vancomycin COVID-19 ([facility]) Negative COVID-19 [facility] See Note 01/09/23 01/09/23 01/09/23 06:04 07:22 10:59 WBC RBC Hgb Hct MCV MCH MCHC RDW Plt Count MPV Immature Gran % (Auto) Neut % (Auto) Lymph % (Auto) Jenkins % (Auto) Eos % (Auto) Baso % (Auto) Lymph # (Auto) Jenkins # (Auto) Eos # (Auto) Baso # (Auto) Abs Immat Gran (auto) Absolute Neuts (auto) Absolute Nucleated RBC Nucleated RBC % (auto) Smear Tech's Comments D-Dimer High Sensitivty Sodium Potassium Chloride Carbon Dioxide Anion Gap BUN Creatinine 1.03 Estim Creat Clear Calc 68.3 Estimated GFR 53 POC Glucose 121 H 187 H Random Glucose Lactic Acid Calcium Total Bilirubin Direct Bilirubin AST ALT Alkaline Phosphatase Total Creatine Kinase Troponin I High Sens Total Protein Albumin Vancomycin Trough Random Vancomycin COVID-19 ([facility]) COVID-[facility] 01/09/23 01/09/23 01/10/23 16:00 21:13 03:28 WBC RBC Hgb Hct MCV MCH MCHC RDW Plt Count MPV Immature Gran % (Auto) Neut % (Auto) Lymph % (Auto) Jenkins % (Auto) Eos % (Auto) Baso % (Auto) Lymph # (Auto) Jenkins # (Auto) Eos # (Auto) Baso # (Auto) Abs Immat Gran (auto) Absolute Neuts (auto) Absolute Nucleated RBC Nucleated RBC % (auto) Smear Tech's Comments D-Dimer High Sensitivty Sodium Potassium Chloride Carbon Dioxide Anion Gap BUN Creatinine Estim Creat Clear Calc Estimated GFR POC Glucose 191 H 147 H Random Glucose Lactic Acid Calcium Total Bilirubin Direct Bilirubin AST ALT Alkaline Phosphatase Total Creatine Kinase Troponin I High Sens Total Protein Albumin Vancomycin Trough Random Vancomycin 14.5 L COVID-19 ([facility]) COVID-19 [facility] 01/10/23 01/10/23 01/11/23 06:06 21:08 05:30 WBC RBC Hgb Hct MCV MCH MCHC RDW Plt Count MPV Immature Gran % (Auto) Neut % (Auto) Lymph % (Auto) Jenkins % (Auto) Eos % (Auto) Baso % (Auto) Lymph # (Auto) Jenkins # (Auto) Eos # (Auto) Baso # (Auto) Abs Immat Gran (auto) Absolute Neuts (auto) Absolute Nucleated RBC Nucleated RBC % (auto) Smear Tech's Comments D-Dimer High Sensitivty Sodium Potassium Chloride Carbon Dioxide Anion Gap BUN Creatinine 1.05 1.03 Estim Creat Clear Calc 67.1 68.3 Estimated GFR 52 53 POC Glucose Random Glucose Lactic Acid Calcium Total Bilirubin Direct Bilirubin AST ALT Alkaline Phosphatase Total Creatine Kinase Troponin I High Sens Total Protein Albumin Vancomycin Trough Random Vancomycin 15.2 COVID-19 ([facility]) COVID-19 [facility] 01/11/23 01/11/23 01/12/23 07:25 21:01 05:42 WBC RBC Hgb Hct MCV MCH MCHC RDW Plt Count MPV Immature Gran % (Auto) Neut % (Auto) Lymph % (Auto) Jenkins % (Auto) Eos % (Auto) Baso % (Auto) Lymph # (Auto) Jenkins # (Auto) Eos # (Auto) Baso # (Auto) Abs Immat Gran (auto) Absolute Neuts (auto) Absolute Nucleated RBC Nucleated RBC % (auto) Smear Tech's Comments D-Dimer High Sensitivty Sodium Potassium Chloride Carbon Dioxide Anion Gap BUN Creatinine 1.19 Estim Creat Clear Calc 59.2 Estimated GFR 45 POC Glucose 120 H Random Glucose Lactic Acid Calcium Total Bilirubin Direct Bilirubin AST ALT Alkaline Phosphatase Total Creatine Kinase Troponin I High Sens Total Protein Albumin Vancomycin Trough Random Vancomycin 16.1 COVID-19 ([facility]) COVID-19 [facility] 01/12/23 01/13/23 01/13/23 21:35 08:43 08:43 WBC RBC Hgb Hct MCV MCH MCHC RDW Plt Count MPV Immature Gran % (Auto) Neut % (Auto) Lymph % (Auto) Jenkins % (Auto) Eos % (Auto) Baso % (Auto) Lymph # (Auto) Jenkins # (Auto) Eos # (Auto) Baso # (Auto) Abs Immat Gran (auto) Absolute Neuts (auto) Absolute Nucleated RBC Nucleated RBC % (auto) Smear Tech's Comments D-Dimer High Sensitivty Sodium Potassium Chloride Carbon Dioxide Anion Gap BUN Creatinine 1.11 Estim Creat Clear Calc 63.4 Estimated GFR 48 POC Glucose 133 H Random Glucose Lactic Acid Calcium Total Bilirubin Direct Bilirubin AST ALT Alkaline Phosphatase Total Creatine Kinase Troponin I High Sens Total Protein Albumin Vancomycin Trough Random Vancomycin 14.4 L COVID-19 ([facility]) COVID-19 Clin Com 01/13/23 01/14/23 01/14/23 18:25 05:30 13:33 WBC RBC Hgb Hct MCV MCH MCHC RDW Plt Count MPV Immature Gran % (Auto) Neut % (Auto) Lymph % (Auto) Jenkins % (Auto) Eos % (Auto) Baso % (Auto) Lymph # (Auto) Jenkins # (Auto) Eos # (Auto) Baso # (Auto) Abs Immat Gran (auto) Absolute Neuts (auto) Absolute Nucleated RBC Nucleated RBC % (auto) Smear Tech's Comments D-Dimer High Sensitivty Sodium Potassium Chloride Carbon Dioxide Anion Gap BUN Creatinine 1.07 Estim Creat Clear Calc 65.8 Estimated GFR 50 POC Glucose 117 H Random Glucose Lactic Acid Calcium Total Bilirubin Direct Bilirubin AST ALT Alkaline Phosphatase Total Creatine Kinase Troponin I High Sens Total Protein Albumin Vancomycin Trough Random Vancomycin COVID-19 ([facility]) Negative COVID-19 Clin Com See Note Airway Mallampati Class: III TM Dist: >3cm Neck ROM: Full Heart: RRR Lungs: Right Assessment and Plan Assessment Anesthesia Assessment: Anesthesia Plan Discussed Final Anesthetic Review Family History of Problems with Anesthesia: No History of Problems with Anesthesia: No Anesthetic Plan Anesthetic Plan: MAC: Disposition: Standard PACU
--- NOTE | 2023-01-14 15:22 | P.OP_ITS ---
Operative Note Operative Note Date of Service: 01/14/23 Narrative: Preoperative diagnosis: Nonhealing ulcer right foot Postoperative diagnosis: same Procedure: debridement of nonhealing ulcer right foot, wound VAC placement Surgeon: Luís Hui MD [employer] Pipe Fitter: Kailee Aleman PA-C Anesthesia: local plus MAC Indications for procedure: 72-year-old female patient with a nonhealing ulcer of the right lateral foot and leg diagnosed diabetic previously treated for now abscess now with increased fibrinous exudate and necrotic tissue at the wound base Operative findings:debrided surface measures 15 x 10 cm including skin and subcutaneous tissue. Specimen: None Estimated blood loss: 10 mL Complications: none Procedure details: patient was brought to the OR placed in a supine position. After administering sedation, the right foot and ankle was prepped with Betadine and draped in a sterile fashion. A surgical time-out was called and the consent confirmed. Patient received no preoperative antibiotics as she was on continuous antibiotics. Local anesthesia consisting of 0.5% Sensorcaine with epinephrine was then infiltrated around the wound. The scalpel was then used to debride the necrotic skin off the surface of the ulcer. Good backbleeding was identified and this was controlled using electrocautery. Thick fibrinous peel was then debrided using a curette along the entire surface measuring 10 x 15 cm. Hemostasis was assured using light pressure as well as electrocautery. The surface was completely debrided excellent granulation tissue was noted at the wound base. Wounds were then irrigated with saline solution and suctioned dry. Wounds were again checked for hemostasis. Excellent hemostasis was achieved. The wound VAC black sponge was then cut to size using a medium sponge. This was then secured using the op site plastic dressing. The wound VAC was then connected to the suction device and excellent seal was identified. The patient tolerated the procedure well. Sponge, instrument, and needle counts reported as correct. The patient was transferred to PACU in stable condition.
[2023-01-14] MEDS: HYDROmorphone HCl 0.5 MG/0.5 ML SYRINGE 0.25 MG IVPUSH ×2 (15:28→15:33)
--- NOTE | 2023-01-14 15:41 | MHC.CM.PN ---
PLAN IS HERE OVER WEEKEND. WILL NEED ADDITIONAL DEBRIDEMENT AND WOUND VAC. EVENTUAL PLAN IS LT IV ABX. HOME VERSUS SNF NOT YET PLANNED
[2023-01-14] MEDS: Acetaminophen 1,000 MG/100 ML PIGGYBACK 400 MG IV (15:44)
[2023-01-14] MEDS: metFORMIN HCl ER 500 MG TAB.ER.24H PO (20:13)
[2023-01-14 21:50] LABS: Vancomycin Trough 13.9 mcg/mL (10.0-20.0)
[2023-01-14] MEDS: vancomycin HCL 1,000 MG in 0.9 % Sodium Chloride 250 ML 270 MG IV (22:10)
[2023-01-15] VITALS (7 sets, daily range): BP systolic 140–168; BP diastolic 68–79; PULSE 76–83; RESP 15–20; TEMP 36.4–37.7; O2SAT 90–97
[2023-01-15] MEDS: Piperacillin Sodium/Tazobactam 3.375 GM in 0.9 % Sodium Chloride 50 ML IV ×4 (00:03→20:30)
[2023-01-15] MEDS: 0.9 % Sodium Chloride Flush 3 ML SYRINGE IVFLUSH ×3 (00:04→14:40)
[2023-01-15] MEDS: Albuterol Sulfate (0.083%) 2.5 MG/3 ML VIAL.NEB INHALE ×3 (00:30→20:59)
[2023-01-15] MEDS: HYDROmorphone HCl 1 MG/ML SYRINGE IVPUSH ×5 (00:44→18:31)
[2023-01-15] MEDS: Butalb/Acetamin/Caff 50/325/40 TABLET 1 TAB PO ×3 (02:10→22:48)
[2023-01-15] MEDS: Heparin Sodium,Porcine 5,000 UNIT/ML VIAL 5000 UNIT SUBCUT ×3 (04:02→20:31)
[2023-01-15] MEDS: Acetaminophen 325 MG TABLET 650 MG PO (05:19)
[2023-01-15] MEDS: Omeprazole 20 MG CAPSULE.DR PO (05:19)
[2023-01-15 05:52] LABS: Creatinine Clr Calc Pharmacy 67.7; Estimated Glomerular Filt Rate 52
--- NOTE | 2023-01-15 06:48 | HE.PHANOTE ---
RE SOWMYA CONTINUE CURRENT DOSE, NEXT TROUGH DUE @2100. SUSPECTED AUC IS 500 AND TROUGH IS 18.7 TEODORA
[2023-01-15] MEDS: Multivitamin TABLET 1 TAB PO (07:54)
[2023-01-15] MEDS: metFORMIN HCl ER 500 MG TAB.ER.24H PO ×2 (07:54→20:30)
[2023-01-15] MEDS: Propranolol HCL LA 80 MG CAP.SA.24H PO (07:54)
[2023-01-15] MEDS: Cyanocobalamin (Vitamin B-12) 500 MCG TABLET PO (07:54)
[2023-01-15] MEDS: Ferrous Sulfate 324 MG TABLET.DR PO (07:54)
[2023-01-15] MEDS: Nystatin Oral Susp 500,000 UNIT/5 ML ORAL.SUSP 500000 UNIT PO ×4 (07:55→20:34)
[2023-01-15] MEDS: hydrALAZINE HCl 25 MG TABLET 75 MG PO ×3 (07:55→20:30)
[2023-01-15] MEDS: Gabapentin 100 MG CAPSULE PO ×2 (07:55→20:30)
--- NOTE | 2023-01-15 09:49 | P.PNIM_ITS ---
Subjective Subjective Date of Service: 01/15/23 Interval History: f/u on right ankle wound, able to ambulate on the foot, less drainage--see picture, wound applied yesterday Review of Systems denies any muscle pain or joint pain no fevers has headaches-likley migrane . Physical Exam Vital Signs: Vital Signs: Last Vital Signs Temp 99.8 F 01/15/23 08:00 Pulse 81 01/15/23 08:00 Resp 18 01/15/23 08:00 BP 140/68 H 01/15/23 08:00 Pulse Ox 92 01/15/23 08:00 O2 Del Method 01/15/23 08:00 O2 Flow Rate 2 01/14/23 23:50 BMI result Body Mass Index 43.8 Const: Other: General: AO X 3, no acute distress Resp: CTA bilateral CVS: S1,S2,RRR GI: +BS, NT, no distention Skin: wound van on right ankle Neuro: motor grossly intact Psych: appropriate affect Objective Data Active Medications Acetaminophen (Acetaminophen 325 Mg Tablet) 650 mg PO Q6H PRN PRN Reason: Pain, Mild (Pain Scale 1-3) Last Admin: 01/15/23 05:19 Dose: 650 mg Documented By: DENNY Acetaminophen/Butalbital/Caffeine (Butalb/Acetamin/Caff 50/325/40 Tablet) 1 tab PO Q4H PRN PRN Reason: Headache Last Admin: 01/15/23 02:10 Dose: 1 tab Documented By: DENNY Albuterol Sulfate (Albuterol Sulfate (0.083%) 2.5 Mg/3 Ml Vial.Neb) 2.5 mg INHA LE Q4H PRN PRN Reason: Shortness of Breath Calcium Carbonate (Calcium Carbonate 500 Mg Tablet) 500 mg PO BID [facility] Last Admin: 01/15/23 07:54 Dose: 500 mg Documented By: SKYLA Cyanocobalamin (Cyanocobalamin (Vitamin B-12) 500 Mcg Tablet) 500 mcg PO DAILY [facility] Last Admin: 01/15/23 07:54 Dose: 500 mcg Documented By: SKYLA Ergocalciferol (Ergocalciferol (Vitamin D2) 1,250 Mcg Capsule) 1,250 mcg PO MORENO [facility] Last Admin: 01/09/23 09:07 Dose: 1,250 mcg Documented By: JEANETTE-NASIM Fentanyl (Fentanyl Citrate/Pf 100 Mcg/2 Ml Vial) 25 mcg IVPUSH Q5M PRN; Protocol PRN Reason: Pain, Moderate (Pain Scale 4-6 Ferrous Sulfate (Ferrous Sulfate 324 Mg Tablet.Dr) 324 mg PO DAILY [facility] Last Admin: 01/15/23 07:54 Dose: 324 mg Documented By: SKYLA Gabapentin (Gabapentin 100 Mg Capsule) 100 mg PO BID [facility] Last Admin: 01/15/23 07:55 Dose: 100 mg Documented By: SKYLA Heparin Sodium (Porcine) (Heparin Sodium,Porcine 5,000 Unit/Ml Vial) 5,000 unit SUBCUT Q8H [facility] Last Admin: 01/15/23 04:02 Dose: 5,000 unit Documented By: DENNY Hydralazine HCl (Hydralazine Hcl 25 Mg Tablet) 75 mg PO TID [facility]; Protocol Last Admin: 01/15/23 07:55 Dose: 75 mg Documented By: SKYLA Hydromorphone HCl (Hydromorphone Hcl 1 Mg/Ml Syringe) 1 mg IVPUSH Q3H PRN; Protocol PRN Reason: Pain, Severe (Pain Scale 7-10) Last Admin: 01/15/23 07:55 Dose: 1 mg Documented By: SKYLA Hydromorphone HCl (Hydromorphone Hcl 0.5 Mg/0.5 Ml Syringe) 0.25 mg IVPUSH Q5M PRN; Protocol PRN Reason: Pain, Severe (Pain Scale 7-10) Last Admin: 01/14/23 15:33 Dose: 0.25 mg Documented By: GABRIELA Vancomycin HCl 1,000 mg/ (Sodium Chloride) 270 mls @ 270 mls/hr IV Q12H [facility] Last Infusion: 01/14/23 23:16 Dose: 0 mls/hr Documented By: DENNY Piperacillin Sod/Tazobactam (Sod 3.375 gm/ Sodium Chloride) 50 mls @ 100 mls/hr IV Q6H [facility] Last Infusion: 01/15/23 06:05 Dose: 0 mls/hr Documented By: DENNY Lidocaine (Lidocaine 4 % Patch Adh..Patch) 1 patch TRANSDERMA DAILY [facility]; Protocol Last Admin: 01/15/23 07:57 Dose: Not Given Documented By: SKYLA Non-Admin Reason: Patient Refused Magnesium Hydroxide (Milk Of Magnesia 30 Ml Oral.Susp) 30 ml PO DAILY PRN PRN Reason: Constipation Melatonin (Melatonin 3 Mg Tablet) 6 mg PO BEDTIME PRN PRN Reason: Insomnia Last Admin: 01/12/23 21:47 Dose: 6 mg Documented By: NAZ Metformin HCl (Metformin Hcl Er 500 Mg Tab.Er.24h) 500 mg PO BID [facility] Last Admin: 01/15/23 07:54 Dose: 500 mg Documented By: SKYLA Multivitamins/Vitamin C (Multivitamin Tablet) 1 tab PO DAILY [facility] Last Admin: 01/15/23 07:54 Dose: 1 tab Documented By: SKYLA Pt Own (Exemestane (25 Mg Tablet)) 25 mg PO DAILY [facility] Last Admin: 01/15/23 07:55 Dose: 25 mg Documented By: SKYLA Nystatin (Nystatin Oral Susp 500,000 Unit/5 Ml Oral.Susp) 500,000 unit PO QID [facility]; Protocol Last Admin: 01/15/23 07:55 Dose: 500,000 unit Documented By: SKYLA Omeprazole (Omeprazole 20 Mg Capsule.Dr) 20 mg PO DAILY@0630 [facility] Last Admin: 01/15/23 05:19 Dose: 20 mg Documented By: DENNY Ondansetron HCl (Ondansetron Hcl 4 Mg/2 Ml Vial) 4 mg IVPUSH Q8H PRN PRN Reason: Nausea Ondansetron HCl (Ondansetron Hcl 4 Mg/2 Ml Vial) 4 mg IVPUSH ONCE PRN PRN Reason: Nausea and Vomiting Propranolol HCl (Propranolol Hcl La 80 Mg Cap.Sa.24h) 80 mg PO DAILY [facility]; Protocol Last Admin: 01/15/23 07:54 Dose: 80 mg Documented By: SKYLA Sodium Chloride (0.9 % Sodium Chloride Flush 3 Ml Syringe) 3 ml IVFLUSH QSHIFT [facility] Last Admin: 01/15/23 07:57 Dose: 3 ml Documented By: SKYLA Labs 01/02/23 05:51 01/15/23 05:10 Labs: Laboratory Results - last 24 hr 01/14/23 01/14/23 01/15/23 13:33 21:16 05:10 Estim Creat Clear Calc 67.7 Estimated GFR 52 POC Glucose 117 H Vancomycin Trough 13.9 Assessment and Plan (1) Morbid obesity: Status: Acute (2) Acute osteomyelitis: Status: Acute (3) Abscess: Status: Acute Plan 72 year old female with morbid obesity and other medical problems as listed. She presents with right ankle redness, pain and swelling best described by the image, clinical presentation consistent with sepsis d/t cellulitis and concern for joint involvment. Left ankle Cellulitis and acute oseomyelitits and abscess, Sepsis,.? Sepsis clinically resolved -MRI 12/29:1. Large 12 cm abscess in the lateral subcutaneous fat at the level of the ankle and hindfoot with surrounding cellulitis and underlying osteomyelitis of the lateral malleolus. 2. Complex longitudinal tears of the peroneus longus and peroneus brevis tendons with associated tenosynovitis. Septic tenosynovitis is also possible. cpk normal Ortho did bedside I/D on 12/30, followed by OR for full exploration and lavage on? 12/31 culture so far negative -She has been on Vanco and Zosyn Surgery debrided in OR 01/14 and appled wound vac Gerd--Omeprazol Anxiety--Prorpanolol Morbid obesity--weight loss advised. Cluster migrane episode : given sumatriptan, Fiorocet Heparin for DVT prophylaxis Full code inpatient need :sepsis, ankle cellulitis/abscess and expert evaluation for possible intervention, not able to due this in less acute setting at this time will ana a picc line on tuesday for custodial Time Spent With Patient Time: Total time managing care of this patient today ____ minutes. Quality Stroke Does the patient have a stroke diagnosis?: No VTE Prior VTE?: No VTE Risk Level:: Medical - moderate - high VTE Device Contraindication: Treatment Not Indicated VTE Drug Contraindication: N/A - Med Ordered
--- NOTE | 2023-01-15 14:01 | HE.PHANOTE ---
Vancomycin Dosing Patient lost IV access today. Patient had dose increased last night due to level decrease on current dose. Patient had a trough schedule for tonight, which now will need to be reschedule. Since patient was supraterapeutic previously on this dose, tonight's level was important and if vancomycin level is drawn at current scheduled time pharmacy would not be able to access. Will restart vancomycin 1000 mg Q12H on 01/15 at 1900 to allow some of the vancomycin to be clear so patient does not become supratherapeutic when not monitored. Next level will be drawn 01/16 @ 1700. Lisa Nielsen, ElizabethD
[2023-01-15] MEDS: vancomycin HCL 1,000 MG in 0.9 % Sodium Chloride 250 ML 270 MG IV (18:31)
[2023-01-15 20:03] LABS: B Type Natriuretic Peptide 255 pg/mL (<100)
[2023-01-16] MEDS: 0.9 % Sodium Chloride Flush 3 ML SYRINGE IVFLUSH ×3 (00:14→16:16)
[2023-01-16] MEDS: HYDROmorphone HCl 1 MG/ML SYRINGE IVPUSH ×6 (01:10→23:12)
[2023-01-16] MEDS: Piperacillin Sodium/Tazobactam 3.375 GM in 0.9 % Sodium Chloride 50 ML IV ×4 (01:19→19:39)
[2023-01-16] MEDS: Heparin Sodium,Porcine 5,000 UNIT/ML VIAL 5000 UNIT SUBCUT ×3 (04:13→19:39)
[2023-01-16] MEDS: Omeprazole 20 MG CAPSULE.DR PO (04:14)
[2023-01-16 07:10] LABS: Creatinine Clr Calc Pharmacy 72.6; Estimated Glomerular Filt Rate 56
[2023-01-16] MEDS: Nystatin Oral Susp 500,000 UNIT/5 ML ORAL.SUSP 500000 UNIT PO ×4 (07:32→19:41)
[2023-01-16] MEDS: Ferrous Sulfate 324 MG TABLET.DR PO (07:33)
[2023-01-16] MEDS: metFORMIN HCl ER 500 MG TAB.ER.24H PO ×2 (07:33→19:41)
[2023-01-16] MEDS: Propranolol HCL LA 80 MG CAP.SA.24H PO (07:33)
[2023-01-16] MEDS: hydrALAZINE HCl 25 MG TABLET 75 MG PO ×3 (07:33→19:39)
[2023-01-16] MEDS: vancomycin HCL 1,000 MG in 0.9 % Sodium Chloride 250 ML 270 MG IV (07:34)
[2023-01-16] MEDS: Cyanocobalamin (Vitamin B-12) 500 MCG TABLET PO (07:34)
[2023-01-16] MEDS: Gabapentin 100 MG CAPSULE PO ×2 (07:34→19:41)
[2023-01-16] MEDS: Multivitamin TABLET 1 TAB PO (07:34)
[2023-01-16 08:00] VITALS: BP 160/74; PULSE 73; RESP 18; TEMP 37; O2SAT 94
[2023-01-16] MEDS: Ergocalciferol (Vitamin D2) 1,250 MCG CAPSULE 1250 MCG PO (08:29)
[2023-01-16] MEDS: Furosemide 40 MG/4 ML VIAL IVPUSH (09:50)
--- NOTE | 2023-01-16 09:53 | P.PNIM_ITS ---
Subjective Subjective Date of Service: 01/16/23 Interval History: She has been complaining of sob, covid negative CXR 3/ no PNA, BNP moderately high, no fever Review of Systems denies any muscle pain or joint pain no fevers has headaches-likley migrane . sob Physical Exam Vital Signs: Vital Signs: Last Vital Signs Temp 98.6 F 01/16/23 08:00 Pulse 73 01/16/23 08:00 Resp 18 01/16/23 08:00 BP 160/74 H 01/16/23 08:00 Pulse Ox 94 01/16/23 08:00 O2 Del Method 01/16/23 08:00 O2 Flow Rate 2.0 01/16/23 08:00 Oxygen Flow Rate 2 01/15/23 15:51 BMI result Body Mass Index 43.8 Const: Other: General: AO X 3, no acute distress Resp: CTA bilateral CVS: S1,S2,RRR, some swelling in the legs GI: +BS, NT, no distention Skin: wound van on right ankle Neuro: motor grossly intact Psych: appropriate affect Objective Data Active Medications Acetaminophen (Acetaminophen 325 Mg Tablet) 650 mg PO Q6H PRN PRN Reason: Pain, Mild (Pain Scale 1-3) Last Admin: 01/15/23 05:19 Dose: 650 mg Documented By: DENNY Acetaminophen/Butalbital/Caffeine (Butalb/Acetamin/Caff 50/325/40 Tablet) 1 tab PO Q4H PRN PRN Reason: Headache Last Admin: 01/15/23 22:48 Dose: 1 tab Documented By: STAR Albuterol Sulfate (Albuterol Sulfate (0.083%) 2.5 Mg/3 Ml Vial.Neb) 2.5 mg INHALE Q4H PRN PRN Reason: Shortness of Breath Last Admin: 01/15/23 20:59 Dose: 2.5 mg Documented By: LALITA Calcium Carbonate (Calcium Carbonate 500 Mg Tablet) 500 mg PO BID [facility] Last Admin: 01/16/23 07:33 Dose: 500 mg Documented By: SKYLA Cyanocobalamin (Cyanocobalamin (Vitamin B-12) 500 Mcg Tablet) 500 mcg PO DAILY [facility] Last Admin: 01/16/23 07:34 Dose: 500 mcg Documented By: SKYLA Ergocalciferol (Ergocalciferol (Vitamin D2) 1,250 Mcg Capsule) 1,250 mcg PO MORENO [facility] Last Admin: 01/16/23 08:29 Dose: 1,250 mcg Documented By: SKYLA Fentanyl (Fentanyl Citrate/Pf 100 Mcg/2 Ml Vial) 25 mcg IVPUSH Q5M PRN; Protocol PRN Reason: Pain, Moderate (Pain Scale 4-6 Ferrous Sulfate (Ferrous Sulfate 324 Mg Tablet.Dr) 324 mg PO DAILY [facility] Last Admin: 01/16/23 07:33 Dose: 324 mg Documented By: SKYLA Gabapentin (Gabapentin 100 Mg Capsule) 100 mg PO BID [facility] Last Admin: 01/16/23 07:34 Dose: 100 mg Documented By: SKYLA Heparin Sodium (Porcine) (Heparin Sodium,Porcine 5,000 Unit/Ml Vial) 5,000 unit SUBCUT Q8H [facility] Last Admin: 01/16/23 04:13 Dose: 5,000 unit Documented By: STAR Hydralazine HCl (Hydralazine Hcl 25 Mg Tablet) 75 mg PO TID [facility]; Protocol Last Admin: 01/16/23 07:33 Dose: 75 mg Documented By: SKYLA Hydromorphone HCl (Hydromorphone Hcl 1 Mg/Ml Syringe) 1 mg IVPUSH Q3H PRN; Protocol PRN Reason: Pain, Severe (Pain Scale 7-10) Last Admin: 01/16/23 08:10 Dose: 1 mg Documented By: SKYLA Hydromorphone HCl (Hydromorphone Hcl 0.5 Mg/0.5 Ml Syringe) 0.25 mg IVPUSH Q5M PRN; Protocol PRN Reason: Pain, Severe (Pain Scale 7-10) Last Admin: 01/14/23 15:33 Dose: 0.25 mg Documented By: GABRIELA Piperacillin Sod/Tazobactam (Sod 3.375 gm/ Sodium Chloride) 50 mls @ 100 mls/hr IV Q6H [facility] Last Infusion: 01/16/23 09:45 Dose: 0 mls/hr Documented By: SKYLA Vancomycin HCl 1,000 mg/ (Sodium Chloride) 270 mls @ 270 mls/hr IV Q12H [facility] Last Infusion: 01/16/23 09:12 Dose: 0 mls/hr Documented By: SKYLA Lidocaine (Lidocaine 4 % Patch Adh..Patch) 1 patch TRANSDERMA DAILY [facility]; Protocol Last Admin: 01/16/23 09:13 Dose: Not Given Documented By: SKYLA Non-Admin Reason: Patient Refused Magnesium Hydroxide (Milk Of Magnesia 30 Ml Oral.Susp) 30 ml PO DAILY PRN PRN Reason: Constipation Melatonin (Melatonin 3 Mg Tablet) 6 mg PO BEDTIME PRN PRN Reason: Insomnia Last Admin: 01/12/23 21:47 Dose: 6 mg Documented By: NAZ Metformin HCl (Metformin Hcl Er 500 Mg Tab.Er.24h) 500 mg PO BID [facility] Last Admin: 01/16/23 07:33 Dose: 500 mg Documented By: SKYLA Multivitamins/Vitamin C (Multivitamin Tablet) 1 tab PO DAILY [facility] Last Admin: 01/16/23 07:34 Dose: 1 tab Documented By: SKYLA Pt Own (Exemestane (25 Mg Tablet)) 25 mg PO DAILY [facility] Last Admin: 01/16/23 07:34 Dose: 25 mg Documented By: SKYLA Nystatin (Nystatin Oral Susp 500,000 Unit/5 Ml Oral.Susp) 500,000 unit PO QID [facility]; Protocol Last Admin: 01/16/23 07:32 Dose: 500,000 unit Documented By: SKYLA Omeprazole (Omeprazole 20 Mg Capsule.Dr) 20 mg PO DAILY@0630 [facility] Last Admin: 01/16/23 04:14 Dose: 20 mg Documented By: STAR Ondansetron HCl (Ondansetron Hcl 4 Mg/2 Ml Vial) 4 mg IVPUSH Q8H PRN PRN Reason: Nausea Ondansetron HCl (Ondansetron Hcl 4 Mg/2 Ml Vial) 4 mg IVPUSH ONCE PRN PRN Reason: Nausea and Vomiting Propranolol HCl (Propranolol Hcl La 80 Mg Cap.Sa.24h) 80 mg PO DAILY [facility]; Protocol Last Admin: 01/16/23 07:33 Dose: 80 mg Documented By: SKYLA Sodium Chloride (0.9 % Sodium Chloride Flush 3 Ml Syringe) 3 ml IVFLUSH QSHIFT [facility] Last Admin: 01/16/23 07:35 Dose: 3 ml Documented By: SKYLA Labs 01/02/23 05:51 01/16/23 06:03 Labs: Laboratory Results - last 24 hr 01/15/23 01/16/23 19:23 06:03 Estim Creat Clear Calc 72.6 Estimated GFR 56 B-Natriuretic Peptide 255 H Assessment and Plan (1) Morbid obesity: Status: Acute (2) Acute osteomyelitis: Status: Acute (3) Abscess: Status: Acute Plan 72 year old female with morbid obesity and other medical problems as listed. She presents with right ankle redness, pain and swelling best described by the image, clinical presentation consistent with sepsis d/t cellulitis and concern for joint involvment. Left ankle Cellulitis and acute oseomyelitits and abscess, Sepsis,.? Sepsis clinically resolved -MRI 12/29:1. Large 12 cm abscess in the lateral subcutaneous fat at the level of the ankle and hindfoot with surrounding cellulitis and underlying osteomyelitis of the lateral malleolus. 2. Complex longitudinal tears of the peroneus longus and peroneus brevis tendons with associated tenosynovitis. Septic tenosynovitis is also possible. cpk normal Ortho did bedside I/D on 12/30, followed by OR for full exploration and lavage on? 12/31 culture so far negative -She has been on Vanco and Zosyn Surgery debrided in OR 01/14 and appled wound vac -PICC line tomorrow Gerd--Omeprazol Anxiety--Prorpanolol Morbid obesity--weight loss advised. Cluster migrane episode : given sumatriptan, Fiorocet SOB, CXR ok, BNP moderately at 255, IV Lasix and monitor if not improving, then CT of chest Heparin for DVT prophylaxis Full code inpatient need :sepsis, ankle cellulitis/abscess and expert evaluation for possible intervention, not able to due this in less acute setting at this time will ana a picc line on tuesday for snf Time Spent With Patient Time: Total time managing care of this patient today ____ minutes. Quality Stroke Does the patient have a stroke diagnosis?: No VTE Prior VTE?: No VTE Risk Level:: Medical - moderate - high VTE Device Contraindication: Treatment Not Indicated VTE Drug Contraindication: N/A - Med Ordered
[2023-01-16] MEDS: Butalb/Acetamin/Caff 50/325/40 TABLET 1 TAB PO (10:41)
--- NOTE | 2023-01-16 14:39 | HO.POSTANES ---
Post Anesthesia Evaluation Post Anesthesia Evaluation Vital Signs: Vital Signs Temp Pulse Resp BP Pulse Ox O2 Del Method O2 Flow Rate 01/16/23 08:00 98.6 F 73 18 160/74 H 94 Nasal Cannula 2.0 Anesthesia: General LMA Mental Status: Awake Pain Control: Satisfactory Nausea/Vomiting: None Hydration: Adequate Anesthesia-Related Issues: No Anes. Related Issues
[2023-01-16 15:00] VITALS: O2SAT 93
[2023-01-16 15:44] VITALS: BP 134/65; PULSE 77; RESP 18; TEMP 36.7; O2SAT 93
[2023-01-16 18:11] LABS: Vancomycin Random 16.4 mcg/mL (15-20)
--- NOTE | 2023-01-16 18:14 | HE.PHANOTE ---
Vancomycin Dosing Patient level is therapeutic at 16.4 today. Predicted AUC is 517 with a trough of 16. Will continue current regimen. Next level in 24 hours on 01/17 @ 1700 to confirm patient is stable. Elizabeth ColonD
[2023-01-16] MEDS: vancomycin HCL 1,000 MG in 0.9 % Sodium Chloride 250 ML 200 MG IV (18:25)
[2023-01-16 23:34] VITALS: BP 140/80; PULSE 79; RESP 16; TEMP 36.4; O2SAT 95
[2023-01-17] VITALS (8 sets, daily range): BP systolic 143–179; BP diastolic 65–80; PULSE 73–86; RESP 16–20; TEMP 36.1–36.7; O2SAT 94–99
[2023-01-17] MEDS: Albuterol Sulfate (0.083%) 2.5 MG/3 ML VIAL.NEB INHALE ×2 (01:27→17:05)
[2023-01-17] MEDS: Piperacillin Sodium/Tazobactam 3.375 GM in 0.9 % Sodium Chloride 50 ML IV ×4 (02:41→23:08)
[2023-01-17] MEDS: 0.9 % Sodium Chloride Flush 3 ML SYRINGE IVFLUSH ×2 (05:41→07:25)
[2023-01-17] MEDS: Heparin Sodium,Porcine 5,000 UNIT/ML VIAL 5000 UNIT SUBCUT ×3 (05:41→23:08)
[2023-01-17] MEDS: Omeprazole 20 MG CAPSULE.DR PO (05:42)
[2023-01-17] MEDS: HYDROmorphone HCl 1 MG/ML SYRINGE IVPUSH ×4 (05:43→23:01)
[2023-01-17 06:43] LABS: Creatinine Clr Calc Pharmacy 83.8; Estimated Glomerular Filt Rate > 60
[2023-01-17] MEDS: vancomycin HCL 1,000 MG in 0.9 % Sodium Chloride 250 ML 200 MG IV (07:28)
[2023-01-17] MEDS: Gabapentin 100 MG CAPSULE PO ×2 (07:33→20:23)
[2023-01-17] MEDS: metFORMIN HCl ER 500 MG TAB.ER.24H PO ×2 (07:33→20:23)
[2023-01-17] MEDS: hydrALAZINE HCl 25 MG TABLET 75 MG PO ×3 (07:33→20:21)
[2023-01-17] MEDS: Multivitamin TABLET 1 TAB PO (07:33)
[2023-01-17] MEDS: Cyanocobalamin (Vitamin B-12) 500 MCG TABLET PO (07:33)
[2023-01-17] MEDS: Ferrous Sulfate 324 MG TABLET.DR PO (07:33)
[2023-01-17] MEDS: Propranolol HCL LA 80 MG CAP.SA.24H PO (07:34)
[2023-01-17] MEDS: Nystatin Oral Susp 500,000 UNIT/5 ML ORAL.SUSP 500000 UNIT PO ×4 (07:34→20:25)
[2023-01-17] MEDS: Butalb/Acetamin/Caff 50/325/40 TABLET 1 TAB PO ×2 (07:47→20:20)
--- NOTE | 2023-01-17 09:46 | P.PNIM_ITS ---
Subjective Subjective Date of Service: 01/17/23 Interval History: Still c/o sob, wound vac workin fine Review of Systems feels congested sob Physical Exam Vital Signs: Vital Signs: Last Vital Signs Temp 97.7 F 01/17/23 08:00 Pulse 78 01/17/23 08:00 Resp 18 01/17/23 08:00 BP 144/67 H 01/17/23 08:00 Pulse Ox 96 01/17/23 08:00 O2 Del Method 01/17/23 08:00 O2 Flow Rate 2 01/17/23 08:00 Oxygen Flow Rate 2.0 01/16/23 15:00 BMI result Body Mass Index 43.8 Const: Other: General: AO X 3, no acute distress Resp: CTA bilateral CVS: S1,S2,RRR, some swelling in the legs GI: +BS, NT, no distention Skin: wound van on right ankle Neuro: motor grossly intact Psych: appropriate affect Objective Data Active Medications Acetaminophen (Acetaminophen 325 Mg Tablet) 650 mg PO Q6H PRN PRN Reason: Pain, Mild (Pain Scale 1-3) Last Admin: 01/15/23 05:19 Dose: 650 mg Documented By: DENNY Acetaminophen/Butalbital/Caffeine (Butalb/Acetamin/Caff 50/325/40 Tablet) 1 tab PO Q4H PRN PRN Reason: Headache Last Admin: 01/17/23 07:47 Dose: 1 tab Documented By: SKYLA Albuterol Sulfate (Albuterol Sulfate (0.083%) 2.5 Mg/3 Ml Vial.Neb) 2.5 mg INHALE Q4H PRN PRN Reason: Shortness of Breath Last Admin: 01/17/23 01:27 Dose: 2.5 mg Documented By: MIMI Calcium Carbonate (Calcium Carbonate 500 Mg Tablet) 500 mg PO BID [facility] Last Admin: 01/17/23 07:33 Dose: 500 mg Documented By: SKYLA Cyanocobalamin (Cyanocobalamin (Vitamin B-12) 500 Mcg Tablet) 500 mcg PO DAILY [facility] Last Admin: 01/17/23 07:33 Dose: 500 mcg Documented By: SKYLA Ergocalciferol (Ergocalciferol (Vitamin D2) 1,250 Mcg Capsule) 1,250 mcg PO MORENO [facility] Last Admin: 01/16/23 08:29 Dose: 1,250 mcg Documented By: SKYLA Fentanyl (Fentanyl Citrate/Pf 100 Mcg/2 Ml Vial) 25 mcg IVPUSH Q5M PRN; Protocol PRN Reason: Pain, Moderate (Pain Scale 4-6 Ferrous Sulfate (Ferrous Sulfate 324 Mg Tablet.Dr) 324 mg PO DAILY [facility] Last Admin: 01/17/23 07:33 Dose: 324 mg Documented By: SKYLA Gabapentin (Gabapentin 100 Mg Capsule) 100 mg PO BID [facility] Last Admin: 01/17/23 07:33 Dose: 100 mg Documented By: SKYLA Guaifenesin/Codeine Phosphate (Guaifen/Codeine Sf 200/20/10ml 10 Ml Liquid) 5 ml PO Q6H PRN PRN Reason: Cough Heparin Sodium (Porcine) (Heparin Sodium,Porcine 5,000 Unit/Ml Vial) 5,000 unit SUBCUT Q8H [facility] Last Admin: 01/17/23 05:41 Dose: 5,000 unit Documented By: STAR Hydralazine HCl (Hydralazine Hcl 25 Mg Tablet) 75 mg PO TID [facility]; Protocol Last Admin: 01/17/23 07:33 Dose: 75 mg Documented By: SKYLA Hydromorphone HCl (Hydromorphone Hcl 1 Mg/Ml Syringe) 1 mg IVPUSH Q3H PRN; Protocol PRN Reason: Pain, Severe (Pain Scale 7-10) Last Admin: 01/17/23 05:43 Dose: 1 mg Documented By: STAR Hydromorphone HCl (Hydromorphone Hcl 0.5 Mg/0.5 Ml Syringe) 0.25 mg IVPUSH Q5M PRN; Protocol PRN Reason: Pain, Severe (Pain Scale 7-10) Last Admin: 01/14/23 15:33 Dose: 0.25 mg Documented By: GABRIELA Piperacillin Sod/Tazobactam (Sod 3.375 gm/ Sodium Chloride) 50 mls @ 100 mls/hr IV Q6H [facility] Last Admin: 01/17/23 08:38 Dose: 100 mls/hr Documented By: SKYLA Vancomycin HCl 1,000 mg/ (Sodium Chloride) 270 mls @ 270 mls/hr IV Q12H [facility] Last Infusion: 01/17/23 09:07 Dose: 0 mls/hr Documented By: SKYLA Lidocaine (Lidocaine 4 % Patch Adh..Patch) 1 patch TRANSDERMA DAILY [facility]; Protocol Last Admin: 01/16/23 09:13 Dose: Not Given Documented By: SKYLA Non-Admin Reason: Patient Refused Magnesium Hydroxide (Milk Of Magnesia 30 Ml Oral.Susp) 30 ml PO DAILY PRN PRN Reason: Constipation Melatonin (Melatonin 3 Mg Tablet) 6 mg PO BEDTIME PRN PRN Reason: Insomnia Last Admin: 01/12/23 21:47 Dose: 6 mg Documented By: NAZ Metformin HCl (Metformin Hcl Er 500 Mg Tab.Er.24h) 500 mg PO BID [facility] Last Admin: 01/17/23 07:33 Dose: 500 mg Documented By: SKYLA Multivitamins/Vitamin C (Multivitamin Tablet) 1 tab PO DAILY [facility] Last Admin: 01/17/23 07:33 Dose: 1 tab Documented By: SKYLA Pt Own (Exemestane (25 Mg Tablet)) 25 mg PO DAILY [facility] Last Admin: 01/17/23 07:34 Dose: 25 mg Documented By: SKYLA Nystatin (Nystatin Oral Susp 500,000 Unit/5 Ml Oral.Susp) 500,000 unit PO QID [facility]; Protocol Last Admin: 01/17/23 07:34 Dose: 500,000 unit Documented By: SKYLA Omeprazole (Omeprazole 20 Mg Capsule.Dr) 20 mg PO DAILY@0630 [facility] Last Admin: 01/17/23 05:42 Dose: 20 mg Documented By: STAR Ondansetron HCl (Ondansetron Hcl 4 Mg/2 Ml Vial) 4 mg IVPUSH Q8H PRN PRN Reason: Nausea Ondansetron HCl (Ondansetron Hcl 4 Mg/2 Ml Vial) 4 mg IVPUSH ONCE PRN PRN Reason: Nausea and Vomiting Propranolol HCl (Propranolol Hcl La 80 Mg Cap.Sa.24h) 80 mg PO DAILY [facility]; Protocol Last Admin: 01/17/23 07:34 Dose: 80 mg Documented By: SKYLA Sodium Chloride (0.9 % Sodium Chloride Flush 3 Ml Syringe) 3 ml IVFLUSH QSHIFT [facility] Last Admin: 01/17/23 07:25 Dose: 3 ml Documented By: SKYLA Labs 01/02/23 05:51 01/17/23 05:19 Labs: Laboratory Results - last 24 hr 01/16/23 01/17/23 17:35 05:19 Estim Creat Clear Calc 83.8 Estimated GFR > 60 Random Vancomycin 16.4 Assessment and Plan (1) Morbid obesity: Status: Acute (2) Acute osteomyelitis: Status: Acute (3) Abscess: Status: Acute Plan 72 year old female with morbid obesity and other medical problems as listed. She presents with right ankle redness, pain and swelling best described by the image, clinical presentation consistent with sepsis d/t cellulitis and concern for joint involvment. Left ankle Cellulitis and acute oseomyelitits and abscess, Sepsis,.? Sepsis clinically resolved -MRI 12/29:1. Large 12 cm abscess in the lateral subcutaneous fat at the level of the ankle and hindfoot with surrounding cellulitis and underlying osteomyelitis of the lateral malleolus. 2. Complex longitudinal tears of the peroneus longus and peroneus brevis tendons with associated tenosynovitis. Septic tenosynovitis is also possible. cpk normal Ortho did bedside I/D on 12/30, followed by OR for full exploration and lavage on? 12/31 culture so far negative -She has been on Vanco and Zosyn Surgery debrided in OR 01/14 and appled wound vac -PICC line today Gerd--Omeprazol Anxiety--Prorpanolol Morbid obesity--weight loss advised. Cluster migrane episode : given sumatriptan, Fiorocet SOB, CXR ok, BNP moderately at 255, IV Lasix and monitor if not improving, then CT of chest , repeat CXR for sob and if not diagnostic CT of chest Heparin for DVT prophylaxis Full code inpatient need :sepsis, ankle cellulitis/abscess and expert evaluation for possible intervention, not able to due this in less acute setting at this time will nded a picc line today for snf Time Spent With Patient Time: Total time managing care of this patient today ____ minutes. Quality Stroke Does the patient have a stroke diagnosis?: No VTE Prior VTE?: No VTE Risk Level:: Medical - moderate - high VTE Device Contraindication: Treatment Not Indicated VTE Drug Contraindication: N/A - Med Ordered
--- NOTE | 2023-01-17 10:54 | HO.PICC ---
PICC Line Insertion NPICC Diagnosis: right foot wound Indication: intermediate antibiotics needed Pertinent Labs: reviewed Technique: Following informed consent including risks, benefits and alternatives and using sterile technique including cap and mask, sterile gown, glove and drape, the left arm was prepped and draped in the usual sterile fashion of full barrier technique with CHG. Following completion of [place] Protocol the skin and soft tissues were anesthetized with 1% Lidocaine plain. Using ultrasound guidance, left cephalic vein access was obtained on first attempt by Laya Goodman RN, but unable to pass guidewire. Left basilic vein access was obtained by Ashutosh Arenas RN on first attempt. Over an 0.018 wire through peel-away sheath, a [4FR single lumen PASV] PICC line was positioned. Catheter length is 46 CM internal length, at 0 CM external length, for a total trimmed length of 46 CM. The procedure was performed in S272. Tip verification was performed by Le Felipe with Sherlock 3CG. Tip located in SVC. Ultrasound was used to document vein patency and for needle entry. A formal ultrasound picture and cardiac rhythm strip was recorded. [facility] has released the line for use and it is currently dressed with a StatLock, Tegaderm, and CHG disc. Verification has been performed for blood return and line patency. Arm Circumference: 40 CM Equipment: OWM Power PICC Solo Catheter Type: 4FR single lumen Non-PASV PICC Lot #: [id number]
--- NOTE | 2023-01-17 13:06 | PM.PNGS ---
Subjective Subjective Date of Service: 01/17/23 <Kailee Aleman PA-C - Last Filed: 01/17/23 13:16> 01/17/23 <Luís Hui MD - Last Filed: 01/17/23 14:48> Interval history: Sleepy this morning. Still c/o cough and SOB. <Kailee Aleman PA-C - Last Filed: 01/17/23 13:16> Physical Exam Vital Signs: Vital Signs: Last Vital Signs Temp 97.7 F 01/17/23 08:00 Pulse 78 01/17/23 08:00 Resp 18 01/17/23 08:00 BP 144/67 H 01/17/23 08:00 Pulse Ox 96 01/17/23 08:00 O2 Del Method 01/17/23 08:00 O2 Flow Rate 2 01/17/23 08:00 Oxygen Flow Rate 2.0 01/16/23 15:00 BMI result Body Mass Index 43.8 <Kailee Aleman PA-C - Last Filed: 01/17/23 13:16> Const: General: comfortable, no acute distress and alert <Kailee Aleman PA-C - Last Filed: 01/17/23 13:16> Resp: Effort & Inspection: other (increased work of breathing) <Kailee Aleman PA-C - Last Filed: 01/17/23 13:16> Extrem: Other: right foot wound- beefy red granulation tissue to majority of wound base, no surrounding erythema, edema persists; no purulence <Kailee Aleman PA-C - Last Filed: 01/17/23 13:16> Other: right foot wound- beefy red granulation tissue to majority of wound base, no surrounding erythema, edema persists; no purulence Right lateral ankle: Wound measures 10 x 15 cm. <Luís Hui MD - Last Filed: 01/17/23 14:48> Objective Data Active Medications Acetaminophen (Acetaminophen 325 Mg Tablet) 650 mg PO Q6H PRN PRN Reason: Pain, Mild (Pain Scale 1-3) Last Admin: 01/15/23 05:19 Dose: 650 mg Documented By: DENNY Acetaminophen/Butalbital/Caffeine (Butalb/Acetamin/Caff 50/325/40 Tablet) 1 tab PO Q4H PRN PRN Reason: Headache Last Admin: 01/17/23 07:47 Dose: 1 tab Documented By: SKYLA Albuterol Sulfate (Albuterol Sulfate (0.083%) 2.5 Mg/3 Ml Vial.Neb) 2.5 mg INHALE Q4H PRN PRN Reason: Shortness of Breath Last Admin: 01/17/23 01:27 Dose: 2.5 mg Documented By: MIMI Calcium Carbonate (Calcium Carbonate 500 Mg Tablet) 500 mg PO BID [facility] Last Admin: 01/17/23 07:33 Dose: 500 mg Documented By: SKYLA Heparin Sodium (Porcine) 50 (units/ Sodium Chloride 5 ml) [facility] Cyanocobalamin (Cyanocobalamin (Vitamin B-12) 500 Mcg Tablet) 500 mcg PO DAILY [facility] Last Admin: 01/17/23 07:33 Dose: 500 mcg Documented By: SKYLA Ergocalciferol (Ergocalciferol (Vitamin D2) 1,250 Mcg Capsule) 1,250 mcg PO MORENO [facility] Last Admin: 01/16/23 08:29 Dose: 1,250 mcg Documented By: SKYLA Fentanyl (Fentanyl Citrate/Pf 100 Mcg/2 Ml Vial) 25 mcg IVPUSH Q5M PRN; Protocol PRN Reason: Pain, Moderate (Pain Scale 4-6 Ferrous Sulfate (Ferrous Sulfate 324 Mg Tablet.) 324 mg PO DAILY [facility] Last Admin: 01/17/23 07:33 Dose: 324 mg Documented By: SKYLA Gabapentin (Gabapentin 100 Mg Capsule) 100 mg PO BID [facility] Last Admin: 01/17/23 07:33 Dose: 100 mg Documented By: SKYLA Guaifenesin/Codeine Phosphate (Guaifen/Codeine Sf 200/20/10ml 10 Ml Liquid) 5 ml PO Q6H PRN PRN Reason: Cough Heparin Sodium (Porcine) (Heparin Sodium,Porcine 5,000 Unit/Ml Vial) 5,000 unit SUBCUT Q8H [facility] Last Admin: 01/17/23 05:41 Dose: 5,000 unit Documented By: STAR Hydralazine HCl (Hydralazine Hcl 25 Mg Tablet) 75 mg PO TID [facility]; Protocol Last Admin: 01/17/23 07:33 Dose: 75 mg Documented By: SKYLA Hydromorphone HCl (Hydromorphone Hcl 1 Mg/Ml Syringe) 1 mg IVPUSH Q3H PRN; Protocol PRN Reason: Pain, Severe (Pain Scale 7-10) Last Admin: 01/17/23 05:43 Dose: 1 mg Documented By: STAR Hydromorphone HCl (Hydromorphone Hcl 0.5 Mg/0.5 Ml Syringe) 0.25 mg IVPUSH Q5M PRN; Protocol PRN Reason: Pain, Severe (Pain Scale 7-10) Last Admin: 01/14/23 15:33 Dose: 0.25 mg Documented By: GABRIELA Piperacillin Sod/Tazobactam (Sod 3.375 gm/ Sodium Chloride) 50 mls @ 100 mls/hr IV Q6H [facility] Last Infusion: 01/17/23 09:59 Dose: 0 mls/hr Documented By: SKYLA Lidocaine (Lidocaine 4 % Patch Adh..Patch) 1 patch TRANSDERMA DAILY [facility]; Protocol Last Admin: 01/17/23 10:02 Dose: Not Given Documented By: SKYLA Non-Admin Reason: Patient Refused Magnesium Hydroxide (Milk Of Magnesia 30 Ml Oral.Susp) 30 ml PO DAILY PRN PRN Reason: Constipation Melatonin (Melatonin 3 Mg Tablet) 6 mg PO BEDTIME PRN PRN Reason: Insomnia Last Admin: 01/12/23 21:47 Dose: 6 mg Documented By: NAZ Metformin HCl (Metformin Hcl Er 500 Mg Tab.Er.24h) 500 mg PO BID [facility] Last Admin: 01/17/23 07:33 Dose: 500 mg Documented By: SKYLA Multivitamins/Vitamin C (Multivitamin Tablet) 1 tab PO DAILY [facility] Last Admin: 01/17/23 07:33 Dose: 1 tab Documented By: SKYLA Pt Own (Exemestane (25 Mg Tablet)) 25 mg PO DAILY [facility] Last Admin: 01/17/23 07:34 Dose: 25 mg Documented By: SKYLA Nystatin (Nystatin Oral Susp 500,000 Unit/5 Ml Oral.Susp) 500,000 unit PO QID [facility]; Protocol Last Admin: 01/17/23 07:34 Dose: 500,000 unit Documented By: SKYLA Omeprazole (Omeprazole 20 Mg Capsule.Dr) 20 mg PO DAILY@0630 [facility] Last Admin: 01/17/23 05:42 Dose: 20 mg Documented By: STAR Ondansetron HCl (Ondansetron Hcl 4 Mg/2 Ml Vial) 4 mg IVPUSH Q8H PRN PRN Reason: Nausea Ondansetron HCl (Ondansetron Hcl 4 Mg/2 Ml Vial) 4 mg IVPUSH ONCE PRN PRN Reason: Nausea and Vomiting Propranolol HCl (Propranolol Hcl La 80 Mg Cap.Sa.24h) 80 mg PO DAILY [facility]; Protocol Last Admin: 01/17/23 07:34 Dose: 80 mg Documented By: SKYLA Sodium Chloride (0.9 % Sodium Chloride Flush 3 Ml Syringe) 3 ml IVFLUSH QSHIFT [facility] Last Admin: 01/17/23 07:25 Dose: 3 ml Documented By: SKYLA <Kailee Aleman PA-C - Last Filed: 01/17/23 13:16> Labs CBC & Chem 7: 01/02/23 05:51 01/17/23 05:19 <Kailee Aleman PA-C - Last Filed: 01/17/23 13:16> Labs: Laboratory Results - last 24 hr 01/16/23 01/17/23 17:35 05:19 Estim Creat Clear Calc 83.8 Estimated GFR > 60 Random Vancomycin 16.4 <Kailee Aleman PA-C - Last Filed: 01/17/23 13:16> Procedures Date of Service Date of Service: 01/17/23 <Kailee Aleman PA-C - Last Filed: 01/17/23 13:16> Progress Note: A&P Assessment and plan (1) Right foot ulcer: Status: Acute <Kailee Aleman PA-C - Last Filed: 01/17/23 13:16> Assessment and Plan: Right food ulcer debrided with wound vac placed on 3 in OR. Wound vac changed this afternoon. Wound clean with granulation tissue to majority of wound bed; wound vac replaced. Plan for dressing change later this week. Cont leg elevation to reduce edema. Medical management as per hospitalist service. <Kailee Aleman PA-C - Last Filed: 01/17/23 13:16> Time Spent With Patient Time: Total time managing care of this patient today ____ minutes. <Kailee Aleman PA-C - Last Filed: 01/17/23 13:16> Quality Stroke Does the patient have a stroke diagnosis?: No <Kailee Aleman PA-C - Last Filed: 01/17/23 13:16> VTE Prior VTE?: No <Kailee Aleman PA-C - Last Filed: 01/17/23 13:16> VTE Risk Level:: Medical - moderate - high <Kailee Aleman PA-C - Last Filed: 01/17/23 13:16> VTE Device Contraindication: Treatment Not Indicated <Kailee Aleman PA-C - Last Filed: 01/17/23 13:16> VTE Drug Contraindication: N/A - Med Ordered <Kailee Aleman PA-C - Last Filed: 01/17/23 13:16>
[2023-01-17] MEDS: Heparin Sodium,Porcine Flush 50 UNITS, 0.9 % Sodium Chloride Flush 5 ML IVFLUSH (14:15)
[2023-01-17] MEDS: guaiFEN/Codeine SF 200/20/10ML 10 ML LIQUID 5 ML PO (15:08)
[2023-01-17 17:42] LABS: Vancomycin Trough 17.5 mcg/mL (10.0-20.0)
[2023-01-18] VITALS (7 sets, daily range): BP systolic 112–161; BP diastolic 65–92; PULSE 77–86; RESP 16–24; TEMP 36.3–36.6; O2SAT 94–98
[2023-01-18] MEDS: Heparin Sodium,Porcine Flush 50 UNITS, 0.9 % Sodium Chloride Flush 5 ML IVFLUSH ×4 (00:15→22:26)
[2023-01-18] MEDS: Butalb/Acetamin/Caff 50/325/40 TABLET 1 TAB PO ×3 (01:09→22:26)
[2023-01-18] MEDS: 0.9 % Sodium Chloride Flush 3 ML SYRINGE IVFLUSH ×4 (01:16→20:41)
[2023-01-18] MEDS: Piperacillin Sodium/Tazobactam 3.375 GM in 0.9 % Sodium Chloride 50 ML IV ×4 (01:17→20:39)
[2023-01-18] MEDS: Albuterol Sulfate (0.083%) 2.5 MG/3 ML VIAL.NEB INHALE (01:18)
[2023-01-18] MEDS: HYDROmorphone HCl 1 MG/ML SYRINGE IVPUSH ×2 (04:16→07:55)
[2023-01-18] MEDS: Heparin Sodium,Porcine 5,000 UNIT/ML VIAL 5000 UNIT SUBCUT ×3 (06:13→20:39)
[2023-01-18] MEDS: Omeprazole 20 MG CAPSULE.DR PO (06:13)
--- NOTE | 2023-01-18 07:00 | CA_ITS ---
Transthoracic Echocardiogram Patient (Last, First, Middle): Allyssa Borges, Gender: Female Date of : 1950 Age: 72 Procedure Date: 01/18/2023 Procedure Type: Transthoracic Echocardiogram Location: S3E Height: 170.18 cm Weight: 127.01 kg BSA: 2.33 m2 Heart Rate: bpm BP: 161 / 92 mmHg Cash Applications Coordinator: Referring MD: Jr Zhang MD Symptoms: ? chf Study Quality: Adequate ECG Rhythm: Sinus Conclusions: - The left ventricular systolic function is normal. The calculated ejection fraction is 65% by biplane method. - There is moderately increased left ventricular wall thickness. - No obvious valvular pathology seen on this study. - The inferior vena cava is mildly dilated and collapses less than 50% with inspiration. Findings Left Ventricle Normal left ventricular cavity size. There is moderately increased left ventricular wall thickness. The left ventricular systolic function is normal. The calculated ejection fraction is 65% by biplane method. There is no evidence of regional wall motion abnormalities. E/E prime ratio is between 8 and 15 consistent with indeterminate filling pressures. Evidence suggests grade I (mild) diastolic dysfunction. Right Ventricle Normal right ventricular cavity size and systolic function. Atria The left atrium is moderately dilated. The right atrium is normal in size. Aortic Valve The aortic valve was not well visualized. There is no aortic valve stenosis. There is no aortic valve regurgitation. Mitral Valve The mitral valve appears normal. There is no mitral valve regurgitation. There is no mitral valve stenosis. Pulmonic Valve The pulmonic valve is likely normal. Tricuspid Valve There is mild tricuspid valve regurgitation. Mild pulmonary hypertension is present. Great Vessels The asc aorta is normal in size. Venous The inferior vena cava is mildly dilated and collapses less than 50% with inspiration. Pericardium/Pleural There is no evidence of pericardial effusion. Prior Study Comparison No prior study available for comparison. Recommendations, Care & Conclusions No obvious valvular pathology seen on this study. Measurements 2D Linear Measurements IVSd: 1.43 0.6-0.9/0.6-1.0 cm LVIDd: 3.90 3.9-5.3/4.2-5.9 cm LVIDd Index: 1.67 2.4-3.2/2.2-3.1 cm/m2 LVIDs: 2.06 2.0-3.6 cm LVPWd: 1.46 0.7-1.1 cm Ao Root: 3.40 2.1-3.5 cm LA Diam: 4.30 2.7-3.8/3.0-4.0 cm LAIDs Index: 1.85 1.5-2.3 cm/m2 LV Mass: 263.88 67-162/88-224 g LV Mass Index: 113.25 43-95/49-115 g/m2 LVOT Diam: 2.10 3.0+(-)1.3 cm 2D Systolic Function EF 4C: 63.10 >55% EF 2C: 64.20 >55% EF BiP: 64.60 >55% Mitral Valve MV Pk E: 0.96 MV PK A: 1.14 MV Decel Time: 223.00 E/A: 0.80 E'Lateral: 9.79 E'Medial: 6.42 E/E' Med: 15.00 E/E' Lat: 9.80 PHT: 65.00 MVA PHT: 3.38 Decel [place]: 4.30 Aortic Valve AoV Pk Rakesh: 1.64 AoV Mn Rakesh: 1.06 AoV VTI: 0.43 AoV Pk Grad: 11.00 Aov Mn Grad: 5.00 ELVIA Cont.VTI: 2.52 LVOT LVOT Pk Rakesh: 1.27 LVOT Mn Rakesh: 0.84 LVOT VTI: 0.31 LVOT Pk Grad: 6.00 LVOT Mn Grad: 3.00 LVOT Diam: 2.10 LVOT Area: 3.46 Diastolic Function MV Pk E: 0.96 MV Pk A: 1.14 E/A: 0.80 E'Medial: 6.42 E/E' Med: 15.00 E' Laterial: 9.79 E/E' Lat: 9.80 Right Ventricle TAPSE (mm): 43.00 TVS' Rakesh: 15.00 Tricuspid Valve TR Pk Rakesh: 3.05 TR Pk Grad: 37.00 RA Press: 15.00 RVSP: 52.00 Great Vessels Aorta Ao Root-2D: 3.40 2.0-3.7 cm Ao Asc: 3.40 2.1-3.4 cm Pulmonary Valve PV Pk Rakesh: 1.09 Peak PV Grad: 5.00 Updated in Other Vendor System with Status of Final Rangel Suh MD electronically signed on 01/18/2023 4:14:41 PM with status of Final
[2023-01-18 07:06] LABS: Creatinine Clr Calc Pharmacy 79.1; Estimated Glomerular Filt Rate > 60
--- NOTE | 2023-01-18 08:36 | P.PNGS_ITS ---
Subjective Subjective Date of Service: 01/18/23 Interval history: Feels a little better today, right foot pain slowly improving. Breathing overall better, just had treatment. Physical Exam Vital Signs: Vital Signs: Last Vital Signs Temp 97.3 F 01/18/23 07:33 Pulse 77 01/18/23 07:56 Resp 16 01/18/23 07:56 BP 161/92 H 01/18/23 07:33 Pulse Ox 96 01/18/23 07:33 O2 Del Method 01/18/23 07:33 O2 Flow Rate 2 01/18/23 07:33 Oxygen Flow Rate 2 01/17/23 15:00 BMI result Body Mass Index 43.8 Const: General: comfortable, no acute distress and alert Orientation/consciousness: patient oriented x3 Resp: Effort & Inspection: normal respiratory effort Skin: Other: warm and dry Neuro: General: patient oriented x3 Extrem: Other: right lateral foot with wound vac in place Objective Data Active Medications Acetaminophen (Acetaminophen 325 Mg Tablet) 650 mg PO Q6H PRN PRN Reason: Pain, Mild (Pain Scale 1-3) Last Admin: 01/15/23 05:19 Dose: 650 mg Documented By: DENNY Acetaminophen/Butalbital/Caffeine (Butalb/Acetamin/Caff 50/325/40 Tablet) 1 tab PO Q4H PRN PRN Reason: Headache Last Admin: 01/18/23 01:09 Dose: 1 tab Documented By: STAR Albuterol Sulfate (Albuterol Sulfate (0.083%) 2.5 Mg/3 Ml Vial.Neb) 2.5 mg INHALE Q4H PRN PRN Reason: Shortness of Breath Last Admin: 01/18/23 01:18 Dose: 2.5 mg Documented By: LALITA Calcium Carbonate (Calcium Carbonate 500 Mg Tablet) 500 mg PO BID [facility] Last Admin: 01/17/23 20:24 Dose: 500 mg Documented By: STAR Heparin Sodium (Porcine) 50 (units/ Sodium Chloride 5 ml) 0 units IVFLUSH QSHIFT [facility] Last Admin: 01/18/23 00:15 Dose: 50 unit Documented By: STAR Albuterol Sulfate 2.5 mg/ (Ipratropium [place] 0.5 mg) 0 mg INHALE RQ4H WHILE AWAKE [facility] Last Admin: 01/18/23 07:52 Dose: 2.5 each Documented By: IVONNE Cyanocobalamin (Cyanocobalamin (Vitamin B-12) 500 Mcg Tablet) 500 mcg PO DAILY [facility] Last Admin: 01/17/23 07:33 Dose: 500 mcg Documented By: SKYLA Ergocalciferol (Ergocalciferol (Vitamin D2) 1,250 Mcg Capsule) 1,250 mcg PO MORENO [facility] Last Admin: 01/16/23 08:29 Dose: 1,250 mcg Documented By: SKYLA Ferrous Sulfate (Ferrous Sulfate 324 Mg Tablet.Dr) 324 mg PO DAILY [facility] Last Admin: 01/17/23 07:33 Dose: 324 mg Documented By: SKYLA Furosemide (Furosemide 20 Mg/2 Ml Vial) 20 mg IVPUSH DAILY [facility]; Protocol Gabapentin (Gabapentin 100 Mg Capsule) 100 mg PO BID [facility] Last Admin: 01/17/23 20:23 Dose: 100 mg Documented By: STAR Guaifenesin/Codeine Phosphate (Guaifen/Codeine Sf 200/20/10ml 10 Ml Liquid) 5 ml PO Q6H PRN PRN Reason: Cough Last Admin: 01/17/23 15:08 Dose: 5 ml Documented By: SKYLA Heparin Sodium (Porcine) (Heparin Sodium,Porcine 5,000 Unit/Ml Vial) 5,000 unit SUBCUT Q8H [facility] Last Admin: 01/18/23 06:13 Dose: 5,000 unit Documented By: STAR Hydralazine HCl (Hydralazine Hcl 25 Mg Tablet) 75 mg PO TID [facility]; Protocol Last Admin: 01/17/23 20:21 Dose: 75 mg Documented By: STAR Hydromorphone HCl (Hydromorphone Hcl 0.5 Mg/0.5 Ml Syringe) 0.5 mg IVPUSH Q3H PRN; Protocol PRN Reason: Pain, Severe (Pain Scale 7-10) Piperacillin Sod/Tazobactam (Sod 3.375 gm/ Sodium Chloride) 50 mls @ 100 mls/hr IV Q6H [facility] Last Admin: 01/18/23 07:57 Dose: 100 mls/hr Documented By: MARLI Lidocaine (Lidocaine 4 % Patch Adh..Patch) 1 patch TRANSDERMA DAILY [facility]; Protocol Last Admin: 01/17/23 10:02 Dose: Not Given Documented By: SKYLA Non-Admin Reason: Patient Refused Magnesium Hydroxide (Milk Of Magnesia 30 Ml Oral.Susp) 30 ml PO DAILY PRN PRN Reason: Constipation Melatonin (Melatonin 3 Mg Tablet) 6 mg PO BEDTIME PRN PRN Reason: Insomnia Last Admin: 01/12/23 21:47 Dose: 6 mg Documented By: NAZ Metformin HCl (Metformin Hcl Er 500 Mg Tab.Er.24h) 500 mg PO BID [facility] Last Admin: 01/17/23 20:23 Dose: 500 mg Documented By: STAR Multivitamins/Vitamin C (Multivitamin Tablet) 1 tab PO DAILY [facility] Last Admin: 01/17/23 07:33 Dose: 1 tab Documented By: SKYLA Pt Own (Exemestane (25 Mg Tablet)) 25 mg PO DAILY [facility] Last Admin: 01/17/23 07:34 Dose: 25 mg Documented By: SKYLA Nystatin (Nystatin Oral Susp 500,000 Unit/5 Ml Oral.Susp) 500,000 unit PO QID [facility]; Protocol Last Admin: 01/17/23 20:25 Dose: 500,000 unit Documented By: STAR Omeprazole (Omeprazole 20 Mg Capsule.Dr) 20 mg PO DAILY@0630 [facility] Last Admin: 01/18/23 06:13 Dose: 20 mg Documented By: STRA Ondansetron HCl (Ondansetron Hcl 4 Mg/2 Ml Vial) 4 mg IVPUSH Q8H PRN PRN Reason: Nausea Propranolol HCl (Propranolol Hcl La 80 Mg Cap.Sa.24h) 80 mg PO DAILY [facility]; Protocol Last Admin: 01/17/23 07:34 Dose: 80 mg Documented By: SKYLA Sodium Chloride (0.9 % Sodium Chloride Flush 3 Ml Syringe) 3 ml IVFLUSH QSHIFT [facility] Last Admin: 01/18/23 07:58 Dose: 3 ml Documented By: MARLI Labs 01/02/23 05:51 01/18/23 05:20 Labs: Laboratory Results - last 24 hr 01/17/23 01/18/23 17:19 05:20 Estim Creat Clear Calc 79.1 Estimated GFR > 60 Vancomycin Trough 17.5 Procedures Date of Service Date of Service: 01/18/23 Progress Note: A&P Assessment and plan (1) Right foot ulcer: Status: Acute Assessment and Plan: Right food ulcer debrided with wound vac placed on 01/14 in OR. Wound was clean yesterday with good granulation and vac changed yesterday. Remains intact today with good seal noted, serosanguineous output. Plan for vac change tomorrow, Tuesday if still inpatient. Cont leg elevation to reduce edema. Transition to PO analgesics. Medical management as per hospitalist service. Time Spent With Patient Time: Total time managing care of this patient today ____ minutes. Quality Stroke Does the patient have a stroke diagnosis?: No VTE Prior VTE?: No VTE Risk Level:: Medical - moderate - high VTE Device Contraindication: Treatment Not Indicated VTE Drug Contraindication: N/A - Med Ordered
[2023-01-18] MEDS: Propranolol HCL LA 80 MG CAP.SA.24H PO (09:48)
[2023-01-18] MEDS: hydrALAZINE HCl 25 MG TABLET 75 MG PO ×3 (09:49→20:40)
[2023-01-18] MEDS: Gabapentin 100 MG CAPSULE PO ×2 (09:54→20:40)
[2023-01-18] MEDS: metFORMIN HCl ER 500 MG TAB.ER.24H PO ×2 (09:54→20:40)
[2023-01-18] MEDS: Multivitamin TABLET 1 TAB PO (09:54)
[2023-01-18] MEDS: Ferrous Sulfate 324 MG TABLET.DR PO (09:55)
[2023-01-18] MEDS: Nystatin Oral Susp 500,000 UNIT/5 ML ORAL.SUSP 500000 UNIT PO ×4 (09:55→20:40)
[2023-01-18] MEDS: Cyanocobalamin (Vitamin B-12) 500 MCG TABLET PO (10:15)
[2023-01-18] MEDS: Furosemide 20 MG/2 ML VIAL IVPUSH (10:23)
--- NOTE | 2023-01-18 10:32 | PM.CNCAR ---
History of Present Illness History of Present Illness Date of Service: 01/18/23 Chief complaint: Ankle cellulitis/abscess Narrative: This is a cardiology consultation regarding congestive heart failure. Patient states that she never had any heart issues in the past including coronary disease myocardial infarction or cardiomyopathy or in fact anything cardiac at all. Current admission is for ankle redness, pain and swelling and she has been diagnosed with cellulitis/sepsis possible joint involvement. She is on antibiotics. It seems that she also had surgery with debridement/wound VAC. from the cardiac standpoint, there is a question of congestive heart failure. She states that she has had some wheezing/breathing issues in the last few days but did not have anything cardiac related ever in her life. No clear-cut anginal-type complaints. Review of Systems Review of Systems: Yes all other systems are reviewed and are negative Constitutional: Constitutional: Reports as per HPI and Reports no additional constitutional complaints Eyes: Eyes: Reports as per HPI and Denies no additional eye complaints ENT: Denies system reviewed and no additional complaints, except as documented and Reports as per HPI Cardiovascular: Cardiovascular: Reports as per HPI, Reports no additional cardiovascular complaints, Denies acrocyanosis, Denies cool extremities, Denies chest pain, Denies leg edema, Denies lightheadedness, Denies palpitations and Reports dyspnea Respiratory: Respiratory: Reports as per HPI, Denies no additional respiratory complaints and Reports dyspnea Gastrointestinal: Gastrointestinal: Reports as per HPI and Denies no additional gastrointestinal complaints Genitourinary: Genitourinary: Reports as per HPI Musculoskeletal: Musculoskeletal: Reports no additional musculoskeletal complaints and Reports as per HPI Integumentary/Breasts: Skin/Breast: Reports system reviewed and no additional complaints, except as docu Neurologic: Reports system reviewed and no additional complaints, except as documented and Reports as per HPI Psychiatric: Psychiatric: Reports no additional psychiatric complaints and Reports as per HPI Endocrine: Endocrine: Reports no additional endocrine complaints, Reports as per HPI and Denies palpitations Hematologic/Lymphatic: Hematologic/Lymphatic: Reports no additional hematologic/lymphatic complaints and Reports as per HPI Allergic/Immunologic: Allergic/Immunologic: Reports no additional allergic/immunologic complaints and Reports as per HPI [facility] Past Medical History Medical History Anemia Arthritis COVID-19 vaccine administered Diverticulitis GERD (gastroesophageal reflux disease) Insomnia Invasive ductal carcinoma of left breast Lobular carcinoma in situ of right breast Migraines Morbid obesity Situational anxiety Situational depression Family History Family History Mother Glioblastoma Father Lung cancer Paternal Grandmother Cancer of unknown origin Family history: reviewed and not pertinent Surgical History Surgical History History of bilateral breast biopsy History of colon resection History of colostomy reversal History of incision and drainage Hx of colonoscopy S/P debridement Social History Social History Household Members: Spouse Housing: House Are you a primary manager wound care to a significant other at home: No Do you presently have visiting nurse or other home services: No Alcohol intake: never Patient Tobacco Use Status: Never used Tobacco Second Hand Smoke Exposure: No service: No Current occupational status: employed Meds Allergies Allergy/AdvReac Type Severity Reaction Status Date / Time fluoxetine [Prozac] Allergy Unknown worsening Verified 04/15/22 10:32 depression gabapentin Allergy Unknown irritabilit Verified 04/15/22 10:32 y Iodinated Contrast Media Allergy Unknown RASH Verified 04/15/22 10:32 [IV CONTRAST] nortriptyline Allergy Unknown irritabilit Verified 04/15/22 10:32 y topiramate Allergy Unknown mild Verified 04/15/22 10:32 depression verapamil Allergy Unknown irritabilit Verified 04/15/22 10:32 y food allergies Allergy Unknown Sneezing Uncoded 04/15/22 10:32 Active Medications: Current Medications Acetaminophen (Acetaminophen 325 Mg Tablet) 650 mg PO Q6H PRN PRN Reason: Pain, Mild (Pain Scale 1-3) Last Admin: 01/15/23 05:19 Dose: 650 mg Acetaminophen/Butalbital/Caffeine (Butalb/Acetamin/Caff 50/325/40 Tablet) 1 tab PO Q4H PRN PRN Reason: Headache Last Admin: 01/18/23 01:09 Dose: 1 tab Albuterol Sulfate (Albuterol Sulfate (0.083%) 2.5 Mg/3 Ml Vial.Neb) 2.5 mg INHALE Q4H PRN PRN Reason: Shortness of Breath Last Admin: 01/18/23 01:18 Dose: 2.5 mg Calcium Carbonate (Calcium Carbonate 500 Mg Tablet) 500 mg PO BID [facility] Last Admin: 01/18/23 09:54 Dose: 500 mg Heparin Sodium (Porcine) 50 (units/ Sodium Chloride 5 ml) 0 units IVFLUSH QSHIFT [facility] Last Admin: 01/18/23 10:22 Dose: 50 unit Albuterol Sulfate 2.5 mg/ (Ipratropium [place] 0.5 mg) 0 mg INHALE RQ4H WHILE AWAKE [facility] Last Admin: 01/18/23 07:52 Dose: 2.5 each Cyanocobalamin (Cyanocobalamin (Vitamin B-12) 500 Mcg Tablet) 500 mcg PO DAILY [facility] Last Admin: 01/18/23 10:15 Dose: 500 mcg Ergocalciferol (Ergocalciferol (Vitamin D2) 1,250 Mcg Capsule) 1,250 mcg PO MORENO [facility] Last Admin: 01/16/23 08:29 Dose: 1,250 mcg Ferrous Sulfate (Ferrous Sulfate 324 Mg Tablet.) 324 mg PO DAILY [facility] Last Admin: 01/18/23 09:55 Dose: 324 mg Furosemide (Furosemide 20 Mg/2 Ml Vial) 20 mg IVPUSH DAILY [facility]; Protocol Last Admin: 01/18/23 10:23 Dose: 20 mg Gabapentin (Gabapentin 100 Mg Capsule) 100 mg PO BID [facility] Last Admin: 01/18/23 09:54 Dose: 100 mg Guaifenesin/Codeine Phosphate (Guaifen/Codeine Sf 200/20/10ml 10 Ml Liquid) 5 ml PO Q6H PRN PRN Reason: Cough Last Admin: 01/17/23 15:08 Dose: 5 ml Heparin Sodium (Porcine) (Heparin Sodium,Porcine 5,000 Unit/Ml Vial) 5,000 unit SUBCUT Q8H [facility] Last Admin: 01/18/23 06:13 Dose: 5,000 unit Hydralazine HCl (Hydralazine Hcl 25 Mg Tablet) 75 mg PO TID [facility]; Protocol Last Admin: 01/18/23 09:49 Dose: 75 mg Hydromorphone HCl (Hydromorphone Hcl 0.5 Mg/0.5 Ml Syringe) 0.5 mg IVPUSH Q3H PRN; Protocol PRN Reason: Pain, Severe (Pain Scale 7-10) Piperacillin Sod/Tazobactam (Sod 3.375 gm/ Sodium Chloride) 50 mls @ 100 mls/hr IV Q6H [facility] Last Infusion: 01/18/23 08:51 Dose: Infused Lidocaine (Lidocaine 4 % Patch Adh..Patch) 1 patch TRANSDERMA DAILY [facility]; Protocol Last Admin: 01/18/23 10:05 Dose: Not Given Magnesium Hydroxide (Milk Of Magnesia 30 Ml Oral.Susp) 30 ml PO DAILY PRN PRN Reason: Constipation Melatonin (Melatonin 3 Mg Tablet) 6 mg PO BEDTIME PRN PRN Reason: Insomnia Last Admin: 01/12/23 21:47 Dose: 6 mg Metformin HCl (Metformin Hcl Er 500 Mg Tab.Er.24h) 500 mg PO BID [facility] Last Admin: 01/18/23 09:54 Dose: 500 mg Multivitamins/Vitamin C (Multivitamin Tablet) 1 tab PO DAILY [facility] Last Admin: 01/18/23 09:54 Dose: 1 tab Pt Own (Exemestane (25 Mg Tablet)) 25 mg PO DAILY [facility] Last Admin: 01/18/23 10:22 Dose: 25 mg Nystatin (Nystatin Oral Susp 500,000 Unit/5 Ml Oral.Susp) 500,000 unit PO QID [facility]; Protocol Last Admin: 01/18/23 09:55 Dose: 500,000 unit Omeprazole (Omeprazole 20 Mg Capsule.Dr) 20 mg PO DAILY@0630 [facility] Last Admin: 01/18/23 06:13 Dose: 20 mg Ondansetron HCl (Ondansetron Hcl 4 Mg/2 Ml Vial) 4 mg IVPUSH Q8H PRN PRN Reason: Nausea Propranolol HCl (Propranolol Hcl La 80 Mg Cap.Sa.24h) 80 mg PO DAILY [facility]; Protocol Last Admin: 01/18/23 09:48 Dose: 80 mg Sodium Chloride (0.9 % Sodium Chloride Flush 3 Ml Syringe) 3 ml IVFLUSH QSHIFT [facility] Last Admin: 01/18/23 07:58 Dose: 3 ml Home Medications Medication Instructions Recorded Confirmed Last Taken Type ferrous gluconate 324 mg (38 mg 324 mg PO BID 02/17/21 12/28/22 05/12/21 History iron) tablet omeprazole 20 mg capsule,delayed 20 mg PO DAILY 02/17/21 12/28/22 12/28/22 History release naratriptan 2.5 mg tablet 1 tab PO DAILY MRX1 PRN Migraine 03/26/21 12/28/22 Unknown History Headache propranolol 80 mg capsule,24 1 cap PO DAILY 03/26/21 12/28/22 04/01/21 History hr,extended release exemestane 25 mg tablet 25 mg PO DAILY 04/15/22 12/28/22 12/28/22 History calcium carbonate 500 mg calcium 500 mg PO BID 12/28/22 12/28/22 Unknown History (1,250 mg) tablet cyanocobalamin (vitamin B-12) 500 500 mcg PO DAILY 12/28/22 12/28/22 Unknown History mcg tablet ergocalciferol (vitamin D2) 1,250 1,250 mcg PO MORENO 12/28/22 12/28/22 Unknown History mcg (50,000 unit) capsule metformin 500 mg tablet,extended 500 mg PO BID 12/28/22 12/28/22 12/28/22 History release 24 hr multivitamin 1 tab PO DAILY 12/28/22 12/28/22 Unknown History oxycodone-acetaminophen 5 mg-325 1 tab PO QID PRN Pain (Scale Score 12/28/22 12/28/22 12/28/22 History mg tablet 7-10) Physical Exam Vital Signs: Vital Signs: Last Vital Signs Temp 97.3 F 01/18/23 07:33 Pulse 77 01/18/23 07:56 Resp 16 01/18/23 07:56 BP 161/92 H 01/18/23 07:33 Pulse Ox 96 01/18/23 07:33 O2 Del Method 01/18/23 07:33 O2 Flow Rate 2 01/18/23 07:33 Oxygen Flow Rate 2 01/17/23 15:00 BMI result Body Mass Index 43.8 Const: General: comfortable and no acute distress Orientation/consciousness: patient oriented x3 HEENT: Other: Unremarkable Head: Yes normal to inspection Neck: Neck: Yes normal visual inspection Chest: Chest palpation & inspection: normal inspection of the chest Resp: Auscultation: wheezes scattered wheezes Cardio: Palpation: normal PMI Heart sounds: S1 normal heart sound present, S2 normal heart sound present, no gallops, no murmurs and no rubs GI: Palpation (GI): Soft to palpation Back/Spine/Pelvis: Other: unremarkable Skin: General skin exam: no rashes or lesions noted Neuro: General: patient oriented x3 Extrem: Other: 1+ swelling General: Yes normal to inspection Psych: Mental Status: mental status grossly normal Objective Labs and Meds 01/02/23 05:51 01/18/23 05:20 Lab results: Laboratory Results - last 24 hr 01/17/23 01/18/23 17:19 05:20 Creatinine 0.89 Estim Creat Clear Calc 79.1 Estimated GFR > 60 Vancomycin Trough 17.5 Imaging Radiologist's impression: Impressions Chest X-Ray 01/17/23 13:15 IMPRESSION: There is low inspiratory effort with prominence of the central hilar pulmonary vessels. Mild central bronchial wall thickening. No focal consolidation. Assessment and Plan (1) Acute diastolic (congestive) heart failure: Status: Acute Plan Labs reviewed. High sensitivity troponin is 7. Cardiac BNP is 255. Creatinine is 0.89. BUN is 6. Potassium 3.9. EKG with sinus rhythm at 86/Min; no significant ST-T changes and otherwise unremarkable. Chest x-ray reported have prominent central hilar pulmonary vessels. Mild central bronchial wall thickening and no consolidation. Overall, possible diastolic heart failure related to acute medical issues as well as possibly IV fluid administration. Input output chart is probably all inaccurate as it is listing positive 37 L. Need to start measuring accurately. Also can ensure there is no pulmonary embolism. Consider, chest CTA. She is on empiric diuretics. Echocardiogram pending. Will follow with you. Time Spent With Patient Time: Total time managing care of this patient today 77 minutes. Procedures Date of Service Date of Service: 01/18/23
--- NOTE | 2023-01-18 11:37 | MHC.CM.PN ---
PATIENT NOW WITH WOUND VAC STARTED ON DIURETICS EMPIRICALLY REFERRAL TO SNF TO SEE IF A BED CAN BE OFFERED. IF NO SNF OFFERS, WILL TRY [facility]
[2023-01-18] MEDS: ondansetron HCL 4 MG/2 ML VIAL IVPUSH (12:40)
--- NOTE | 2023-01-18 14:22 | P.PNIM_ITS ---
Subjective Subjective Date of Service: 01/18/23 Interval History: has sob ,denies any chest pain or leg pains Review of Systems feels congested sob Physical Exam Vital Signs: Vital Signs: Last Vital Signs Temp 97.3 F 01/18/23 07:33 Pulse 77 01/18/23 11:35 Resp 18 01/18/23 11:35 BP 161/92 H 01/18/23 07:33 Pulse Ox 96 01/18/23 07:33 O2 Del Method 01/18/23 07:33 O2 Flow Rate 2 01/18/23 07:33 Oxygen Flow Rate 2 01/17/23 15:00 BMI result Body Mass Index 43.8 General: AO X 3, no acute distress Resp:? CTA bilateral CVS: S1,S2,RRR, some swelling in the legs GI: +BS, NT, no distention Skin: wound van on right ankle Neuro:? motor grossly intact Psych: appropriate affect Objective Data Active Medications Acetaminophen (Acetaminophen 325 Mg Tablet) 650 mg PO Q6H PRN PRN Reason: Pain, Mild (Pain Scale 1-3) Last Admin: 01/15/23 05:19 Dose: 650 mg Documented By: DENNY Acetaminophen/Butalbital/Caffeine (Butalb/Acetamin/Caff 50/325/40 Tablet) 1 tab PO Q4H PRN PRN Reason: Headache Last Admin: 01/18/23 01:09 Dose: 1 tab Documented By: STAR Albuterol Sulfate (Albuterol Sulfate (0.083%) 2.5 Mg/3 Ml Vial.Neb) 2.5 mg INHALE Q4H PRN PRN Reason: Shortness of Breath Last Admin: 01/18/23 01:18 Dose: 2.5 mg Documented By: LALITA Calcium Carbonate (Calcium Carbonate 500 Mg Tablet) 500 mg PO BID [facility] Last Admin: 01/18/23 09:54 Dose: 500 mg Documented By: AB Heparin Sodium (Porcine) 50 (units/ Sodium Chloride 5 ml) 0 units IVFLUSH QSHIFT [facility] Last Admin: 01/18/23 10:22 Dose: 50 unit Documented By: MARLI Albuterol Sulfate 2.5 mg/ (Ipratropium [place] 0.5 mg) 0 mg INHALE RQ4H WHILE AWAKE [facility] Last Admin: 01/18/23 11:20 Dose: 2.5 each Documented By: IVONNE Comments: .5 atrovent 2.5 albuterol Cyanocobalamin (Cyanocobalamin (Vitamin B-12) 500 Mcg Tablet) 500 mcg PO DAILY [facility] Last Admin: 01/18/23 10:15 Dose: 500 mcg Documented By: AB Ergocalciferol (Ergocalciferol (Vitamin D2) 1,250 Mcg Capsule) 1,250 mcg PO MORENO [facility] Last Admin: 01/16/23 08:29 Dose: 1,250 mcg Documented By: SKYLA Ferrous Sulfate (Ferrous Sulfate 324 Mg Tablet.) 324 mg PO DAILY [facility] Last Admin: 01/18/23 09:55 Dose: 324 mg Documented By: AB Furosemide (Furosemide 20 Mg/2 Ml Vial) 20 mg IVPUSH DAILY [facility]; Protocol Last Admin: 01/18/23 10:23 Dose: 20 mg Documented By: MARLI Gabapentin (Gabapentin 100 Mg Capsule) 100 mg PO BID [facility] Last Admin: 01/18/23 09:54 Dose: 100 mg Documented By: AB Guaifenesin/Codeine Phosphate (Guaifen/Codeine Sf 200/20/10ml 10 Ml Liquid) 5 ml PO Q6H PRN PRN Reason: Cough Last Admin: 01/17/23 15:08 Dose: 5 ml Documented By: SKYLA Heparin Sodium (Porcine) (Heparin Sodium,Porcine 5,000 Unit/Ml Vial) 5,000 unit SUBCUT Q8H [facility] Last Admin: 01/18/23 12:12 Dose: 5,000 unit Documented By: AB Hydralazine HCl (Hydralazine Hcl 25 Mg Tablet) 75 mg PO TID [facility]; Protocol Last Admin: 01/18/23 09:49 Dose: 75 mg Documented By: AB Comments: 198/79, 99 Right arm auto cuff Hydromorphone HCl (Hydromorphone Hcl 0.5 Mg/0.5 Ml Syringe) 0.5 mg IVPUSH Q3H PRN; Protocol PRN Reason: Pain, Severe (Pain Scale 7-10) Piperacillin Sod/Tazobactam (Sod 3.375 gm/ Sodium Chloride) 50 mls @ 100 mls/hr IV Q6H [facility] Last Infusion: 01/18/23 08:51 Dose: 0 mls/hr Documented By: MARLI Lidocaine (Lidocaine 4 % Patch Adh..Patch) 1 patch TRANSDERMA DAILY [facility]; Protocol Last Admin: 01/18/23 10:05 Dose: Not Given Documented By: AB Non-Admin Reason: Patient Refused Magnesium Hydroxide (Milk Of Magnesia 30 Ml Oral.Susp) 30 ml PO DAILY PRN PRN Reason: Constipation Melatonin (Melatonin 3 Mg Tablet) 6 mg PO BEDTIME PRN PRN Reason: Insomnia Last Admin: 01/12/23 21:47 Dose: 6 mg Documented By: NAZ Metformin HCl (Metformin Hcl Er 500 Mg Tab.Er.24h) 500 mg PO BID [facility] Last Admin: 01/18/23 09:54 Dose: 500 mg Documented By: AB Multivitamins/Vitamin C (Multivitamin Tablet) 1 tab PO DAILY [facility] Last Admin: 01/18/23 09:54 Dose: 1 tab Documented By: AB Pt Own (Exemestane (25 Mg Tablet)) 25 mg PO DAILY [facility] Last Admin: 01/18/23 10:22 Dose: 25 mg Documented By: MARLI Nystatin (Nystatin Oral Susp 500,000 Unit/5 Ml Oral.Susp) 500,000 unit PO QID [facility]; Protocol Last Admin: 01/18/23 12:12 Dose: 500,000 unit Documented By: AB Omeprazole (Omeprazole 20 Mg Capsule.Dr) 20 mg PO DAILY@0630 [facility] Last Admin: 01/18/23 06:13 Dose: 20 mg Documented By: STAR Ondansetron HCl (Ondansetron Hcl 4 Mg/2 Ml Vial) 4 mg IVPUSH Q8H PRN PRN Reason: Nausea Last Admin: 01/18/23 12:40 Dose: 4 mg Documented By: ROB Propranolol HCl (Propranolol Hcl La 80 Mg Cap.Sa.24h) 80 mg PO DAILY [facility]; Protocol Last Admin: 01/18/23 09:48 Dose: 80 mg Documented By: AB Sodium Chloride (0.9 % Sodium Chloride Flush 3 Ml Syringe) 3 ml IVFLUSH QSHIFT [facility] Last Admin: 01/18/23 07:58 Dose: 3 ml Documented By: MARLI Labs 01/02/23 05:51 01/18/23 05:20 Labs: Laboratory Results - last 24 hr 01/17/23 01/18/23 17:19 05:20 Estim Creat Clear Calc 79.1 Estimated GFR > 60 Vancomycin Trough 17.5 Assessment and Plan (1) Morbid obesity: Status: Acute (2) Acute osteomyelitis: Status: Acute (3) Abscess: Status: Acute Plan 72 year old female with morbid obesity and other medical problems as listed. She presents with right ankle redness, pain and swelling best described by the image, clinical presentation consistent with sepsis d/t cellulitis and concern for joint involvment. 1.Left ankle Cellulitis and acute oseomyelitits and abscess, Sepsis,.? Sepsis clinically resolved -MRI 12/29:1. Large 12 cm abscess in the lateral subcutaneous fat at the level of the ankle and hindfoot with surrounding cellulitis and underlying osteomyelitis of the lateral malleolus. 2. Complex longitudinal tears of the peroneus longus and peroneus brevis tendons with associated tenosynovitis. Septic tenosynovitis is also possible. cpk normal Ortho did bedside I/D on 12/30, followed by OR for full exploration and lavage on? 12/31 culture so far negative -She has been on Vanco and Zosyn Surgery debrided in OR 01/14 and appled wound vac -PICC line today 2.Gerd--Omeprazol 3.Anxiety--Prorpanolol 4.Morbid obesity--weight loss advised. 5.Cluster migrane episode : given sumatriptan, Fiorocet 6.possible mild chf -unclear etiology: SOB, CXR -mild prominence of the central hilar vessels , BNP moderately at 255 moniter i/o , daily weight v/q scan neg started iv lasix echo and cardiology eval added Heparin for DVT prophylaxis Full code inpatient need :sepsis, ankle cellulitis/abscess and expert evaluation for possible intervention, not able to due this in less acute setting at this time need picc line today for intermediate Time Spent With Patient Time: Total time managing care of this patient today ____ minutes. Quality Stroke Does the patient have a stroke diagnosis?: No VTE Prior VTE?: No VTE Risk Level:: Medical - moderate - high VTE Device Contraindication: Treatment Not Indicated VTE Drug Contraindication: N/A - Med Ordered
[2023-01-18] MEDS: HYDROmorphone HCl 0.5 MG/0.5 ML SYRINGE IVPUSH ×2 (15:17→20:53)
[2023-01-19] VITALS (8 sets, daily range): BP systolic 122–152; BP diastolic 60–71; PULSE 72–96; RESP 18–21; TEMP 36.4–37.3; O2SAT 90–96
[2023-01-19] MEDS: HYDROmorphone HCl 0.5 MG/0.5 ML SYRINGE IVPUSH ×5 (00:02→20:56)
[2023-01-19] MEDS: Piperacillin Sodium/Tazobactam 3.375 GM in 0.9 % Sodium Chloride 50 ML IV ×2 (02:45→07:29)
[2023-01-19] MEDS: Heparin Sodium,Porcine 5,000 UNIT/ML VIAL 5000 UNIT SUBCUT ×3 (02:45→19:53)
[2023-01-19] MEDS: Omeprazole 20 MG CAPSULE.DR PO (05:30)
[2023-01-19] MEDS: Butalb/Acetamin/Caff 50/325/40 TABLET 1 TAB PO ×3 (05:41→23:26)
[2023-01-19 06:45] LABS: Creatinine Clr Calc Pharmacy 66.4; Estimated Glomerular Filt Rate 51
[2023-01-19] MEDS: Furosemide 20 MG/2 ML VIAL IVPUSH (07:53)
[2023-01-19] MEDS: Multivitamin TABLET 1 TAB PO (07:54)
[2023-01-19] MEDS: hydrALAZINE HCl 25 MG TABLET 75 MG PO ×3 (07:54→20:57)
[2023-01-19] MEDS: metFORMIN HCl ER 500 MG TAB.ER.24H PO ×2 (07:54→20:57)
[2023-01-19] MEDS: Cyanocobalamin (Vitamin B-12) 500 MCG TABLET PO (07:55)
[2023-01-19] MEDS: Gabapentin 100 MG CAPSULE PO ×2 (07:55→20:58)
[2023-01-19] MEDS: Ferrous Sulfate 324 MG TABLET.DR PO (07:55)
[2023-01-19] MEDS: Nystatin Oral Susp 500,000 UNIT/5 ML ORAL.SUSP 500000 UNIT PO ×4 (07:55→20:58)
[2023-01-19] MEDS: Heparin Sodium,Porcine Flush 50 UNITS, 0.9 % Sodium Chloride Flush 5 ML IVFLUSH ×3 (08:27→23:14)
[2023-01-19] MEDS: Propranolol HCL LA 80 MG CAP.SA.24H PO (09:37)
[2023-01-19] MEDS: Albumin Human 25 % 100 ML IV ×3 (09:37→19:53)
--- NOTE | 2023-01-19 09:59 | PM.PNCARD ---
Subjective Subjective Date of Service: 01/19/23 Interval history: She states she is feeling a little bit better. Still weak and tired. Shortness of breath probably a bit better. Review of Systems Review of Systems Yes all other systems are reviewed and are negative Constitutional: Reports as per HPI and Reports no additional constitutional complaints Eyes: Reports as per HPI and Denies no additional eye complaints Denies system reviewed and no additional complaints, except as documented and Reports as per HPI Cardiovascular: Reports as per HPI, Reports no additional cardiovascular complaints, Denies acrocyanosis, Denies cool extremities, Denies chest pain, Denies leg edema, Denies lightheadedness, Denies palpitations and Reports dyspnea Respiratory: Reports as per HPI, Denies no additional respiratory complaints, Reports cough and Reports dyspnea Gastrointestinal: Reports as per HPI and Denies no additional gastrointestinal complaints Genitourinary: Reports as per HPI Musculoskeletal: Reports no additional musculoskeletal complaints and Reports as per HPI Skin/Breast: Reports system reviewed and no additional complaints, except as docu Reports system reviewed and no additional complaints, except as documented and Reports as per HPI Psychiatric: Reports no additional psychiatric complaints and Reports as per HPI Endocrine: Reports no additional endocrine complaints, Reports as per HPI and Denies palpitations Hematologic/Lymphatic: Reports no additional hematologic/lymphatic complaints and Reports as per HPI Allergic/Immunologic: Reports no additional allergic/immunologic complaints and Reports as per HPI Physical Exam Vital Signs: Last Vital Signs Temp 99.1 F 01/19/23 08:00 Pulse 77 01/19/23 08:00 Resp 21 H 01/19/23 08:00 BP 130/60 01/19/23 08:00 Pulse Ox 91 L 01/19/23 08:00 O2 Del Method 01/19/23 08:00 O2 Flow Rate 2 01/18/23 16:00 Oxygen Flow Rate 2 01/17/23 15:00 BMI result Body Mass Index 43.8 Const General: comfortable and no acute distress Orientation/consciousness: patient oriented x3 HEENT Other: Unremarkable Head: Yes normal to inspection Neck Neck: Yes normal visual inspection Chest Chest palpation & inspection: normal inspection of the chest Resp Other: Much less wheezing compared to yesterday. Cardio Palpation: normal PMI Heart sounds: S1 normal heart sound present, S2 normal heart sound present, no gallops, no murmurs and no rubs GI Palpation (GI): Soft to palpation Back/Spine/Pelvis Other: unremarkable Skin General skin exam: no rashes or lesions noted Neuro General: patient oriented x3 Extrem General: Yes normal to inspection Psych Mental Status: mental status grossly normal Objective Labs and Meds 01/02/23 05:51 01/19/23 05:19 Lab results: Laboratory Results - last 24 hr 01/19/23 05:19 Creatinine 1.06 Estim Creat Clear Calc 66.4 Estimated GFR 51 Imaging Radiologist's impression: Impressions Pulmonary Perfusion Imaging 01/18/23 13:15 IMPRESSION: Low probability of pulmonary embolism. These findings carry a 15-20% probability of pulmonary embolism. Progress Note: A&P Assessment and plan (1) Acute diastolic (congestive) heart failure: Status: Acute Plan Echocardiogram reviewed. LVEF 65%. Moderate LVH. IVC seemed mildly dilated with diminished respiratory collapse. Valve seemed unremarkable. Creatinine is 1.06. BUN is 6. Cardiac BNP is 255. Albumin is 3.2 Overall, some degree of diastolic heart failure is possible but overall her symptoms are more multifactorial. She seems to also be on empiric antibiotics. At this time, okay for a bit diuretics rather day. However, does not need to much of aggressive diuresis. Discussed with Dr. Zhang. Time Spent With Patient Time: Total time managing care of this patient today ____ minutes. Progress Note: Quality Stroke Does the patient have a stroke diagnosis?: No Procedures Date of Service Date of Service: 01/19/23
--- NOTE | 2023-01-19 10:52 | P.PNGS_ITS ---
Subjective Subjective Date of Service: 01/19/23 Interval history: Feels like her breathing is a little improved today but is congested. She has many complaints today- reports right hand tingling for the past 4 days. She also reports she is frustrated that she was recently diagnosed with diabetes and never received any education. Right foot pain improved. Physical Exam Vital Signs: Vital Signs: Last Vital Signs Temp 99.1 F 01/19/23 08:00 Pulse 77 01/19/23 08:00 Resp 21 H 01/19/23 08:00 BP 130/60 01/19/23 08:00 Pulse Ox 91 L 01/19/23 08:00 O2 Del Method 01/19/23 08:00 O2 Flow Rate 2 01/18/23 16:00 Oxygen Flow Rate 2 01/17/23 15:00 BMI result Body Mass Index 43.8 Const: General: comfortable and alert Resp: Effort & Inspection: normal respiratory effort Skin: General skin exam: no rashes or lesions noted Extrem: Other: right foot wound vac in place with good seal right hand- no swelling, has good sensation and full ROM, normal to inspection Objective Data Active Medications Acetaminophen (Acetaminophen 325 Mg Tablet) 650 mg PO Q6H PRN PRN Reason: Pain, Mild (Pain Scale 1-3) Last Admin: 01/15/23 05:19 Dose: 650 mg Documented By: DENNY Acetaminophen/Butalbital/Caffeine (Butalb/Acetamin/Caff 50/325/40 Tablet) 1 tab PO Q4H PRN PRN Reason: Headache Last Admin: 01/19/23 05:41 Dose: 1 tab Documented By: VALENTIN Albuterol Sulfate (Albuterol Sulfate (0.083%) 2.5 Mg/3 Ml Vial.Neb) 2.5 mg INHALE Q4H PRN PRN Reason: Shortness of Breath Last Admin: 01/18/23 01:18 Dose: 2.5 mg Documented By: LALITA Calcium Carbonate (Calcium Carbonate 500 Mg Tablet) 500 mg PO BID [facility] Last Admin: 01/19/23 07:54 Dose: 500 mg Documented By: JULIO Heparin Sodium (Porcine) 50 (units/ Sodium Chloride 5 ml) [address] [facility] Last Admin: 01/19/23 08:27 Dose: 50 unit Documented By: JULIO Albuterol Sulfate 2.5 mg/ (Ipratropium [place] 0.5 mg) 0 mg INHALE RQ4H WHILE AWAKE [facility] Last Admin: 01/19/23 10:38 Dose: Not Given Documented By: NITZA Non-Admin Reason: pt unavail Cyanocobalamin (Cyanocobalamin (Vitamin B-12) 500 Mcg Tablet) 500 mcg PO DAILY [facility] Last Admin: 01/19/23 07:55 Dose: 500 mcg Documented By: JULIO Ergocalciferol (Ergocalciferol (Vitamin D2) 1,250 Mcg Capsule) 1,250 mcg PO MORENO [facility] Last Admin: 01/16/23 08:29 Dose: 1,250 mcg Documented By: SKYLA Ferrous Sulfate (Ferrous Sulfate 324 Mg Tablet.Dr) 324 mg PO DAILY [facility] Last Admin: 01/19/23 07:55 Dose: 324 mg Documented By: JULIO Furosemide (Furosemide 20 Mg/2 Ml Vial) 20 mg IVPUSH DAILY [facility]; Protocol Last Admin: 01/19/23 07:53 Dose: 20 mg Documented By: JULIO Gabapentin (Gabapentin 100 Mg Capsule) 100 mg PO BID [facility] Last Admin: 01/19/23 07:55 Dose: 100 mg Documented By: JULIO Guaifenesin/Codeine Phosphate (Guaifen/Codeine Sf 200/20/10ml 10 Ml Liquid) 5 ml PO Q6H PRN PRN Reason: Cough Last Admin: 01/17/23 15:08 Dose: 5 ml Documented By: SKYLA Heparin Sodium (Porcine) (Heparin Sodium,Porcine 5,000 Unit/Ml Vial) 5,000 unit SUBCUT Q8H [facility] Last Admin: 01/19/23 02:45 Dose: 5,000 unit Documented By: VALENTIN Hydralazine HCl (Hydralazine Hcl 25 Mg Tablet) 75 mg PO TID [facility]; Protocol Last Admin: 01/19/23 07:54 Dose: 75 mg Documented By: JULIO Hydromorphone HCl (Hydromorphone Hcl 0.5 Mg/0.5 Ml Syringe) 0.5 mg IVPUSH Q3H PRN; Protocol PRN Reason: Pain, Severe (Pain Scale 7-10) Last Admin: 01/19/23 10:46 Dose: 0.5 mg Documented By: ROB Piperacillin Sod/Tazobactam (Sod 3.375 gm/ Sodium Chloride) 50 mls @ 100 mls/hr IV Q6H [facility] Last Infusion: 01/19/23 07:59 Dose: 0 mls/hr Documented By: ROB Albumin Human (Kedbumin 25 %) 100 mls @ 100 mls/hr IV Q6H [facility] Stop: 01/20/23 03:14 Last Infusion: 01/19/23 10:45 Dose: 0 mls/hr Documented By: ROB Lidocaine (Lidocaine 4 % Patch Adh..Patch) 1 patch TRANSDERMA DAILY [facility]; Protocol Last Admin: 01/19/23 09:38 Dose: Not Given Documented By: JULIO Non-Admin Reason: Patient Refused Magnesium Hydroxide (Milk Of Magnesia 30 Ml Oral.Susp) 30 ml PO DAILY PRN PRN Reason: Constipation Melatonin (Melatonin 3 Mg Tablet) 6 mg PO BEDTIME PRN PRN Reason: Insomnia Last Admin: 01/12/23 21:47 Dose: 6 mg Documented By: NAZ Metformin HCl (Metformin Hcl Er 500 Mg Tab.Er.24h) 500 mg PO BID [facility] Last Admin: 01/19/23 07:54 Dose: 500 mg Documented By: JULIO Multivitamins/Vitamin C (Multivitamin Tablet) 1 tab PO DAILY [facility] Last Admin: 01/19/23 07:54 Dose: 1 tab Documented By: JULIO Pt Own (Exemestane (25 Mg Tablet)) 25 mg PO DAILY [facility] Last Admin: 01/19/23 08:26 Dose: 25 mg Documented By: JULIO Nystatin (Nystatin Oral Susp 500,000 Unit/5 Ml Oral.Susp) 500,000 unit PO QID [facility]; Protocol Last Admin: 01/19/23 07:55 Dose: 500,000 unit Documented By: JULIO Omeprazole (Omeprazole 20 Mg Capsule.Dr) 20 mg PO DAILY@0630 [facility] Last Admin: 01/19/23 05:30 Dose: 20 mg Documented By: VALENTIN Ondansetron HCl (Ondansetron Hcl 4 Mg/2 Ml Vial) 4 mg IVPUSH Q8H PRN PRN Reason: Nausea Last Admin: 01/18/23 12:40 Dose: 4 mg Documented By: ROB Propranolol HCl (Propranolol Hcl La 80 Mg Cap.Sa.24h) 80 mg PO DAILY [facility]; Protocol Last Admin: 01/19/23 09:37 Dose: 80 mg Documented By: JULIO Sodium Chloride (0.9 % Sodium Chloride Flush 3 Ml Syringe) 3 ml IVFLUSH QSHIFT [facility] Last Admin: 01/19/23 07:29 Dose: Not Given Documented By: ROB Non-Admin Reason: PICC Labs 01/02/23 05:51 01/19/23 05:19 Labs: Laboratory Results - last 24 hr 01/19/23 05:19 Estim Creat Clear Calc 66.4 Estimated GFR 51 Procedures Date of Service Date of Service: 01/19/23 Progress Note: A&P Assessment and plan (1) Right foot ulcer: Status: Acute Plan Right foot wound with wound vac in place. Will return later today for dressing change. Will order clinical educator consult. Would like to do PT prior to dc but asking not to start today. Can begin to transition to PO analgesics in preparation for discharge. Time Spent With Patient Time: Total time managing care of this patient today ____ minutes. Quality Stroke Does the patient have a stroke diagnosis?: No VTE Prior VTE?: No VTE Risk Level:: Medical - moderate - high VTE Device Contraindication: Treatment Not Indicated VTE Drug Contraindication: N/A - Med Ordered
[2023-01-19] MEDS: HYDROmorphone HCl 2 MG TABLET 1 MG PO (13:24)
--- NOTE | 2023-01-19 13:59 | P.PNIM_ITS ---
Subjective Subjective Date of Service: 01/19/23 Interval History: possible chf Review of Systems sob improvin,denies any chest pain or leg pains Physical Exam Vital Signs: Vital Signs: Last Vital Signs Temp 99.1 F 01/19/23 08:00 Pulse 77 01/19/23 08:00 Resp 21 H 01/19/23 08:00 BP 130/60 01/19/23 08:00 Pulse Ox 91 L 01/19/23 08:00 O2 Del Method 01/19/23 08:00 O2 Flow Rate 2 01/18/23 16:00 Oxygen Flow Rate 2 01/17/23 15:00 BMI result Body Mass Index 43.8 General: AO X 3, no acute distress Resp:? CTA bilateral CVS: S1,S2,RRR, some swelling in the legs GI: +BS, NT, no distention Skin: wound van on right ankle Neuro:? motor grossly intact Psych: appropriate affect Objective Data Active Medications Acetaminophen (Acetaminophen 325 Mg Tablet) 650 mg PO Q6H PRN PRN Reason: Pain, Mild (Pain Scale 1-3) Last Admin: 01/15/23 05:19 Dose: 650 mg Documented By: DENNY Acetaminophen/Butalbital/Caffeine (Butalb/Acetamin/Caff 50/325/40 Tablet) 1 tab PO Q4H PRN PRN Reason: Headache Last Admin: 01/19/23 05:41 Dose: 1 tab Documented By: VALENTIN Albuterol Sulfate (Albuterol Sulfate (0.083%) 2.5 Mg/3 Ml Vial.Neb) 2.5 mg INHALE Q4H PRN PRN Reason: Shortness of Breath Last Admin: 01/18/23 01:18 Dose: 2.5 mg Documented By: LALITA Calcium Carbonate (Calcium Carbonate 500 Mg Tablet) 500 mg PO BID [facility] Last Admin: 01/19/23 07:54 Dose: 500 mg Documented By: JULIO Heparin Sodium (Porcine) 50 (units/ Sodium Chloride 5 ml) 0 units IVFLUSH QSHIFT [facility] Last Admin: 01/19/23 08:27 Dose: 50 unit Documented By: JULIO Albuterol Sulfate 2.5 mg/ (Ipratropium [place] 0.5 mg) 0 mg INHALE RQ4H WHILE AWAKE [facility] Last Admin: 01/19/23 10:38 Dose: Not Given Documented By: NITZA Non-Admin Reason: pt unavail Cyanocobalamin (Cyanocobalamin (Vitamin B-12) 500 Mcg Tablet) 500 mcg PO DAILY [facility] Last Admin: 01/19/23 07:55 Dose: 500 mcg Documented By: JULIO Ergocalciferol (Ergocalciferol (Vitamin D2) 1,250 Mcg Capsule) 1,250 mcg PO MORENO [facility] Last Admin: 01/16/23 08:29 Dose: 1,250 mcg Documented By: SKYLA Ferrous Sulfate (Ferrous Sulfate 324 Mg Tablet.Dr) 324 mg PO DAILY [facility] Last Admin: 01/19/23 07:55 Dose: 324 mg Documented By: JULIO Furosemide (Furosemide 20 Mg Tablet) 20 mg PO DAILY [facility]; Protocol Gabapentin (Gabapentin 100 Mg Capsule) 100 mg PO BID [facility] Last Admin: 01/19/23 07:55 Dose: 100 mg Documented By: JULIO Guaifenesin/Codeine Phosphate (Guaifen/Codeine Sf 200/20/10ml 10 Ml Liquid) 5 ml PO Q6H PRN PRN Reason: Cough Last Admin: 01/17/23 15:08 Dose: 5 ml Documented By: SKYLA Heparin Sodium (Porcine) (Heparin Sodium,Porcine 5,000 Unit/Ml Vial) 5,000 unit SUBCUT Q8H [facility] Last Admin: 01/19/23 13:23 Dose: 5,000 unit Documented By: SAMIRA Hydralazine HCl (Hydralazine Hcl 25 Mg Tablet) 75 mg PO TID [facility]; Protocol Last Admin: 01/19/23 07:54 Dose: 75 mg Documented By: JULIO Hydromorphone HCl (Hydromorphone Hcl 0.5 Mg/0.5 Ml Syringe) 0.5 mg IVPUSH Q3H PRN; Protocol PRN Reason: Pain, Severe (Pain Scale 7-10) Last Admin: 01/19/23 10:46 Dose: 0.5 mg Documented By: ROB Hydromorphone HCl (Hydromorphone Hcl 2 Mg Tablet) 1 mg PO Q4H PRN PRN Reason: Pain, Moderate (Pain Scale 4-6 Last Admin: 01/19/23 13:24 Dose: 1 mg Documented By: SAMIRA Albumin Human (Kedbumin 25 %) 100 mls @ 100 mls/hr IV Q6H [facility] Stop: 01/20/23 03:14 Last Infusion: 01/19/23 10:45 Dose: 0 mls/hr Documented By: ROB Meropenem 1 gm/ Sodium (Chloride) 100 mls @ 200 mls/hr IV Q8H [facility] Lidocaine (Lidocaine 4 % Patch Adh..Patch) 1 patch TRANSDERMA DAILY [facility]; Onel col Last Admin: 01/19/23 09:38 Dose: Not Given Documented By: JULIO Non-Admin Reason: Patient Refused Magnesium Hydroxide (Milk Of Magnesia 30 Ml Oral.Susp) 30 ml PO DAILY PRN PRN Reason: Constipation Melatonin (Melatonin 3 Mg Tablet) 6 mg PO BEDTIME PRN PRN Reason: Insomnia Last Admin: 01/12/23 21:47 Dose: 6 mg Documented By: NAZ Metformin HCl (Metformin Hcl Er 500 Mg Tab.Er.24h) 500 mg PO BID [facility] Last Admin: 01/19/23 07:54 Dose: 500 mg Documented By: JULIO Multivitamins/Vitamin C (Multivitamin Tablet) 1 tab PO DAILY [facility] Last Admin: 01/19/23 07:54 Dose: 1 tab Documented By: JULIO Pt Own (Exemestane (25 Mg Tablet)) 25 mg PO DAILY [facility] Last Admin: 01/19/23 08:26 Dose: 25 mg Documented By: JULIO Nystatin (Nystatin Oral Susp 500,000 Unit/5 Ml Oral.Susp) 500,000 unit PO QID [facility]; Protocol Last Admin: 01/19/23 13:24 Dose: 500,000 unit Documented By: SAMIRA Omeprazole (Omeprazole 20 Mg Capsule.Dr) 20 mg PO DAILY@0630 [facility] Last Admin: 01/19/23 05:30 Dose: 20 mg Documented By: VALENTIN Ondansetron HCl (Ondansetron Hcl 4 Mg/2 Ml Vial) 4 mg IVPUSH Q8H PRN PRN Reason: Nausea Last Admin: 01/18/23 12:40 Dose: 4 mg Documented By: ROB Oxycodone HCl (Oxycodone Hcl Immed Release 5 Mg Tablet) 10 mg PO Q6H PRN PRN Reason: Pain, Mild (Pain Scale 1-3) Propranolol HCl (Propranolol Hcl La 80 Mg Cap.Sa.24h) 80 mg PO DAILY [facility]; Protocol Last Admin: 01/19/23 09:37 Dose: 80 mg Documented By: JULIO Sodium Chloride (0.9 % Sodium Chloride Flush 3 Ml Syringe) 3 ml IVFLUSH QSHIFT [facility] Last Admin: 01/19/23 07:29 Dose: Not Given Documented By: ROB Non-Admin Reason: PICC Labs 01/02/23 05:51 01/19/23 05:19 Labs: Laboratory Results - last 24 hr 01/19/23 05:19 Estim Creat Clear Calc 66.4 Estimated GFR 51 Assessment and Plan (1) Morbid obesity: Status: Acute (2) Acute osteomyelitis: Status: Acute (3) Abscess: Status: Acute Plan 72 year old female with morbid obesity and other medical problems as listed. She presents with right ankle redness, pain and swelling best described by the image, clinical presentation consistent with sepsis d/t cellulitis and concern for joint involvment. 1.Left ankle Cellulitis and acute oseomyelitits and abscess, Sepsis,.? Sepsis clinically resolved -MRI 12/29:1. Large 12 cm abscess in the lateral subcutaneous fat at the level of the ankle and hindfoot with surrounding cellulitis and underlying osteomyelitis of the lateral malleolus. 2. Complex longitudinal tears of the peroneus longus and peroneus brevis tendons with associated tenosynovitis. Septic tenosynovitis is also possible. cpk normal Ortho did bedside I/D on 12/30, followed by OR for full exploration and lavage on? 12/31 culture so far negative Surgery debrided in OR 3/3 and appled wound vac s/p picc line d/w ID -Switched to Doripenem, plan for 6 week etrapenem. Transition to p.o. pain medications, PT evaluation. surgery will follow up for wound vac change. 2.Gerd--Omeprazol 3.Anxiety--Prorpanolol 4.Morbid obesity--weight loss advised. 5.Cluster migrane episode : given sumatriptan, Fiorocet 6.possible mild chf with HFpEF: SOB, CXR -mild prominence of the central hilar vessels , BNP moderately at 255 moniter i/o -seems inaccurate-moniter closely, daily weight closely(discussed with staff), last weight was 294lbs on(04/15/22), currently 279lbs. v/q scan neg continue iv lasix echo and cardiology eval noted Heparin for DVT prophylaxis Full code inpatient need :sepsis, ankle cellulitis/abscess and expert evaluation for possible intervention, not able to due this in less acute setting at this time need picc line today for correction Time Spent With Patient Time: Total time managing care of this patient today ____ minutes. Quality Stroke Does the patient have a stroke diagnosis?: No VTE Prior VTE?: No VTE Risk Level:: Medical - moderate - high VTE Device Contraindication: Treatment Not Indicated VTE Drug Contraindication: N/A - Med Ordered
[2023-01-19] MEDS: guaiFEN/Codeine SF 200/20/10ML 10 ML LIQUID 5 ML PO (15:54)
[2023-01-19] MEDS: oxyCODONE HCl Immed Release 5 MG TABLET 10 MG PO (18:03)
[2023-01-19] MEDS: Melatonin 3 MG TABLET 6 MG PO (20:58)
[2023-01-20] VITALS (8 sets, daily range): BP systolic 121–162; BP diastolic 67–76; PULSE 81–95; RESP 16–20; TEMP 36.2–36.8; O2SAT 91–98; BMI 44.3
[2023-01-20] MEDS: Albumin Human 25 % 100 ML IV ×3 (02:36→17:05)
[2023-01-20] MEDS: Heparin Sodium,Porcine 5,000 UNIT/ML VIAL 5000 UNIT SUBCUT ×3 (03:22→20:02)
[2023-01-20] MEDS: oxyCODONE HCl Immed Release 5 MG TABLET 10 MG PO (03:22)
[2023-01-20] MEDS: Omeprazole 20 MG CAPSULE.DR PO (05:38)
[2023-01-20] MEDS: HYDROmorphone HCl 0.5 MG/0.5 ML SYRINGE IVPUSH ×4 (05:43→21:33)
[2023-01-20 07:00] LABS: Creatinine Clr Calc Pharmacy 66.2; Estimated Glomerular Filt Rate 50
[2023-01-20] MEDS: hydrALAZINE HCl 25 MG TABLET 75 MG PO ×3 (09:38→20:03)
[2023-01-20] MEDS: Gabapentin 100 MG CAPSULE PO ×2 (09:38→20:03)
[2023-01-20] MEDS: Cyanocobalamin (Vitamin B-12) 500 MCG TABLET PO (09:38)
[2023-01-20] MEDS: metFORMIN HCl ER 500 MG TAB.ER.24H PO ×2 (09:39→20:03)
[2023-01-20] MEDS: Furosemide 20 MG TABLET PO (09:39)
[2023-01-20] MEDS: Multivitamin TABLET 1 TAB PO (09:39)
[2023-01-20] MEDS: Propranolol HCL LA 80 MG CAP.SA.24H PO (09:39)
[2023-01-20] MEDS: Nystatin Oral Susp 500,000 UNIT/5 ML ORAL.SUSP 500000 UNIT PO ×4 (09:40→20:03)
[2023-01-20] MEDS: Ferrous Sulfate 324 MG TABLET.DR PO (09:40)
[2023-01-20] MEDS: Heparin Sodium,Porcine Flush 50 UNITS, 0.9 % Sodium Chloride Flush 5 ML IVFLUSH ×3 (09:40→23:00)
[2023-01-20] MEDS: 0.9 % Sodium Chloride Flush 3 ML SYRINGE IVFLUSH ×3 (09:41→20:06)
[2023-01-20 11:18] LABS: Glucose, Whole Blood 121 mg/dL (60-115)
--- NOTE | 2023-01-20 14:53 | HO.PM.IMPN ---
Subjective Subjective Date of Service: 01/20/23 Interval History: possible chf Review of Systems sob seems improving leg swelling also seems improving Physical Exam Vital Signs: Vital Signs: Last Vital Signs Temp 97.5 F 01/20/23 07:52 Pulse 81 01/20/23 11:31 Resp 18 01/20/23 11:31 BP 143/67 H 01/20/23 07:52 Pulse Ox 97 01/20/23 07:52 O2 Del Method 01/20/23 07:52 O2 Flow Rate 2 01/20/23 07:52 Oxygen Flow Rate 2 01/17/23 15:00 BMI result Body Mass Index 44.3 ?General: AO X 3, no acute distress Resp:? CTA bilateral CVS: S1,S2,RRR, some swelling in the legs GI: +BS, NT, no distention Skin: wound vac on right ankle-still drainin some serosingunous fluid. Neuro:? motor grossly intact Psych: appropriate affect Objective Data Active Medications Acetaminophen (Acetaminophen 325 Mg Tablet) 650 mg PO Q6H PRN PRN Reason: Pain, Mild (Pain Scale 1-3) Last Admin: 01/15/23 05:19 Dose: 650 mg Documented By: DENNY Acetaminophen/Butalbital/Caffeine (Butalb/Acetamin/Caff 50/325/40 Tablet) 1 tab PO Q4H PRN PRN Reason: Headache Last Admin: 01/19/23 23:26 Dose: 1 tab Documented By: TOÑO Albuterol Sulfate (Albuterol Sulfate (0.083%) 2.5 Mg/3 Ml Vial.Neb) 2.5 mg INHALE Q4H PRN PRN Reason: Shortness of Breath Last Admin: 01/18/23 01:18 Dose: 2.5 mg Documented By: LALITA Calcium Carbonate (Calcium Carbonate 500 Mg Tablet) 500 mg PO BID [facility] Last Admin: 01/20/23 09:40 Dose: 500 mg Documented By: NATI Heparin Sodium (Porcine) 50 (units/ Sodium Chloride 5 ml) 0 units IVFLUSH QSHIFT [facility] Last Admin: 01/20/23 09:40 Dose: 50 unit Documented By: NATI Albuterol Sulfate 2.5 mg/ (Ipratropium [place] 0.5 mg) 0 mg INHALE RQ4H WHILE AWAKE [facility] Last Admin: 01/20/23 11:30 Dose: 2.5 each Documented By: KIRILL Cyanocobalamin (Cyanocobalamin (Vitamin B-12) 500 Mcg Tablet) 500 mcg PO DAILY [facility] Last Admin: 01/20/23 09:38 Dose: 500 mcg Documented By: NATI Ergocalciferol (Ergocalciferol (Vitamin D2) 1,250 Mcg Capsule) 1,250 mcg PO MORENO [facility] Last Admin: 01/16/23 08:29 Dose: 1,250 mcg Documented By: SKYLA Ferrous Sulfate (Ferrous Sulfate 324 Mg Tablet.Dr) 324 mg PO DAILY [facility] Last Admin: 01/20/23 09:40 Dose: 324 mg Documented By: NATI Furosemide (Furosemide 20 Mg Tablet) 20 mg PO DAILY [facility]; Protocol Last Admin: 01/20/23 09:39 Dose: 20 mg Documented By: NATI Gabapentin (Gabapentin 100 Mg Capsule) 100 mg PO BID [facility] Last Admin: 01/20/23 09:38 Dose: 100 mg Documented By: NATI Guaifenesin/Codeine Phosphate (Guaifen/Codeine Sf 200/20/10ml 10 Ml Liquid) 5 ml PO Q6H PRN PRN Reason: Cough Last Admin: 01/19/23 15:54 Dose: 5 ml Documented By: ROB Heparin Sodium (Porcine) (Heparin Sodium,Porcine 5,000 Unit/Ml Vial) 5,000 unit SUBCUT Q8H [facility] Last Admin: 01/20/23 12:44 Dose: 5,000 unit Documented By: NATI Hydralazine HCl (Hydralazine Hcl 25 Mg Tablet) 75 mg PO TID [facility]; Protocol Last Admin: 01/20/23 14:19 Dose: 75 mg Documented By: SOPHIA Hydromorphone HCl (Hydromorphone Hcl 0.5 Mg/0.5 Ml Syringe) 0.5 mg IVPUSH Q3H PRN; Protocol PRN Reason: Pain, Severe (Pain Scale 7-10) Last Admin: 01/20/23 12:59 Dose: 0.5 mg Documented By: NATI Meropenem 1 gm/ Sodium (Chloride) 100 mls @ 200 mls/hr IV Q8H [facility] Last Infusion: 01/20/23 13:29 Dose: 0 mls/hr Documented By: NATI Lidocaine (Lidocaine 4 % Patch Adh..Patch) 1 patch TRANSDERMA DAILY [facility]; Protocol Last Admin: 01/20/23 09:42 Dose: Not Given Documented By: NATI Non-Admin Reason: Patient Refused Magnesium Hydroxide (Milk Of Magnesia 30 Ml Oral.Susp) 30 ml PO DAILY PRN PRN Reason: Constipation Melatonin (Melatonin 3 Mg Tablet) 6 mg PO BEDTIME PRN PRN Reason: Insomnia Last Admin: 01/19/23 20:58 Dose: 6 mg Documented By: TOÑO Metformin HCl (Metformin Hcl Er 500 Mg Tab.Er.24h) 500 mg PO BID [facility] Last Admin: 01/20/23 09:39 Dose: 500 mg Documented By: NATI Multivitamins/Vitamin C (Multivitamin Tablet) 1 tab PO DAILY [facility] Last Admin: 01/20/23 09:39 Dose: 1 tab Documented By: NATI Pt Own (Exemestane (25 Mg Tablet)) 25 mg PO DAILY [facility] Last Admin: 01/20/23 09:41 Dose: 25 mg Documented By: NATI Nystatin (Nystatin Oral Susp 500,000 Unit/5 Ml Oral.Susp) 500,000 unit PO QID [facility]; Protocol Last Admin: 01/20/23 12:44 Dose: 500,000 unit Documented By: NATI Omeprazole (Omeprazole 20 Mg Capsule.Dr) 20 mg PO DAILY@0630 [facility] Last Admin: 01/20/23 05:38 Dose: 20 mg Documented By: TOÑO Ondansetron HCl (Ondansetron Hcl 4 Mg/2 Ml Vial) 4 mg IVPUSH Q8H PRN PRN Reason: Nausea Last Admin: 01/18/23 12:40 Dose: 4 mg Documented By: ROB Oxycodone HCl (Oxycodone Hcl Immed Release 5 Mg Tablet) 10 mg PO Q6H PRN PRN Reason: Pain, Mild (Pain Scale 1-3) Last Admin: 01/20/23 03:22 Dose: 10 mg Documented By: TOÑO Propranolol HCl (Propranolol Hcl La 80 Mg Cap.Sa.24h) 80 mg PO DAILY [facility]; Protocol Last Admin: 01/20/23 09:39 Dose: 80 mg Documented By: NATI Sodium Chloride (0.9 % Sodium Chloride Flush 3 Ml Syringe) [facility] Last Admin: 01/20/23 09:41 Dose: 3 ml Documented By: NATI Labs 01/02/23 05:51 01/20/23 05:52 Labs: Laboratory Results - last 24 hr 01/20/23 01/20/23 05:52 11:11 Estim Creat Clear Calc 66.2 Estimated GFR 50 POC Glucose 121 H Assessment and Plan (1) Morbid obesity: Status: Acute (2) Acute osteomyelitis: Status: Acute (3) Abscess: Status: Acute Plan 72 year old female with morbid obesity and other medical problems as listed. She presents with right ankle redness, pain and swelling best described by the image, clinical presentation consistent with sepsis d/t cellulitis and concern for joint involvment. 1.Left ankle Cellulitis and acute oseomyelitits and abscess, Sepsis,.? Sepsis clinically resolved -MRI 12/29:1. Large 12 cm abscess in the lateral subcutaneous fat at the level of the ankle and hindfoot with surrounding cellulitis and underlying osteomyelitis of the lateral malleolus. 2. Complex longitudinal tears of the peroneus longus and peroneus brevis tendons with associated tenosynovitis. Septic tenosynovitis is also possible. cpk normal Ortho did bedside I/D on 12/30, followed by OR for full exploration and lavage on? 12/31 culture so far negative Surgery debrided in OR /3 and appled wound vac s/p picc line d/w ID -Switched to Doripenem , plan for 6 week etrapenem. Transition to p.o. pain medications, PT evaluation. surgery will follow up for wound vac change. 2.Gerd--Omeprazol 3.Anxiety--Prorpanolol 4.Morbid obesity--weight loss advised. 5.Cluster migrane episode : given sumatriptan, Fiorocet 6.possible mild chf with HFpEF: SOB, CXR -mild prominence of the central hilar vessels , BNP moderately at 255 moniter i/o -seems inaccurate-moniter closely, daily weight closely(discussed with staff), last weight was 294lbs on(04/15/22), currently 279lbs. v/q scan neg continue iv lasix echo and cardiology eval noted Heparin for DVT prophylaxis Full code inpatient need :sepsis, ankle cellulitis/abscess and expert evaluation for possible intervention, not able to due this in less acute setting at this time need picc line today for half-way Time Spent With Patient Time: Total time managing care of this patient today ____ minutes. Quality Stroke Does the patient have a stroke diagnosis?: No VTE Prior VTE?: No VTE Risk Level:: Medical - moderate - high VTE Device Contraindication: Treatment Not Indicated VTE Drug Contraindication: N/A - Med Ordered
--- NOTE | 2023-01-20 15:09 | MHC.CM.PN ---
PATIENT WILL NEED WOUND VAC UPON DC. CURRENTLY UNSURE IF PLAN IS HOME ON IV ABX OR SNF ON IV ABX. STILL AWAITING PLAN. NO WOUND VAC ORDERED YET UNTIL PLAN IS CLEAR
[2023-01-20] MEDS: Butalb/Acetamin/Caff 50/325/40 TABLET 1 TAB PO (15:23)
--- NOTE | 2023-01-20 16:21 | MHC.CM.PN ---
[facility] FOLLOWING AND REPORTS HAVING MULTIPLE DISCHARGES ON Tuesday01/21/23 THEY WILL CONTINUE TO FOLLOW
[2023-01-20] MEDS: Furosemide 20 MG/2 ML VIAL IVPUSH (17:04)
[2023-01-20 17:57] LABS: Glucose, Whole Blood 114 mg/dL (60-115)
[2023-01-20 20:51] LABS: Glucose, Whole Blood 147 mg/dL (60-115)
[2023-01-21] VITALS (11 sets, daily range): BP systolic 137–183; BP diastolic 60–90; PULSE 76–88; RESP 18–20; TEMP 36.6–37.2; O2SAT 93–98; BMI 44.1
[2023-01-21] MEDS: HYDROmorphone HCl 0.5 MG/0.5 ML SYRINGE IVPUSH ×3 (01:35→20:42)
[2023-01-21] MEDS: Heparin Sodium,Porcine 5,000 UNIT/ML VIAL 5000 UNIT SUBCUT ×3 (04:39→20:18)
[2023-01-21] MEDS: Omeprazole 20 MG CAPSULE.DR PO (05:13)
[2023-01-21] MEDS: guaiFEN/Codeine SF 200/20/10ML 10 ML LIQUID 5 ML PO (05:17)
[2023-01-21] MEDS: Acetaminophen 325 MG TABLET 650 MG PO (05:48)
[2023-01-21] MEDS: oxyCODONE HCl Immed Release 5 MG TABLET 10 MG PO ×2 (05:48→13:04)
[2023-01-21 07:30] LABS: Glucose, Whole Blood 134 mg/dL (60-115)
[2023-01-21] MEDS: 0.9 % Sodium Chloride Flush 3 ML SYRINGE IVFLUSH ×2 (09:08→15:54)
[2023-01-21] MEDS: Gabapentin 100 MG CAPSULE PO ×2 (09:09→20:18)
[2023-01-21] MEDS: Heparin Sodium,Porcine Flush 50 UNITS, 0.9 % Sodium Chloride Flush 5 ML IVFLUSH ×2 (09:09→15:55)
[2023-01-21] MEDS: metFORMIN HCl ER 500 MG TAB.ER.24H PO ×2 (09:10→20:18)
[2023-01-21] MEDS: Ferrous Sulfate 324 MG TABLET.DR PO (09:10)
[2023-01-21] MEDS: Cyanocobalamin (Vitamin B-12) 500 MCG TABLET PO (09:10)
[2023-01-21] MEDS: Multivitamin TABLET 1 TAB PO (09:11)
[2023-01-21] MEDS: Propranolol HCL LA 80 MG CAP.SA.24H PO (09:11)
[2023-01-21] MEDS: Furosemide 20 MG TABLET PO (09:11)
[2023-01-21] MEDS: Nystatin Oral Susp 500,000 UNIT/5 ML ORAL.SUSP 500000 UNIT PO ×4 (09:11→20:18)
[2023-01-21] MEDS: hydrALAZINE HCl 25 MG TABLET 75 MG PO ×3 (09:11→20:18)
[2023-01-21 09:58] LABS: Anion Gap 13 (12-20); Blood Urea Nitrogen 6 mg/dL (9-16); Calcium 9.3 mg/dL (8.4-10.2); Carbon Dioxide 33 mmol/L (22-29); Chloride 97 mmol/L (96-108); Estimated Glomerular Filt Rate 50; Glucose Random 147 mg/dL (60-115); Potassium 2.9 mmol/L (3.3-5.1); Sodium 140 mmol/L (135-145)
[2023-01-21] MEDS: Albumin Human 25 % 100 ML IV ×2 (10:26→11:31)
[2023-01-21 10:28] LABS: Folate 8.5 ng/mL (> or = 4.0); Thyroid Stimulating Hormone 1.47 uIU/mL (0.32-4.0); Vitamin B12 541 pg/mL (200-900)
--- NOTE | 2023-01-21 10:46 | MHC.CM.PN ---
[facility] REVIEWED, PER HOSPITALIST PT COULD BE DISCHARGED HOWEVER PT DECLINING STR SO PT WILL BE RETURNING HOME W/6 WKS IV ERTAPENEM AND WOUND VAC, CM CONTACTED SIRI FROM [facility] [phone] AND ORDER FORM OBTAINED AND REFERRAL TO BE FAXED.
[2023-01-21 11:25] LABS: Glucose, Whole Blood 125 mg/dL (60-115)
--- NOTE | 2023-01-21 13:50 | P.PNIM_ITS ---
Subjective Subjective Date of Service: 01/21/23 Interval History: possible chf Review of Systems sob seems and leg swelling seems improving wound Physical Exam Vital Signs: Vital Signs: Last Vital Signs Temp 97.9 F 01/21/23 11:35 Pulse 76 01/21/23 11:35 Resp 19 01/21/23 11:35 BP 161/68 H 01/21/23 11:35 Pulse Ox 95 01/21/23 11:35 O2 Del Method 01/21/23 11:35 O2 Flow Rate 2 01/20/23 07:52 Oxygen Flow Rate 2 01/17/23 15:00 BMI result Body Mass Index 44.1 General: AO X 3, no acute distress Resp:? CTA bilateral CVS: S1,S2,RRR, some swelling in the legs GI: +BS, NT, no distention Skin: wound vac on right ankle-still drainin some serosingunous fluid. Neuro:? motor grossly intact Psych: appropriate affect Objective Data Active Medications Acetaminophen (Acetaminophen 325 Mg Tablet) 650 mg PO Q6H PRN PRN Reason: Pain, Mild (Pain Scale 1-3) Last Admin: 01/21/23 05:48 Dose: 650 mg Documented By: SAMIRA Acetaminophen/Butalbital/Caffeine (Butalb/Acetamin/Caff 50/325/40 Tablet) 1 tab PO Q4H PRN PRN Reason: Headache Last Admin: 01/20/23 15:23 Dose: 1 tab Documented By: NATI Albuterol Sulfate (Albuterol Sulfate (0.083%) 2.5 Mg/3 Ml Vial.Neb) 2.5 mg INHALE Q4H PRN PRN Reason: Shortness of Breath Last Admin: 01/18/23 01:18 Dose: 2.5 mg Documented By: LALITA Calcium Carbonate (Calcium Carbonate 500 Mg Tablet) 500 mg PO BID [facility] Last Admin: 01/21/23 09:11 Dose: 500 mg Documented By: NATI Heparin Sodium (Porcine) 50 (units/ Sodium Chloride 5 ml) 0 units IVFLUSH QSHIFT [facility] Last Admin: 01/21/23 09:09 Dose: 50 unit Documented By: NATI Albuterol Sulfate 2.5 mg/ (Ipratropium [place] 0.5 mg) 0 mg INHALE RQ4H WHILE AWAKE [facility] Last Admin: 01/21/23 11:29 Dose: 2.5 each Documented By: KIRILL Albuterol Sulfate 2.5 mg/ (Ipratropium [place] 0.5 mg) 0 mg INHALE RQ4H WHILE AWAKE [facility] Last Admin: 01/21/23 11:33 Dose: Not Given Documented By: KIRILL Non-Admin Reason: Duplicate Order Cyanocobalamin (Cyanocobalamin (Vitamin B-12) 500 Mcg Tablet) 500 mcg PO DAILY [facility] Last Admin: 01/21/23 09:10 Dose: 500 mcg Documented By: NATI Ergocalciferol (Ergocalciferol (Vitamin D2) 1,250 Mcg Capsule) 1,250 mcg PO MORENO [facility] Last Admin: 01/16/23 08:29 Dose: 1,250 mcg Documented By: SKYLA Ferrous Sulfate (Ferrous Sulfate 324 Mg Tablet.) 324 mg PO DAILY [facility] Last Admin: 01/21/23 09:10 Dose: 324 mg Documented By: NATI Furosemide (Furosemide 20 Mg Tablet) 20 mg PO DAILY [facility]; Protocol Last Admin: 01/21/23 09:11 Dose: 20 mg Documented By: NATI Gabapentin (Gabapentin 100 Mg Capsule) 100 mg PO BID [facility] Last Admin: 01/21/23 09:09 Dose: 100 mg Documented By: NATI Guaifenesin/Codeine Phosphate (Guaifen/Codeine Sf 200/20/10ml 10 Ml Liquid) 5 ml PO Q6H PRN PRN Reason: Cough Last Admin: 01/21/23 05:17 Dose: 5 ml Documented By: VALENTIN Heparin Sodium (Porcine) (Heparin Sodium,Porcine 5,000 Unit/Ml Vial) 5,000 unit SUBCUT Q8H [facility] Last Admin: 01/21/23 12:38 Dose: 5,000 unit Documented By: ALVAREZ Hydralazine HCl (Hydralazine Hcl 25 Mg Tablet) 75 mg PO TID [facility]; Protocol Last Admin: 01/21/23 09:11 Dose: 75 mg Documented By: NATI Hydromorphone HCl (Hydromorphone Hcl 0.5 Mg/0.5 Ml Syringe) 0.5 mg IVPUSH Q3H PRN; Protocol PRN Reason: Pain, Severe (Pain Scale 7-10) Last Admin: 01/21/23 09:12 Dose: 0.5 mg Documented By: NATI Meropenem 1 gm/ Sodium (Chloride) 100 mls @ 200 mls/hr IV Q8H [facility] Last Admin: 01/21/23 13:03 Dose: 200 mls/hr Documented By: NATI Lidocaine (Lidocaine 4 % Patch Adh..Patch) 1 patch TRANSDERMA DAILY [facility]; Protocol Last Admin: 01/21/23 09:12 Dose: Not Given Documented By: NATI Non-Admin Reason: Patient Refused Magnesium Hydroxide (Milk Of Magnesia 30 Ml Oral.Susp) 30 ml PO DAILY PRN PRN Reason: Constipation Melatonin (Melatonin 3 Mg Tablet) 6 mg PO BEDTIME PRN PRN Reason: Insomnia Last Admin: 01/19/23 20:58 Dose: 6 mg Documented By: LYLERISBobo Metformin HCl (Metformin Hcl Er 500 Mg Tab.Er.24h) 500 mg PO BID [facility] Last Admin: 01/21/23 09:10 Dose: 500 mg Documented By: NATI Multivitamins/Vitamin C (Multivitamin Tablet) 1 tab PO DAILY [facility] Last Admin: 01/21/23 09:11 Dose: 1 tab Documented By: NATI Pt Own (Exemestane (25 Mg Tablet)) 25 mg PO DAILY [facility] Last Admin: 01/21/23 09:12 Dose: 25 mg Documented By: NATI Nystatin (Nystatin Oral Susp 500,000 Unit/5 Ml Oral.Susp) 500,000 unit PO QID [facility]; Protocol Last Admin: 01/21/23 12:38 Dose: 500,000 unit Documented By: ALVAREZ Omeprazole (Omeprazole 20 Mg Capsule.Dr) 20 mg PO DAILY@0630 [facility] Last Admin: 01/21/23 05:13 Dose: 20 mg Documented By: VALENTIN Ondansetron HCl (Ondansetron Hcl 4 Mg/2 Ml Vial) 4 mg IVPUSH Q8H PRN PRN Reason: Nausea Last Admin: 01/18/23 12:40 Dose: 4 mg Documented By: ROB Oxycodone HCl (Oxycodone Hcl Immed Release 5 Mg Tablet) 10 mg PO Q6H PRN PRN Reason: Pain, Mild (Pain Scale 1-3) Last Admin: 01/21/23 13:04 Dose: 10 mg Documented By: NATI Propranolol HCl (Propranolol Hcl La 80 Mg Cap.Sa.24h) 80 mg PO DAILY [facility]; Protocol Last Admin: 01/21/23 09:11 Dose: 80 mg Documented By: NATI Sodium Chloride (0.9 % Sodium Chloride Flush 3 Ml Syringe) 3 ml IVFLUSH QSHIFT [facility] Last Admin: 01/21/23 09:08 Dose: 3 ml Documented By: NATI Labs 01/02/23 05:51 01/21/23 09:22 Labs: Laboratory Results - last 24 hr 01/20/23 01/20/23 01/21/23 17:53 20:47 07:27 Anion Gap Estim Creat Clear Calc Estimated GFR POC Glucose 114 147 H 134 H Random Glucose Calcium Vitamin B12 Folate TSH 01/21/23 01/21/23 09:22 11:18 Anion Gap 13 Estim Creat Clear Calc 66.0 Estimated GFR 50 POC Glucose 125 H Random Glucose 147 H Calcium 9.3 Vitamin B12 541 Folate 8.5 TSH 1.47 Assessment and Plan (1) Morbid obesity: Status: Acute (2) Acute osteomyelitis: Status: Acute (3) Abscess: Status: Acute (4) Hypokalemia: Status: Acute Plan 72 year old female with morbid obesity and other medical problems as listed. She presents with right ankle redness, pain and swelling best described by the image, clinical presentation consistent with sepsis d/t cellulitis and concern for joint involvment. 1.Left ankle Cellulitis and acute oseomyelitits and abscess, Sepsis,.? Sepsis clinically resolved -MRI 12/29:1. Large 12 cm abscess in the lateral subcutaneous fat at the level of the ankle and hindfoot with surrounding cellulitis and underlying osteomyelitis of the lateral malleolus. 2. Complex longitudinal tears of the peroneus longus and peroneus brevis tendons with associated tenosynovitis. Septic tenosynovitis is also possible. cpk normal Ortho did bedside I/D on 12/30, followed by OR for full exploration and lavage on? 12/31 culture so far negative Surgery debrided in OR 01/14 and appled wound vac s/p picc line d/w ID -Switched to Doripenem , plan for 6 week etrapenem. Transition to p.o. pain medications, PT evaluation. surgery will follow up for wound vac change. 2.Gerd--Omeprazol 3.Anxiety--Prorpanolol 4.Morbid obesity--weight loss advised. 5.Cluster migrane episode : given sumatriptan, Fiorocet 6.possible mild chf with HFpEF: SOB, CXR -mild prominence of the central hilar vessels , BNP moderately at 255 moniter i/o -seems inaccurate-moniter closely, daily weight closely(discussed w [facility] staff), last weight was 294lbs on(04/15/22), currently 279lbs. v/q scan neg continue iv lasix echo and cardiology eval noted. 7.hypokalemia : added potassium moniter renal function and electrolytes Heparin for DVT prophylaxis Full code above is d/w patient and her pcp( covering for pcp) in detail.patient refused rehab ,going to go home with vna. inpatient need : awaiting for antibiotics /woundvac arrangements Time Spent With Patient Time: Total time managing care of this patient today ____ minutes. Quality Stroke Does the patient have a stroke diagnosis?: No VTE Prior VTE?: No VTE Risk Level:: Medical - moderate - high VTE Device Contraindication: Treatment Not Indicated VTE Drug Contraindication: N/A - Med Ordered
--- NOTE | 2023-01-21 13:56 | PM.PNGS ---
Subjective Subjective Date of Service: 01/21/23 Interval history: No new complaints Physical Exam Vital Signs: Vital Signs: Last Vital Signs Temp 97.9 F 01/21/23 11:35 Pulse 76 01/21/23 11:35 Resp 19 01/21/23 11:35 BP 161/68 H 01/21/23 11:35 Pulse Ox 95 01/21/23 11:35 O2 Del Method 01/21/23 11:35 O2 Flow Rate 2 01/20/23 07:52 Oxygen Flow Rate 2 01/17/23 15:00 BMI result Body Mass Index 44.1 Const: General: no acute distress Nutritional Appearance: obese Orientation/consciousness: patient oriented x3 Limitations: no limitations Resp: Effort & Inspection: normal respiratory effort, no audible wheezes, Actively coughing and no respiratory distress Skin: Other: See extremities below Neuro: General: patient oriented x3 Extrem: Other: Wound VAC changed. Excellent granulation tissue noted at the wound base with no new necrotic tissue. Wounds are filling in nicely. New wound VAC applied. Patient tolerated well. Objective Data Active Medications Acetaminophen (Acetaminophen 325 Mg Tablet) 650 mg PO Q6H PRN PRN Reason: Pain, Mild (Pain Scale 1-3) Last Admin: 01/21/23 05:48 Dose: 650 mg Documented By: SAMIRA Acetaminophen/Butalbital/Caffeine (Butalb/Acetamin/Caff 50/325/40 Tablet) 1 tab PO Q4H PRN PRN Reason: Headache Last Admin: 01/20/23 15:23 Dose: 1 tab Documented By: NATI Albuterol Sulfate (Albuterol Sulfate (0.083%) 2.5 Mg/3 Ml Vial.Neb) 2.5 mg INHALE Q4H PRN PRN Reason: Shortness of Breath Last Admin: 01/18/23 01:18 Dose: 2.5 mg Documented By: LALITA Calcium Carbonate (Calcium Carbonate 500 Mg Tablet) 500 mg PO BID [facility] Last Admin: 01/21/23 09:11 Dose: 500 mg Documented By: NATI Heparin Sodium (Porcine) 50 (units/ Sodium Chloride 5 ml) 0 units IVFLUSH QSHIFT [facility] Last Admin: 01/21/23 09:09 Dose: 50 unit Documented By: NATI Albuterol Sulfate 2.5 mg/ (Ipratropium [place] 0.5 mg) 0 mg INHALE RQ4H WHILE AWAKE [facility] Last Admin: 01/21/23 11:29 Dose: 2.5 each Documented By: KIRILL Albuterol Sulfate 2.5 mg/ (Ipratropium [place] 0.5 mg) 0 mg INHALE RQ4H WHILE AWAKE [facility] Last Admin: 01/21/23 11:33 Dose: Not Given Documented By: KIRILL Non-Admin Reason: Duplicate Order Cyanocobalamin (Cyanocobalamin (Vitamin B-12) 500 Mcg Tablet) 500 mcg PO DAILY [facility] Last Admin: 01/21/23 09:10 Dose: 500 mcg Documented By: NATI Ergocalciferol (Ergocalciferol (Vitamin D2) 1,250 Mcg Capsule) 1,250 mcg PO MORENO [facility] Last Admin: 01/16/23 08:29 Dose: 1,250 mcg Documented By: SKYLA Ferrous Sulfate (Ferrous Sulfate 324 Mg Tablet.Dr) 324 mg PO DAILY [facility] Last Admin: 01/21/23 09:10 Dose: 324 mg Documented By: NATI Furosemide (Furosemide 20 Mg Tablet) 20 mg PO DAILY [facility]; Protocol Last Admin: 01/21/23 09:11 Dose: 20 mg Documented By: NATI Gabapentin (Gabapentin 100 Mg Capsule) 100 mg PO BID [facility] Last Admin: 01/21/23 09:09 Dose: 100 mg Documented By: NATI Guaifenesin/Codeine Phosphate (Guaifen/Codeine Sf 200/20/10ml 10 Ml Liquid) 5 ml PO Q6H PRN PRN Reason: Cough Last Admin: 01/21/23 05:17 Dose: 5 ml Documented By: VALENTIN Heparin Sodium (Porcine) (Heparin Sodium,Porcine 5,000 Unit/Ml Vial) 5,000 unit SUBCUT Q8H [facility] Last Admin: 01/21/23 12:38 Dose: 5,000 unit Documented By: ALVAREZ Hydralazine HCl (Hydralazine Hcl 25 Mg Tablet) 75 mg PO TID [facility]; Protocol Last Admin: 01/21/23 09:11 Dose: 75 mg Documented By: NATI Hydromorphone HCl (Hydromorphone Hcl 0.5 Mg/0.5 Ml Syringe) 0.5 mg IVPUSH Q3H PRN; Protocol PRN Reason: Pain, Severe (Pain Scale 7-10) Last Admin: 01/21/23 09:12 Dose: 0.5 mg Documented By: NATI Meropenem 1 gm/ Sodium (Chloride) 100 mls @ 200 mls/hr IV Q8H [facility] Last Admin: 01/21/23 13:03 Dose: 200 mls/hr Documented By: NATI Lidocaine (Lidocaine 4 % Patch Adh..Patch) 1 patch TRANSDERMA DAILY [facility]; Protocol Last Admin: 01/21/23 09:12 Dose: Not Given Documented By: NATI Non-Admin Reason: Patient Refused Magnesium Hydroxide (Milk Of Magnesia 30 Ml Oral.Susp) 30 ml PO DAILY PRN PRN Reason: Constipation Melatonin (Melatonin 3 Mg Tablet) 6 mg PO BEDTIME PRN PRN Reason: Insomnia Last Admin: 01/19/23 20:58 Dose: 6 mg Documented By: TOÑO Metformin HCl (Metformin Hcl Er 500 Mg Tab.Er.24h) 500 mg PO BID [facility] Last Admin: 01/21/23 09:10 Dose: 500 mg Documented By: NATI Multivitamins/Vitamin C (Multivitamin Tablet) 1 tab PO DAILY [facility] Last Admin: 01/21/23 09:11 Dose: 1 tab Documented By: NATI Pt Own (Exemestane (25 Mg Tablet)) 25 mg PO DAILY [facility] Last Admin: 01/21/23 09:12 Dose: 25 mg Documented By: NATI Nystatin (Nystatin Oral Susp 500,000 Unit/5 Ml Oral.Susp) 500,000 unit PO QID [facility]; Protocol Last Admin: 01/21/23 12:38 Dose: 500,000 unit Documented By: ALVAREZ Omeprazole (Omeprazole 20 Mg Capsule.Dr) 20 mg PO DAILY@0630 [facility] Last Admin: 01/21/23 05:13 Dose: 20 mg Documented By: VALENTIN Ondansetron HCl (Ondansetron Hcl 4 Mg/2 Ml Vial) 4 mg IVPUSH Q8H PRN PRN Reason: Nausea Last Admin: 01/18/23 12:40 Dose: 4 mg Documented By: ROB Oxycodone HCl (Oxycodone Hcl Immed Release 5 Mg Tablet) 10 mg PO Q6H PRN PRN Reason: Pain, Mild (Pain Scale 1-3) Last Admin: 01/21/23 13:04 Dose: 10 mg Documented By: NATI Propranolol HCl (Propranolol Hcl La 80 Mg Cap.Sa.24h) 80 mg PO DAILY [facility]; Protocol Last Admin: 01/21/23 09:11 Dose: 80 mg Documented By: NATI Sodium Chloride (0.9 % Sodium Chloride Flush 3 Ml Syringe) 3 ml IVFLUSH QSHIFT [facility] Last Admin: 01/21/23 09:08 Dose: 3 ml Documented By: NATI Labs 01/02/23 05:51 01/21/23 09:22 Labs: Laboratory Results - last 24 hr 01/20/23 01/20/23 01/21/23 17:53 20:47 07:27 Anion Gap Estim Creat Clear Calc Estimated GFR POC Glucose 114 147 H 134 H Random Glucose Calcium Vitamin B12 Folate TSH 01/21/23 01/21/23 09:22 11:18 Anion Gap 13 Estim Creat Clear Calc 66.0 Estimated GFR 50 POC Glucose 125 H Random Glucose 147 H Calcium 9.3 Vitamin B12 541 Folate 8.5 TSH 1.47 Procedures Date of Service Date of Service: 01/21/23 Progress Note: A&P Assessment and plan (1) Cellulitis of right lower extremity: Status: Acute Plan Continue wound VAC placement. Clear for discharge from my standpoint. Will need VNA for 3 time weekly VAC changes. Follow-up in office in approximately 2 weeks. Time Spent With Patient Time: Total time managing care of this patient today ____ minutes. Quality Stroke Does the patient have a stroke diagnosis?: No VTE Prior VTE?: No VTE Risk Level:: Medical - moderate - high VTE Device Contraindication: Treatment Not Indicated VTE Drug Contraindication: N/A - Med Ordered
--- NOTE | 2023-01-21 15:41 | MHC.CM.PN ---
Addendum entered by Patience Aly RN 01/21/23 16:11: [facility] REPORTING PT HAS OUT OF POCKET COPAY OF $110 A WEEK AND WILL CONTACT PT. WOUND VAC WILL BE DELIVERED BY DELIVERED LATER THIS EVENING. Original Note: CM MRECEIVED TIGER FROM [facility] WHO REPORT THEY CAN DO SOC ON TUESDAY, HOSPITALIST AWARE, PT WILL REMAIN INPT UNTIL TOMORROW 01/21, WOUND VAC TO BE DELIVERED BY [facility] THIS EVENING VS EARLY TOMORROW. CM WILL CONT TO FOLLOW.
[2023-01-21] MEDS: Potassium Chloride Packet 20 MEQ PACKET 40 MEQ PO (15:54)
[2023-01-21 16:16] LABS: Glucose, Whole Blood 166 mg/dL (60-115)
[2023-01-21] MEDS: Magnesium Oxide 400 MG TABLET 800 MG PO (17:22)
[2023-01-21] MEDS: Butalb/Acetamin/Caff 50/325/40 TABLET 1 TAB PO (17:26)
[2023-01-21] MEDS: Albuterol Sulfate (0.083%) 2.5 MG/3 ML VIAL.NEB INHALE (17:40)
[2023-01-21 22:03] LABS: Glucose, Whole Blood 141 mg/dL (60-115)
[2023-01-22] MEDS: guaiFEN/Codeine SF 200/20/10ML 10 ML LIQUID 5 ML PO
[2023-01-22] MEDS: Melatonin 3 MG TABLET 6 MG PO
[2023-01-22] MEDS: Heparin Sodium,Porcine Flush 50 UNITS, 0.9 % Sodium Chloride Flush 5 ML IVFLUSH ×2 (00:01→08:05)
--- NOTE | 2023-01-22 01:21 | PC.NURSE ---
Patient c/o mild SOB and cough. She stated she thinks her anxiety is contributing to her SOB. She is on 2L and speaking full sentences. Refused UD, but took Robitussin with Codeine and is now sleeping. Box was delivered for patient, assuming it is wound vac for pt to take home at discharge.
[2023-01-22 02:00] VITALS: PULSE 82; O2SAT 98
[2023-01-22] MEDS: Omeprazole 20 MG CAPSULE.DR PO (05:59)
[2023-01-22] MEDS: Heparin Sodium,Porcine 5,000 UNIT/ML VIAL 5000 UNIT SUBCUT ×2 (05:59→12:33)
[2023-01-22 06:00] VITALS: BMI 43.8
[2023-01-22 07:07] VITALS: BP 170/81; PULSE 84; RESP 20; TEMP 36.6; O2SAT 95
[2023-01-22 07:18] LABS: Glucose, Whole Blood 142 mg/dL (60-115)
[2023-01-22] MEDS: HYDROmorphone HCl 0.5 MG/0.5 ML SYRINGE IVPUSH ×2 (07:56→12:31)
[2023-01-22] MEDS: Nystatin Oral Susp 500,000 UNIT/5 ML ORAL.SUSP 500000 UNIT PO ×2 (08:03→12:33)
[2023-01-22] MEDS: Ferrous Sulfate 324 MG TABLET.DR PO (08:03)
[2023-01-22] MEDS: hydrALAZINE HCl 25 MG TABLET 75 MG PO ×2 (08:03→14:37)
[2023-01-22] MEDS: Furosemide 20 MG TABLET PO (08:04)
[2023-01-22] MEDS: Multivitamin TABLET 1 TAB PO (08:04)
[2023-01-22] MEDS: metFORMIN HCl ER 500 MG TAB.ER.24H PO (08:04)
[2023-01-22] MEDS: Cyanocobalamin (Vitamin B-12) 500 MCG TABLET PO (08:04)
[2023-01-22] MEDS: Magnesium Oxide 400 MG TABLET 800 MG PO (08:04)
[2023-01-22] MEDS: 0.9 % Sodium Chloride Flush 3 ML SYRINGE IVFLUSH (08:04)
[2023-01-22] MEDS: Gabapentin 100 MG CAPSULE PO (08:04)
[2023-01-22] MEDS: Propranolol HCL LA 80 MG CAP.SA.24H PO (08:04)
[2023-01-22 08:15] VITALS: PULSE 85; RESP 18; O2SAT 95
[2023-01-22] MEDS: Potassium Chloride Packet 20 MEQ PACKET 40 MEQ PO (09:25)
[2023-01-22] MEDS: Butalb/Acetamin/Caff 50/325/40 TABLET 1 TAB PO (09:25)
--- NOTE | 2023-01-22 09:32 | P.PNGS_ITS ---
Subjective Subjective Date of Service: 01/22/23 Patient reports: feels better Interval history: The patient is seen in coverage She had some questions regarding VNA and her VAC. She was assured that the VNA would take care of the VAC settings. The importance of follow-up with Dr. Hui was reviewed and apparently understood. Physical Exam Vital Signs: Vital Signs: Last Vital Signs Temp 98 F 01/22/23 07:07 Pulse 85 01/22/23 08:15 Resp 18 01/22/23 08:15 BP 170/81 H 01/22/23 07:07 Pulse Ox 95 01/22/23 07:07 O2 Del Method 01/22/23 07:07 O2 Flow Rate 2 01/21/23 23:50 Oxygen Flow Rate 2 01/17/23 15:00 BMI result Body Mass Index 44.1 Dressing/VAC in place and functioning Objective Data Active Medications Acetaminophen (Acetaminophen 325 Mg Tablet) 650 mg PO Q6H PRN PRN Reason: Pain, Mild (Pain Scale 1-3) Last Admin: 01/21/23 05:48 Dose: 650 mg Documented By: SAMIRA Acetaminophen/Butalbital/Caffeine (Butalb/Acetamin/Caff 50/325/40 Tablet) 1 tab PO Q4H PRN PRN Reason: Headache Last Admin: 01/22/23 09:25 Dose: 1 tab Documented By: VICTORIA Calcium Carbonate (Calcium Carbonate 500 Mg Tablet) 500 mg PO BID [facility] Last Admin: 01/22/23 08:04 Dose: 500 mg Documented By: VICTORIA Heparin Sodium (Porcine) 50 (units/ Sodium Chloride 5 ml) 0 units IVFLUSH QSHIFT [facility] Last Admin: 01/22/23 08:05 Dose: 50 unit Documented By: VICTORIA Comments: forgot to scan before discarding Albuterol Sulfate 2.5 mg/ (Ipratropium [place] 0.5 mg) 0 mg INHALE RQ4H WHILE AWAKE [facility] Last Admin: 01/22/23 08:13 Dose: 2.5 each Documented By: IVONNE Albuterol Sulfate 2.5 mg/ (Ipratropium [place] 0.5 mg) 0 mg INHALE RQ4H WHILE AWAKE [facility] Last Admin: 01/22/23 08:17 Dose: Not Given Documented By: IVONNE Non-Admin Reason: Duplicate Order Cyanocobalamin (Cyanocobalamin (Vitamin B-12) 500 Mcg Tablet) 500 mcg PO DAILY [facility] Last Admin: 01/22/23 08:04 Dose: 500 mcg Documented By: VICTORIA Ergocalciferol (Ergocalciferol (Vitamin D2) 1,250 Mcg Capsule) 1,250 mcg PO MORENO [facility] Last Admin: 01/16/23 08:29 Dose: 1,250 mcg Documented By: SKYLA Ferrous Sulfate (Ferrous Sulfate 324 Mg Tablet.Dr) 324 mg PO DAILY [facility] Last Admin: 01/22/23 08:03 Dose: 324 mg Documented By: VICTORIA Furosemide (Furosemide 20 Mg Tablet) 20 mg PO DAILY [facility]; Protocol Last Admin: 01/22/23 08:04 Dose: 20 mg Documented By: VICTORIA Gabapentin (Gabapentin 100 Mg Capsule) 100 mg PO BID [facility] Last Admin: 01/22/23 08:04 Dose: 100 mg Documented By: VICTORIA Heparin Sodium (Porcine) (Heparin Sodium,Porcine 5,000 Unit/Ml Vial) 5,000 unit SUBCUT Q8H [facility] Last Admin: 01/22/23 05:59 Dose: 5,000 unit Documented By: CHANCE Hydralazine HCl (Hydralazine Hcl 25 Mg Tablet) 75 mg PO TID [facility]; Protocol Last Admin: 01/22/23 08:03 Dose: 75 mg Documented By: VICTORIA Hydromorphone HCl (Hydromorphone Hcl 0.5 Mg/0.5 Ml Syringe) 0.5 mg IVPUSH Q3H PRN; Protocol PRN Reason: Pain, Severe (Pain Scale 7-10) Last Admin: 01/22/23 07:56 Dose: 0.5 mg Documented By: VICTORIA Meropenem 1 gm/ Sodium (Chloride) 100 mls @ 200 mls/hr IV Q8H [facility] Last Infusion: 01/22/23 07:02 Dose: 0 mls/hr Documented By: CHANCE Lidocaine (Lidocaine 4 % Patch Adh..Patch) 1 patch TRANSDERMA DAILY [facility]; Protocol Last Admin: 01/22/23 08:03 Dose: Not Given Documented By: VICTORIA Non-Admin Reason: Patient Refused Magnesium Hydroxide (Milk Of Magnesia 30 Ml Oral.Susp) 30 ml PO DAILY PRN PRN Reason: Constipation Magnesium Oxide (Magnesium Oxide 400 Mg Tablet) 800 mg PO DAILY [facility] Last Admin: 01/22/23 08:04 Dose: 800 mg Documented By: VICTORIA Melatonin (Melatonin 3 Mg Tablet) 6 mg PO BEDTIME PRN PRN Reason: Insomnia Last Admin: 01/22/23 00:00 Dose: 6 mg Documented By: CHANCE Metformin HCl (Metformin Hcl Er 500 Mg Tab.Er.24h) 500 mg PO BID [facility] Last Admin: 01/22/23 08:04 Dose: 500 mg Documented By: VICTORIA Multivitamins/Vitamin C (Multivitamin Tablet) 1 tab PO DAILY [facility] Last Admin: 01/22/23 08:04 Dose: 1 tab Documented By: VICTORIA Pt Own (Exemestane (25 Mg Tablet)) 25 mg PO DAILY [facility] Last Admin: 01/22/23 08:03 Dose: 25 mg Documented By: VICTORIA Nystatin (Nystatin Oral Susp 500,000 Unit/5 Ml Oral.Susp) 500,000 unit PO QID [facility]; Protocol Last Admin: 01/22/23 08:03 Dose: 500,000 unit Documented By: VICTORIA Omeprazole (Omeprazole 20 Mg Capsule.Dr) 20 mg PO DAILY@0630 [facility] Last Admin: 01/22/23 05:59 Dose: 20 mg Documented By: CHANCE Ondansetron HCl (Ondansetron Hcl 4 Mg/2 Ml Vial) 4 mg IVPUSH Q8H PRN PRN Reason: Nausea Last Admin: 01/18/23 12:40 Dose: 4 mg Documented By: ROB Oxycodone HCl (Oxycodone Hcl Immed Release 5 Mg Tablet) 10 mg PO Q6H PRN PRN Reason: Pain, Mild (Pain Scale 1-3) Last Admin: 01/21/23 13:04 Dose: 10 mg Documented By: NATI Propranolol HCl (Propranolol Hcl La 80 Mg Cap.Sa.24h) 80 mg PO DAILY [facility]; Protocol Last Admin: 01/22/23 08:04 Dose: 80 mg Documented By: VICTORIA Sodium Chloride (0.9 % Sodium Chloride Flush 3 Ml Syringe) 3 ml IVFLUSH QSHIFT [facility] Last Admin: 01/22/23 08:04 Dose: 3 ml Documented By: VICTORIA Labs 01/02/23 05:51 01/22/23 07:40 Labs: Laboratory Results - last 24 hr 01/21/23 01/21/23 01/21/23 09:22 11:18 16:07 Anion Gap 13 Estim Creat Clear Calc 66.0 Estimated GFR 50 POC Glucose 125 H 166 H Random Glucose 147 H Calcium 9.3 Vitamin B12 541 Folate 8.5 TSH 1.47 01/21/23 01/22/23 21:59 07:06 Anion Gap Estim Creat Clear Calc Estimated GFR POC Glucose 141 H 142 H Random Glucose Calcium Vitamin B12 Folate TSH Procedures Date of Service Date of Service: 01/22/23 Progress Note: A&P Assessment and plan (1) Cellulitis of right lower extremity: Status: Acute (2) Abscess: Status: Acute (3) Acute osteomyelitis: Status: Acute (4) Right foot ulcer: Status: Acute Plan Surgically stable for discharge. Follow-up with Dr. Hui as previously arranged. Time Spent With Patient Time: Total time managing care of this patient today ____ minutes. Quality Stroke Does the patient have a stroke diagnosis?: No VTE Prior VTE?: No VTE Risk Level:: Medical - moderate - high VTE Device Contraindication: Treatment Not Indicated VTE Drug Contraindication: N/A - Med Ordered
--- NOTE | 2023-01-22 10:35 | MHC.CM.PN ---
MESSAGE LEFT FOR [facility] @ [phone]. PATIENT WANTS TO SECURE PAYMENT FOR HER ABX TO BE DELIVERED. SHE ASKS THAT THEY CALL HER , FRANKY @ [phone], THE DEBIT CARD IS HOME WITH FRANKY [employer] REPORTS ALSO LEAVING A MESSAGE AT THAT NUMBER. HOME WOUND VAC IS IN ROOM AND WILL NEED TO BE PLACED. 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
[2023-01-22 11:07] LABS: Glucose, Whole Blood 144 mg/dL (60-115)
[2023-01-22 12:08] LABS: Estimated Average Glucose 143 mg/dL; Hemoglobin A1c % 6.6 %
[2023-01-22 12:28] LABS: Potassium 3.3 mmol/L (3.3-5.1)
--- NOTE | 2023-01-22 12:51 | MHC.CM.PN ---
Addendum entered by Violeta Garcia RN 01/22/23 14:46: [facility] TO TRANSPORT FOR 1530 PATIENT AND RN AWARE OF PLAN. IMM 01/21PREVIOUSLY COMPLETED Original Note: HOME TODAY WITH WOUND VAC PLACED (HOME UNIT) [facility] AND [facility] UPDATED. FRANKY PAID FOR ABX. RN AND UNIT MADE AWARE
--- NOTE | 2023-01-22 14:08 | P.DS_ITS ---
DS: Providers Provider Date of Service: 01/22/23 Date of admission: 12/28/22 20:23 Date of discharge: 01/22/23 Primary care physician: Audra Burger MD Admitting clinician: Jr Zhang Consults: 12/29/22 07:36 Consult to Orthopedics Routine Consulting Provider: Patrick Faye Reason for consultation: right ankle cellulitis ? septic joint Has provider been notified: No 12/29/22 08:32 Consult to Infectious Diseases Routine Consulting Provider: Viki Steve Reason for consultation: Ankle infectiuos Has provider been notified: No 12/31/22 12:26 Consult to Wound Care Stat Consulting Provider: [facility] Wound Care Management Reason for consultation: right ankle infection 01/03/23 09:00 Consult to General Surgery Routine Consulting Provider: [facility] General Surgeons Reason for consultation: right foot wound-? repeat debridement 01/18/23 08:31 Consult to Cardiology Routine Consulting Provider: [facility] Cardiovascular Services Reason for consultation: possible new onset chf Has provider been notified: No DS: Diagnosis Discharge Diagnosis (1) Cellulitis of right lower extremity: Status: Acute (2) Abscess: Status: Acute (3) Acute osteomyelitis: Status: Acute (4) Right foot ulcer: Status: Acute DS: Summary Hospital Course Hospital Course: 72 year old female with morbid obesity and other medical problems as listed. She presents with right ankle redness, pain and swelling best described by the faraz ge. She denies trauma to the area,? and prior ankle injury, she brought it to PCP's attention about a week ago and was prescribed Prednisone but has not noted any improvement,? she is having such excruciating pain that she's having difficulty walking and decided to come in. She is septic with elevated WBC of 21K, tachycardic . Xray show?Soft tissue swelling at the forefoot. No air in the soft tissues. No radiopaque foreign body. Given Zosyn and Vano in ED, cultures sent. Hospital course: 72 year old female with morbid obesity and other medical problems as listed. She presents with right ankle redness, pain and swelling best described by the image, clinical presentation consistent with sepsis d/t cellulitis and concern for joint involvment-admitted with Left ankle Cellulitis and acute oseomyelitits and abscess, Sepsis: Started on broad-spectrum IV antibiotics, MRI foot was done -found to have osteomyelitis, patient was seen by surgery because of foot cellulitis and abscess-which was debrided and subsequently wound VAC was placed- blood culture negative, leukocytosis improving, no fever, foot pain and swelling is also significantly better-discussed with surgery and Infectious Disease upon discharge patient will be going home with IV antibiotics(Ertapenem) -end date 02/28/23,also with wound VAC:Instructions per surgery as below- Discharge instructions:Wound vac orders for [facility]( as per surgery): Change dressings every Tuesday, Tuesday, and Tuesday Use black sponge medium size, cut to size, split to 1/2 thickness. Connect to 125 mmHg suction continuous. Pain regimen-given Dilaudid supply limited, Tylenol and gabapentin, also bowel regimen with docusate and MiraLax. Patient was strongly advised to avoid pain medication for sedation.also avoid contipation with bowel regimen as above. In addition patient has possible diastolic CHF exacerbation: Seen by Cardiology, started on IV Lasix and subsequently switched to p.o. Lasix currently patient is feeling better. Hypokalemia: Repleted and resolved. Will add limited supply of potassium, monitor BMP outpatient. possible diabetes type 2 : has hba1c 6.6, continue home metformin. Plan: Complete course of antibiotics, wound VAC instructions as above. Consider monitoring CBC, CMP, CRP, ESR Q weekly while on antibiotics. Patient will be going home with VNA. Continue Lasix,Monitor renal function electrolytes. CHF education given, monitor weight closely call PCP if weight gain 2 lb or more in a week. Patient needs to follow-up with PCP, wound care, surgery, cardiology outpatient. Cardiology may arrange their own appointment. Time Spent with Patient Time attestation: Total time managing care of this patient today ____ minutes. Discharge coordination time: Greater than 30 minutes Quality: Safe Use of Opioids Does Pt have an Active Cancer Diagnosis on the Problem List?: No Quality: Stroke Does the patient have a stroke diagnosis?: No Physical Exam Vital Signs: Vital Signs: Last Vital Signs Temp 98 F 01/22/23 07:07 Pulse 85 01/22/23 08:15 Resp 18 01/22/23 08:15 BP 170/81 H 01/22/23 07:07 Pulse Ox 95 01/22/23 07:07 O2 Del Method 01/22/23 07:07 O2 Flow Rate 2 01/21/23 23:50 Oxygen Flow Rate 2 01/17/23 15:00 BMI result Body Mass Index 43.8 General: AO X 3, no acute distress Resp:? CTA bilateral CVS: S1,S2,RRR, some swelling in the legs GI: +BS, NT, no distention Skin: wound vac on right ankle seems improving ,attached to wound vac. Neuro:? motor grossly intact Psych: appropriate affect DS: Data Data Completed and Pending Labs on day of discharge: Laboratory Results - last 24 hr 01/21/23 01/21/23 01/22/23 16:07 21:59 07:06 Potassium POC Glucose 166 H 141 H 142 H Estimat Average Glucose Hemoglobin A1c % 01/22/23 01/22/23 01/22/23 07:40 11:01 11:18 Potassium 3.0 L 3.3 POC Glucose 144 H Estimat Average Glucose Hemoglobin A1c % 01/22/23 11:18 Potassium POC Glucose Estimat Average Glucose 143 Hemoglobin A1c % 6.6 Imaging Chest x-ray: Radiologist's impression: ITS Impressions Chest X-Ray 12/28/22 16:14 IMPRESSION: Unremarkable examination. Foot X-Ray 12/28/22 16:14 IMPRESSION: 1. No acute osseous abnormality. 2. Soft tissue swelling at the forefoot. No air in the soft tissues. No radiopaque foreign body. Venous Duplex 12/28/22 17:14 IMPRESSION: No DVT demonstrated in the right lower extremity. Ankle MRI 12/29/22 12:18 IMPRESSION: 1. Large 12 cm abscess in the lateral subcutaneous fat at the level of the ankle and hindfoot with surrounding cellulitis and underlying osteomyelitis of the lateral malleolus. 2. Complex longitudinal tears of the peroneus longus and peroneus brevis tendons with associated tenosynovitis. Septic tenosynovitis is also possible. 3. Mild talocrural and subtalar osteoarthritis. Focal 1 x 0.6 cm chondral defect at the medial talar dome. Abd US [id number] 01/08/23 10:36 IMPRESSION: RIGHT LEG: Right lower extremity AIMEE not performed secondary to dressing. No hemodynamically significant stenosis in the right lower extremity. Diffuse calcific atherosclerotic disease. LEFT LEG: Diffuse calcific atherosclerotic disease. No hemodynamically significant stenosis in the left lower extremity. Duplex Scan Lower Extremity Artery 01/08/23 10:36 IMPRESSION: RIGHT LEG: Right lower extremity AIMEE not performed secondary to dressing. No hemodynamically significant stenosis in the right lower extremity. Diffuse calcific atherosclerotic disease. LEFT LEG: Diffuse calcific atherosclerotic disease. No hemodynamically significant stenosis in the left lower extremity. Chest X-Ray 01/13/23 17:22 IMPRESSION: Stable examination when compared to 12/28/2022. No acute cardiopulmonary findings. Chest X-Ray 01/17/23 13:15 IMPRESSION: There is low inspiratory effort with prominence of the central hilar pulmonary vessels. Mild central bronchial wall thickening. No focal consolidation. Pulmonary Perfusion Imaging 01/18/23 13:15 IMPRESSION: Low probability of pulmonary embolism. These findings carry a 15-20% probability of pulmonary embolism. Discharge Plan Discharge Anticipated Discharge Date/Time: 01/22/23 13:46 Patient Disposition: Home Health Service Discharge Diagnosis: Left ankle Cellulitis and acute oseomyelitits and abscess, Sepsis, chf. Referrals: [facility] [Other] - 1 Day (DELIVERY OF IV ANTIBIOTICS AND SUPPLIES, PLEASE CALL [phone] IF YOU NEED OFF HOUR NURSING SUPPORT. ) [facility] Wound Care Management [Provider Group] - 1 Week [facility] [Outside] - 1 Day (LONG TERM FOR WOUND VAC AND IV ANTIBIOTIC MANAGEMENT) Luís Hui MD [Physician] - 2 Weeks Audra Burger MD [Primary Care Provider] - 1 Week Discharge Medications: New acetaminophen 325 mg Tablet 650 mg PO Q6H PRN (Reason: Pain, Mild (Pain Scale 1-3)) Qty: 20 0RF furosemide 20 mg Tablet 20 mg PO DAILY Qty: 30 0RF Protocol: Hold for SBP< HOLD for SBP < : 90 gabapentin 100 mg Capsule 100 mg PO BID Qty: 10 0RF potassium chloride 20 mEq packet 20 meq PO DAILY Qty: 4 0RF ertapenem 1 gram recon soln 1 g IV DAILY Qty: 37 0RF hydromorphone [Dilaudid] 2 mg tablet 1 mg PO Q6H PRN (Reason: pain) Qty: 20 0RF Rx Instructions: Partial Fill upon patient request. docusate sodium [Colace] 100 mg capsule 100 mg PO DAILY PRN (Reason: constipation) Qty: 30 0RF polyethylene glycol 3350 [Miralax] 17 gram/dose powder 17 g PO DAILY PRN (Reason: constipation) Qty: 119 0RF Continued propranolol 80 mg capsule,extended release 24 hr 1 cap PO DAILY naratriptan 2.5 mg tablet 1 tab PO DAILY MRX1 PRN (Reason: Migraine Headache) Rx Instructions: MAY REPEAT IN 4 HOURS MAX 2 TABS PER DAY multivitamin Tablet 1 tab PO DAILY oxycodone-acetaminophen 5-325 mg tablet 1 tab PO QID PRN (Reason: Pain (Scale Score 7-10)) cyanocobalamin (vitamin B-12) 500 mcg tablet 500 mcg PO DAILY calcium carbonate 500 mg calcium (1,250 mg) Tablet 500 mg PO BID ergocalciferol (vitamin D2) 1,250 mcg (50,000 unit) capsule 1,250 mcg PO MORENO metformin 500 mg tablet extended release 24 hr 500 mg PO BID omeprazole 20 mg capsule,delayed release(DR/EC) 20 mg PO DAILY ferrous gluconate 324 mg (38 mg iron) tablet 324 mg PO BID exemestane 25 mg tablet 25 mg PO DAILY Discharge Orders: Discharge Order (Routine); Ordered 01/22/23 Ordered By: Jr Zhang Diet: Advance to usual diet Activity on Discharge: As tolerated Stand Alone Forms: Patient Portal Discharge page Activity Restrictions/Additional Instructions: Wound vac orders for VNA: Change dressings every Tuesday, Tuesday, and Tuesday Use black sponge medium size, cut to size, split to 1/2 thickness. Connect to 125 mmHg suction continuous. Care Plan Goals: Patient was admitted with left ankle cellulitis -started on IV antibiotics, MRI also showed possible osteomyelitis, blood cultures negative: Patient also had surgical debridement of foot cellulitis/abscess-currently had wound VAC, discussed with infectious disease patient will need IV antibiotics for 6 weeks- switched to IV ertapenem, end date will be 02/28/23. Consider monitoring CBC, CMP, CRP, ESR Q weekly while on antibiotics. Patient will be going home with VNA. CHF education given, monitor weight closely call PCP if weight gain 2 lb or more in a week. In addition patient has possible diastolic CHF exacerbation: Seen by Cardiology, started on IV Lasix and subsequently switched to p.o. Lasix currently patient is feeling better. Hypokalemia: Repleted and resolved. Will add limited supply of potassium, monitor BMP outpatient. Patient is to follow-up out patiently with wound care, surgery, PCP. Health Concerns: As above. Plan of Treatment: As above. Assessment: As above. Patient Instructions: Heart Failure (DC), Diabetic Foot Ulcers (DC)
--- NOTE | 2023-01-22 14:29 | W.MHC.F2F ---
Service Date Service Date: 01/22/23 Encounter Date of encounter: 01/22/23 Encounter: foot cellulitis/abcess/osteomyelitis ,chf Reasons for Services Signs and symptoms assessed: Fever or any worsening foot infection, chest pain or shortness of breath worsening Reason for long term: CV/CP assess and/or care, wound care, diabetic teaching, medication management, medication treatment and teach disease management MD Overseeing Care: Audra Burger Homebound: Leaving the home is medically contraindicated at this time without the asist of a device and/or another person due th the listed conditions above and below. Reason homebound: weakness related to hospital stay Homebound supporting statement: Patient has multiple comorbidities including right foot infection, CHF, has wound VAC and generalized weak post hospitalization-needs to help to go to appointment and blood draws,wound care and antibiotics. Certification: Based on the above findings, I certify that this patient is confined to the home and needs intermittent long term care, physical therapy and/or speech therapy, or continues to need occupational therapy. The patient is under my care, and I have initiated the establishment of the plan of care. The patient will be followed by a physician who will periodically review the plan of care. Time Spent With Patient Time: Total time managing care of this patient today ____ minutes.
[2023-01-22] MEDS: Ertapenem Sodium 1 GM in 0.9 % Sodium Chloride 50 ML IV (14:37)
[2023-01-22 14:58] VITALS: BP 158/81; PULSE 91; RESP 18; TEMP 35.8; O2SAT 94
== END 2023-01-22 15:31 | disposition home health service (06) | DRG 602 ==
LOC: HO.ED 18:01 → HO.EDOVER 20:28 → HO.S3 12-29 18:18
PROVIDERS: Internal Medicine; Orthopaedic Surgery; Surgery; Admitting Provider Physician Assistant; Emergency Provider Student in an Organized Health Care Education/Training Program; PCP Family Medicine; Visit Provider Internal Medicine
PROC: 0HBKXZZ Excision of Right Lower Leg Skin, External Approach (ICD-10-PCS; principal; 2023-01-14 14:00)
PROC: 02HV33Z Insertion of Infusion Device into Superior Vena Cava, Percutaneous Approach (ICD-10-PCS; principal; 2023-01-17 13:00)
DX: L03.116 Cellulitis of left lower limb (principal); I50.31 Acute diastolic (congestive) heart failure; Z68.41 Body mass index [BMI] 40.0-44.9, adult; M86.171 Other acute osteomyelitis, right ankle and foot; E11.52 Type 2 diabetes mellitus with diabetic peripheral angiopathy with gangrene; L02.415 Cutaneous abscess of right lower limb; E11.69 Type 2 diabetes mellitus with other specified complication; L40.50 Arthropathic psoriasis, unspecified; K21.9 Gastro-esophageal reflux disease without esophagitis; M65.9 Synovitis and tenosynovitis, unspecified; F41.9 Anxiety disorder, unspecified; E66.01 Morbid (severe) obesity due to excess calories; Z20.822 Contact with and (suspected) exposure to COVID-19; Z85.3 Personal history of malignant neoplasm of breast; Z91.041 Radiographic dye allergy status; Z88.8 Allergy status to other drugs, medicaments and biological substances; Z79.84 Long term (current) use of oral hypoglycemic drugs; Z79.899 Other long term (current) drug therapy
CPT/HCPCS: 36415; 36573; 71045; 73630; 73723; 78580; 80048; 80076; 80202; 82550; 82565; 82607; 82746; 82947; 83036; 83605; 83880; 84132; 84443; 84484; 85025; 85027; 85379; 87040; 87635; 93005; 93306; 93923; 93925; 93971; 94640; 97162; 99285; A9540; A9585; C1751; J0131; J0690; J1170; J1335; J1642; J1643; J1885; J1940; J2185; J2250; J2270; J2405; J2543; J2795; J3010; J3370; J3371; P9047; Q9957

== ENCOUNTER 2023-01-26 10:08 | Outpatient (REF) | payer MEDICARE, SELFPAY ==
[2023-01-26 10:17] LABS: MANUAL DIFF FLAG NO
[2023-01-26 10:34] LABS: Basophils Percent Auto 0.5 % (0-2); Eosinophils Absolute Auto 0.3 X10*3/uL (0.0-0.4); Eosinophils Percent Auto 3.6 % (0-4); Hematocrit 31.7 % (37.0-47.0); Hemoglobin 9.7 g/dl (12.0-16.0); Imm Gran Abs Auto 0.04 X10*3/uL (0.00-0.03); Imm Gran Pct Auto 0.5 % (0.0-0.4); Lymphocytes Absolute Auto 1.2 X10*3/uL (1.2-4.9); Lymphocytes Percent Auto 15.3 % (20-40); Mean Corpuscular HGB Conc 30.6 g/dl (31.0-35.0); Mean Corpuscular Hemoglobin 26.7 pg (27.0-33.0); Mean Corpuscular Volume 87.3 fL (80.0-98.0); Mean Platelet Volume 9.3 fL (9.4-12.3); Monocytes Absolute Auto 0.7 X10*3/uL (0.1-1.2); Monocytes Percent Auto 8.1 % (2-11); Neutrophils Absolute Auto 5.8 x10*3/uL (2.0-8.3); Platelet Count 368 X10*3/uL (160-400); Red Blood Count 3.63 X10*6/uL (4.20-5.50); Red Cell Distribution Width 15.8 % (11.0-16.0); White Blood Count 8.1 X10*3/uL (4.8-10.8)
[2023-01-26 11:19] LABS: Erythrocyte Sedimentation Rate 60 MM/HR (0-20)
[2023-01-26 11:24] LABS: Alanine Aminotransferase 19 U/L (0-31); Albumin Level 3.8 g/dL (3.5-5.0); Alkaline Phosphatase 73 U/L (39-117); Aspartate Amino Transferase 18 U/L (5-31); Bilirubin Direct < 0.2 mg/dL (0.0-0.5); Bilirubin Total 0.4 mg/dL (0.0-1.0); Blood Urea Nitrogen 8 mg/dL (9-16); C Reactive Protein 1.54 mg/dL (< or = 0.50); Estimated Glomerular Filt Rate > 60; Total Protein 6.5 g/dL (6.5-8.0)
== END 2023-01-26 10:09 | disposition home or self-care (01) ==
LOC: HO.HVNA 10:08
PROVIDERS: Visit Provider Family Medicine
DX: L03.115 Cellulitis of right lower limb (principal)
CPT/HCPCS: 36415; 80076; 82565; 84520; 85025; 85652; 86140

== ENCOUNTER 2023-01-29 15:10 | Emergency (ER) | payer MEDICARE, SELFPAY ==
--- NOTE | ~2023-01-29 | CT_ITS ---
EXAMINATION: CT HEAD WITHOUT CONTRAST CLINICAL INFORMATION: Blurry vision and pain COMPARISON: None available. TECHNIQUE: Contiguous axial imaging was performed from the skull base to vertex without intravenous administration of contrast. This CT examination was performed using dose optimization techniques as appropriate, variously including the following: *Automated exposure control *Adjustment of mA and/or kV according to patient size (this includes techniques or standardized protocols for targeted exams where dose is matched to indication/reason for exam; i.e. extremities or head) *Use of iterative reconstruction technique DLP: 650 mGy-cm FINDINGS: There is no acute intra-axial, extra-axial bleed, masses or midline shift. There is no acute infarction evolution. There is no edema. The gonzales to white matter differentiation is maintained normal. The lateral ventricles are symmetrical and minimally enlarged. Bone windows reveal no calvarial abnormality. There is no scalp soft tissue modality. There is mild mucoperiosteal thickening left middle and posterior ethmoid and complete opacification of right maxillary sinus. Rest of the paranasal sinuses and mastoid air cells are well-aerated. CT/CT head/brain wo IV con IMPRESSION: 1. No acute intracranial process seen. 2. Chronic bilateral ethmoid and right maxillary sinus inflammatory changes.
[2023-01-29 15:16] VITALS: BP 161/81; PULSE 86; O2SAT 98
[2023-01-29 15:54] VITALS: BP 167/81; PULSE 70; RESP 18; TEMP 36.9; O2SAT 98; BMI 40.7
[2023-01-29 15:56] LABS: MANUAL DIFF FLAG NO
[2023-01-29 15:59] LABS: Basophils Absolute Auto 0.1 X10*3/uL (0.0-0.2); Basophils Percent Auto 0.7 % (0-2); Eosinophils Absolute Auto 0.2 X10*3/uL (0.0-0.4); Eosinophils Percent Auto 2.3 % (0-4); Hematocrit 32.5 % (37.0-47.0); Hemoglobin 10.2 g/dl (12.0-16.0); Imm Gran Abs Auto 0.05 X10*3/uL (0.00-0.03); Imm Gran Pct Auto 0.7 % (0.0-0.4); Lymphocytes Absolute Auto 1.4 X10*3/uL (1.2-4.9); Lymphocytes Percent Auto 19.9 % (20-40); Mean Corpuscular HGB Conc 31.4 g/dl (31.0-35.0); Mean Corpuscular Hemoglobin 26.8 pg (27.0-33.0); Mean Corpuscular Volume 85.3 fL (80.0-98.0); Mean Platelet Volume 8.5 fL (9.4-12.3); Monocytes Absolute Auto 0.6 X10*3/uL (0.1-1.2); Monocytes Percent Auto 8.8 % (2-11); Neutrophils Absolute Auto 4.7 x10*3/uL (2.0-8.3); Neutrophils Percent Auto 67.6 % (45-73); Platelet Count 351 X10*3/uL (160-400); Red Blood Count 3.81 X10*6/uL (4.20-5.50); Red Cell Distribution Width 15.6 % (11.0-16.0)
--- NOTE | 2023-01-29 16:21 | ED.GENADULT ---
HPI - General Adult General Chief complaint: General Medical Stated complaint: Blurry vision headache Time Seen by Provider: 01/29/23 16:02 Source: patient, RN notes reviewed and old records reviewed Mode of arrival: ambulatory Limitations: no limitations History of Present Illness HPI narrative: 72-year-old female with past medical history significant for recent diagnosis congestive heart failure, carcinoma of the right breast, morbid obesity, recent osteomyelitis currently on Ertapenam through February 28, 2023 presents for evaluation of high blood pressure and ?double vision. ? Patient was discharged from this facility on 01/22/2023 for right ankle osteomyelitis. At that hospital stay she was diagnosed with heart failure and likely type 2 diabetes. The patient takes propranolol for history of headaches. The patient also complains of a right temporal headache that has been present for the last 2 or 3 weeks. She states this has been leading to double vision. Patient reports that she had mentioned it to some staff members while she was admitted over the last couple of weeks but nothing came of it. Patient states that when she was child she did have some degree of double vision but ?it was never this bad and it resolved with training. ? Her primary office today and was told to come to hospital due to the double vision and high blood pressure She is not diagnosed with high blood pressure and does not take any medications specifically for hypertension. The patient notes that her mother of glioblastoma Related Data Home Medications Medication Instructions Recorded Confirmed ferrous gluconate 324 mg (38 mg 324 mg PO BID 02/17/21 01/29/23 iron) tablet omeprazole 20 mg capsule,delayed 20 mg PO DAILY 02/17/21 01/29/23 release naratriptan 2.5 mg tablet 1 tab PO DAILY MRX1 PRN Migraine 03/26/21 01/29/23 Headache propranolol 80 mg capsule,24 1 cap PO DAILY 03/26/21 01/29/23 hr,extended release exemestane 25 mg tablet 25 mg PO DAILY 04/15/22 01/29/23 calcium carbonate 500 mg calcium 500 mg PO BID 12/28/22 01/29/23 (1,250 mg) tablet cyanocobalamin (vitamin B-12) 500 500 mcg PO DAILY 12/28/22 01/29/23 mcg tablet ergocalciferol (vitamin D2) 1,250 1,250 mcg PO MORENO 12/28/22 01/29/23 mcg (50,000 unit) capsule metformin 500 mg tablet,extended 500 mg PO BID 12/28/22 01/29/23 release 24 hr multivitamin 1 tab PO DAILY 12/28/22 01/29/23 oxycodone-acetaminophen 5 mg-325 1 tab PO QID PRN Pain (Scale Score 12/28/22 01/29/23 mg tablet 7-10) ertapenem 1 gram solution for 1 g IV DAILY@1200 01/29/23 01/29/23 injection riboflavin (vitamin B2) 100 mg 100 mg PO DAILY 01/29/23 01/29/23 tablet Previous Rx's Medication Instructions Recorded acetaminophen 325 mg tablet 650 mg PO Q6H PRN Pain, Mild (Pain 01/22/23 Scale 1-3) #20 tabs docusate sodium 100 mg capsule 100 mg PO DAILY PRN constipation 01/22/23 (Colace) #30 caps furosemide 20 mg tablet 20 mg PO DAILY #30 tabs 01/22/23 gabapentin 100 mg capsule 100 mg PO BID #10 caps 01/22/23 hydromorphone 2 mg tablet 1 mg PO Q6H PRN pain #20 tabs 01/22/23 (Dilaudid) polyethylene glycol 3350 17 17 g PO DAILY PRN constipation 01/22/23 gram/dose oral powder (Miralax) #119 grams potassium chloride 20 mEq oral 20 meq PO DAILY #4 ea 01/22/23 packet lisinopril 5 mg tablet 5 mg PO DAILY #30 tabs 01/29/23 Allergies Allergy/AdvReac Type Severity Reaction Status Date / Time fluoxetine [Prozac] Allergy Unknown worsening Verified 04/15/22 10:32 depression gabapentin Allergy Unknown irritabilit Verified 04/15/22 10:32 y Iodinated Contrast Media Allergy Unknown RASH Verified 04/15/22 10:32 [IV CONTRAST] nortriptyline Allergy Unknown irritabilit Verified 04/15/22 10:32 y topiramate Allergy Unknown mild Verified 04/15/22 10:32 depression verapamil Allergy Unknown irritabilit Verified 04/15/22 10:32 y Review of Systems Constitutional: Constitutional: Reports as per HPI, Denies chills, Denies fatigue and Denies fever(s) Eyes: Eyes: Reports blurry vision, Reports diplopia and Denies eye pain Cardiovascular: Cardiovascular: Denies chest pain and Denies dyspnea Respiratory: Respiratory: Denies cough and Denies dyspnea Gastrointestinal: Gastrointestinal: Denies abdominal pain, Denies constipation and Denies vomiting Genitourinary: Genitourinary: Denies dysuria Musculoskeletal: Comments: Wound VAC right ankle Neurologic: Denies focal weakness Endocrine: Endocrine: Denies fatigue PMFSH Past Medical History Medical History Anemia Arthritis COVID-19 vaccine administered Diverticulitis GERD (gastroesophageal reflux disease) Insomnia Invasive ductal carcinoma of left breast Lobular carcinoma in situ of right breast Migraines Morbid obesity Situational anxiety Situational depression Surgical History History of bilateral breast biopsy History of colon resection History of colostomy reversal History of incision and drainage Hx of colonoscopy S/P debridement Family History Family History Mother Glioblastoma Father Lung cancer Paternal Grandmother Cancer of unknown origin Social History Social History Household Members: Spouse Housing: House Are you a primary home health care case manager to a significant other at home: No Do you presently have visiting nurse or other home services: No Alcohol intake: never Patient Tobacco Use Status: Never used Tobacco Second Hand Smoke Exposure: No Advance Directives: No Advance Directives Information Provided: Yes service: No Current occupational status: employed Physical Exam ED Vital Signs: Vital Signs - 24 hr 01/29/23 15:54 01/29/23 16:58 Temperature 98.5 F Pulse Rate 70 75 Respiratory Rate 18 16 Blood Pressure 167/81 H 173/84 H Pulse Oximetry 98 94 Oxygen Delivery Method Room Air Room Air BMI result Body Mass Index 40.7 Const General: healthy appearing, comfortable, no acute distress, alert and awake Nutritional Appearance: well nourished Orientation/consciousness: patient oriented x3 HENMT Head: Yes normocephalic and Yes atraumatic Throat: Yes posterior oropharynx normal Eyes Eyelids: Yes eyelids normal Conjunctivae: conjunctivae normal Sclerae: sclerae normal Corneas: corneas normal EOM: EOMs intact bilaterally Neck Neck: Yes full ROM Resp Effort & Inspection: normal respiratory effort, able to speak in complete sentences, no audible wheezes and not labored Auscultation: clear to auscultation bilaterally Cardio Rate: regular rate Rhythm: regular rhythm GI Inspection: No distended Palpation (GI): Soft to palpation, not firm, nontender, no guarding and not rigid Auscultation: normoactive bowel sounds Skin General skin exam: no rashes or lesions noted and elasticity normal Neuro General: patient oriented x3 Cranial nerves: Yes CN's II-XII intact bilaterally and Yes Bilaterally intact EOM present (Intact but with left lateral nystagmus) Cognition (Neuro): normal cognition Pupils: Normal pupillary reactivity/response: bilateral Extrem Other: Moving all extremities well Wound VAC to right lateral ankle. Minimal surrounding erythema, no obvious drainage from the wound. Course Reevaluation(s) Reevaluation #1: Attempted to admit the patient to the hospitalist Dr. Menchaca, however I was informed that the patient would not healed skin MRI her brain tomorrow leg also 1 at she was admitted. Given the patient's symptoms started 2 weeks ago, I do not feel that she needs any emergent MRI but rather an urgent MRI. I ordered an outpatient MRI for Tuesday morning. The patient have close follow-up with her PCP if this cannot be completed. We tried 40 new or worsening symptoms. A very low suspicion for subacute CVA as this would likely show up on the CT scan if that were the case and her CT scan did not show any evidence of subacute CVA. Time: 18:00 Medications Administered Discontinued Medications Generic Name Dose Route Start Last Admin Trade Name Freq PRN Reason Stop Dose Admin Clonidine HCl 0.1 mg 01/29/23 16:20 01/29/23 18:21 Clonidine Hcl 0.1 Mg Tablet PO 01/29/23 16:21 0.1 mg ONCE ONE Administration Protocol Potassium Chloride 40 meq 01/29/23 16:34 01/29/23 18:22 Potassium Chloride Er 20 Meq Tab.Er.Prt PO 01/29/23 16:35 40 meq ONCE ONE Administration Medical Decision Making Medical Decision Making MDM Narrative: This is a 72-year-old female with recent diagnosis of CHF, diabetes and osteomyelitis presenting for evaluation of high blood pressure and double vision. The patient's blood pressure on arrival is mildly elevated to 167/81. He appears quite comfortable and nontoxic appearing. Labs are pending. CT scan of brain is pending. The patient has obvious left lateral nystagmus. She alternates closing each eye in her words to ?stop seeing 2 of you. ? Due to the diplopia she will likely require MRI of the brain. However we will defer until after the CT result. The patient's ankle osteomyelitis appears to be healing well, there is no evidence of sepsis. The patient had no leukocytosis, she febrile. There is some concern for subacute CVA. However the patient's symptoms started at least 2 weeks ago and she has a very low and nits or, for tPA was not considered. Differential Diagnosis Diplopia Brain tumor Osteomyelitis Facial nerve palsy CVA Lab Data MDM Lab Attestation statement: I reviewed the patient's lab results. Mild hypokalemia of 3.1 this will be replaced orally 01/29/23 15:52 01/29/23 15:52 Labs: Lab Results 01/29/23 01/29/23 01/29/23 Range/Units 15:52 15:52 16:59 WBC 7.0 (4.8-10.8) X10*3/uL RBC 3.81 L (4.20-5.50) X10*6/uL Hgb 10.2 L (12.0-16.0) g/dl Hct 32.5 L (37.0-47.0) % MCV 85.3 (80.0-98.0) fL MCH 26.8 L (27.0-33.0) pg MCHC 31.4 (31.0-35.0) g/dl RDW 15.6 (11.0-16.0) % Plt Count 351 (160-400) X10*3/uL MPV 8.5 L (9.4-12.3) fL Immature Gran % (Auto) 0.7 H (0.0-0.4) % Neut % (Auto) 67.6 (45-73) % Lymph % (Auto) 19.9 L (20-40) % Barton % (Auto) 8.8 (2-11) % Eos % (Auto) 2.3 (0-4) % Baso % (Auto) 0.7 (0-2) % Lymph # (Auto) 1.4 (1.2-4.9) X10*3/uL Barton # (Auto) 0.6 (0.1-1.2) X10*3/uL Eos # (Auto) 0.2 (0.0-0.4) X10*3/uL Baso # (Auto) 0.1 (0.0-0.2) X10*3/uL Abs Immat Gran (auto) 0.05 H (0.00-0.03) X10*3/uL Absolute Neuts (auto) 4.7 (2.0-8.3) x10*3/uL Absolute Nucleated RBC 0.000 (0.0-0.012) X10*3/uL Nucleated RBC % (auto) 0.0 (0.0-0.2) /100WBC Sodium 142 (135-145) mmol/L Potassium 3.1 L (3.3-5.1) mmol/L Chloride 105 (96-108) mmol/L Carbon Dioxide 24 (22-29) mmol/L Anion Gap 16 (12-20) BUN 7 L (9-16) mg/dL Creatinine 1.06 (0.5-1.4) mg/dL Estim Creat Clear Calc 63.7 Estimated GFR 51 Random Glucose 108 (60-115) mg/dL Calcium 9.5 (8.4-10.2) mg/dL Magnesium 1.8 (1.6-2.6) mg/dL Total Bilirubin 0.5 (0.0-1.0) mg/dL AST 19 (5-31) U/L ALT 15 (0-31) U/L Alkaline Phosphatase 74 (39-117) U/L Total Protein 6.9 (6.5-8.0) g/dL Albumin 3.9 (3.5-5.0) g/dL COVID-19 ([facility]) Negative (Negative) COVID-19 Clin Com See Note Discharge Plan Discharge Clinical Impression: Diplopia, Hypertension Patient Disposition: Home, Self-Care Instructions: Diplopia (ED) Additional Instructions: You need an MRI I of your brain with and without contrast. I ordered this as an outpatient exam for Tuesday. You need to call the MRI department Tuesday at [phone] It is possible that insurance will decline this exam and which case follow-up with your primary doctor for scheduling If your symptoms are worsening, return to the emergency department For your high blood pressure, you may start taking lisinopril. Prescriptions: New lisinopril 5 mg tablet 5 mg PO DAILY Qty: 30 0RF No Action propranolol 80 mg capsule,extended release 24 hr 1 cap PO DAILY naratriptan 2.5 mg tablet 1 tab PO DAILY MRX1 PRN (Reason: Migraine Headache) Rx Instructions: MAY REPEAT IN 4 HOURS MAX 2 TABS PER DAY multivitamin Tablet 1 tab PO DAILY oxycodone-acetaminophen 5-325 mg tablet 1 tab PO QID PRN (Reason: Pain (Scale Score 7-10)) cyanocobalamin (vitamin B-12) 500 mcg tablet 500 mcg PO DAILY calcium carbonate 500 mg calcium (1,250 mg) Tablet 500 mg PO BID ergocalciferol (vitamin D2) 1,250 mcg (50,000 unit) capsule 1,250 mcg PO MORENO metformin 500 mg tablet extended release 24 hr 500 mg PO BID acetaminophen 325 mg Tablet 650 mg PO Q6H PRN (Reason: Pain, Mild (Pain Scale 1-3)) Qty: 20 0RF furosemide 20 mg Tablet 20 mg PO DAILY Qty: 30 0RF Protocol: Hold for SBP< HOLD for SBP < : 90 gabapentin 100 mg Capsule 100 mg PO BID Qty: 10 0RF potassium chloride 20 mEq packet 20 meq PO DAILY Qty: 4 0RF hydromorphone [Dilaudid] 2 mg tablet 1 mg PO Q6H PRN (Reason: pain) Qty: 20 0RF Rx Instructions: Partial Fill upon patient request. docusate sodium [Colace] 100 mg capsule 100 mg PO DAILY PRN (Reason: constipation) Qty: 30 0RF polyethylene glycol 3350 [Miralax] 17 gram/dose powder 17 g PO DAILY PRN (Reason: constipation) Qty: 119 0RF riboflavin (vitamin B2) 100 mg Tablet 100 mg PO DAILY ertapenem 1 gram recon soln 1 g IV DAILY@1200 omeprazole 20 mg capsule,delayed release(DR/EC) 20 mg PO DAILY ferrous gluconate 324 mg (38 mg iron) tablet 324 mg PO BID exemestane 25 mg tablet 25 mg PO DAILY
[2023-01-29 16:24] LABS: Alanine Aminotransferase 15 U/L (0-31); Albumin Level 3.9 g/dL (3.5-5.0); Alkaline Phosphatase 74 U/L (39-117); Anion Gap 16 (12-20); Aspartate Amino Transferase 19 U/L (5-31); Bilirubin Total 0.5 mg/dL (0.0-1.0); Blood Urea Nitrogen 7 mg/dL (9-16); Calcium 9.5 mg/dL (8.4-10.2); Carbon Dioxide 24 mmol/L (22-29); Chloride 105 mmol/L (96-108); Creatinine Clr Calc Pharmacy 63.7; Estimated Glomerular Filt Rate 51; Glucose Random 108 mg/dL (60-115); Magnesium 1.8 mg/dL (1.6-2.6); Potassium 3.1 mmol/L (3.3-5.1); Sodium 142 mmol/L (135-145); Total Protein 6.9 g/dL (6.5-8.0)
[2023-01-29 16:58] VITALS: BP 173/84; PULSE 75; RESP 16; O2SAT 94
[2023-01-29 17:39] LABS: COVID-19 Test Negative (Negative); IDNOW Serial# 6674DD1D
--- NOTE | 2023-01-29 18:03 | PHA.MEDREC ---
Pharmacy Consult ? Medication Reconciliation Pharmacy has completed the medication reconciliation. List from [facility] APPIA[facility]
[2023-01-29] MEDS: cloNIDine HCL 0.1 MG TABLET PO (18:21)
[2023-01-29] MEDS: Potassium Chloride ER 20 MEQ TAB.ER.PRT 40 MEQ PO (18:22)
== END 2023-01-29 18:42 | disposition home or self-care (01) ==
PROVIDERS: Physician Assistant; Physician Assistant Medical; Emergency Provider Emergency Medicine Emergency Medical Services
DX: H53.2 Diplopia (principal); I10 Essential (primary) hypertension; Z20.822 Contact with and (suspected) exposure to COVID-19; E66.9 Obesity, unspecified; Z68.41 Body mass index [BMI] 40.0-44.9, adult; Z79.899 Other long term (current) drug therapy
CPT/HCPCS: 36415; 70450; 80053; 83735; 85025; 87635; 99283; 99284

== ENCOUNTER 2023-02-02 11:27 | Outpatient (REF) | payer MEDICARE, SELFPAY ==
[2023-02-02 11:37] LABS: MANUAL DIFF FLAG NO
[2023-02-02 11:42] LABS: Basophils Percent Auto 0.5 % (0-2); Eosinophils Absolute Auto 0.2 X10*3/uL (0.0-0.4); Eosinophils Percent Auto 2.3 % (0-4); Hematocrit 32.7 % (37.0-47.0); Hemoglobin 10.2 g/dl (12.0-16.0); Imm Gran Abs Auto 0.02 X10*3/uL (0.00-0.03); Imm Gran Pct Auto 0.3 % (0.0-0.4); Lymphocytes Absolute Auto 1.2 X10*3/uL (1.2-4.9); Lymphocytes Percent Auto 18.2 % (20-40); Mean Corpuscular HGB Conc 31.2 g/dl (31.0-35.0); Mean Corpuscular Hemoglobin 26.9 pg (27.0-33.0); Mean Corpuscular Volume 86.3 fL (80.0-98.0); Mean Platelet Volume 9.1 fL (9.4-12.3); Monocytes Absolute Auto 0.5 X10*3/uL (0.1-1.2); Monocytes Percent Auto 7.8 % (2-11); Neutrophils Absolute Auto 4.7 x10*3/uL (2.0-8.3); Neutrophils Percent Auto 70.9 % (45-73); Platelet Count 317 X10*3/uL (160-400); Red Blood Count 3.79 X10*6/uL (4.20-5.50); Red Cell Distribution Width 15.3 % (11.0-16.0); White Blood Count 6.6 X10*3/uL (4.8-10.8)
[2023-02-02 12:43] LABS: Erythrocyte Sedimentation Rate 67 MM/HR (0-20)
[2023-02-02 13:48] LABS: Blood Urea Nitrogen 7 mg/dL (9-16); C Reactive Protein 1.31 mg/dL (< or = 0.50); Estimated Glomerular Filt Rate 55
== END 2023-02-02 11:28 | disposition home or self-care (01) ==
LOC: HO.HVNA 11:27
PROVIDERS: Visit Provider Family Medicine
DX: A41.9 Sepsis, unspecified organism (principal)
CPT/HCPCS: 36415; 82565; 84520; 85025; 85652; 86140

== ENCOUNTER → 2023-02-07 13:49 | Outpatient (BNVA) | payer MEDICARE, SELFPAY | PROVIDERS: PCP Family Medicine; Visit Provider Surgery | DX: L97.511 Non-pressure chronic ulcer of other part of right foot limited to breakdown of skin (principal) | CPT/HCPCS: 97605; 99212 ==

== ENCOUNTER 2023-02-09 11:57 | Outpatient (REF) | payer MEDICARE, SELFPAY ==
[2023-02-09 12:01] LABS: MANUAL DIFF FLAG NO
[2023-02-09 12:08] LABS: Basophils Percent Auto 0.5 % (0-2); Eosinophils Absolute Auto 0.2 X10*3/uL (0.0-0.4); Eosinophils Percent Auto 2.3 % (0-4); Hematocrit 34.4 % (37.0-47.0); Hemoglobin 10.7 g/dl (12.0-16.0); Imm Gran Abs Auto 0.05 X10*3/uL (0.00-0.03); Imm Gran Pct Auto 0.6 % (0.0-0.4); Lymphocytes Absolute Auto 1.3 X10*3/uL (1.2-4.9); Lymphocytes Percent Auto 15.6 % (20-40); Mean Corpuscular HGB Conc 31.1 g/dl (31.0-35.0); Mean Corpuscular Hemoglobin 27.2 pg (27.0-33.0); Mean Corpuscular Volume 87.3 fL (80.0-98.0); Mean Platelet Volume 9.6 fL (9.4-12.3); Monocytes Absolute Auto 0.7 X10*3/uL (0.1-1.2); Platelet Count 362 X10*3/uL (160-400); Red Blood Count 3.94 X10*6/uL (4.20-5.50); Red Cell Distribution Width 14.9 % (11.0-16.0); White Blood Count 8.2 X10*3/uL (4.8-10.8)
[2023-02-09 12:41] LABS: Alanine Aminotransferase 12 U/L (0-31); Albumin Level 3.7 g/dL (3.5-5.0); Alkaline Phosphatase 73 U/L (39-117); Aspartate Amino Transferase 17 U/L (5-31); Bilirubin Direct < 0.2 mg/dL (0.0-0.5); Bilirubin Total 0.3 mg/dL (0.0-1.0); Blood Urea Nitrogen 7 mg/dL (9-16); C Reactive Protein 2.67 mg/dL (< or = 0.50); Estimated Glomerular Filt Rate > 60; Total Protein 6.8 g/dL (6.5-8.0)
[2023-02-09 12:49] LABS: Erythrocyte Sedimentation Rate 63 MM/HR (0-20)
[2023-02-11 14:53] LABS: Iron 31 mcg/dL (30-160); Percent Iron Saturation 11 % (15-50); Total Iron Binding Capacity 286 mcg/dL (228-428); Unsaturated Iron Binding 255 ug/dL
== END 2023-02-09 11:58 | disposition home or self-care (01) ==
LOC: HO.HVNA 11:57
PROVIDERS: Visit Provider Family Medicine
DX: D64.9 Anemia, unspecified (principal); A41.9 Sepsis, unspecified organism
CPT/HCPCS: 36415; 80076; 82565; 83540; 84520; 85025; 85652; 86140

== ENCOUNTER 2023-02-10 14:09 | Outpatient (RCR) | payer MEDICARE, SELFPAY | END 2023-06-17 14:09 | disposition home or self-care (01) | LOC: HO.WCC 14:09 | PROVIDERS: PCP Family Medicine; Visit Provider Surgery | DX: Z09 Encounter for follow-up examination after completed treatment for conditions other than malignant neoplasm (principal); Z79.84 Long term (current) use of oral hypoglycemic drugs; Z79.891 Long term (current) use of opiate analgesic; Z79.899 Other long term (current) drug therapy; Z87.2 Personal history of diseases of the skin and subcutaneous tissue; E11.9 Type 2 diabetes mellitus without complications | CPT/HCPCS: 11042; 11043; 11045; 11046; 15271; 15272; 15275; 15276; 97606; 99212; 99213; Q4101 ==

== ENCOUNTER 2023-02-15 11:32 | Outpatient (REF) | payer MEDICARE, SELFPAY ==
[2023-02-15 11:39] LABS: MANUAL DIFF FLAG NO
[2023-02-15 12:00] LABS: Basophils Percent Auto 0.3 % (0-2); Eosinophils Absolute Auto 0.2 X10*3/uL (0.0-0.4); Eosinophils Percent Auto 3.2 % (0-4); Hemoglobin 10.3 g/dl (12.0-16.0); Imm Gran Abs Auto 0.06 X10*3/uL (0.00-0.03); Imm Gran Pct Auto 0.9 % (0.0-0.4); Lymphocytes Absolute Auto 1.3 X10*3/uL (1.2-4.9); Lymphocytes Percent Auto 19.7 % (20-40); Mean Corpuscular HGB Conc 31.2 g/dl (31.0-35.0); Mean Corpuscular Hemoglobin 26.8 pg (27.0-33.0); Mean Corpuscular Volume 85.7 fL (80.0-98.0); Mean Platelet Volume 9.5 fL (9.4-12.3); Monocytes Absolute Auto 0.5 X10*3/uL (0.1-1.2); Neutrophils Absolute Auto 4.4 x10*3/uL (2.0-8.3); Neutrophils Percent Auto 67.9 % (45-73); Platelet Count 342 X10*3/uL (160-400); Red Blood Count 3.85 X10*6/uL (4.20-5.50); Red Cell Distribution Width 14.6 % (11.0-16.0); White Blood Count 6.5 X10*3/uL (4.8-10.8)
[2023-02-15 12:32] LABS: Erythrocyte Sedimentation Rate 73 MM/HR (0-20)
[2023-02-15 12:38] LABS: Alanine Aminotransferase 10 U/L (0-31); Albumin Level 3.6 g/dL (3.5-5.0); Alkaline Phosphatase 72 U/L (39-117); Aspartate Amino Transferase 13 U/L (5-31); Bilirubin Direct < 0.2 mg/dL (0.0-0.5); Bilirubin Total 0.3 mg/dL (0.0-1.0); Blood Urea Nitrogen 9 mg/dL (9-16); C Reactive Protein 2.64 mg/dL (< or = 0.50); Estimated Glomerular Filt Rate 57; Total Protein 6.5 g/dL (6.5-8.0)
== END 2023-02-15 11:33 | disposition home or self-care (01) ==
LOC: HO.HVNA 11:32
PROVIDERS: Visit Provider Family Medicine
DX: A41.9 Sepsis, unspecified organism (principal)
CPT/HCPCS: 36415; 80076; 82565; 84520; 85025; 85652; 86140

== ENCOUNTER 2023-02-22 11:32 | Outpatient (REF) | payer MEDICARE, SELFPAY ==
[2023-02-22 11:38] LABS: MANUAL DIFF FLAG NO
[2023-02-22 12:15] LABS: Basophils Percent Auto 0.4 % (0-2); Eosinophils Absolute Auto 0.2 X10*3/uL (0.0-0.4); Eosinophils Percent Auto 2.6 % (0-4); Hematocrit 34.4 % (37.0-47.0); Hemoglobin 10.9 g/dl (12.0-16.0); Imm Gran Abs Auto 0.02 X10*3/uL (0.00-0.03); Imm Gran Pct Auto 0.3 % (0.0-0.4); Lymphocytes Absolute Auto 1.2 X10*3/uL (1.2-4.9); Lymphocytes Percent Auto 16.8 % (20-40); Mean Corpuscular HGB Conc 31.7 g/dl (31.0-35.0); Mean Corpuscular Hemoglobin 26.5 pg (27.0-33.0); Mean Corpuscular Volume 83.5 fL (80.0-98.0); Mean Platelet Volume 9.1 fL (9.4-12.3); Monocytes Absolute Auto 0.5 X10*3/uL (0.1-1.2); Monocytes Percent Auto 6.7 % (2-11); Neutrophils Percent Auto 73.2 % (45-73); Platelet Count 356 X10*3/uL (160-400); Red Blood Count 4.12 X10*6/uL (4.20-5.50); Red Cell Distribution Width 14.4 % (11.0-16.0); White Blood Count 6.9 X10*3/uL (4.8-10.8)
[2023-02-22 12:55] LABS: Erythrocyte Sedimentation Rate 77 MM/HR (0-20)
[2023-02-22 13:15] LABS: Alanine Aminotransferase 13 U/L (0-31); Albumin Level 3.8 g/dL (3.5-5.0); Alkaline Phosphatase 85 U/L (39-117); Aspartate Amino Transferase 14 U/L (5-31); Bilirubin Direct 0.1 mg/dL (0.0-0.5); Bilirubin Total 0.4 mg/dL (0.0-1.0); Blood Urea Nitrogen 7 mg/dL (9-16); C Reactive Protein 3.04 mg/dL (< or = 0.50); Estimated Glomerular Filt Rate > 60; Total Protein 6.9 g/dL (6.5-8.0)
== END 2023-02-22 11:33 | disposition home or self-care (01) ==
LOC: HO.HVNA 11:32
PROVIDERS: Visit Provider Family Medicine
DX: A41.9 Sepsis, unspecified organism (principal)
CPT/HCPCS: 36415; 80076; 82565; 84520; 85025; 85652; 86140

== ENCOUNTER → 2023-02-25 12:59 | Outpatient (BNVA) | payer MEDICARE, SELFPAY | PROVIDERS: PCP Family Medicine; Visit Provider Internal Medicine | DX: M86.171 Other acute osteomyelitis, right ankle and foot (principal) | CPT/HCPCS: 99212 ==

== ENCOUNTER → 2023-03-03 14:07 | Outpatient (BNVA) | payer MEDICARE, SELFPAY | PROVIDERS: PCP Family Medicine; Visit Provider Surgery | DX: L97.519 Non-pressure chronic ulcer of other part of right foot with unspecified severity (principal) | CPT/HCPCS: 99212 ==

== ENCOUNTER → 2023-03-24 14:29 | Outpatient (BNVA) | payer MEDICARE, SELFPAY | PROVIDERS: PCP Family Medicine; Visit Provider Surgery | DX: L97.519 Non-pressure chronic ulcer of other part of right foot with unspecified severity (principal) | CPT/HCPCS: 99212 ==

== ENCOUNTER → 2024-07-24 10:25 | Outpatient (RCR) | payer MEDICARE, SELFPAY ==
[2021-06-05 13:49] VITALS: BP 130/76; PULSE 74; RESP 14; TEMP 36.3; O2SAT 95; BMI 45.7
--- NOTE | 2021-06-05 14:32 | P.CNHO_ITS ---
Assessment and Plan (1) Bilateral breast cancer Status: Acute 1. This is a 71-year-old postmenopausal woman with bilateral breast cancer diagnosed in February 2021. She has undergone surgery, bilateral lumpectomies followed by sentinel node biopsy on 04/01/2021. Left breast lumpectomy showed invasive ductal carcinoma, grade 2 measuring 0.9 cm with focal DCIS. [place] lymph nodes x2 were negative. ER/ME positive, HER2 negative. Underwent wide excision of left breast on 05/13/2021, no residual carcinoma seen. TNM stage pT1b N0. Oncotype DX recurrent score on left breast 15, risk of distant recurrence at 9 years with AI alone 4%, chemotherapy benefit less than 1%. Right breast lumpectomy- grade 2, 1.5 cm, positive inferior margin. LCIS. Re- excision inferior margin negative for carcinoma. Two axillary lymph nodes negative. ER/ME positive HER2 negative. TNM stage-pT1c N0. Oncotype DX recurrent score on right breast 25, risk of distant recurrence with AI alone 12%, chemotherapy benefit less than 1%. Today we discussed adjuvant therapy. She is being referred to [facility] for adjuvant radiation therapy. She is a candidate for adjuvant hormonal therapy with aromatase inhibitor for at least 5 years. She was start this after completion of adjuvant radiation therapy. We discussed adjuvant chemotherapy, Oncotype DX score is intermediate risk for right breast cancer, however benefit of chemotherapy at her age is not very significant. Given her recent infection and past history of serious bowel infection, patient would like to defer chemotherapy. 2. Because of history of bilateral breast cancer we discussed genetic screening. There is no breast cancer in her family, however, she qualifies for genetic screening for BRCA mutation. She is interested in this. She was referred to genetic counseling. 3. Left breast swelling and erythema. She was treated for cellulitis. She has persistent swelling. She will be referred for physical therapy for probable lymphedema. 4. Fatigue. Rule out anemia. CBC/comprehensive panel submitted today. I spent over 40 minutes discussing management and plan of care with patient and her significant other. All her questions were answered. Follow-up in 1 month. Subjective - Subjective Chief complaint: Breast cancer Patient: new to practice Consult date: 06/05/21 Requesting Physician: Dr. Hui Primary Care Provider: Audra Burger MD Medical Summary: Diagnosis: Bilateral breast cancer February 2021 Patient self palpated lump in right breast in January 2021. Revealed spiculated mass of the right breast corresponding to the palpable mass which was felt to be suggestive of breast cancer (BI-RADS 5). In the left breast a 5 mm suspicious mass in the posterior left breast was also identified and felt to be suspicious for malignancy. [id number] core biopsy performed A. Breast, right at 11 o'clock, biopsy: Invasive lobular carcinoma, MSBR grade 2. B. Breast, left at 10 o'clock, biopsy: Invasive ductal carcinoma, MSBR grade 2. ER positive 100%/ME positive 100%, HER2 negative. 03/06/2021 Breast MRI no enhancement noted in the left breast at the site of a known breast cancer, irregular masslike focus noted the anterior medial right breast corresponding to the infiltrating lobular carcinoma. No evidence of multicentric disease in either breast. 04/01/2021: Bilateral lumpectomy with needle localization, bilateral sentinel node biopsy. A. Left breast lumpectomy Pathology: -invasive ductal carcinoma, MS BR grade 2, 0.9 cm extending to within microns of deep margin. DCIS focal, nuclear grade 1 without necrosis extending to within 1 mm of superior margin. B right breast lumpectomy-invasive lobular carcinoma, MS BR grade 2, 1.5 cm, positive inferior margin. Lobular carcinoma in situ. Greater than 5 mm to all margins after revision. Two left sentinel lymph nodes excised, both negative for metastatic carcinoma. Two right sentinel lymph nodes excised both negative for metastatic carcinoma. Right breast inferior/posterior margin excision, no carcinoma seen. 05/01/2021-bilateral seroma involving axilla. Cellulitis and spontaneous drainage from left axilla, placed on antibiotics. Subsequently underwent incision and drainage of large collection. 05/13/2021: wide excision left breast. Pathology:Benign breast tissue with changes consistent with prior procedure(s); no carcinoma seen . She denies a previous history of breast problems or breast surgery. Her family history is negative for breast cancer. She is 2 para 0, menarche at age 13, last menstrual period age 47. She denies tobacco history and denies Ashkenazi Adventism heritage. No history of hormone replacement therapy. HPI - Consult Narrative Reason for consult: Bilateral breast cancer Narrative: Allyssa Borges is a 71 year old female referred for further management of recently diagnosed bilateral breast cancer. History as detailed in medical summary. Patient is healing from surgery. She does report persistent redness and swelling of the left breast. She has had antibiotics for cellulitis and drainage of inflammatory fluid from the left breast/axilla postoperatively. She is not a diabetic. She however has problems of infection after surgery, she had major infection after bowel surgery a few years ago. She reports slight swelling of the left arm as well. No fever or chills. She is here for recommendations about adjuvant treatment. She is accompanied by her significant other. She reports persistent fatigue since surgery. She states she has been taking iron supplementation. Review of Systems - Constitutional Denies anorexia, Denies body aches, Denies chills, Reports fatigue, Denies fever(s), Denies night sweats, Denies poor appetite - Eyes Denies blurry vision - Cardiovascular Denies chest pain, Denies chest pain with activity - Respiratory Denies cough - Gastrointestinal Denies abdominal pain Oncology Screenings - ECOG Performance Status ECOG Performance Status: 0 PMFSH Medical History: Medical History (Last Reviewed 05/20/21 @ 12:40 by Luís Hui MD) Anemia Arthritis COVID-19 vaccine administered Diverticulitis GERD (gastroesophageal reflux disease) Insomnia Invasive ductal carcinoma of left breast Lobular carcinoma in situ of right breast Migraines Morbid obesity Situational anxiety Situational depression Family History: Family History (Last Reviewed 05/20/21 @ 12:40 by Luís Hui MD) Mother Glioblastoma Father Lung cancer Paternal Grandmother Cancer of unknown origin Surgical History: Surgical History (Last Reviewed 05/20/21 @ 12:40 by Luís Hui MD) History of bilateral breast biopsy History of colon resection History of colostomy reversal History of incision and drainage Hx of colonoscopy Social History: Social History (Last Updated 06/05/21 @ 13:56 by Anaid Nelson) Living Situation History: Are you a primary care transitions nurse to a significant other at home: No Do you presently have visiting nurse or other home services: No Alcohol History: Alcohol intake: current Alcohol History Details: Alcohol intake frequency: holiday/special occasion Alcohol type: wine Tobacco History: Patient Tobacco Use Status: Never used Tobacco Substance Use History: Use of substances other than those prescribed or required for medical reasons : No Domestic Abuse History: Have you been hit, kicked, punched, or otherwise hurt by someone within the past year? If so, by whom?: No Do you feel safe in your current relationship?: Yes Healthcare Practices: Spiritual Healthcare Practices: N/A Jewish Healthcare Practices: N/A Cultural Healthcare Practices: N/A Nutrition Assessment: Recently lost weight without trying: No Nutrition Risks: No Nutritional Risk Patient : No : No Poor oral hygiene: No Home Medications and Allergies Home Medications Medication Instructions Recorded Confirmed Type ferrous gluconate 324 mg (38 mg 324 mg PO BID 02/17/21 06/05/21 History iron) tablet magnesium 200 mg tablet 200 mg PO DAILY 02/17/21 06/05/21 History omeprazole 20 mg capsule,delayed 20 mg PO DAILY 02/17/21 06/05/21 History release multivitamin 1 tab PO DAILY 03/26/21 06/05/21 History naratriptan 1 tab PO DIRECTED 03/26/21 06/05/21 History propranolol 1 cap PO DAILY 03/26/21 06/05/21 History Allergies Allergy/AdvReac Type Severity Reaction Status Date / Time fluoxetine [Prozac] Allergy Unknown worsening Verified 05/13/21 11:14 depression gabapentin Allergy Unknown irritabilit Verified 05/13/21 11:14 y Iodinated Contrast Media Allergy Unknown RASH Verified 05/13/21 11:14 [IV CONTRAST] nortriptyline Allergy Unknown irritabilit Verified 05/13/21 11:14 y topiramate Allergy Unknown mild Verified 05/13/21 11:14 depression verapamil Allergy Unknown irritabilit Verified 05/13/21 11:14 y food allergies Allergy Unknown Sneezing Uncoded 03/26/21 12:45 Physical Exam Vital signs: Vital Signs Temp 97.4 F 06/05/21 13:49 Pulse 74 06/05/21 13:49 Resp 14 06/05/21 13:49 BP 130/76 06/05/21 13:49 Pulse Ox 95 06/05/21 13:49 Intake & Output 06/04/21 06/05/21 06/05/21 18:59 06:59 18:59 Other: Weight 132.5 kg [place] Weight in Grams [id number] Weight 132.5 kg - Constitutional Present: no acute distress - Routine HEENT Exam Head: Present: normal inspection Eye: Present: normal appearance, PERRL - Routine Neck Exam Present: supple. Absent: lymphadenopathy, thyromegaly - Routine Chest/Breast/Axilla Exam Breast: Present: swelling, erythema Comments: Slight swelling, erythema of inferior aspect of left breast. Healing surgical wounds, slight induration. - Routine Respiratory Exam Present: CTAB - Routine Cardiovascular Exam Cardiovascular: Present: RRR, S1, S2 - Routine Abdominal Exam Present: soft. Absent: organomegaly - Routine Extremities Exam Present: full ROM - Routine Skin Exam Present: intact
--- NOTE | 2021-06-05 16:33 | MHC.HEMONCMA ---
Patient came in for a consult of breast cancer, she had lumps in both breasts along with lymph nodes removed. Clinical summary was reviewed and updated. Patient had labs and will return in 1 month for a follow up. Patient had genetic testing done today, I will be calling her with her [facility] Onc consult date, and I will fax over the [facility] referral form for her lymphadema.
--- NOTE | 2021-06-08 07:10 | HE.ONCSEC ---
No insurance referral needed per PCP office as MD is in network
--- NOTE | 2021-07-08 14:21 | P.PNHO_ITS ---
Medical Summary - Medical Summary Date of Service: 07/08/21 Chief complaint: Follow-up Medical Summary: Diagnosis: Bilateral breast cancer February 2021 Patient self palpated lump in right breast in January 2021. Revealed spiculated mass of the right breast corresponding to the palpable mass which was felt to be suggestive of breast cancer (BI-RADS 5). In the left breast a 5 mm suspicious mass in the posterior left breast was also identified and felt to be suspicious for malignancy. [id number] core biopsy performed A. Breast, right at 11 o'clock, biopsy: Invasive lobular carcinoma, MSBR grade 2. B. Breast, left at 10 o'clock, biopsy: Invasive ductal carcinoma, MSBR grade 2. ER positive 100%/IL positive 100%, HER2 negative. 03/06/2021 Breast MRI no enhancement noted in the left breast at the site of a known breast cancer, irregular masslike focus noted the anterior medial right breast corresponding to the infiltrating lobular carcinoma. No evidence of multicentric disease in either breast. 04/01/2021: Bilateral lumpectomy with needle localization, bilateral sentinel node biopsy. A. Left breast lumpectomy Pathology: -invasive ductal carcinoma, MS BR grade 2, 0.9 cm extending to within microns of deep margin. DCIS focal, nuclear grade 1 without necrosis extending to within 1 mm of superior margin. B right breast lumpectomy-invasive lobular carcinoma, MS BR grade 2, 1.5 cm, positive inferior margin. Lobular carcinoma in situ. Greater than 5 mm to all margins after revision. Two left sentinel lymph nodes excised, both negative for metastatic carcinoma. Two right sentinel lymph nodes excised both negative for metastatic carcinoma. Right breast inferior/posterior margin excision, no carcinoma seen. 05/01/2021-bilateral seroma involving axilla. Cellulitis and spontaneous drainage from left axilla, placed on antibiotics. Subsequently underwent incision and drainage of large collection. 05/13/2021: wide excision left breast. Pathology:Benign breast tissue with changes consistent with prior procedure(s); no carcinoma seen . She denies a previous history of breast problems or breast surgery. Her family history is negative for breast cancer. She is 2 para 0, menarche at age 13, last menstrual period age 47. She denies tobacco history and denies Ashkenazi Baptist heritage. No history of hormone replacement therapy. We discussed adjuvant chemotherapy, Oncotype DX score is intermediate risk for right breast cancer, however benefit of chemotherapy at her age is not very significant. Given her recent infection and past history of serious bowel infection, patient would like to defer chemotherapy. Interval History Interval history: Patient is here in follow-up. She is a bit upset today because left breast swelling is persistent and she also has a new rash under her left breast. She is supposed to start radiation therapy next week. She is also concerned that she had blood work last appointment and it was never resulted. She is also here to discuss results of genetic testing. [facility] Medical History: Medical History (Last Reviewed 07/08/21 @ 14:17 by Ulises Conway) Anemia Arthritis COVID-19 vaccine administered Diverticulitis GERD (gastroesophageal reflux disease) Insomnia Invasive ductal carcinoma of left breast Lobular carcinoma in situ of right breast Migraines Morbid obesity Situational anxiety Situational depression Family History: Family History (Last Reviewed 07/08/21 @ 14:17 by Ulises Conway) Mother Glioblastoma Father Lung cancer Paternal Grandmother Cancer of unknown origin Surgical History: Surgical History (Last Reviewed 07/08/21 @ 14:17 by Ulises Conway) History of bilateral breast biopsy History of colon resection History of colostomy reversal History of incision and drainage Hx of colonoscopy Social History: Social History (Last Reviewed 07/08/21 @ 14:17 by Ulises Conway) Living Situation History: Are you a primary childcare director to a significant other at home: No Do you presently have visiting nurse or other home services: No Alcohol History: Alcohol intake: current Alcohol History Details: Alcohol intake frequency: holiday/special occasion Alcohol type: wine Tobacco History: Patient Tobacco Use Status: Never used Tobacco Substance Use History: Use of substances other than those prescribed or required for medical reasons : No Domestic Abuse History: Have you been hit, kicked, punched, or otherwise hurt by someone within the past year? If so, by whom?: No Do you feel safe in your current relationship?: Yes Healthcare Practices: Spiritual Healthcare Practices: N/A Orthodox Healthcare Practices: N/A Cultural Healthcare Practices: N/A Nutrition Assessment: Recently lost weight without trying: No Nutrition Risks: No Nutritional Risk Patient : No : No Poor oral hygiene: No Oncology Screenings - ECOG Performance Status ECOG Performance Status: 1 Home Medications and Allergies Home Medications Medication Instructions Recorded Confirmed Type ferrous gluconate 324 mg (38 mg 324 mg PO BID 02/17/21 06/05/21 History iron) tablet magnesium 200 mg tablet 200 mg PO DAILY 02/17/21 06/05/21 History omeprazole 20 mg capsule,delayed 20 mg PO DAILY 02/17/21 06/05/21 History release multivitamin 1 tab PO DAILY 03/26/21 06/05/21 History naratriptan 2.5 mg tablet 1 tab PO DIRECTED 03/26/21 06/05/21 History propranolol 80 mg capsule,24 1 cap PO DAILY 03/26/21 06/05/21 History hr,extended release Allergies Allergy/AdvReac Type Severity Reaction Status Date / Time fluoxetine [Prozac] Allergy Unknown worsening Verified 05/13/21 11:14 depression gabapentin Allergy Unknown irritabilit Verified 05/13/21 11:14 y Iodinated Contrast Media Allergy Unknown RASH Verified 05/13/21 11:14 [IV CONTRAST] nortriptyline Allergy Unknown irritabilit Verified 05/13/21 11:14 y topiramate Allergy Unknown mild Verified 05/13/21 11:14 depression verapamil Allergy Unknown irritabilit Verified 05/13/21 11:14 y food allergies Allergy Unknown Sneezing Uncoded 03/26/21 12:45 Exam Vital signs: Vital Signs Temp 97.4 F 06/05/21 13:49 Pulse 74 06/05/21 13:49 Resp 14 06/05/21 13:49 BP 130/76 06/05/21 13:49 Pulse Ox 95 06/05/21 13:49 Weight 132.5 kg Body Mass Index 45.7 - Constitutional Present: no acute distress - Routine HEENT Exam Head: Present: normal inspection - Routine Respiratory Exam Present: CTAB - Routine Cardiovascular Exam Cardiovascular: Present: RRR, S1, S2 - Routine Abdominal Exam Present: soft. Absent: organomegaly - Routine Extremities Exam Present: full ROM - Routine Skin Exam Present: intact Data - Labs CBC & Chem 7: 07/08/21 14:55 07/08/21 14:55 Assessment and Plan Patient Active problem list reviewed?: Yes (1) Bilateral breast cancer Status: Acute Assessment and plan: 1. This is a 71-year-old postmenopausal woman with bilateral breast cancer diagnosed in February 2021. She has undergone surgery, bilateral lumpectomies followed by sentinel node biopsy on 04/01/2021. Left breast lumpectomy showed invasive ductal carcinoma, grade 2 measuring 0.9 cm with focal DCIS. [place] lymph nodes x2 were negative. ER/IL positive, HER2 negative. Underwent wide excision of left breast on 05/13/2021, no residual carcinoma seen. TNM stage pT1b N0. Oncotype DX recurrent score on left breast 15, risk of distant recurrence at 9 years with AI alone 4%, chemotherapy benefit less than 1%. Right breast lumpectomy- grade 2, 1.5 cm, positive inferior margin. LCIS. Re- excision inferior margin negative for carcinoma. Two axillary lymph nodes negative. ER/IL positive HER2 negative. TNM stage-pT1c N0. Oncotype DX recurrent score on right breast 25, risk of distant recurrence with AI alone 12%, chemotherapy benefit less than 1%. She is starting adjuvant radiation therapy at [facility] from next week. She is a candidate for adjuvant hormonal therapy with aromatase inhibitor for at least 5 years. She was start this after completion of adjuvant radiation therapy. 2. Because of history of bilateral breast cancer we performed BRCA 1/2 genetic screening. She was negative for above 2 deleterious mutations. Results were discussed with the patient. 3. Left breast swelling and erythema. She was treated for cellulitis. She has persistent swelling. She was referred for physical therapy for probable lymphedema. 4. Tinia cruris under left breast. Nystatin powder 3 times a day to be applied. 5. History of osteopenia. Submit vitamin-D levels. Start calcium and vitamin-D supplementation if necessary. Follow-up in 2 months. - Time Spent With Patient Time Spent with Patient (in minutes): 20
[2021-07-08 14:27] VITALS: BP 120/70; PULSE 72; RESP 14; TEMP 35.9; O2SAT 96; BMI 45.6
--- NOTE | 2021-07-08 15:10 | MHC.HEMONCMA ---
Pt came in for Onc follow up an states she is doing well. clinical summary was updated and labs were drawn. pt will be in 2 months for follow up visit.
[2021-07-08 15:19] LABS: Basophils Percent Auto 0.4 % (0-2); Eosinophils Absolute Auto 0.2 X10*3/uL (0.0-0.4); Eosinophils Percent Auto 1.9 % (0-4); Hematocrit 45.5 % (37-47); Hemoglobin 14.6 g/dl (12.0-16.0); Imm Gran Abs Auto 0.03 X10*3/uL (0.00-0.03); Imm Gran Pct Auto 0.3 % (0.0-0.4); Lymphocytes Absolute Auto 2.7 X10*3/uL (1.2-4.9); Lymphocytes Percent Auto 30.5 % (20-40); MANUAL DIFF FLAG SCAN; Mean Corpuscular HGB Conc 32.1 g/dl (31.0-35.0); Mean Corpuscular Hemoglobin 28.6 pg (27.0-33.0); Mean Corpuscular Volume 89.2 fL (80-98); Monocytes Absolute Auto 0.7 X10*3/uL (0.1-1.2); Neutrophils Absolute Auto 5.3 X10*3/uL (2.0-8.3); Neutrophils Percent Auto 58.9 % (45-73); PLT CLUMP 1; Red Cell Distribution Width 13.1 % (11.0-16.0); SCAN SMEAR FLAG 1
[2021-07-08 15:20] LABS: Platelet Count 269 X10*3/uL (160-400)
[2021-07-08 15:34] LABS: Alanine Aminotransferase 18 U/L (0-31); Albumin Level 4.5 g/dL (3.5-5.0); Alkaline Phosphatase 75 U/L (39-117); Anion Gap 14 (12-20); Aspartate Amino Transferase 16 U/L (5-31); Bilirubin Total 0.5 mg/dL (0.0-1.0); Blood Urea Nitrogen 15 mg/dL (9-16); Calcium 10.3 mg/dL (8.4-10.2); Carbon Dioxide 25 mmol/L (22-29); Chloride 103 mmol/L (96-108); Creatinine Clr Calc Pharmacy 91.4; Estimated Glomerular Filt Rate > 60; Glucose Random 103 mg/dL (60-115); Sodium 137 mmol/L (135-145)
[2021-07-08 15:57] LABS: SLIDE REVIEW VERIFIED
[2021-07-08 16:04] LABS: Vitamin D 25-OH Total 28.9 ng/mL (>30)
[2021-07-09 13:37] LABS: CA 27.29 16 U/mL (<38)
--- NOTE | 2022-01-28 16:34 | HO.HEMONCSCH ---
CALLED PT TP MAKE FOLLOW-UP APPT. & SHE INFORMED THAT SHE IS NOW SEEING A MEDICAL ONCOLOGIST AT [facility] WERE SHE IS GETTING RADIATION THERAPY TREATMENTS.
== END | disposition home or self-care (01) ==
LOC: HO.ONC 06-05 13:28
PROVIDERS: PCP Family Medicine; Referring Provider Surgery; Visit Provider Internal Medicine
DX: C50.212 Malignant neoplasm of upper-inner quadrant of left female breast (principal); C50.411 Malignant neoplasm of upper-outer quadrant of right female breast; Z17.0 Estrogen receptor positive status [ER+]; M85.80 Other specified disorders of bone density and structure, unspecified site; N63.20 Unspecified lump in the left breast, unspecified quadrant; B35.6 Tinea cruris
CPT/HCPCS: 36415; 80053; 82306; 85025; 86300; 99205

== ENCOUNTER 2025-09-27 15:47 | Inpatient (IN) | payer MEDICARE, SELFPAY ==
--- NOTE | ~2025-09-27 | XR_ITS ---
EXAMINATION: XR CHEST CLINICAL INFORMATION: dyspnea x weeks COMPARISON: Previous chest x-ray most recent January 2023 TECHNIQUE: 2 views of the chest were obtained. FINDINGS: Low lung volumes. Subsegmental atelectasis at the lung bases. Lungs are otherwise clear. No consolidation or pulmonary edema. No pleural effusion or pneumothorax. Cardiac and mediastinal contours are normal. Degenerative changes of the spine and curvature of the mid thoracic spine to the right. XR/XR chest 2V IMPRESSION: Low lung volumes and bibasilar subsegmental atelectasis. Electronically signed by: Mady Ocampo MD 09/27/2025 04:29 PM [facility] [place]
--- NOTE | ~2025-09-27 | CT_ITS ---
CLINICAL HISTORY: dyspnea on exertion, history of breast cancer CT angiography chest with contrast. With MIP MPR Postprocessing. Comparison: None provided Findings: No central pulmonary embolism. Calcified and noncalcified plaque involve imaged aorta and its branches. Mild mediastinal lipomatosis and mediastinal fluid noted. Mild to moderate cardiomegaly. Airspace disease multifocal including 4 cm of the opacities in the posterior basal segment of the right lower lobe. Differential considerations include pneumonitis and multifocal pneumonia. Edema or superimposed edema also considered given ground-glass particularly the upper lobes. Mild air trapping is multifocal. Mild emphysematous changes and scarring noted. Abnormal appearance of the left breast is nonspecific and may follow-up postprocedural scar. Asymmetry of the imaged thyroid is nonspecific with question left lobe nodule by CT with artifacts. Small hiatal hernia. Fat deposition of the steatotic change of the imaged liver. Mild vertebral height losses appear old/chronic. Degenerative disc changes and facet arthropathy are multifocal including multifocal facet fusion including midthoracic spine. Mild-moderate foraminal narrowing includes mid in the lower thoracic spine. Lucency of the T9 vertebral body appears non aggressive and likely due to hemangioma. IMPRESSION: 1. No central pulmonary embolism. 2. Multifocal airspace disease as noted above. Differential considerations include pneumonitis/pneumonia. Recommend attention on follow-up to ensure resolution. 3. Abnormal appearance of the left breast is nonspecific by CT. Postprocedural scarring considered. Correlation with outpatient mammography data is advised. This document has been electronically signed by: René Harris MD on 09/28/2025 02:45:13
[2025-09-27 15:53] VITALS: BP 157/81; PULSE 79; RESP 20; TEMP 36.4; O2SAT 92; BMI 46.4
--- NOTE | 2025-09-27 15:53 | ED.GENADULT ---
HPI - General Adult General Chief complaint: Dyspnea Stated complaint: SOB, low oxygen sent drDelma Time Seen by Provider: 09/27/25 19:08 Source: patient, RN notes reviewed and old records reviewed Mode of arrival: ambulatory Limitations: no limitations History of Present Illness ED Provider: Marco HPI narrative: 75-year-old female with a past medical history significant for psoriatic arthritis, diabetes, obesity, previous duct so presents for evaluation of shortness of breath. She reports worsening dyspnea on exertion for the last 2-3 weeks. She went to her doctor due to feeling unwell with the fatigue as well. The patient reports that while she was walking into the office her oxygen saturation dropped? to the low 80% while walking. She denies any fevers, chills, cough, pain. Her symptoms are worse with any kind of positional changes or exertion pain She denies any leg swelling pain Denies any history of DVT or PE Denies any known history of cardiomyopathies. She reports that she was treated for her breast cancer with lumpectomy and radiates in She is also on oral chemotherapy Related Data Home Medications ?Medication ?Instructions ?Recorded ?Confirmed ferrous gluconate 324 mg (38 mg 324 mg PO BID 02/17/21 03/25/23 iron) tablet omeprazole 20 mg capsule,delayed 20 mg PO DAILY 02/17/21 03/25/23 release naratriptan 2.5 mg tablet 1 tab PO DAILY MRX1 PRN Migraine 03/26/21 03/25/23 Headache propranolol 80 mg capsule,24 1 cap PO DAILY 03/26/21 03/25/23 hr,extended release exemestane 25 mg tablet 25 mg PO DAILY 04/15/22 03/25/23 calcium carbonate 500 mg PO BID 12/28/22 03/25/23 cyanocobalamin (vitamin B-12) 500 500 mcg PO DAILY 12/28/22 03/25/23 mcg tablet ergocalciferol (vitamin D2) 1,250 1,250 mcg PO MORENO 12/28/22 03/25/23 mcg (50,000 unit) capsule metformin 500 mg tablet,extended 500 mg PO BID 12/28/22 03/25/23 release 24 hr multivitamin 1 tab PO DAILY 12/28/22 03/25/23 oxycodone-acetaminophen 5 mg-325 1 tab PO QID PRN Pain (Scale Score 12/28/22 03/25/23 mg tablet 7-10) ertapenem 1 gram solution for 1 g IV DAILY@1200 01/29/23 03/25/23 injection riboflavin (vitamin B2) 100 mg 100 mg PO DAILY 01/29/23 03/25/23 tablet Previous Rx's ?Medication ?Instructions ?Recorded acetaminophen 325 mg tablet 650 mg (2 x 325 mg) PO Q6H PRN 01/22/23 Pain, Mild (Pain Scale 1-3) #20 tabs docusate sodium 100 mg capsule 100 mg PO DAILY PRN constipation 01/22/23 (Colace) #30 caps furosemide 20 mg tablet 20 mg PO DAILY #30 tabs 01/22/23 gabapentin 100 mg capsule 100 mg PO BID #10 caps 01/22/23 polyethylene glycol 3350 17 17 g PO DAILY PRN constipation 01/22/23 gram/dose oral powder (Miralax) #119 grams potassium chloride 20 mEq oral 20 meq PO DAILY #4 ea 01/22/23 packet lisinopril 5 mg tablet 5 mg PO DAILY #30 tabs 01/29/23 hydromorphone 2 mg tablet 1 mg (1/2 x 2 mg) PO Q6H PRN pain 02/10/23 (Dilaudid) #20 tabs doxycycline hyclate 100 mg tablet 100 mg PO BID 30 days #60 tabs 02/25/23 Allergies Allergy/AdvReac Type Severity Reaction Status Date / Time fluoxetine (Prozac) Allergy Unknown worsening Verified 09/27/25 15:58 depression gabapentin Allergy Unknown irritabilit Verified 09/27/25 15:58 y Iodinated Contrast Media (IV Allergy Unknown RASH Verified 09/27/25 15:58 CONTRAST) nortriptyline Allergy Unknown irritabilit Verified 09/27/25 15:58 y topiramate Allergy Unknown mild Verified 09/27/25 15:58 depression verapamil Allergy Unknown irritabilit Verified 09/27/25 15:58 y Review of Systems Constitutional: Constitutional: Denies body ache(s), Denies chills, Reports fatigue, Denies fever(s), Denies headache(s), Reports malaise and Reports weakness Eyes: Eyes: Denies blurry vision ENT: Denies vertigo, Denies dizziness and Denies headache(s) Cardiovascular: Cardiovascular: Denies chest pain, Reports dyspnea and Reports dyspnea on exertion Respiratory: Respiratory: Denies change in phlegm color, Denies chest congestion, Denies cough, Denies pain on inspiration, Denies pain with cough, Reports dyspnea and Reports dyspnea on exertion Gastrointestinal: Gastrointestinal: Denies abdominal pain, Denies nausea and Denies vomiting Musculoskeletal: Musculoskeletal: Denies back pain Integumentary/Breasts: Skin/Breast: Denies rash Neurologic: Denies vertigo, Denies dizziness, Denies headache(s) and Reports weakness Psychiatric: Psychiatric: Denies anxiety Endocrine: Endocrine: Reports fatigue PMFSH Past Medical History Medical History Anemia Arthritis COVID-19 vaccine administered Diverticulitis GERD (gastroesophageal reflux disease) Insomnia Invasive ductal carcinoma of left breast Lobular carcinoma in situ of right breast Migraines Morbid obesity Situational anxiety Situational depression Surgical History History of bilateral breast biopsy History of colon resection History of colostomy reversal History of incision and drainage Hx of colonoscopy S/P debridement Family History Family History Mother Glioblastoma Father Lung cancer Paternal Grandmother Cancer of unknown origin Social History Social History Household Members: Spouse Housing: House Are you a primary intensive care unit registered nurse to a significant other at home: No Do you presently have visiting nurse or other home services: No Alcohol intake: never Comment: appropriately ring the morris Patient Tobacco Use Status: Never used Tobacco Smoked in Last 30 Days: No Second Hand Smoke Exposure: No Use of substances other than those prescribed or required for medical reasons: No Advance Directives: No Advance Directives Information Provided: No service: No Current occupational status: employed Physical Exam ED Vital Signs: Vital Signs - 24 hr 09/27/25 15:53 09/27/25 17:51 09/27/25 18:35 Temperature 97.6 F 98.3 F 98.4 F Pulse Rate 79 82 75 Respiratory Rate 20 16 18 Blood Pressure 157/81 H 134/77 108/51 L Pulse Oximetry 92 95 93 Oxygen Delivery Method Room Air Room Air Room Air 09/27/25 20:12 09/27/25 22:08 09/28/25 02:40 Temperature 97.1 F Pulse Rate 84 89 Respiratory Rate 20 15 Blood Pressure 139/63 131/56 L Pulse Oximetry 93 92 87 L Oxygen Delivery Method Room Air Room Air Room Air BMI result Body Mass Index 46.4 Const General: healthy appearing, comfortable, no acute distress, alert and awake Nutritional Appearance: well nourished Orientation/consciousness: patient oriented x3 HENMT Head: Yes normocephalic and Yes atraumatic Eyes Eyelids: Yes eyelids normal Conjunctivae: conjunctivae normal Sclerae: sclerae normal Corneas: corneas normal Pupils: Equal, round and reactive pupils present EOM: EOMs intact bilaterally Neck Neck: Yes full ROM Resp Effort & Inspection: normal respiratory effort, not able to speak in complete sentences (The patient is speaking in 6-10 word sentences), no audible wheezes and not labored Auscultation: clear to auscultation bilaterally Cardio Rate: regular rate Rhythm: regular rhythm GI Inspection: No distended Palpation (GI): Soft to palpation, not firm, nontender, no guarding and not rigid Skin General skin exam: elasticity normal Neuro General: patient oriented x3 Cranial nerves: Yes Equal, round and reactive pupils present and Yes Bilaterally intact EOM present Cognition (Neuro): normal cognition Extrem Other: Moving all extremities well without any obvious deformities Course Course Course Narrative: This is a rapid medical exam performed by Leoncio Agudelo NP: Additional HPI, ROS, PE not included below will be deferred to primary provider. Patient is a 75y/o F with pmhx of diastolic HF, breast CA, obesity presenting from PCP office for hypoxia. Patient complains dyspnea for the few weeks, attributed this to a viral illness. Reports dyspnea is worse with exertion. Went to PCP today and was advised to come to the ED for O2 sats in the 80s. O2 91-92% on room air in triage. Plan: EKG, labs, CXR Reevaluation(s) Reevaluation #1: Unfortunately the patient has a documented allergy to IV contrast. Her allergies or rash. She has safely undergone CT scans with IV contrast in the past with premedication. Unfortunately given that she was reportedly hypoxic to the low 80 percents with a history of breast cancer I do not feel that a D-dimer would safely rule her out for PE as she does not fall in the low risk category. Therefore we will premedicate the patient and obtain CT angiography in 4 hours Time: 20:34 Reevaluation #2: I Yesi Cerna PA-C have accepted care of the patient and signed out pending CTA and admission. The patient is hypoxic, she just had an ambulation trial, she dropped to 87% on room air. CTA chest:IMPRESSION: 1. No central pulmonary embolism. 2. Multifocal airspace disease as noted above. Differential considerations include pneumonitis/pneumonia. Recommend attention on follow-up to ensure resolution. 3. Abnormal appearance of the left breast is nonspecific by CT. Postprocedural scarring considered. Correlation with outpatient mammography data is advised. Placing admission, I discussed the case with the hospitalist, I had said that we are going to treat with a updraft and steroid, she suggest antibiotics as well. We will add on blood cultures, lactic starting azithromycin and ceftriaxone Time: 02:48 Medications Administered Discontinued Medications Generic Name Dose Route Start Last Admin Trade Name Freq PRN Reason Stop Dose Admin Diphenhydramine HCl 50 mg 09/27/25 23:30 09/27/25 23:29 Diphenhydramine Hcl 50 Mg/Ml Vial IVPUSH 09/27/25 23:31 50 mg ONCE ONE Administration Iohexol 65 ml 09/28/25 00:40 09/28/25 00:40 Iohexol 350 Mg/Ml 100 Ml Infus..Btl IV 09/28/25 00:41 65 ml ONCE ONE Administration Methylprednisolone Sodium Succinate 125 mg 09/27/25 20:30 09/27/25 20:36 Methylprednisolone Sod Succ 125 Mg/2 Ml Vial IVPUSH 09/27/25 20:31 125 mg ONCE ONE Administration Medical Decision Making Medical Decision Making [facility] Narrative: 75-year-old female with a past medical history as above presents for evaluation of dyspnea on exertion. This has been worsening over the last few weeks. The patient has a history of breast cancer in his on oral chemotherapy. She also had radiation treatment for her breast cancer. This puts her at increased risk for cardiomyopathy. She has no history of DVT or PE. In the emergency department, her oxygen saturation has been above 90%. We have not yet trialed an ambulation saturation. Her chest x-ray shows low lung volumes with atelectasis but no pleural effusions or infiltrates. The patient has no lower extremity edema, troponin BNP within normal limits. EKG was performed that does not show any clear evidence of acute ischemia. No arrhythmia noted. Given the reported severe hypoxia I ordered a CT angiography to rule out PE in the setting of previous breast cancer. Differential Diagnosis Differential Diagnoses: The differential diagnosis associated with the presentation includes CHF PE Atypical pneumonia Bronchitis Admission/Observation Consideration of admission/observation: Escalation of care including admission/observation considered Lab Data MDM Lab Attestation statement: I reviewed the patient's lab results. No significant leukocytosis, no significant anemia. Normal platelet count. No electrolyte abnormalities warranting dimension. The patient is a known diabetic. No evidence of DKA. Troponin and BNP within normal limits 09/27/25 16:10 09/27/25 16:10 Labs: Lab Results 09/27/25 09/27/25 09/27/25 Range/Units 16:10 16:19 18:54 WBC 8.9 (4.8-10.8) X10*3/uL RBC 4.63 (4.20-5.50) X10*6/uL Hgb 13.5 D (12.0-16.0) g/dl Hct 41.4 D (37.0-47.0) % MCV 89.4 (80.0-98.0) fL MCH 29.2 (27.0-33.0) pg MCHC 32.6 (31.0-35.0) g/dl RDW 13.4 (11.0-16.0) % Plt Count 291 (160-400) X10*3/uL MPV 8.8 L (9.4-12.3) fL Immature Gran % (Auto) 0.8 H (0.0-0.4) % Neut % (Auto) 72.1 (45-73) % Lymph % (Auto) 17.2 L (20-40) % Hernando % (Auto) 8.1 (2-11) % Eos % (Auto) 1.6 (0-4) % Baso % (Auto) 0.2 (0-2) % Lymph # (Auto) 1.5 (1.2-4.9) X10*3/uL Hernando # (Auto) 0.7 (0.1-1.2) X10*3/uL Eos # (Auto) 0.1 (0.0-0.4) X10*3/uL Baso # (Auto) 0.0 (0.0-0.2) X10*3/uL Abs Immat Gran (auto) 0.07 H (0.00-0.03) X10*3/uL Absolute Neuts (auto) 6.4 (2.0-8.3) x10*3/uL Absolute Nucleated RBC 0.000 (0.0-0.012) X10*3/uL Nucleated RBC % (auto) 0.0 (0.0-0.2) /100WBC PT 12.1 (11.2-13.5) SEC INR 1.0 (0.9-1.1) VBG pH 7.42 (7.32-7.43) VBG pCO2 37 mmHg VBG pO2 70 mmHg VBG HCO3 24 (22-26) mmol/L VBG O2 Saturation 94.0 % VBG Base Excess 0.8 mmol/L Sodium 135 (135-145) mmol/L Potassium 4.7 (3.3-5.1) mmol/L Chloride 101 (96-108) mmol/L Carbon Dioxide 25 (22-29) mmol/L Anion Gap 14 (12-20) BUN 17 H (9-16) mg/dL Creatinine 0.87 (0.5-1.4) mg/dL Estim Creat Clear Calc 79.9 Estimated GFR > 60 POC Glucose 218 H (60-115) mg/dL Random Glucose 233 H (60-115) mg/dL Calcium 10.4 H D (8.4-10.2) mg/dL Total Bilirubin 0.3 (0.0-1.0) mg/dL AST 20 (5-31) U/L ALT 22 (0-31) U/L Alkaline Phosphatase 94 (39-117) U/L Troponin I High Sens < 2.7 D (<3.5-17.0) ng/L NT-Pro-B Natriuret Pep 103.4 (<300) pg/mL Total Protein 8.0 (6.5-8.0) g/dL Albumin 4.7 (3.5-5.0) g/dL Influenza Type A (PCR) NEGATIVE (Negative) Influenza Type B (PCR) NEGATIVE (Negative) RSV RNA Qual (PCR) NEGATIVE (Negative) SARS-CoV-2 RNA (RT-PCR) NEGATIVE (Negative) Discharge Plan Discharge Clinical Impression: Dyspnea on exertion, Hypoxia, Pneumonia, Pneumonitis Patient Disposition: Admitted As Inpatient Print Language: Serbian
--- NOTE | 2025-09-27 15:54 | ECG_ITS ---
Test Reason : SOB Blood Pressure : */* mmHG Vent. Rate : 76 BPM Atrial Rate : 76 BPM P-R Int : 184 ms QRS Dur : 80 ms QT Int : 384 ms P-R-T Axes : 71 -11 45 degrees QTcB Int : 432 ms Normal sinus rhythm Cannot rule out Inferior infarct , age undetermined Abnormal ECG When compared with ECG of 08-Jan-2023 21:10, No significant change was found Referred By: Ayana Agudelo Electronically Signed By: DONTAE GIBSON MD
[2025-09-27 16:19] LABS: MANUAL DIFF FLAG NO
[2025-09-27 16:21] LABS: Venous Blood Gas Refer to POC result
[2025-09-27 16:22] LABS: Hematocrit 41.4 % (37.0-47.0); Hemoglobin 13.5 g/dl (12.0-16.0); Imm Gran Abs Auto 0.07 X10*3/uL (0.00-0.03); Imm Gran Pct Auto 0.8 % (0.0-0.4); Lymphocytes Absolute Auto 1.5 X10*3/uL (1.2-4.9); Mean Corpuscular HGB Conc 32.6 g/dl (31.0-35.0); Mean Corpuscular Hemoglobin 29.2 pg (27.0-33.0); Mean Corpuscular Volume 89.4 fL (80.0-98.0); NRBC Abs Auto 0.000 X10*3/uL (0.0-0.012); NRBC Pct Auto 0.0 /100WBC (0.0-0.2); Platelet Count 291 X10*3/uL (160-400); Red Blood Count 4.63 X10*6/uL (4.20-5.50); White Blood Count 8.9 X10*3/uL (4.8-10.8)
[2025-09-27 16:22] LABS: VBG HCO3 24 mmol/L (22-26); VBG O2 % Saturation 94.0 %
[2025-09-27 16:27] LABS: INTERNATIONAL NORM RATIO 1.0 (0.9-1.1); Prothrombin Time 12.1 SEC (11.2-13.5)
[2025-09-27 16:37] LABS: Alanine Aminotransferase 22 U/L (0-31); Albumin Level 4.7 g/dL (3.5-5.0); Alkaline Phosphatase 94 U/L (39-117); Anion Gap 14 (12-20); Aspartate Amino Transferase 20 U/L (5-31); Blood Urea Nitrogen 17 mg/dL (9-16); Calcium 10.4 mg/dL (8.4-10.2); Carbon Dioxide 25 mmol/L (22-29); Chloride 101 mmol/L (96-108); Creatinine Clr Calc Pharmacy 79.9; Estimated Glomerular Filt Rate > 60; Potassium 4.7 mmol/L (3.3-5.1); Sodium 135 mmol/L (135-145); Total Protein 8.0 g/dL (6.5-8.0)
[2025-09-27 16:46] LABS: Troponin-I High Sensitivity < 2.7 ng/L (<3.5-17.0)
[2025-09-27 16:47] LABS: NT Pro B Type Natriuretic Pept 103.4 pg/mL (<300)
[2025-09-27 16:58] LABS: Resp Syncy Virus RNA Qual PCR NEGATIVE (Negative); SARS COV2 PCR INHOUSE NEGATIVE (Negative)
[2025-09-27 17:51] VITALS: BP 134/77; PULSE 82; RESP 16; TEMP 36.8; O2SAT 95
[2025-09-27 18:35] VITALS: BP 108/51; PULSE 75; RESP 18; TEMP 36.9; O2SAT 93
[2025-09-27 18:58] LABS: Glucose, Whole Blood 218 mg/dL (60-115)
[2025-09-27 20:12] VITALS: BP 139/63; PULSE 84; RESP 20; O2SAT 93
[2025-09-27 22:08] VITALS: BP 131/56; PULSE 89; RESP 15; TEMP 36.2; O2SAT 92
[2025-09-28] VITALS (12 sets, daily range): BP systolic 97–158; BP diastolic 69–99; PULSE 87–105; RESP 18–22; TEMP 36.4–37.4; O2SAT 87–97
[2025-09-28] MEDS: iohexoL 350 MG/ML 100 ML INFUS..BTL 65 ML IV (00:40)
--- NOTE | 2025-09-28 03:04 | PM.IMHP ---
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 Patient states she is a nonsmoker and no recent travel. Patient reports also constipation persistent for the last week, decrease in appetite and daily migraines for the last 2 months. Patient has been using naratriptan at home PRN for her migraine relief. Patient states Tylenol is also effective. Patient also has chronic pain associated with her psoriatic arthritis and her ability to ambulate has declined with a 60 lb weight gain over the last year. Patient denies any chest pain, shortness of breath at rest, nausea/vomiting, fever, chills, abdominal pain. Patient is also not having any edema in the lower extremities that is unexplained. Workup in the ED included chest x-ray which led to a CTA of the chest which ruled out pulmonary embolism but noted multifocal airspace disease with differentials to include pneumonitis versus pneumonia. On CTA it is noted that patient may have some postprocedural scarring of the left breast. Patient has no leukocytosis, no anemia, no electrolyte abnormalities with normal renal function. Patient's blood sugar running 252. Lactic acid 1.5. Troponin and BNP within normal limits. LFTs also stable. Patient is started on azithromycin and ceftriaxone in the ED empirically. Patient also started on methylprednisolone. Blood cultures pending. VBG reassuring pH 7.42, CO2 37, PO2 70 and bicarb 24. Viral testing for COVID, RSV and flu are all negative. Patient does keep up with her immunizations per her PCP. Patient being admitted for hypoxia being treated empirically for pneumonitis/pneumonia. Review of Systems Review of Systems: Patient denies any chest pain, shortness of breath at rest, abdominal pain, nausea or vomiting. Patient is not having any fever or chills or productive cough. Patient denies any new open wounds. [facility] Medical History (Updated 09/28/25 @ 04:07 by MORTEZA Perez) Psoriatic arthritis COVID-19 vaccine administered Lobular carcinoma in situ of right breast Situational depression Situational anxiety Arthritis Anemia GERD (gastroesophageal reflux disease) Insomnia Invasive ductal carcinoma of left breast Migraines Diverticulitis Morbid obesity Cognitive capacity: Alert and orientated x3 Functional capacity: independent ambulation Patient : No Family History Mother Glioblastoma Father Lung cancer Paternal Grandmother Cancer of unknown origin Surgical History S/P debridement History of bilateral breast biopsy History of incision and drainage History of colostomy reversal History of colon resection Hx of colonoscopy Social History Household Members: Spouse Housing: House Are you a primary critical care rn to a significant other at home: No Do you presently have visiting nurse or other home services: No Alcohol intake: never Comment: appropriately ring the morris Patient Tobacco Use Status: Never used Tobacco Second Hand Smoke Exposure: No service: No Current occupational status: employed Ebola Risk: Travel/Contact With Anyone From Affected Area/s: No Has Patient Experienced Ebola Symptoms: No Meds Allergies Allergy/AdvReac Type Severity Reaction Status Date / Time fluoxetine (Prozac) Allergy Unknown worsening Verified 09/27/25 15:58 depression gabapentin Allergy Unknown irritabilit Verified 09/27/25 15:58 y Iodinated Contrast Media (IV Allergy Unknown RASH Verified 09/27/25 15:58 CONTRAST) nortriptyline Allergy Unknown irritabilit Verified 09/27/25 15:58 y topiramate Allergy Unknown mild Verified 09/27/25 15:58 depression verapamil Allergy Unknown irritabilit Verified 09/27/25 15:58 y Active Medications: Current Medications Acetaminophen (Acetaminophen 325 Mg Tablet) 650 mg PO Q6H PRN PRN Reason: Pain, Mild 1-3,fever,headache Albuterol/Ipratropium (Albuterol/Iprat 2.5/0.5mg 3 Ml Ampul.Neb) 3 ml INHALE Q4H PRN PRN Reason: Shortness of Breath/Wheezing Calcium Carbonate (Calcium Carbonate 750 Mg Tab.Chew) 750 mg PO Q4H PRN PRN Reason: Heartburn Azithromycin 500 mg/ Sodium (Chloride) 250 mls @ 125 mls/hr IV ONCE ONE Stop: 09/28/25 04:55 Ceftriaxone Sodium 2 gm/ (Sodium Chloride) 50 mls @ 100 mls/hr IV ONCE ONE Stop: 09/28/25 03:25 Magnesium Hydroxide (Milk Of Magnesia 30 Ml Oral.Susp) 30 ml PO DAILY PRN PRN Reason: Constipation Melatonin (Melatonin 3 Mg Tablet) 6 mg PO BEDTIME PRN PRN Reason: Insomnia Ondansetron HCl (Ondansetron Hcl 4 Mg/2 Ml Vial) 4 mg IVPUSH Q8H PRN PRN Reason: Nausea and Vomiting Polyethylene Glycol (Polyethylene Glycol 3350 17 Gm Powd.Pack) 17 gm PO DAILY PRN PRN Reason: Constipation Senna (Sennosides 8.6 Mg Tablet) 17.2 mg PO BEDTIME NAFISA Sodium Chloride (0.9 % Sodium Chloride Flush 3 Ml Syringe) 3 ml IVFLUSH QSHIFT NAFISA Home Medications ?Medication ?Instructions ?Recorded ?Confirmed ?Last Taken ?Type ferrous gluconate 324 mg (38 mg 324 mg PO BID 02/17/21 03/25/23 05/12/21 History iron) tablet omeprazole 20 mg capsule,delayed 20 mg PO DAILY 02/17/21 03/25/23 12/28/22 History release naratriptan 2.5 mg tablet 1 tab PO DAILY MRX1 PRN Migraine 03/26/21 03/25/23 Unknown History Headache propranolol 80 mg capsule,24 1 cap PO DAILY 03/26/21 03/25/23 04/01/21 History hr,extended release exemestane 25 mg tablet 25 mg PO DAILY 04/15/22 03/25/23 12/28/22 History calcium carbonate 500 mg PO BID 12/28/22 03/25/23 Unknown History cyanocobalamin (vitamin B-12) 500 500 mcg PO DAILY 12/28/22 03/25/23 Unknown History mcg tablet ergocalciferol (vitamin D2) 1,250 1,250 mcg PO MORENO 02/14/23 05/12/23 Unknown History mcg (50,000 unit) capsule metformin 500 mg tablet,extended 500 mg PO BID 12/28/22 03/25/23 12/28/22 History release 24 hr multivitamin 1 tab PO DAILY 12/28/22 03/25/23 Unknown History oxycodone-acetaminophen 5 mg-325 1 tab PO QID PRN Pain (Scale Score 12/28/22 03/25/23 12/28/22 History mg tablet 7-10) ertapenem 1 gram solution for 1 g IV DAILY@1200 01/29/23 03/25/23 01/29/23 History injection riboflavin (vitamin B2) 100 mg 100 mg PO DAILY 01/29/23 03/25/23 Unknown History tablet Physical Exam Vital Signs and Narrative: Vital Signs: Last Vital Signs Temp 97.1 F 09/27/25 22:08 Pulse 89 09/27/25 22:08 Resp 15 09/27/25 22:08 BP 131/56 L 09/27/25 22:08 Pulse Ox 87 L 09/28/25 02:40 O2 Del Method Room Air 09/28/25 02:40 BMI result Body Mass Index 46.4 Alert and orientated X3, able to give good history. Neuro: CN II-X11 intact, no deficits, visual acuity intact EYES: PERRLA, EOM intact, sclerae nonicteric, conjunctiva pink ENT: hearing intact, no issues with swallowing, uvula midline, lips moist, nares patent no epistaxis Cardiac: S1 S2 RRR, no murmur, no JVD, no edema in Lower ext Pulmonary: lungs diminished bilaterally Abdominal: BS active in all 4 quadrants, no guarding, tenderness, rebounding MSK: strength 5/5 upper and lower extremities : no CVA tenderness no bladder distension Extremities: no edema in lower extremities, PT and DP pulses palpable +2 Psych: mood stable, judgement and insight good Skin: No new rashes or lesion Results Labs 09/28/25 03:17 09/28/25 03:16 Labs: Laboratory Results - last 24 hr 09/27/25 09/27/25 09/27/25 16:10 16:19 18:54 MCV 89.4 MCH 29.2 MCHC 32.6 RDW 13.4 Plt Count 291 MPV 8.8 L Immature Gran % (Auto) 0.8 H Neut % (Auto) 72.1 Lymph % (Auto) 17.2 L Saunders % (Auto) 8.1 Eos % (Auto) 1.6 Baso % (Auto) 0.2 Lymph # (Auto) 1.5 Saunders # (Auto) 0.7 Eos # (Auto) 0.1 Baso # (Auto) 0.0 Abs Immat Gran (auto) 0.07 H Absolute Neuts (auto) 6.4 Absolute Nucleated RBC 0.000 Nucleated RBC % (auto) 0.0 PT 12.1 INR 1.0 VBG pH 7.42 VBG pCO2 37 VBG pO2 70 VBG HCO3 24 VBG O2 Saturation 94.0 VBG Base Excess 0.8 Anion Gap 14 Estim Creat Clear Calc 79.9 Estimated GFR > 60 POC Glucose 218 H Random Glucose 233 H Calcium 10.4 H D Total Bilirubin 0.3 AST 20 ALT 22 Alkaline Phosphatase 94 Troponin I High Sens < 2.7 D NT-Pro-B Natriuret Pep 103.4 Total Protein 8.0 Albumin 4.7 Influenza Type A (PCR) NEGATIVE Influenza Type B (PCR) NEGATIVE RSV RNA Qual (PCR) NEGATIVE SARS-CoV-2 RNA (RT-PCR) NEGATIVE ECG Attestation: I personally reviewed and interpreted this ECG as follows: (NSR, QTC 432 no ischemic changes) Prior ECG tracings: available for review Imaging Radiologist's Impressions: Impressions Chest X-Ray 09/27/25 16:15 IMPRESSION: Low lung volumes and bibasilar subsegmental atelectasis. Electronically signed by: Mady Ocampo MD 09/27/2025 04:29 PM [facility] CTA CHEST IMPRESSION: 1. No central pulmonary embolism. 2. Multifocal airspace disease as noted above. Differential considerations include pneumonitis/pneumonia. Recommend attention on follow-up to ensure resolution. 3. Abnormal appearance of the left breast is nonspecific by CT. Postprocedural scarring considered. Correlation with outpatient mammography data is advised. 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 migraine without aura, obesity, anxiety/depression situational, insomnia, NIDDM, vegetarian that eats eggs and cheese, history of right foot ulcer and cellulitis presented ambulatory to the ED with complaints of shortness of breath for over 2 weeks with recent low oxygen levels at her PCPs office. Patient being admitted with the following medical concerns: Acute hypoxic respiratory failure Since arrival patient has been able to sustain room air at rest, noted hypoxia with ambulation Consider home O2 study of indicate closer to discharge CTA neg for PE Patient responded well to the methylprednisolone, duo nebs and antibiotic Continuous pulse ox ordered IS ordered Pneumonia/pneumonitis Patient is started on ceftriaxone and doxycycline empirically Continue methylprednisolone 60 mg b.i.d. Patient admitted without evidence of sepsis Supportive care with duo nebs, antitussives NIDDM Sliding scale insulin ordered a.c. and HS Diabetic diet (note patient is a vegetarian that will eat eggs and cheese) A1c pending Constipation Pt uses dilaudid and oxycodone prn MiraLax daily Senna hs Dulcolax suppository PRN Daily fiber Migraine without aura Patient has had migraines for years but is having daily migraines for the last 2 months without aura Patient uses naratriptan at home but also uses sumatriptan which is now ordered PRN daily Tylenol also affect Chronic pain secondary to psoriatic arthritis Tylenol PRN Dilaudid and Oxycodone will be held for now due to constipation (med rec pending) Patient believes she may have been on methotrexate but this is not currently on her med rec, med rec currently pending Morbid Obesity Patient has been more sedentary for the last year since being diagnosed with psoriatic arthritis Patient denies history of neuropathy in both feet but finds it very difficult to ambulate due to the arthritic pain that she experiences Nutritional consultation requested GERD Continue omeprazole Avoid food triggers Hx if B Breast Cancer Continue exemstane once med rec completed Next mammogram 10/01/2025 Pt follows vegetarian diet but also eats eggs and cheese. DVT prophylaxis: Lovenox MED REC PENDING FULL CODE status Patient will require at least a 2 midnight stay for close hemodynamic monitor and IV antibiotic as well as treatment for constipation. Quality Stroke Does the patient have a stroke diagnosis?: No Reason for No Anti-thrombotic by Day Two: N/A - Med Ordered VTE Prior VTE?: No VTE Risk Level:: Medical - moderate - high VTE Device Contraindication: N/A - Device Ordered VTE Drug Contraindication: N/A - Med Ordered
[2025-09-28] MEDS: Albuterol Sulfate 2.5 MG, Albuterol/Iprat 2.5/0.5MG 3 ML 3 ML INHALE (03:19)
[2025-09-28 03:24] LABS: Hematocrit 42.3 % (37.0-47.0); Hemoglobin 14.0 g/dl (12.0-16.0); Mean Corpuscular HGB Conc 33.1 g/dl (31.0-35.0); Mean Corpuscular Hemoglobin 29.4 pg (27.0-33.0); Mean Corpuscular Volume 88.7 fL (80.0-98.0); NRBC Abs Auto 0.000 X10*3/uL (0.0-0.012); NRBC Pct Auto 0.0 /100WBC (0.0-0.2); Platelet Count 291 X10*3/uL (160-400); Red Blood Count 4.77 X10*6/uL (4.20-5.50); White Blood Count 6.8 X10*3/uL (4.8-10.8)
[2025-09-28 03:40] LABS: Anion Gap 17 (12-20); Blood Urea Nitrogen 17 mg/dL (9-16); Calcium 10.7 mg/dL (8.4-10.2); Carbon Dioxide 22 mmol/L (22-29); Chloride 101 mmol/L (96-108); Creatinine Clr Calc Pharmacy 80.8; Estimated Glomerular Filt Rate > 60; Potassium 4.5 mmol/L (3.3-5.1); Sodium 135 mmol/L (135-145)
--- NOTE | 2025-09-28 06:18 | HO.NURTONUR ---
Addendum entered by Violeta Encinas RN 09/28/25 07:48: Admit: PNA, hypoxia. IV ABX and O2. Alert and oriented, ate her breakfast this morning. No pain this morning. O2 2L NC. Ambulated to bathroom with no issue Increase in coughing this morning. Diabetic, POC checks. Original Note: 75 Y F, aox4, presents after provider sent her for SOB/dyspnea. Hx of bilateral breast cancer, on oral chemo. Being admitted for PNA and acute/chronic respiratory failure with hypoxia. During the day O2 remained in the low 90's. Desat to 87% during the night and placed on 2L NC with good effect. NSR/ST on monitor with HR 90-110's. 20G R AC. Pt is currently bedrest with bathroom priviliedges. Ambulates independently. Pt is diabetic and vegetarian, states she everything but meat and fish. Loves omelettes.
[2025-09-28 07:15] LABS: Glucose, Whole Blood 334 mg/dL (60-115)
[2025-09-28] MEDS: 0.9 % Sodium Chloride Flush 3 ML SYRINGE IVFLUSH ×2 (08:34→23:17)
--- NOTE | 2025-09-28 09:44 | PHA.MEDREC ---
Pharmacy Consult ? Medication Reconciliation Pharmacy has completed the medication reconciliation. Spoke to patient to confirm medication list. Patient verified that she takes methotrexate 2.5 mg 6 tablets once a week on Tuesday. She is on a prednisone tapering schedule (15 mg daily for 5 days...10 mg daily for 5 days...5 mg daily for 5 days) and last dose was 10 mg on 09/26/25 which was the first day of the 10 mg dose. Last dose of all other medications was also on 09/26/25.
[2025-09-28 12:50] LABS: Glucose, Whole Blood 269 mg/dL (60-115)
[2025-09-28 14:06] LABS: Chlamydia pneumoniae PCR Not Detected (Not Detect.); Coronavirus 229E PCR Not Detected (Not Detect.); Coronavirus HKU1 PCR Not Detected (Not Detect.); Coronavirus NL63 PCR Not Detected (Not Detect.); Coronavirus OC43 PCR Not Detected (Not Detect.); RSV PCR Not Detected (Not Detect.); Rhino/Enterovirus PCR Not Detected (Not Detect.)
[2025-09-28 14:08] LABS: Influenza A H1 PCR Not Detected (Not Detect.); Influenza A H1-2009 PCR Not Detected (Not Detect.); Influenza A H3 PCR Not Detected (Not Detect.); SARS-CoV-2 PCR Not Detected (Not Detect.)
[2025-09-28] MEDS: calcium polycarbophiL TABLET 1 TAB PO (14:53)
[2025-09-28] MEDS: guaiFENesin 200 MG/10 ML 10 ML LIQUID PO ×2 (15:02→20:36)
--- NOTE | 2025-09-28 15:38 | PC.NURSE ---
Pt oriented to room and call light system. Educated on use of call light for assistance with ambulation. Pt refusing bed alarm at this time.
--- NOTE | 2025-09-28 15:42 | PM.EVENT ---
Event Note Date of Service: 09/28/25 Event Note: Patient seen and examined by hospitalist in electrician helper. Examined again Shortness of breath somewhat improving Physical exam and assessment and plan as perh&P. Time Spent With Patient Time: Total time managing care of this patient today ____ minutes.
[2025-09-28 16:37] LABS: Glucose, Whole Blood 319 mg/dL (60-115)
[2025-09-28] MEDS: Milk of Magnesia 30 ML ORAL.SUSP PO (17:40)
[2025-09-28] MEDS: Albuterol/Iprat 2.5/0.5MG 3 ML AMPUL.NEB INHALE (19:43)
[2025-09-28 21:02] LABS: Glucose, Whole Blood 312 mg/dL (60-115)
[2025-09-29] MEDS: guaiFENesin 200 MG/10 ML 10 ML LIQUID PO ×3 (00:53→20:46)
[2025-09-29 03:16] VITALS: BP 142/72; PULSE 91; RESP 18; TEMP 36.8; O2SAT 94
[2025-09-29 07:29] VITALS: BP 122/75; PULSE 86; RESP 16; TEMP 36.4; O2SAT 95
[2025-09-29 08:04] LABS: Glucose, Whole Blood 284 mg/dL (60-115)
[2025-09-29] MEDS: Propranolol HCL LA 80 MG CAP.SA.24H PO (08:08)
[2025-09-29] MEDS: 0.9 % Sodium Chloride Flush 3 ML SYRINGE IVFLUSH ×2 (08:09→20:46)
[2025-09-29] MEDS: Psyllium seed 3.7 GM PACKET PO (08:09)
[2025-09-29 10:43] VITALS: BP 132/84; PULSE 82; RESP 16; O2SAT 94
[2025-09-29 10:43] LABS: Glucose, Whole Blood 344 mg/dL (60-115)
[2025-09-29] MEDS: calcium polycarbophiL TABLET 1 TAB PO (11:05)
[2025-09-29 11:26] VITALS: PULSE 83; RESP 16; O2SAT 95
[2025-09-29] MEDS: Albuterol/Iprat 2.5/0.5MG 3 ML AMPUL.NEB INHALE (11:26)
--- NOTE | 2025-09-29 12:28 | HO.PM.IMPN ---
Subjective Subjective Date of Service: 09/29/25 Interval History: Pneumonia Review of Systems She says shortness of breaths similar Has cough. Review of Systems: Yes all other systems are reviewed and are negative Physical Exam Exam: Exam: Appearance: Alert.? Oriented X3.?sob with mild excersion cvs: [id number], [id number] , no murmur res: air entry diminshed at bases . abd: no rebound or guarding ,nt, bs present. ext pulses present , no cyanosis . neuro: axo3 , nonfocal. Vital Signs: Vital Signs: Last Vital Signs Temp 97.5 F 09/29/25 07:29 Pulse 83 09/29/25 11:26 Resp 16 09/29/25 11:26 BP 132/84 09/29/25 10:43 Pulse Ox 94 09/29/25 10:43 O2 Del Method Nasal Cannula 09/29/25 10:43 O2 Flow Rate 1 09/29/25 10:43 BMI result Body Mass Index 46.4 Objective Data Active Medications Acetaminophen (Acetaminophen 325 Mg Tablet) 650 mg PO Q6H PRN PRN Reason: Pain, Mild (Pain Scale 1-3) Last Admin: 09/28/25 15:02 Dose: 650 mg Documented By: HERBERT Albuterol/Ipratropium (Albuterol/Iprat 2.5/0.5mg 3 Ml Ampul.Neb) 3 ml INHALE Q4H PRN PRN Reason: Shortness of Breath/Wheezing Last Admin: 09/29/25 11:26 Dose: 3 ml Documented By: DEANDRE Atorvastatin Calcium (Atorvastatin Calcium 20 Mg Tablet) 20 mg PO DAILY [facility] Last Admin: 09/29/25 08:09 Dose: 20 mg Documented By: HREBERT Bisacodyl (Bisacodyl 10 Mg Supp.Rect) 10 mg AR BEDTIME PRN PRN Reason: Constipation Calcium Carbonate (Calcium Carbonate 750 Mg Tab.Chew) 750 mg PO Q4H PRN PRN Reason: Heartburn Calcium Polycarbophil (Calcium Polycarbophil Tablet) 1 tab PO DAILY@1130 [facility] Last Admin: 09/29/25 11:05 Dose: 1 tab Documented By: HERBERT Cyanocobalamin (Cyanocobalamin (Vitamin B-12) 500 Mcg Tablet) 500 mcg PO DAILY [facility] Last Admin: 09/29/25 08:09 Dose: 500 mcg Documented By: HERBERT Dextrose (Dextrose 50 % 25 Gm/50 Ml Syringe) 25 gm IVPUSH Q15M PRN; Protocol PRN Reason: per Hypoglycemia Standing Ord. Enoxaparin Sodium (Enoxaparin Sodium 40 Mg/0.4 Ml Syringe) 40 mg SUBCUT Q24H [facility] Last Admin: 09/29/25 08:09 Dose: 40 mg Documented By: HERBERT Ergocalciferol (Ergocalciferol (Vitamin D2) 1,250 Mcg Capsule) 1,250 mcg PO [facility] Folic Acid (Folic Acid 1 Mg Tablet) 1 mg PO DAILY [facility] Last Admin: 09/29/25 08:09 Dose: 1 mg Documented By: HERBERT Glucose (Glucose Gel 15 Gm Gel..Gram.) 15 gm PO Q15M PRN; Protocol PRN Reason: per Hypoglycemia Standing Ord. Guaifenesin (Guaifenesin 200 Mg/10 Ml 10 Ml Liquid) 10 ml PO Q4H PRN PRN Reason: Cough Last Admin: 09/29/25 08:17 Dose: 10 ml Documented By: HERBERT Ceftriaxone Sodium 1 gm/ (Sodium Chloride) 50 mls @ 100 mls/hr IV Q24H [facility] Last Infusion: 09/29/25 03:10 Dose: Infused Documented By: MARTIN Doxycycline Hyclate 100 mg/ (Sodium Chloride) 250 mls @ 166.67 mls/hr IV Q12H [facility] Last Infusion: 09/29/25 04:25 Dose: Infused Documented By: ADELITA Insulin Human Lispro (Insulin Lispro 100 Unit/Ml 3 Ml Vial) 0 unit SUBCUT QIDACHS [facility]; Protocol Last Admin: 09/29/25 11:05 Dose: 8 unit Documented By: HERBERT Loratadine (Loratadine 10 Mg Tablet) 10 mg PO DAILY [facility] Last Admin: 09/29/25 08:09 Dose: 10 mg Documented By: HERBERT Magnesium Hydroxide (Milk Of Magnesia 30 Ml Oral.Susp) 30 ml PO DAILY PRN PRN Reason: Constipation Last Admin: 09/28/25 17:40 Dose: 30 ml Documented By: HERBERT Melatonin (Melatonin 3 Mg Tablet) 6 mg PO BEDTIME PRN PRN Reason: Insomnia Methotrexate (Methotrexate Sodium 2.5 Mg Tablet) 15 mg PO MORENO [facility] Last Admin: 09/29/25 11:08 Dose: 15 mg Documented By: HERBERT Methylprednisolone Sodium Succinate (Methylprednisolone Sod Succ 125 Mg/2 Ml Vial) 40 mg IVPUSH Q12H [facility] Last Admin: 09/29/25 08:08 Dose: 40 mg Documented By: HERBERT Multivitamins/Vitamin C (Multivitamin Tablet) 1 tab PO DAILY [facility] Last Admin: 09/29/25 08:09 Dose: 1 tab Documented By: HERBERT Non-Formulary Medication (Exemestane) 25 mg PO DAILY [facility] Omeprazole (Omeprazole 20 Mg Capsule.Dr) 20 mg PO DAILY@0630 [facility] Last Admin: 09/29/25 05:32 Dose: 20 mg Documented By: MARTIN Ondansetron HCl (Ondansetron Hcl 4 Mg/2 Ml Vial) 4 mg IVPUSH Q8H PRN PRN Reason: Nausea and Vomiting Polyethylene Glycol (Polyethylene Glycol 3350 17 Gm Powd.Pack) 17 gm PO DAILY [facility] Last Admin: 09/29/25 08:09 Dose: 17 gm Documented By: HERBERT Propranolol HCl (Propranolol Hcl La 80 Mg Cap.Sa.24h) 80 mg PO DAILY [facility]; Protocol Last Admin: 09/29/25 08:08 Dose: 80 mg Documented By: HERBERT Psyllium Hydrophilic Mucilloid (Psyllium Seed 3.7 Gm Packet) 3.7 gm PO DAILY [facility] Last Admin: 09/29/25 08:09 Dose: 3.7 gm Documented By: HERBERT Senna (Sennosides 8.6 Mg Tablet) 17.2 mg PO BEDTIME [facility] Last Admin: 09/28/25 20:07 Dose: 17.2 mg Documented By: MARTIN Sodium Chloride (0.9 % Sodium Chloride Flush 3 Ml Syringe) 3 ml IVFLUSH QSHIFT [facility] Last Admin: 09/29/25 08:09 Dose: 3 ml Documented By: HERBERT Sumatriptan Succinate (Sumatriptan Succinate 100 Mg Tablet) 100 mg PO DAILY MRX1 PRN PRN Reason: Migraine Headache Last Admin: 09/29/25 04:44 Dose: 100 mg Documented By: VALENTINL Labs 09/28/25 03:17 09/28/25 03:16 Labs: Laboratory Results - last 24 hr 09/28/25 09/28/25 09/28/25 12:30 12:45 16:30 POC Glucose 269 H 319 H Respiratory Panel [place] See Note Adenovirus (Rapid PCR) Not Detected B.pert (TEM-PCR) Not Detected B.parapertussis DNA PCR Not Detected C. pneumoniae DNA (PCR) Not Detected Coronavirus OC43 (PCR) Not Detected Coronavirus HKU1 (PCR) Not Detected Coronavirus 229E (PCR) Not Detected Coronavirus NL63 (PCR) Not Detected Human Metapneumovir PCR Not Detected Influenza A (RT-PCR) Not Detected Influenza A (H1) PCR Not Detected Influ A (H1/09) PCR Not Detected Influenza A (H3) PCR Not Detected Influenza B (RT-PCR) Not Detected M. pneumoniae (PCR) Not Detected Parainfluenza 1 (PCR) Not Detected Parainfluenza 2 (PCR) Not Detected Parainfluenza 3 (PCR) Not Detected Parainfluenza 4 (PCR) Not Detected RSV (PCR) Not Detected Entero/Rhino (PCR) Not Detected SARS-CoV-2 RNA (RT-PCR) Not Detected 09/28/25 09/29/25 09/29/25 19:57 07:59 10:28 POC Glucose 312 H 284 H 344 H Respiratory Panel [place] Adenovirus (Rapid PCR) B.pert (TEM-PCR) B.parapertussis DNA PCR C. pneumoniae DNA (PCR) Coronavirus OC43 (PCR) Coronavirus HKU1 (PCR) Coronavirus 229E (PCR) Coronavirus NL63 (PCR) Human Metapneumovir PCR Influenza A (RT-PCR) Influenza A (H1) PCR Influ A (H1/09) PCR Influenza A (H3) PCR Influenza B (RT-PCR) M. pneumoniae (PCR) Parainfluenza 1 (PCR) Parainfluenza 2 (PCR) Parainfluenza 3 (PCR) Parainfluenza 4 (PCR) RSV (PCR) Entero/Rhino (PCR) SARS-CoV-2 RNA (RT-PCR) Microbiology Microbiology Results: Microbiology 09/28/25 03:28 Blood Culture - Preliminary Blood - Venous No growth after 24 hours. 09/28/25 03:17 Blood Culture - Preliminary Blood - Venous No growth after 24 hours. 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 migraine without aura, obesity, anxiety/depression situational, insomnia, NIDDM, vegetarian that eats eggs and cheese, history of right foot ulcer and cellulitis presented ambulatory to the ED with complaints of shortness of breath for over 2 weeks with recent low oxygen levels at her PCPs office. Patient being admitted with the following medical concerns: Acute hypoxic respiratory failure sec to Pneumonia/pneumonitis Since arrival patient has been able to sustain room air at rest, noted hypoxia with ambulation CTA neg for PE Respiratory viral panel negative sob seems similar plan: continue ceftriaxone and doxycycline empirically ,iv steriods adjusted ,Supportive care with duo nebs, antitussives. NIDDM Sliding scale insulin ordered a.c. and HS Diabetic diet (note patient is a vegetarian that will eat eggs and cheese) A1c 8.3 Constipation Pt uses dilaudid and oxycodone prn MiraLax daily Senna hs Dulcolax suppository PRN Daily fiber hx Migraine without aura uses naratriptan at home but also uses sumatriptan which is now ordered PRN daily Tylenol also affect Chronic pain secondary to psoriatic arthritis Tylenol PRN Dilaudid and Oxycodone will be held for now due to constipation (med rec pending) Patient believes she may have been on methotrexate but this is not currently on her med rec, med rec currently pending Morbid Obesity Patient has been more sedentary for the last year since being diagnosed with psoriatic arthritis Patient denies history of neuropathy in both feet but finds it very difficult to ambulate due to the arthritic pain that she experiences Nutritional eval. GERD Continue omeprazole Avoid food triggers Hx if B Breast Cancer Continue exemstane once med rec completed ongoing need for stay: Pneumonitis-similar symptoms, respiratory status is not optimal yet, need IV antibiotics, follow culture, taper oxygen. Quality Stroke Does the patient have a stroke diagnosis?: No Reason for No Anti-thrombotic by Day Two: N/A - Med Ordered VTE Prior VTE?: No VTE Risk Level:: Medical - moderate - high VTE Device Contraindication: N/A - Device Ordered VTE Drug Contraindication: N/A - Med Ordered
[2025-09-29 15:52] VITALS: BP 132/58; PULSE 80; RESP 18; TEMP 36.6; O2SAT 95
--- NOTE | 2025-09-29 15:58 | MHC.CM.PN ---
PT REPORTS SHE LIVES WITH HER AND IS INDEPENDENT WITH CARE SHE HAS NO DME OR SERVICES SHE DOES NOT HAVE A HCP, SHE PLANS TO SPEAK TO A FRONT DESK ASSOCIATE TO COMPLETE ONE PCP: BURAK DUNN IMM DELIVERED DCP: HOME VIA PRIVATE TRANSPORT
[2025-09-29 16:29] LABS: Glucose, Whole Blood 344 mg/dL (60-115)
[2025-09-29 20:00] VITALS: BP 138/65; PULSE 78; RESP 18; TEMP 36.6; O2SAT 93
[2025-09-29 20:34] LABS: Glucose, Whole Blood 319 mg/dL (60-115)
[2025-09-30] VITALS (7 sets, daily range): BP systolic 112–153; BP diastolic 63–74; PULSE 69–84; RESP 16–20; TEMP 36.1–37.2; O2SAT 92–95
[2025-09-30 07:11] LABS: Glucose, Whole Blood 285 mg/dL (60-115)
[2025-09-30] MEDS: Psyllium seed 3.7 GM PACKET PO (08:20)
[2025-09-30] MEDS: Propranolol HCL LA 80 MG CAP.SA.24H PO (08:22)
[2025-09-30] MEDS: 0.9 % Sodium Chloride Flush 3 ML SYRINGE IVFLUSH ×3 (08:23→20:51)
[2025-09-30 09:54] LABS: Venous Blood Gas Refer to POC result
[2025-09-30 09:55] LABS: VBG HCO3 24 mmol/L (22-26); VBG O2 % Saturation 86.0 %
--- NOTE | 2025-09-30 10:32 | MHC.CM.PN ---
Per ROUNDS discussion, Patient is not yet medically cleared for dc (IV ABX & needs Pulmonary Consult). Home is the goal and CM will continue to follow.
[2025-09-30 12:11] LABS: Glucose, Whole Blood 281 mg/dL (60-115)
--- NOTE | 2025-09-30 12:14 | MHC.CLN ---
CONSULT PT STATES MORE SEDENTARY R/T ARTHRITIS DIET RX: 2000DM VEGETARIAN DIET WILL PROMOTE SLOW WT LOSS GOAL 1-2# PER WEEK PT REPORTS VEGETARIAN BUT DOES EAT EGGS AND CHEESE-KITCHEN AWARE CONTINUE CURRENT CARE PLAN
[2025-09-30] MEDS: calcium polycarbophiL TABLET 1 TAB PO (12:37)
[2025-09-30] MEDS: Furosemide 20 MG/2 ML VIAL IVPUSH (13:35)
--- NOTE | 2025-09-30 13:49 | PM.CNPUL ---
History of Present Illness History of Present Illness Consult date: 09/30/25 Chief complaint: Acute hypoxic respiratory failure Narrative: 70-year-old lady, nonsmoker, with underlying diastolic dysfunction, psoriatic arthritis, obesity, diverticulitis, bilateral breast cancer status post bilateral lumpectomies on oral chemotherapy admitted on 09/28/2025 with crepitance of dyspnea. Her CT angio chest showed no evidence of pulmonary emboli, but consistent with bilateral edema. Patient was empirically treated for community-acquired pneumonia with no significant improvement. She does endorse significant orthopnea. Review of Systems Constitutional: Constitutional: Denies daytime sleepiness, Denies excessive sweating, Denies fatigue, Denies fever(s), Denies lethargy, Denies malaise, Denies night sweats, Denies snoring and Denies weight loss Eyes: Eyes: Denies blurry vision and Denies itchy eyes ENT: Denies nasal congestion, Denies post nasal drip, Denies sinus pain, Denies sinus pressure and Denies other ( Thrush) Cardiovascular: Cardiovascular: Denies chest pain, Denies pedal edema, Denies dyspnea, Reports dyspnea on exertion, Reports orthopnea and Reports paroxysmal nocturnal dyspnea Respiratory: Respiratory: Denies cough, Denies hemoptysis, Denies excessive phlegm production, Denies dyspnea, Reports dyspnea on exertion, Denies snoring and Denies wheezing Gastrointestinal: Gastrointestinal: Denies abdominal pain and Denies heartburn Musculoskeletal: Musculoskeletal: Denies myalgias, Denies arthralgias and Denies joint swelling Integumentary/Breasts: Skin/Breast: Denies rash Neurologic: Denies memory loss and Denies seizure-like activity Psychiatric: Psychiatric: Denies abnormal sleep pattern, Denies anxiety and Denies memory loss Endocrine: Endocrine: Denies excessive sweating, Denies fatigue and Denies heat intolerance Hematologic/Lymphatic: Hematologic/Lymphatic: Denies easy bruising Allergic/Immunologic: Allergic/Immunologic: Denies itchy eyes, Denies seasonal rhinorrhea and Denies wheezing PMFSH Past Medical History Medical History (Updated 09/30/25 @ 13:52 by Clark Cintron MD) Psoriatic arthritis COVID-19 vaccine administered Lobular carcinoma in situ of right breast Situational depression Situational anxiety Arthritis Anemia GERD (gastroesophageal reflux disease) Insomnia Invasive ductal carcinoma of left breast Migraines Diverticulitis Morbid obesity Family History Family History Mother Glioblastoma Father Lung cancer Paternal Grandmother Cancer of unknown origin Surgical History Surgical History S/P debridement History of bilateral breast biopsy History of incision and drainage History of colostomy reversal History of colon resection Hx of colonoscopy Social History Social History Household Members: Spouse Housing: House Are you a primary skin care consultant to a significant other at home: No Do you presently have visiting nurse or other home services: No Alcohol intake: never Comment: pt refusing bed alarm Patient Tobacco Use Status: Never used Tobacco Smoked in Last 30 Days: No Second Hand Smoke Exposure: No Use of substances other than those prescribed or required for medical reasons: No Currently Displaying Signs/Symptoms of Drug Intoxication Withdrawal: No Have you been hit, kicked, punched, or otherwise hurt by someone within the past year? If so, by whom?: No Do you feel safe in your current relationship?: No Is there a partner from a previous relationship who is making you feel unsafe now?: No Are you made to feel afraid or neglected: No Advance Directives: No Advance Directives Information Provided: No Do you have a plan to hurt others: No Plan Nutrition Risks: No Nutritional Risk Patient : No service: No Current occupational status: employed Travel History Ebola Risk: Travel/Contact With Anyone From Affected Area/s: No Has Patient Experienced Ebola Symptoms: No Meds Allergies Allergy/AdvReac Type Severity Reaction Status Date / Time fluoxetine (Prozac) Allergy Unknown worsening Verified 09/27/25 15:58 depression gabapentin Allergy Unknown irritabilit Verified 09/27/25 15:58 y Iodinated Contrast Media (IV Allergy Unknown RASH Verified 09/27/25 15:58 CONTRAST) nortriptyline Allergy Unknown irritabilit Verified 09/27/25 15:58 y topiramate Allergy Unknown mild Verified 09/27/25 15:58 depression verapamil Allergy Unknown irritabilit Verified 09/27/25 15:58 y Active Medications: Current Medications Acetaminophen (Acetaminophen 325 Mg Tablet) 650 mg PO Q6H PRN PRN Reason: Pain, Mild (Pain Scale 1-3) Last Admin: 09/28/25 15:02 Dose: 650 mg Albuterol/Ipratropium (Albuterol/Iprat 2.5/0.5mg 3 Ml Ampul.Neb) 3 ml INHALE Q4H PRN PRN Reason: Shortness of Breath/Wheezing Last Admin: 09/29/25 11:26 Dose: 3 ml Atorvastatin Calcium (Atorvastatin Calcium 20 Mg Tablet) 20 mg PO DAILY [facility] Last Admin: 09/30/25 08:22 Dose: 20 mg Bisacodyl (Bisacodyl 10 Mg Supp.Rect) 10 mg OR BEDTIME PRN PRN Reason: Constipation Calcium Carbonate (Calcium Carbonate 750 Mg Tab.Chew) 750 mg PO Q4H PRN PRN Reason: Heartburn Calcium Polycarbophil (Calcium Polycarbophil Tablet) 1 tab PO DAILY@1130 [facility] Last Admin: 09/30/25 12:37 Dose: 1 tab Cyanocobalamin (Cyanocobalamin (Vitamin B-12) 500 Mcg Tablet) 500 mcg PO DAILY [facility] Last Admin: 09/30/25 08:22 Dose: 500 mcg Dextrose (Dextrose 50 % 25 Gm/50 Ml Syringe) 25 gm IVPUSH Q15M PRN; Protocol PRN Reason: per Hypoglycemia Standing Ord. Enoxaparin Sodium (Enoxaparin Sodium 40 Mg/0.4 Ml Syringe) 40 mg SUBCUT Q24H [facility] Last Admin: 09/30/25 08:23 Dose: 40 mg Ergocalciferol (Ergocalciferol (Vitamin D2) 1,250 Mcg Capsule) 1,250 mcg PO [facility] Folic Acid (Folic Acid 1 Mg Tablet) 1 mg PO DAILY [facility] Last Admin: 09/30/25 08:22 Dose: 1 mg Furosemide (Furosemide 20 Mg/2 Ml Vial) 20 mg IVPUSH Q12H [facility]; Protocol Last Admin: 09/30/25 13:35 Dose: 20 mg Glucose (Glucose Gel 15 Gm Gel..Gram.) 15 gm PO Q15M PRN; Protocol PRN Reason: per Hypoglycemia Standing Ord. Guaifenesin (Guaifenesin 200 Mg/10 Ml 10 Ml Liquid) 10 ml PO Q4H PRN PRN Reason: Cough Last Admin: 09/29/25 20:46 Dose: 10 ml Ceftriaxone Sodium 1 gm/ (Sodium Chloride) 50 mls @ 100 mls/hr IV Q24H [facility] Last Infusion: 09/30/25 03:08 Dose: Infused Doxycycline Hyclate 100 mg/ (Sodium Chloride) 250 mls @ 166.67 mls/hr IV Q12H [facility] Last Infusion: 09/30/25 05:11 Dose: Infused Insulin Human Lispro (Insulin Lispro 100 Unit/Ml 3 Ml Vial) 0 unit SUBCUT QIDACHS [facility]; Protocol Last Admin: 09/30/25 12:37 Dose: 6 unit Loratadine (Loratadine 10 Mg Tablet) 10 mg PO DAILY [facility] Last Admin: 09/30/25 08:22 Dose: 10 mg Magnesium Hydroxide (Milk Of Magnesia 30 Ml Oral.Susp) 30 ml PO DAILY PRN PRN Reason: Constipation Last Admin: 09/28/25 17:40 Dose: 30 ml Melatonin (Melatonin 3 Mg Tablet) 6 mg PO BEDTIME PRN PRN Reason: Insomnia Last Admin: 09/29/25 20:46 Dose: 6 mg Methotrexate (Methotrexate Sodium 2.5 Mg Tablet) 15 mg PO MORENO [facility] Last Admin: 09/29/25 11:08 Dose: 15 mg Methylprednisolone Sodium Succinate (Methylprednisolone Sod Succ 125 Mg/2 Ml Vial) 40 mg IVPUSH Q12H [facility] Last Admin: 09/30/25 08:22 Dose: 40 mg Multivitamins/Vitamin C (Multivitamin Tablet) 1 tab PO DAILY [facility] Last Admin: 09/30/25 08:22 Dose: 1 tab Non-Formulary Medication (Exemestane) 25 mg PO DAILY [facility] Omeprazole (Omeprazole 20 Mg Capsule.Dr) 20 mg PO DAILY@0630 [facility] Last Admin: 09/30/25 06:26 Dose: 20 mg Ondansetron HCl (Ondansetron Hcl 4 Mg/2 Ml Vial) 4 mg IVPUSH Q8H PRN PRN Reason: Nausea and Vomiting Polyethylene Glycol (Polyethylene Glycol 3350 17 Gm Powd.Pack) 17 gm PO DAILY [facility] Last Admin: 09/30/25 08:20 Dose: 17 gm Propranolol HCl (Propranolol Hcl La 80 Mg Cap.Sa.24h) 80 mg PO DAILY [facility]; Protocol Last Admin: 09/30/25 08:22 Dose: 80 mg Psyllium Hydrophilic Mucilloid (Psyllium Seed 3.7 Gm Packet) 3.7 gm PO DAILY [facility] Last Admin: 09/30/25 08:20 Dose: 3.7 gm Senna (Sennosides 8.6 Mg Tablet) 17.2 mg PO BEDTIME [facility] Last Admin: 09/29/25 20:45 Dose: 17.2 mg Sodium Chloride (0.9 % Sodium Chloride Flush 3 Ml Syringe) 3 ml IVFLUSH QSHIFT [facility] Last Admin: 09/30/25 08:23 Dose: 3 ml Sumatriptan Succinate (Sumatriptan Succinate 100 Mg Tablet) 100 mg PO DAILY MRX1 PRN PRN Reason: Migraine Headache Last Admin: 09/30/25 13:35 Dose: 100 mg Home Medications ?Medication ?Instructions ?Recorded ?Confirmed ?Last Taken ?Type omeprazole 20 mg capsule,delayed 20 mg PO DAILY 02/17/21 09/28/25 09/26/25 History release naratriptan 2.5 mg tablet 1 tab PO DAILY MRX1 PRN Migraine 03/26/21 09/28/25 Unknown History Headache propranolol 80 mg capsule,24 1 cap PO DAILY 03/26/21 09/28/25 09/26/25 History hr,extended release exemestane 25 mg tablet 25 mg PO DAILY 04/15/22 09/28/25 09/26/25 History cyanocobalamin (vitamin B-12) 500 500 mcg PO DAILY 12/28/22 09/28/25 09/26/25 History mcg tablet ergocalciferol (vitamin D2) 1,250 1,250 mcg PO WE 12/28/22 09/28/25 09/25/25 History mcg (50,000 unit) capsule metformin 500 mg tablet,extended 500 mg PO BID 12/28/22 09/28/25 09/26/25 History release 24 hr multivitamin 1 tab PO DAILY 12/28/22 09/28/25 09/26/25 History folic acid 1 mg tablet 1 mg PO DAILY 09/28/25 09/28/25 09/26/25 History methotrexate sodium 2.5 mg tablet 15 mg PO MORENO 09/28/25 09/28/25 09/22/25 History methylcellulose (with sugar) oral 1 tbsp PO DAILY 09/28/25 09/28/25 09/26/25 History powder (Citrucel (sucrose) oral powder) prednisone 5 mg tablet See Taper PO DAILY 09/28/25 09/28/25 09/26/25 History rosuvastatin 5 mg tablet 5 mg PO DAILY 09/28/25 09/28/25 09/26/25 History Physical Exam Vital Signs: Vital Signs: Last Vital Signs Temp 98.9 F 09/30/25 12:00 Pulse 73 09/30/25 12:00 Resp 18 09/30/25 12:00 BP 142/72 H 09/30/25 12:00 Pulse Ox 95 09/30/25 12:00 O2 Del Method Nasal Cannula 09/30/25 12:00 O2 Flow Rate 1 09/30/25 12:00 BMI result Body Mass Index 46.4 Const: General: no acute distress and alert Nutritional Appearance: obese Orientation/consciousness: Other orientation findings ( oriented) HEENT: Head: Yes atraumatic Eyes: General: appearance normal, both eyes and all related structures Sclerae: sclerae normal EOM: EOMs intact bilaterally Neck: Neck: Yes supple Lymphatic: no lymphadenopathy noted Resp: Effort & Inspection: normal respiratory effort and no use of accessory muscles Auscultation: clear to auscultation bilaterally Cardio: Rate: regular rate Rhythm: regular rhythm Heart sounds: no gallops, no murmurs and no rubs Skin: General skin exam: other ( warm) Extrem: General: No clubbing, No cyanosis and No edema Results Laboratory Findings 09/28/25 03:17 09/28/25 03:16 ABG, PT/INR, D-dimer: PT/INR, D-dimer PT 12.1 SEC (11.2-13.5) 09/27/25 16:10 INR 1.0 (0.9-1.1) 09/27/25 16:10 Abnormal lab findings: Abnormal Labs 09/27/25 09/27/25 09/28/25 16:10 18:54 03:16 MPV 8.8 L Immature Gran % (Auto) 0.8 H Lymph % (Auto) 17.2 L Abs Immat Gran (auto) 0.07 H BUN 17 H 17 H POC Glucose 218 H Random Glucose 233 H 252 H Hemoglobin A1c % Calcium 10.4 H D 10.7 H 09/28/25 09/28/25 09/28/25 03:17 04:21 07:12 MPV 8.7 L Immature Gran % (Auto) Lymph % (Auto) Abs Immat Gran (auto) BUN POC Glucose 334 H Random Glucose Hemoglobin A1c % 8.3 H Calcium 09/28/25 09/28/25 09/28/25 12:45 16:30 19:57 MPV Immature Gran % (Auto) Lymph % (Auto) Abs Immat Gran (auto) BUN POC Glucose 269 H 319 H 312 H Random Glucose Hemoglobin A1c % Calcium 09/29/25 09/29/25 09/29/25 07:59 10:28 16:25 MPV Immature Gran % (Auto) Lymph % (Auto) Abs Immat Gran (auto) BUN POC Glucose 284 H 344 H 344 H Random Glucose Hemoglobin A1c % Calcium 09/29/25 09/30/25 09/30/25 20:29 07:08 12:08 MPV Immature Gran % (Auto) Lymph % (Auto) Abs Immat Gran (auto) BUN POC Glucose 319 H 285 H 281 H Random Glucose Hemoglobin A1c % Calcium Microbiology: Microbiology 09/28/25 03:28 Blood - Venous Blood Culture - Preliminary No growth after 48 hours. 09/28/25 03:17 Blood - Venous Blood Culture - Preliminary No growth after 48 hours. Assessment and Plan (1) Acute respiratory failure with hypoxia: Status: Acute (2) Pulmonary edema: Status: Acute Plan Impression: 75-year-old lady with underlying diastolic dysfunction, obesity, psoriatic arthritis, breast cancer admitted with acute hypoxic respiratory failure in significant orthopnea. CT angio chest negative for pulmonary emboli, but does show pulmonary edema. Likely etiology is pulmonary edema from acute on chronic diastolic dysfunction with infectious/inflammatory/malignancy etiologies less likely. Recommendation: Would suggests additional diuresis and re-evaluation thereafter. Procedures Date of Service Date of Service: 09/30/25
--- NOTE | 2025-09-30 14:47 | P.PNIM_ITS ---
Subjective Subjective Date of Service: 09/30/25 Interval History: chf vs pneumonia Review of Systems Shortness of breath minimal exertion, also get hypoxic with ambulation. Denies any chest pain. Physical Exam 2 Exam: Exam: Appearance: Alert.? Oriented X3.? cvs: [id number], [id number] , no murmur res: air entry diminshed ,has few scattered rales at bases . abd: no rebound or guarding ,nt, bs present. ext pulses present , no cyanosis . neuro: axo3 , nonfocal. Vital Signs: Vital Signs: Last Vital Signs Temp 98.9 F 09/30/25 12:00 Pulse 73 09/30/25 12:00 Resp 18 09/30/25 12:00 BP 142/72 H 09/30/25 12:00 Pulse Ox 95 09/30/25 12:00 O2 Del Method Nasal Cannula 09/30/25 12:00 O2 Flow Rate 1 09/30/25 12:00 BMI result Body Mass Index 46.4 Objective Data Active Medications Acetaminophen (Acetaminophen 325 Mg Tablet) 650 mg PO Q6H PRN PRN Reason: Pain, Mild (Pain Scale 1-3) Last Admin: 09/28/25 15:02 Dose: 650 mg Documented By: COOPESNEHA Albuterol/Ipratropium (Albuterol/Iprat 2.5/0.5mg 3 Ml Ampul.Neb) 3 ml INHALE Q4H PRN PRN Reason: Shortness of Breath/Wheezing Last Admin: 09/29/25 11:26 Dose: 3 ml Documented By: DEANDRE Atorvastatin Calcium (Atorvastatin Calcium 20 Mg Tablet) 20 mg PO DAILY [facility] Last Admin: 09/30/25 08:22 Dose: 20 mg Documented By: MERNA Bisacodyl (Bisacodyl 10 Mg Supp.Rect) 10 mg HI BEDTIME PRN PRN Reason: Constipation Calcium Carbonate (Calcium Carbonate 750 Mg Tab.Chew) 750 mg PO Q4H PRN PRN Reason: Heartburn Calcium Polycarbophil (Calcium Polycarbophil Tablet) 1 tab PO DAILY@1130 [facility] Last Admin: 09/30/25 12:37 Dose: 1 tab Documented By: MERNA Cyanocobalamin (Cyanocobalamin (Vitamin B-12) 500 Mcg Tablet) 500 mcg PO DAILY [facility] Last Admin: 09/30/25 08:22 Dose: 500 mcg Documented By: MERNA Dextrose (Dextrose 50 % 25 Gm/50 Ml Syringe) 25 gm IVPUSH Q15M PRN; Protocol PRN Reason: per Hypoglycemia Standing Ord. Enoxaparin Sodium (Enoxaparin Sodium 40 Mg/0.4 Ml Syringe) 40 mg SUBCUT Q24H [facility] Last Admin: 09/30/25 08:23 Dose: 40 mg Documented By: MERNA Ergocalciferol (Ergocalciferol (Vitamin D2) 1,250 Mcg Capsule) 1,250 mcg PO [facility] Folic Acid (Folic Acid 1 Mg Tablet) 1 mg PO DAILY [facility] Last Admin: 09/30/25 08:22 Dose: 1 mg Documented By: MERNA Furosemide (Furosemide 20 Mg/2 Ml Vial) 20 mg IVPUSH Q12H [facility]; Protocol Last Admin: 09/30/25 13:35 Dose: 20 mg Documented By: MERNA Glucose (Glucose Gel 15 Gm Gel..Gram.) 15 gm PO Q15M PRN; Protocol PRN Reason: per Hypoglycemia Standing Ord. Guaifenesin (Guaifenesin 200 Mg/10 Ml 10 Ml Liquid) 10 ml PO Q4H PRN PRN Reason: Cough Last Admin: 09/29/25 20:46 Dose: 10 ml Documented By: SHEN Ceftriaxone Sodium 1 gm/ (Sodium Chloride) 50 mls @ 100 mls/hr IV Q24H [facility] Last Infusion: 09/30/25 03:08 Dose: Infused Documented By: SHEN Doxycycline Hyclate 100 mg/ (Sodium Chloride) 250 mls @ 166.67 mls/hr IV Q12H [facility] Last Infusion: 09/30/25 05:11 Dose: Infused Documented By: SHEN Insulin Human Lispro (Insulin Lispro 100 Unit/Ml 3 Ml Vial) 0 unit SUBCUT QIDACHS [facility]; Protocol Last Admin: 09/30/25 12:37 Dose: 6 unit Documented By: MERNA Loratadine (Loratadine 10 Mg Tablet) 10 mg PO DAILY [facility] Last Admin: 09/30/25 08:22 Dose: 10 mg Documented By: MERNA Magnesium Hydroxide (Milk Of Magnesia 30 Ml Oral.Susp) 30 ml PO DAILY PRN PRN Reason: Constipation Last Admin: 09/28/25 17:40 Dose: 30 ml Documented By: HERBERT Melatonin (Melatonin 3 Mg Tablet) 6 mg PO BEDTIME PRN PRN Reason: Insomnia Last Admin: 09/29/25 20:46 Dose: 6 mg Documented By: SHEN Methotrexate (Methotrexate Sodium 2.5 Mg Tablet) 15 mg PO MORENO [facility] Last Admin: 09/29/25 11:08 Dose: 15 mg Documented By: HERBERT Methylprednisolone Sodium Succinate (Methylprednisolone Sod Succ 125 Mg/2 Ml Vial) 40 mg IVPUSH Q12H [facility] Last Admin: 09/30/25 08:22 Dose: 40 mg Documented By: MERNA Multivitamins/Vitamin C (Multivitamin Tablet) 1 tab PO DAILY [facility] Last Admin: 09/30/25 08:22 Dose: 1 tab Documented By: MERNA Non-Formulary Medication (Exemestane) 25 mg PO DAILY [facility] Omeprazole (Omeprazole 20 Mg Capsule.Dr) 20 mg PO DAILY@0630 [facility] Last Admin: 09/30/25 06:26 Dose: 20 mg Documented By: SHEN Ondansetron HCl (Ondansetron Hcl 4 Mg/2 Ml Vial) 4 mg IVPUSH Q8H PRN PRN Reason: Nausea and Vomiting Polyethylene Glycol (Polyethylene Glycol 3350 17 Gm Powd.Pack) 17 gm PO DAILY [facility] Last Admin: 09/30/25 08:20 Dose: 17 gm Documented By: MERNA Propranolol HCl (Propranolol Hcl La 80 Mg Cap.Sa.24h) 80 mg PO DAILY [facility]; Protocol Last Admin: 09/30/25 08:22 Dose: 80 mg Documented By: MERNA Psyllium Hydrophilic Mucilloid (Psyllium Seed 3.7 Gm Packet) 3.7 gm PO DAILY [facility] Last Admin: 09/30/25 08:20 Dose: 3.7 gm Documented By: MERNA Senna (Sennosides 8.6 Mg Tablet) 17.2 mg PO BEDTIME [facility] Last Admin: 09/29/25 20:45 Dose: 17.2 mg Documented By: SHEN Sodium Chloride (0.9 % Sodium Chloride Flush 3 Ml Syringe) 3 ml IVFLUSH QSHIFT [facility] Last Admin: 09/30/25 08:23 Dose: 3 ml Documented By: MERNA Sumatriptan Succinate (Sumatriptan Succinate 100 Mg Tablet) 100 mg PO DAILY MRX1 PRN PRN Reason: Migraine Headache Last Admin: 09/30/25 13:35 Dose: 100 mg Documented By: MERNA Labs 09/28/25 03:17 09/28/25 03:16 Labs: Laboratory Results - last 24 hr 09/29/25 09/29/25 09/30/25 16:25 20:29 07:08 VBG pH VBG pCO2 VBG pO2 VBG HCO3 VBG O2 Saturation VBG Base Excess POC Glucose 344 H 319 H 285 H 09/30/25 09/30/25 09:52 12:08 VBG pH 7.43 VBG pCO2 36 VBG pO2 57 VBG HCO3 24 VBG O2 Saturation 86.0 VBG Base Excess 0.8 POC Glucose 281 H Microbiology Microbiology Results: Microbiology 09/28/25 03:28 Blood Culture - Preliminary Blood - Venous No growth after 48 hours. 09/28/25 03:17 Blood Culture - Preliminary Blood - Venous No growth after 48 hours. Assessment and Plan (1) Acute diastolic (congestive) heart failure: Status: Acute (2) Pneumonia: Status: Acute (3) Hypoxia: Status: Acute Plan 75-year-old female with past medical history chronic anemia, psoriatic arthritis, diverticulitis, GERD, bilateral breast cancer (invasive ductal carcinoma of left breast and lobular carcinoma in-situ of right breast currently on oral chemotherapy and next mammogram is due 10/01/2025), bilateral lumpectomies, recent bone density test indicating osteoporosis. migraine without aura, obesity, anxiety/depression situational, insomnia, NIDDM, vegetarian that eats eggs and cheese, history of right foot ulcer and cellulitis presented ambulatory to the ED with complaints of shortness of breath for over 2 weeks with recent low oxygen levels at her PCPs office. Patient being admitted with the following medical concerns: Acute hypoxic respiratory failure sec to Pneumonia/pneumonitis vs possible HFpEF exceerbation Since arrival patient has been able to sustain room air at rest, noted hypoxia with ambulation CTA neg for PE Respiratory viral panel negative sob seems similar plan: Monitor I&O Daily weight Echo IV Lasix continue ceftriaxone and doxycycline empirically ,iv steriods adjusted ,Supportive care with duo nebs, antitussives. NIDDM Sliding scale insulin ordered a.c. and HS Diabetic diet (note patient is a vegetarian that will eat eggs and cheese) A1c 8.3 Constipation Pt uses dilaudid and oxycodone prn MiraLax daily Senna hs Dulcolax suppository PRN Daily fiber hx Migraine without aura uses naratriptan at home but also uses sumatriptan which is now ordered PRN daily Tylenol also affect Chronic pain secondary to psoriatic arthritis Tylenol PRN Dilaudid and Oxycodone will be held for now due to constipation (med rec pending) Patient believes she may have been on methotrexate but this is not currently on her med rec, med rec currently pending Morbid Obesity Patient has been more sedentary for the last year since being diagnosed with psoriatic arthritis Patient denies history of neuropathy in both feet but finds it very difficult to ambulate due to the arthritic pain that she experiences Nutritional eval. GERD Continue omeprazole Avoid food triggers Hx if B Breast Cancer Continue exemstane once med rec completed ongoing need for stay: Pneumonitis-similar symptoms, respiratory status is not optimal yet, need IV antibiotics, follow culture, taper oxygen. Quality Stroke Does the patient have a stroke diagnosis?: No Reason for No Anti-thrombotic by Day Two: N/A - Med Ordered VTE Prior VTE?: No VTE Risk Level:: Medical - moderate - high VTE Device Contraindication: N/A - Device Ordered VTE Drug Contraindication: N/A - Med Ordered
--- NOTE | 2025-09-30 16:00 | CA_ITS ---
Transthoracic Echocardiogram Patient (Last, First, Middle): Allyssa Borges, Gender: F Date of : 1950 Age: 75 Procedure Date: 09/30/2025 Procedure Type: Transthoracic Echocardiogram Location: [facility] [place] Height: 170.18 cm Weight: 134.46 kg BSA: 2.39 m2 Heart Rate: bpm BP: 142 / 72 mmHg Forestry Aide: Referring MD: Jr Zhang MD Symptoms: ?chf Study Quality: Adequate ECG Rhythm: Sinus Conclusions: - The left ventricular systolic function is normal. The calculated ejection fraction is 63% by biplane method. - There is moderately increased left ventricular wall thickness. - No obvious valvular pathology seen on this study. Findings Left Ventricle Normal left ventricular cavity size. There is moderately increased left ventricular wall thickness. The left ventricular systolic function is normal. The calculated ejection fraction is 63% by biplane method. There is no evidence of regional wall motion abnormalities. Evidence suggests grade I (mild) diastolic dysfunction. Right Ventricle Mildly increased right ventricular cavity size. There is normal right ventricular systolic function. Atria The left atrium is moderately dilated. The right atrium is normal in size. Aortic Valve The aortic valve was not well visualized. There is no aortic valve stenosis. There is no aortic valve regurgitation. Mitral Valve There is mild mitral annular calcification. There is no mitral valve regurgitation. There is no mitral valve stenosis. Pulmonic Valve The pulmonic valve is likely normal. There is trace pulmonic valve regurgitation. Tricuspid Valve There is trace tricuspid valve regurgitation. There is no evidence of pulmonary hypertension. Great Vessels The asc aorta is normal in size. Venous The inferior vena cava is normal in size and collapses greater than 50% with inspiration. Pericardium/Pleural There is no evidence of pericardial effusion. Prior Study Comparison No significant change compared to prior study dated: 01/18/2023. Recommendations, Care & Conclusions No obvious valvular pathology seen on this study. Measurements 2D Linear Measurements IVSd: 1.35 0.6-0.9/0.6-1.0 cm LVIDd: 4.42 3.9-5.3/4.2-5.9 cm LVIDd Index: 1.85 2.4-3.2/2.2-3.1 cm/m2 LVIDs: 3.01 2.0-3.6 cm LVPWd: 1.34 0.7-1.1 cm Ao Root: 3.60 2.1-3.5 cm LA Diam: 4.30 2.7-3.8/3.0-4.0 cm LAIDs Index: 1.80 1.5-2.3 cm/m2 LV Mass: 284.00 67-162/88-224 g LV Mass Index: 118.83 43-95/49-115 g/m2 LVOT Diam: 2.40 3.0+(-)1.3 cm 2D Systolic Function EF 4C: 61.80 >55% EF 2C: 67.30 >55% EF BiP: 63.40 >55% Mitral Valve MV Pk E: 1.00 MV PK A: 0.89 MV Decel Time: 218.00 E/A: 1.10 E'Lateral: 6.42 E'Medial: 5.77 E/E' Med: 17.30 E/E' Lat: 15.60 PHT: 64.00 MVA PHT: 3.44 Decel [place]: 4.59 Aortic Valve AoV Pk Rakesh: 1.53 AoV Mn Rakesh: 0.92 AoV VTI: 0.36 AoV Pk Grad: 9.00 Aov Mn Grad: 4.00 ELVIA Cont.VTI: 3.81 LVOT LVOT Pk Rakesh: 0.98 LVOT Mn Rakesh: 0.66 LVOT VTI: 0.30 LVOT Pk Grad: 4.00 LVOT Mn Grad: 2.00 LVOT Diam: 2.40 LVOT Area: 4.52 Diastolic Function MV Pk E: 1.00 MV Pk A: 0.89 E/A: 1.10 E'Medial: 5.77 E/E' Med: 17.30 E' Laterial: 6.42 E/E' Lat: 15.60 Right Ventricle TAPSE (mm): 27.00 TVS' Rakesh: 14.00 Tricuspid Valve TR Pk Rakesh: 2.74 TR Pk Grad: 30.00 RA Press: 3.00 RVSP: 33.00 Great Vessels Aorta Ao Root-2D: 3.60 2.0-3.7 cm Ao Asc: 3.50 2.1-3.4 cm Pulmonary Veins Pulm Vein S/D 1.50 Pulmonary Valve PV Pk Rakesh: 0.88 Peak PV Grad: 3.00 Updated in Other Vendor System with Status of Final Rangel Vikash MD electronically signed on 10/01/2025 11:19:01 AM with status of Final
[2025-09-30 16:03] LABS: Glucose, Whole Blood 344 mg/dL (60-115)
[2025-09-30 20:38] LABS: Glucose, Whole Blood 374 mg/dL (60-115)
[2025-10-01 02:59] VITALS: BP 114/74; PULSE 77; RESP 18; TEMP 36.2; O2SAT 97
[2025-10-01] MEDS: guaiFENesin 200 MG/10 ML 10 ML LIQUID PO ×2 (05:25→20:11)
[2025-10-01] MEDS: Furosemide 20 MG/2 ML VIAL IVPUSH ×2 (05:25→17:03)
[2025-10-01 06:59] LABS: Glucose, Whole Blood 245 mg/dL (60-115)
[2025-10-01 07:11] VITALS: BP 137/71; PULSE 70; RESP 18; TEMP 36.4; O2SAT 96
[2025-10-01 07:15] LABS: Anion Gap 13 (12-20); Blood Urea Nitrogen 28 mg/dL (9-16); Calcium 10.1 mg/dL (8.4-10.2); Carbon Dioxide 25 mmol/L (22-29); Chloride 99 mmol/L (96-108); Creatinine Clr Calc Pharmacy 83.8; Estimated Glomerular Filt Rate > 60; Potassium 4.3 mmol/L (3.3-5.1); Sodium 133 mmol/L (135-145)
[2025-10-01 07:30] LABS: NT Pro B Type Natriuretic Pept 356.6 pg/mL (<300)
[2025-10-01] MEDS: Psyllium seed 3.7 GM PACKET PO (08:53)
[2025-10-01] MEDS: 0.9 % Sodium Chloride Flush 3 ML SYRINGE IVFLUSH ×3 (08:56→20:13)
[2025-10-01] MEDS: Propranolol HCL LA 80 MG CAP.SA.24H PO (08:56)
[2025-10-01 11:43] VITALS: BP 150/78; PULSE 80; RESP 20; TEMP 36.5; O2SAT 95
[2025-10-01 12:06] LABS: Glucose, Whole Blood 262 mg/dL (60-115)
[2025-10-01] MEDS: calcium polycarbophiL TABLET 1 TAB PO (12:07)
--- NOTE | 2025-10-01 15:54 | HO.PM.IMPN ---
Subjective Subjective Date of Service: 10/01/25 Interval History: chf Review of Systems Patient is short of breath with minimal exertion, still can not lie flat Denies chest pain Review of Systems: Yes all other systems are reviewed and are negative Physical Exam Exam: Exam: Appearance: Alert.? Oriented X3.? cvs: rrr, [id number] , no murmur res: air entry diminshed ,has few scattered rales at bases . abd: no rebound or guarding ,nt, bs present. ext pulses present , no cyanosis . neuro: axo3 , nonfocal. Vital Signs: Vital Signs: Last Vital Signs Temp 97.7 F 10/01/25 11:43 Pulse 80 10/01/25 11:43 Resp 20 10/01/25 11:43 BP 150/78 H 10/01/25 11:43 Pulse Ox 95 10/01/25 11:43 O2 Del Method Nasal Cannula 10/01/25 11:43 O2 Flow Rate 1 10/01/25 11:43 BMI result Body Mass Index 46.4 Objective Data Active Medications Acetaminophen (Acetaminophen 325 Mg Tablet) 650 mg PO Q6H PRN PRN Reason: Pain, Mild (Pain Scale 1-3) Last Admin: 09/28/25 15:02 Dose: 650 mg Documented By: COOPESNEHA Albuterol/Ipratropium (Albuterol/Iprat 2.5/0.5mg 3 Ml Ampul.Neb) 3 ml INHALE Q4H PRN PRN Reason: Shortness of Breath/Wheezing Last Admin: 09/29/25 11:26 Dose: 3 ml Documented By: DEANDRE Atorvastatin Calcium (Atorvastatin Calcium 20 Mg Tablet) 20 mg PO DAILY [facility] Last Admin: 10/01/25 08:56 Dose: 20 mg Documented By: MERNA Bisacodyl (Bisacodyl 10 Mg Supp.Rect) 10 mg IN BEDTIME PRN PRN Reason: Constipation Calcium Carbonate (Calcium Carbonate 750 Mg Tab.Chew) 750 mg PO Q4H PRN PRN Reason: Heartburn Calcium Polycarbophil (Calcium Polycarbophil Tablet) 1 tab PO DAILY@1130 [facility] Last Admin: 10/01/25 12:07 Dose: 1 tab Documented By: MERNA Cyanocobalamin (Cyanocobalamin (Vitamin B-12) 500 Mcg Tablet) 500 mcg PO DAILY [facility] Last Admin: 10/01/25 08:56 Dose: 500 mcg Documented By: MERNA Dextrose (Dextrose 50 % 25 Gm/50 Ml Syringe) 25 gm IVPUSH Q15M PRN; Protocol PRN Reason: per Hypoglycemia Standing Ord. Doxycycline Monohydrate (Doxycycline Monohydrate 100 Mg Capsule) 100 mg PO BID [facility] Enoxaparin Sodium (Enoxaparin Sodium 40 Mg/0.4 Ml Syringe) 40 mg SUBCUT Q24H [facility] Last Admin: 10/01/25 08:56 Dose: 40 mg Documented By: MERNA Ergocalciferol (Ergocalciferol (Vitamin D2) 1,250 Mcg Capsule) 1,250 mcg PO [facility] Folic Acid (Folic Acid 1 Mg Tablet) 1 mg PO DAILY [facility] Last Admin: 10/01/25 08:56 Dose: 1 mg Documented By: MERNA Furosemide (Furosemide 20 Mg/2 Ml Vial) 20 mg IVPUSH Q12H [facility]; Protocol Last Admin: 10/01/25 05:25 Dose: 20 mg Documented By: TEOFILO Glucose (Glucose Gel 15 Gm Gel..Gram.) 15 gm PO Q15M PRN; Protocol PRN Reason: per Hypoglycemia Standing Ord. Guaifenesin (Guaifenesin 200 Mg/10 Ml 10 Ml Liquid) 10 ml PO Q4H PRN PRN Reason: Cough Last Admin: 10/01/25 05:25 Dose: 10 ml Documented By: TEOFILO Ceftriaxone Sodium 1 gm/ (Sodium Chloride) 50 mls @ 100 mls/hr IV Q24H [facility] Last Infusion: 10/01/25 03:46 Dose: Infused Documented By: TEOFILO Insulin Human Lispro (Insulin Lispro 100 Unit/Ml 3 Ml Vial) 0 unit SUBCUT QIDACHS [facility]; Protocol Last Admin: 10/01/25 12:07 Dose: 6 unit Documented By: MERNA Loratadine (Loratadine 10 Mg Tablet) 10 mg PO DAILY [facility] Last Admin: 10/01/25 08:56 Dose: 10 mg Documented By: MERNA Magnesium Hydroxide (Milk Of Magnesia 30 Ml Oral.Susp) 30 ml PO DAILY PRN PRN Reason: Constipation Last Admin: 09/28/25 17:40 Dose: 30 ml Documented By: HERBERT Melatonin (Melatonin 3 Mg Tablet) 6 mg PO BEDTIME PRN PRN Reason: Insomnia Last Admin: 09/29/25 20:46 Dose: 6 mg Documented By: SHEN Methotrexate (Methotrexate Sodium 2.5 Mg Tablet) 15 mg PO MORENO [facility] Last Admin: 09/29/25 11:08 Dose: 15 mg Documented By: HERBERT Multivitamins/Vitamin C (Multivitamin Tablet) 1 tab PO DAILY [facility] Last Admin: 10/01/25 08:56 Dose: 1 tab Documented By: MERNA Non-Formulary Medication (Exemestane) 25 mg PO DAILY [facility] Omeprazole (Omeprazole 20 Mg Capsule.Dr) 20 mg PO DAILY@0630 [facility] Last Admin: 10/01/25 05:25 Dose: 20 mg Documented By: TEOFILO Ondansetron HCl (Ondansetron Hcl 4 Mg/2 Ml Vial) 4 mg IVPUSH Q8H PRN PRN Reason: Nausea and Vomiting Polyethylene Glycol (Polyethylene Glycol 3350 17 Gm Powd.Pack) 17 gm PO DAILY [facility] Last Admin: 10/01/25 08:53 Dose: 17 gm Documented By: MERNA Propranolol HCl (Propranolol Hcl La 80 Mg Cap.Sa.24h) 80 mg PO DAILY [facility]; Protocol Last Admin: 10/01/25 08:56 Dose: 80 mg Documented By: MERNA Psyllium Hydrophilic Mucilloid (Psyllium Seed 3.7 Gm Packet) 3.7 gm PO DAILY [facility] Last Admin: 10/01/25 08:53 Dose: 3.7 gm Documented By: MERNA Senna (Sennosides 8.6 Mg Tablet) 17.2 mg PO BEDTIME [facility] Last Admin: 09/30/25 20:51 Dose: Not Given Documented By: TEOFILO Non-Admin Reason: Patient Refused Sodium Chloride (0.9 % Sodium Chloride Flush 3 Ml Syringe) 3 ml IVFLUSH QSHIFT [facility] Last Admin: 10/01/25 08:56 Dose: 3 ml Documented By: MERNA Sumatriptan Succinate (Sumatriptan Succinate 100 Mg Tablet) 100 mg PO DAILY MRX1 PRN PRN Reason: Migraine Headache Last Admin: 10/01/25 12:10 Dose: 100 mg Documented By: HO.LESSARL Labs 09/28/25 03:17 10/01/25 06:28 Labs: Laboratory Results - last 24 hr 09/30/25 09/30/25 10/01/25 15:39 20:30 06:28 Hold Purple Top SEE NOTE Anion Gap 13 Estim Creat Clear Calc 83.8 Estimated GFR > 60 POC Glucose 344 H 374 H* Random Glucose 266 H Calcium 10.1 NT-Pro-B Natriuret Pep 356.6 H 10/01/25 10/01/25 06:56 12:00 Hold Purple Top Anion Gap Estim Creat Clear Calc Estimated GFR POC Glucose 245 H 262 H Random Glucose Calcium NT-Pro-B Natriuret Pep Assessment and Plan (1) Pulmonary edema: Status: Acute Plan 75-year-old female with past medical history chronic anemia, psoriatic arthritis, diverticulitis, GERD, bilateral breast cancer (invasive ductal carcinoma of left breast and lobular carcinoma in-situ of right breast currently on oral chemotherapy and next mammogram is due 10/01/2025), bilateral lumpectomies, recent bone density test indicating osteoporosis. migraine without aura, obesity, anxiety/depression situational, insomnia, NIDDM, vegetarian that eats eggs and cheese, history of right foot ulcer and cellulitis presented ambulatory to the ED with complaints of shortness of breath for over 2 weeks with recent low oxygen levels at her PCPs office. Patient being admitted with the following medical concerns: Acute hypoxic respiratory failure sec to Pneumonia/pneumonitis vs possible HFpEF exceerbation Since arrival patient has been able to sustain room air at rest, noted hypoxia with ambulation CTA neg for PE Respiratory viral panel negative sob seems similar plan: Monitor I&O: 1.6 liter Daily weight Echo:The left ventricular systolic function is normal. The calculated ejection fraction is 63% by biplane method. There is moderately increased left ventricular wall thickness. No obvious valvular pathology seen on this study IV Lasix Seen by pulmonary recommended for diuresis,infectious/inflammatory/malignancy etiologies less likely. Blood culture negative at 48 hours. We will stop antibiotics. Consider Pulmonary follow-up before discharge. NIDDM Sliding scale insulin ordered a.c. and HS Diabetic diet (note patient is a vegetarian that will eat eggs and cheese) A1c 8.3 Constipation Pt uses dilaudid and oxycodone prn MiraLax daily Senna hs Dulcolax suppository PRN Daily fiber hx Migraine without aura uses naratriptan at home but also uses sumatriptan which is now ordered PRN daily Tylenol also affect Chronic pain secondary to psoriatic arthritis Tylenol PRN Dilaudid and Oxycodone will be held for now due to constipation (med rec pending) Patient believes she may have been on methotrexate but this is not currently on her med rec, med rec currently pending Morbid Obesity Patient has been more sedentary for the last year since being diagnosed with psoriatic arthritis Patient denies history of neuropathy in both feet but finds it very difficult to ambulate due to the arthritic pain that she experiences Nutritional eval. GERD Continue omeprazole Avoid food triggers Hx if B Breast Cancer Continue exemstane once med rec completed ongoing need for stay: Possible CHF-similar symptoms-continue IV Lasix, monitor I&O, respiratory status is not optimal yet. Quality Stroke Does the patient have a stroke diagnosis?: No Reason for No Anti-thrombotic by Day Two: N/A - Med Ordered VTE Prior VTE?: No VTE Risk Level:: Medical - moderate - high VTE Device Contraindication: N/A - Device Ordered VTE Drug Contraindication: N/A - Med Ordered
[2025-10-01 16:00] VITALS: BP 165/91; PULSE 74; RESP 18; TEMP 36.6; O2SAT 95
[2025-10-01 16:23] LABS: Glucose, Whole Blood 254 mg/dL (60-115)
[2025-10-01 19:11] VITALS: BP 135/71; PULSE 77; RESP 18; TEMP 36.1; O2SAT 95
[2025-10-01 21:05] LABS: Glucose, Whole Blood 197 mg/dL (60-115)
[2025-10-02] VITALS: BP 115/64; PULSE 74; RESP 20; TEMP 36.5; O2SAT 95
[2025-10-02 04:00] VITALS: BP 123/80; PULSE 75; RESP 16; TEMP 36.2; O2SAT 95
[2025-10-02] MEDS: Furosemide 20 MG/2 ML VIAL IVPUSH (04:43)
[2025-10-02] MEDS: guaiFENesin 200 MG/10 ML 10 ML LIQUID PO (04:43)
[2025-10-02 07:34] LABS: Glucose, Whole Blood 175 mg/dL (60-115)
[2025-10-02 07:37] VITALS: BP 142/73; PULSE 77; RESP 20; TEMP 36.4; O2SAT 94
[2025-10-02] MEDS: Propranolol HCL LA 80 MG CAP.SA.24H PO (08:36)
[2025-10-02] MEDS: Psyllium seed 3.7 GM PACKET PO (08:36)
[2025-10-02] MEDS: 0.9 % Sodium Chloride Flush 3 ML SYRINGE IVFLUSH (08:38)
[2025-10-02 09:49] VITALS: PULSE 101; PULSE 102; O2SAT 91; O2SAT 95
--- NOTE | 2025-10-02 11:02 | PM.DS ---
DS: Providers Provider Date of Service: 10/02/25 Date of admission: 09/28/25 02:59 Date of discharge: 10/02/25 Primary care physician: Audra Burger MD Consults: 09/30/25 09:35 Consult to Pulmonology Routine Consulting Provider: [facility] Reason for consultation: Hypoxia / pneumonia Has provider been notified: No DS: Diagnosis Discharge Diagnosis (1) Pulmonary edema: Status: Acute DS: Summary Hospital Course Hospital Course: from initial hpi: 75-year-old female with past medical history chronic anemia, psoriatic arthritis, diverticulitis, GERD, bilateral breast cancer (invasive ductal carcinoma of left breast and 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 Patient states she is a nonsmoker and no recent travel. Patient reports also constipation persistent for the last week, decrease in appetite and daily migraines for the last 2 months. Patient has been using naratriptan at home PRN for her migraine relief. Patient states Tylenol is also effective. Patient also has chronic pain associated with her psoriatic arthritis and her ability to ambulate has declined with a 60 lb weight gain over the last year. Patient denies any chest pain, shortness of breath at rest, nausea/vomiting, fever, chills, abdominal pain. Patient is also not having any edema in the lower extremities that is unexplained. Workup in the ED included chest x-ray which led to a CTA of the chest which ruled out pulmonary embolism but noted multifocal airspace disease with differentials to include pneumonitis versus pneumonia. On CTA it is noted that patient may have some postprocedural scarring of the left breast. Patient has no leukocytosis, no anemia, no electrolyte abnormalities with normal renal function. Patient's blood sugar running 252. Lactic acid 1.5. Troponin and BNP within normal limits. LFTs also stable. Patient is started on azithromycin and ceftriaxone in the ED empirically. Patient also started on methylprednisolone. Blood cultures pending. VBG reassuring pH 7.42, CO2 37, PO2 70 and bicarb 24. Viral testing for COVID, RSV and flu are all negative. Patient does keep up with her immunizations per her PCP. Patient being admitted for hypoxia being treated empirically for pneumonitis/pneumonia. hospital course: patient was admitted for acute hypoxic respiratory failure secondary to acute on chronic diastolic CHF and pneumonitis. was treated with IV Lasix and diuresed well, echocardiogram showed normal EF with moderately increased left ventricular wall thickness, IVC was collapsing greater than 50% on inspiration. concern for inflammatory etiology with history of psoriatic arthritis on infliximab, we will treat with prednisone taper and and she should follow up with Pulmonary to determine full course of prednisone taper and repeat imaging. Prior to discharge home oxygen evaluation was done and did not require home O2. For diabetes was continued on insulin sliding scale. For morbid obesity weight loss recommended. For history of breast cancer was continued on exemestane. Patient is feeling better and she will be discharged home. Time Attestation Discharge Coordination Time (in mins): 35 Quality: Safe Use of Opioids Does Pt have an Active Cancer Diagnosis on the Problem List?: Yes Opioid Measure Date for [facility] Report: 09/02/25 Opioid Measure Time for [facility] Report: 11:02 Quality: Stroke Does the patient have a stroke diagnosis?: No Physical Exam Exam: Exam: General: AO X 3, no acute distress Resp: CTA bilateral, no accessory muscles used CVS: S1,S2,RRR GI: soft, non tender, non distended Neuro: motor grossly intact, alert Psych: appropriate affect, appropriate insight Vital Signs: Vital Signs: Last Vital Signs Temp 97.6 F 10/02/25 07:37 Pulse 77 10/02/25 07:37 Resp 20 10/02/25 07:37 BP 142/73 H 10/02/25 07:37 Pulse Ox 94 10/02/25 07:37 O2 Del Method Nasal Cannula 10/02/25 07:37 O2 Flow Rate 1 10/02/25 07:37 BMI result Body Mass Index 46.4 DS: Data Data Completed and Pending Completed studies during hospitalization [Text1]: Procedures Change Pressure Dressing on Right Foot (12/28/22) Excision of Right Lower Leg Skin, External Approach (12/28/22) Extraction of Right Foot Skin, External Approach (12/28/22) Insertion of Infusion Device into Superior Vena Cava, Percutaneous Approach (12/28/22) Ultrasonography of Superior Vena Cava, Guidance (12/28/22) Labs on day of discharge: Laboratory Results - last 24 hr 10/01/25 10/01/25 10/01/25 12:00 16:18 20:58 POC Glucose 262 H 254 H 197 H 10/02/25 07:29 POC Glucose 175 H Preliminary micro results at discharge 09/28/25 03:28 Blood Culture - Preliminary Blood - Venous No growth after 48 hours. 09/28/25 03:17 Blood Culture - Preliminary Blood - Venous No growth after 48 hours. Discharge Plan Discharge Anticipated Discharge Date/Time: 10/02/25 10:58 Patient Disposition: Home, Self-Care Discharge Diagnosis: pneumonitis, chf Referrals: Physician,Nonstaff [Physician, Medical] - 1 Week Discharge Medications: New prednisone 20 mg Tablet 40 mg PO DAILY Qty: 15 0RF Rx Instructions: 40mg day daily for 5 days, then 20mg daily for 5 days Continued propranolol 80 mg capsule,extended release 24 hr 1 cap PO DAILY naratriptan 2.5 mg tablet 1 tab PO DAILY [id number] PRN (Reason: Migraine Headache) Rx Instructions: MAY REPEAT IN 4 HOURS MAX 2 TABS PER DAY multivitamin Tablet 1 tab PO DAILY cyanocobalamin (vitamin B-12) 500 mcg tablet 500 mcg PO DAILY ergocalciferol (vitamin D2) 1,250 mcg (50,000 unit) capsule 1,250 mcg PO WE metformin 500 mg tablet extended release 24 hr 500 mg PO BID acetaminophen 325 mg Tablet 650 mg PO Q6H PRN (Reason: Pain, Mild (Pain Scale 1-3)) Qty: 20 0RF methotrexate sodium 2.5 mg tablet 15 mg PO MORENO folic acid 1 mg tablet 1 mg PO DAILY rosuvastatin 5 mg tablet 5 mg PO DAILY Citrucel (sucrose) Powder 1 tbsp PO DAILY omeprazole 20 mg capsule,delayed release(DR/EC) 20 mg PO DAILY exemestane 25 mg tablet 25 mg PO DAILY Discontinued prednisone 5 mg tablet See Taper PO DAILY Taper: Prednisone 15 mg daily for 5 Days and 0 Hour 10 mg daily for 5 Days and 0 Hour 5 mg daily for 5 Days and 0 Hour Patient Comments: last dose was 10 mg on 09/26/25 (first day of the 10 mg dose) Discharge Orders: Discharge Order (Routine); Ordered 10/02/25 Ordered By: Solis Jesin Diet: Advance to usual diet Activity on Discharge: As tolerated Stand Alone Forms: Patient Portal Discharge page Print Language: Bulgarian Care Plan Goals: manage pneumonitis Health Concerns: pneumonitis Plan of Treatment: stop remicade, take prednisone tapers as prescribed, follow up with pulmonary for repeat imaging and ?need for longer steroid course Assessment: see above
--- NOTE | 2025-10-02 11:17 | MHC.CM.PN ---
Patient has been medically cleared for dc to home today, self care. IMM addressed with Patient at bedside.
[2025-10-02 11:26] VITALS: BP 128/58; PULSE 84; RESP 18; TEMP 36.4; O2SAT 94
[2025-10-02 11:28] LABS: Glucose, Whole Blood 231 mg/dL (60-115)
[2025-10-02] MEDS: calcium polycarbophiL TABLET 1 TAB PO (11:51)
== END 2025-10-02 12:04 | disposition home or self-care (01) | DRG 193 ==
LOC: HO.ED 09-28 02:58 → HO.EDOVER 09-28 03:07 → HO.IMC 09-28 11:23
PROVIDERS: Internal Medicine; Physician Assistant Medical; Registered Nurse Emergency; Admitting Provider Nurse Practitioner Family; Emergency Provider Student in an Organized Health Care Education/Training Program; PCP Family Medicine; Visit Provider Internal Medicine
DX: J18.9 Pneumonia, unspecified organism (principal); I50.33 Acute on chronic diastolic (congestive) heart failure; J96.01 Acute respiratory failure with hypoxia; Z68.42 Body mass index [BMI] 45.0-49.9, adult; L40.50 Arthropathic psoriasis, unspecified; K59.00 Constipation, unspecified; K21.9 Gastro-esophageal reflux disease without esophagitis; C50.912 Malignant neoplasm of unspecified site of left female breast; C50.911 Malignant neoplasm of unspecified site of right female breast; E66.01 Morbid (severe) obesity due to excess calories; Z71.3 Dietary counseling and surveillance; J98.4 Other disorders of lung; E11.9 Type 2 diabetes mellitus without complications; G43.909 Migraine, unspecified, not intractable, without status migrainosus; Z20.822 Contact with and (suspected) exposure to COVID-19; Z79.84 Long term (current) use of oral hypoglycemic drugs; Z79.811 Long term (current) use of aromatase inhibitors; Z79.631 Long term (current) use of antimetabolite agent; Z79.899 Other long term (current) drug therapy
CPT/HCPCS: 36415; 71046; 71275; 80048; 80053; 82803; 82947; 83036; 83605; 83880; 84484; 85025; 85027; 85610; 87040; 87633; 87637; 93005; 93306; 94640; 99285; J0456; J0696; J1200; J1271; J1650; J1938; J2919; Q9957; Q9967

== ENCOUNTER → 2025-09-27 15:54 | Outpatient (BNV) | payer MEDICARE, BC, SELFPAY | PROVIDERS: Admitting Provider Nurse Practitioner Family; Emergency Provider Student in an Organized Health Care Education/Training Program; Visit Provider Internal Medicine Cardiovascular Disease | DX: R94.31 Abnormal electrocardiogram [ECG] [EKG] (principal); R06.02 Shortness of breath | CPT/HCPCS: 93010 ==

== ENCOUNTER → 2025-09-27 15:54 | Outpatient (BNV) | payer MEDICARE, SELFPAY | PROVIDERS: Visit Provider Radiology Diagnostic Radiology | DX: R06.00 Dyspnea, unspecified (principal) | CPT/HCPCS: 71046 ==

== ENCOUNTER → 2025-09-28 00:30 | Outpatient (BNV) | payer MEDICARE, BC, SELFPAY | PROVIDERS: Emergency Provider Student in an Organized Health Care Education/Training Program; Visit Provider Radiology Neuroradiology | DX: R06.09 Other forms of dyspnea (principal); Z85.3 Personal history of malignant neoplasm of breast | CPT/HCPCS: 71275 ==

== ENCOUNTER 2025-09-28 02:59 | Outpatient (BNV) | payer MEDICARE, SELFPAY | END 2025-09-30 16:00 | PROVIDERS: Admitting Provider Nurse Practitioner Family; Emergency Provider Student in an Organized Health Care Education/Training Program; PCP Family Medicine; Visit Provider Internal Medicine | DX: I51.7 Cardiomegaly (principal) | CPT/HCPCS: 93306 ==

== ENCOUNTER → 2025-09-28 02:59 | Outpatient (BNV) | payer MEDICARE, BC, SELFPAY | PROVIDERS: Admitting Provider Nurse Practitioner Family; Emergency Provider Student in an Organized Health Care Education/Training Program; Visit Provider Internal Medicine | DX: J81.1 Chronic pulmonary edema (principal) | CPT/HCPCS: 99223; 99232; 99499 ==

== ENCOUNTER → 2025-09-28 02:59 | Outpatient (BNV) | payer MEDICARE, SELFPAY | PROVIDERS: Admitting Provider Nurse Practitioner Family; Emergency Provider Student in an Organized Health Care Education/Training Program; PCP Family Medicine; Visit Provider Internal Medicine Pulmonary Disease | DX: J96.01 Acute respiratory failure with hypoxia (principal); J81.1 Chronic pulmonary edema | CPT/HCPCS: 99223 ==